=== PATIENT | male | born 1970 | race Caucasian/White ===

== ENCOUNTER 2016-12-06 15:26 | Emergency (ER) | payer MEDICARE ==
[2016-12-06 15:27] VITALS: BMI 30.7
[2016-12-06 15:33] VITALS: BP 177/89; PULSE 76; RESP 22; TEMP 98.4; O2SAT 99
--- NOTE | 2016-12-06 15:53 | ED PDOC ---
Lower Extremity Pain/Injury Time Seen by Provider: 12/06/16 15:37 Chief Complaint (Nursing): Lower Extremity Problem/Injury Chief Complaint (Provider): Leg pain Additional Complaint(s): This is a 45 year old M with PMH of uncontrolled DM, ESRD on HD MWF,PVD, multiple right foot surgeries, presented to ED from [facility] for evaluation of b/l calf cramping, r/o DVT. Patient denies fever, chills, SOB, chest pain, palpitations, near syncope, dizziness, fatigue, abdominal pain. Patient is due for HD today at 1800. PMD:[facility]/ Dr. Koo/Dr. Millan Allergies: shellfish; pruritus; NKDA Medications: Hydralazine 50 mg TID, ASA 81 mg daily. Patient states he does not take insulin regimen due to diet and weight loss. Surgeries: AV shunt on R Upper extremity, multiple R foot surgeries Social: Patient admits to smoking 2 packs/day for "many years". Patient denies illicit drug use, and alcohol abuse. Past Medical History Reviewed: Historical Data, Nursing Documentation, Vital Signs Vital Signs: Last Vital Signs Temp 98.4 F 12/06/16 15:28 Pulse 76 12/06/16 15:28 Resp 22 12/06/16 15:28 BP 177/89 H 12/06/16 15:28 Pulse Ox 99 12/06/16 15:28 - Medical History PMH: Diabetes, HTN, End Stage Renal Disease, Chronic Kidney Disease Denies: Arthritis, CHF, COPD, HIV, Hypercholesterolemia, Hypothyroidism, Rheumatoid Arthritis - Family History Family History: States: Unknown Family Hx - Home Medications Home Medications: Ambulatory Orders Medication Instructions Recorded Aspirin [Aspirin Chewable] 81 mg PO PRN PRN 11/22/15 hydrALAZINE [hydralazine 50 mg PO TID 11/22/15 Hydrochloride] Atorvastatin [Lipitor] 40 mg PO DAILY #30 tab 09/12/16 Lisinopril [Prinivil] 5 mg PO DAILY #30 tablet 09/12/16 Metoprolol Tartrate [Lopressor] 12.5 mg PO BID #60 tab 09/12/16 Sevelamer [Renagel] 1,600 mg PO TID #90 tab 09/12/16 - Allergies Allergies/Adverse Reactions: Allergies Allergy/AdvReac Type Severity Reaction Status Date / Time shellfish Allergy ITCHING Uncoded 09/08/16 15:43 Review of Systems ROS Statement: Except As Marked, All Systems Reviewed And Found Negative Musculoskeletal: Positive for: Leg Pain Physical Exam - Reviewed Nursing Documentation Reviewed: Yes Vital Signs Reviewed: Yes - Physical Exam Appears: Positive for: Well, Non-toxic, No Acute Distress Head Exam: Positive for: ATRAUMATIC, NORMAL INSPECTION, NORMOCEPHALIC Skin: Positive for: Normal Color, Warm, DRY Eye Exam: Positive for: EOMI, Normal appearance, PERRL ENT: Positive for: Normal ENT Inspection Neck: Positive for: Normal, Painless ROM Cardiovascular/Chest: Positive for: Regular Rate, Rhythm Respiratory: Positive for: CNT, Normal Breath Sounds Gastrointestinal/Abdominal: Positive for: Normal Exam, Bowel Sounds, Soft Back: Positive for: Normal Inspection Extremity: Positive for: Normal ROM, Calf Tenderness Neurologic/Psych: Positive for: Alert, Oriented - Laboratory Results Result Diagrams: 12/06/16 17:48 12/06/16 17:48 - ECG O2 Sat by Pulse Oximetry: 99 Medical Decision Making Medical Decision Making: K WNL GUN 42 Cr 8 Duplex US LE b/l IMPRESSION: No evidence of deep venous thrombosis. Spoke to jack winder Bri [phone], Pt rescheduled to tomorrow at 1500. Case discussed with Dr. Koo as well, agreed Pt stable for discharge at this time and Pt is able to wait until tomorrow to undergo HD. Disposition - Clinical Impression Clinical Impression: End stage kidney disease, Lower extremity pain - Patient ED Disposition Is Patient to be Admitted: No - Disposition Disposition: Routine/Home Disposition Time: 17:00 Condition: STABLE Additional Instructions: Dialysis tomorrow at 3 pm! Instructions: Leg Cramps (ED) - POA Present On Arrival: None
[2016-12-06 18:05] LABS: BASO # 0.1 K/uL (0.0-0.2); BASO % 1.7 % (0.0-2.0); EOS # 0.1 K/uL (0.0-0.7); EOS % 2.9 % (0.0-4.0); HEMATOCRIT 34.5 % (35.0-51.0); LYMPH # 0.7 K/uL (1.0-4.3); LYMPH % 15.2 % (20.0-40.0); MEAN CELL VOLUME 95.9 fl (80.0-94.0); MEAN CORPUSCULAR HGB CONC 32.3 g/dL (33.0-37.0); MEAN PLATELET VOLUME 8.5 fl (7.2-11.7); MONO # 0.4 K/uL (0.0-0.8); MONO % 9.1 % (0.0-10.0); NEUT # 3.4 K/uL (1.8-7.0); NEUT % 71.1 % (50.0-75.0); RED CELL DISTRIBUTION WIDTH 15.1 % (11.5-14.5); WHITE BLOOD COUNT 4.8 K/uL (4.8-10.8)
[2016-12-06 18:09] LABS: ALB/GLOB RATIO 1.2 (1.0-2.1); BILIRUBIN,TOTAL 1.1 mg/dl (0.2-1.3); CALCIUM 8.9 mg/dL (8.4-10.2); POTASSIUM 4.4 MMOL/L (3.6-5.0); TOTAL PROTEIN 8.1 G/DL (6.3-8.2)
--- NOTE | 2016-12-06 18:12 | RAD ---
HISTORY: med screening COMPARISON: Comparison chest 09/08/2016 TECHNIQUE: Chest PA and lateral FINDINGS: LUNGS: No focal consolidation. Central pulmonary vasculature appears slightly prominent ; rule out chronic compensated pulmonary edema/CHF. PLEURA: No significant pleural effusion identified. No pneumothorax apparent. CARDIOVASCULAR: Heart appears enlarged. OSSEOUS STRUCTURES: No significant abnormalities. VISUALIZED UPPER ABDOMEN: Normal. OTHER FINDINGS: None. IMPRESSION: No acute infiltrates mildly prominent central pulmonary vasculature. Rule out mild chronic compensated pulmonary edema/CHF Cardiomegaly.
[2016-12-06 18:16] LABS: PARTIAL THROMBOPLASTIN TIME 28.9 SECONDS (23.3-32.5)
[2016-12-06 18:21] LABS: TROPONIN I 0.068 ng/mL (0.00-0.120)
--- NOTE | 2016-12-06 18:50 | US ---
PROCEDURE: Bilateral lower extremity venous duplex Doppler. HISTORY: r/o dvt COMPARISON: None available. TECHNIQUE: Bilateral common femoral, superficial femoral, popliteal and posterior tibial veins were evaluated. Flow was assessed with color Doppler, compressibility, assessment of phasic flow and augmentation response. FINDINGS: COMMON FEMORAL VEIN: Right CFV: Unremarkable. Left CFV: Unremarkable. SUPERFICIAL FEMORAL VEIN: Right SFV: Unremarkable. Left SFV: Unremarkable. POPLITEAL VEIN: Right Popliteal: Unremarkable. Left Popliteal: Unremarkable. POSTERIOR TIBIAL VEIN: Right PTV: Unremarkable. Left PTV: Unremarkable. OTHER FINDINGS: None. IMPRESSION: No evidence of deep venous thrombosis.
--- NOTE | 2016-12-07 11:35 | CARD ---
APPROVED REPORT EKG Measurement Heart [id number] <Conclusion> Normal sinus rhythm Left axis deviation Abnormal ECG
== END 2016-12-06 19:17 | disposition home or self-care (01) ==
LOC: H.ER 15:26
DX: M79.606 Pain in leg, unspecified (principal); N18.6 End stage renal disease; E11.9 Type 2 diabetes mellitus without complications

== ENCOUNTER 2017-01-22 15:17 | Emergency (ER) | payer MEDICARE ==
[2017-01-22 15:18] VITALS: BMI 30.7
[2017-01-22 15:26] VITALS: PULSE 76; TEMP 98.6; O2SAT 98
--- NOTE | 2017-01-22 15:41 | ED PDOC ---
HPI: Headache Time Seen by Provider: 01/22/17 15:31 Chief Complaint (Nursing): Headache Chief Complaint (Provider): Head Injury History Per: Patient Additional Complaint(s): Patient fell this am on kitchen floor. Patient has contusion on right side of scalp. Left shoulder pain. Patient due for dialysis today, patient rescheduled for sat. Patient took aspirin at 4am. Past Medical History Vital Signs: Last Vital Signs Temp 98.6 F 01/22/17 15:22 Pulse 76 01/22/17 15:22 Resp 18 01/22/17 15:22 BP 180/80 H 01/22/17 15:22 Pulse Ox 98 01/22/17 15:22 - Medical History PMH: Diabetes, HTN, End Stage Renal Disease, Chronic Kidney Disease Denies: Arthritis, CHF, COPD, HIV, Hypercholesterolemia, Hypothyroidism, Rheumatoid Arthritis - Family History Family History: States: Unknown Family Hx - Home Medications Home Medications: Ambulatory Orders Medication Instructions Recorded Aspirin [Aspirin Chewable] 81 mg PO PRN PRN 11/22/15 hydrALAZINE [hydralazine 50 mg PO TID 11/22/15 Hydrochloride] Atorvastatin [Lipitor] 40 mg PO DAILY #30 tab 09/12/16 Lisinopril [Prinivil] 5 mg PO DAILY #30 tablet 09/12/16 Metoprolol Tartrate [Lopressor] 12.5 mg PO BID #60 tab 09/12/16 Sevelamer [Renagel] 1,600 mg PO TID #90 tab 09/12/16 Cyclobenzaprine [Cyclobenzaprine 10 mg PO TID #20 tab 01/22/17 HCl] - Allergies Allergies/Adverse Reactions: Allergies Allergy/AdvReac Type Severity Reaction Status Date / Time shellfish Allergy ITCHING Uncoded 09/08/16 15:43 Physical Exam - Reviewed Nursing Documentation Reviewed: Yes Vital Signs Reviewed: Yes - Physical Exam Appears: Positive for: Well, Non-toxic, No Acute Distress Head Exam: Positive for: NORMAL INSPECTION, NORMOCEPHALIC. Negative for: ATRAUMATIC (large occipital scalp hematoms) Skin: Positive for: Normal Color, Warm, DRY Eye Exam: Positive for: EOMI, Normal appearance, PERRL ENT: Positive for: Normal ENT Inspection Neck: Positive for: Normal, Painless ROM Cardiovascular/Chest: Positive for: Regular Rate, Rhythm Respiratory: Positive for: CNT, Normal Breath Sounds Gastrointestinal/Abdominal: Positive for: Normal Exam, Bowel Sounds, Soft Back: Positive for: Normal Inspection Extremity: Positive for: Normal ROM Neurologic/Psych: Positive for: Alert, Oriented - Laboratory Results Result Diagrams: 01/22/17 16:34 01/22/17 16:34 - ECG O2 Sat by Pulse Oximetry: 98 Medical Decision Making Medical Decision Making: head and Cervical Spine CT: Negative XR of Shoulder: NAd, as read by PA-C Pt mediated with Flexeril PO, reports feeling improved on re-eval. ice applied to scalp hematoma Labs resulted and reviewed with pt who demonstrated full understanding. Pt reports his Dialysis that was cheduled today has been moved to tomorrow and Friday. Stable for discharge at this time. Advised to return to ED with any concerns. Disposition - Clinical Impression Clinical Impression: Head injury - Patient ED Disposition Is Patient to be Admitted: No - Disposition Disposition: Routine/Home Disposition Time: 16:00 Condition: STABLE Prescriptions: Cyclobenzaprine [Cyclobenzaprine HCl] 10 mg PO TID #20 tab Instructions: Head Injury (ED)
--- NOTE | 2017-01-22 16:41 | RAD ---
PROCEDURE: Left shoulder HISTORY: pain s.p slip and fall COMPARISON: None TECHNIQUE: Stable view FINDINGS: No significant/acute osseous, articular or soft tissue abnormalities. IMPRESSION: No acute findings related to/accounting for the clinical presentation. Limitations of the current examination: Single-view only left shoulder.
--- NOTE | 2017-01-22 16:46 | CT ---
PROCEDURE: CT HEAD WITHOUT CONTRAST. HISTORY: head injury COMPARISON: Noncontrast head CT images from 04/07/10 TECHNIQUE: Axial computed tomography images were obtained through the head/brain without intravenous contrast. Radiation dose: Total exam DLP = 858.46 mGy-cm. This CT exam was performed using one or more of the following dose reduction techniques: Automated exposure control, adjustment of the mA and/or kV according to patient size, and/or use of iterative reconstruction technique. FINDINGS: HEMORRHAGE: No intracranial hemorrhage. BRAIN: Diffuse atrophy with prominence of the ventricles and sulci noted. No mass effect or edema. Intracranial atherosclerotic calcifications. Mild scattered white matter hypodensities, which are nonspecific, but often seen with chronic microvascular ischemic disease. Please note that MRI with diffusion imaging is more sensitive in the detection of acute ischemic event. VENTRICLES: No hydrocephalus. CALVARIUM: Unremarkable. PARANASAL SINUSES: Unremarkable as visualized. No significant inflammatory changes. MASTOID AIR CELLS: Unremarkable as visualized. No inflammatory changes. OTHER FINDINGS: Hematoma/swelling of the right superior scalp. Hematoma/skin thickening of the posterior scalp. Subcutaneous 14 x 17 mm left scalp nodule, possibly sebaceous cyst. Partial opacification of the left external auditory canal, likely seroma. IMPRESSION: Hematoma/swelling of the right superior scalp. Hematoma/skin thickening of the posterior scalp. Subcutaneous 14 x 17 mm left scalp nodule, possibly sebaceous cyst. No acute intracranial pathology identified.
[2017-01-22 16:50] LABS: BASO # 0.1 K/uL (0.0-0.2); BASO % 1.4 % (0.0-2.0); EOS # 0.1 K/uL (0.0-0.7); HEMOGLOBIN 10.3 g/dL (12.0-18.0); LYMPH # 0.7 K/uL (1.0-4.3); LYMPH % 16.5 % (20.0-40.0); MEAN CELL VOLUME 95.4 fl (80.0-94.0); MEAN CORPUSCULAR HEMOGLOBIN 31.4 pg (27.0-31.0); MEAN CORPUSCULAR HGB CONC 32.9 g/dL (33.0-37.0); MEAN PLATELET VOLUME 9.5 fl (7.2-11.7); MONO # 0.4 K/uL (0.0-0.8); MONO % 9.3 % (0.0-10.0); NEUT % 69.8 % (50.0-75.0); RBC 3.29 Mil/uL (4.40-5.90); RED CELL DISTRIBUTION WIDTH 14.9 % (11.5-14.5); WHITE BLOOD COUNT 4.2 K/uL (4.8-10.8)
[2017-01-22 17:00] LABS: ALB/GLOB RATIO 1.2 (1.0-2.1); ALBUMIN 3.9 g/dL (3.5-5.0); CALCIUM 8.6 mg/dL (8.4-10.2)
--- NOTE | 2017-01-22 17:15 | CT ---
CT cervical spine without IV contrast Indication: Pain status post fall Comparison: None available. Technique: Axial computed tomography images were obtained of the cervical spine without the use of intravenous contrast. Coronal and sagittal reformatted images were created and reviewed. This CT exam was performed using 1 or more of the falling dose reduction techniques: Automated exposure control, adjustment of the MAA and/or kV according to patient size, and/or use of iterative reconstruction technique. Radiation dose: Total exam DLP = 503.67 mGy-cm. Findings: Straightening of the normal cervical lordosis may be related to muscle spasm or positioning. There is no evidence of acute fracture or subluxation. There is preserved alignment, vertebral body height, intervertebral disc spaces. The prevertebral soft tissues and spinolaminar lines appear intact. The lateral masses are preserved. The dens tip is intact. There is proper alignment of the lateral masses of C1 with the C2 vertebral body. Included portions of the thyroid gland appear unremarkable. Impression: Straightening of the normal cervical lordosis may be related to muscle spasm or positioning. No evidence of acute fracture or subluxation.
[2017-01-22 17:59] VITALS: BP 132/74; RESP 19
== END 2017-01-22 17:55 | disposition home or self-care (01) ==
LOC: H.ER 15:17
DX: S09.90XA Unspecified injury of head, initial encounter (principal); E11.22 Type 2 diabetes mellitus with diabetic chronic kidney disease; N18.6 End stage renal disease; Z79.82 Long term (current) use of aspirin; W01.0XXA Fall on same level from slipping, tripping and stumbling without subsequent striking against object, initial encounter; Y93.9 Activity, unspecified; Y92.000 Kitchen of unspecified non-institutional (private) residence as the place of occurrence of the external cause

== ENCOUNTER 2017-01-29 19:00 | Inpatient (IN) | payer MEDICARE ==
[2017-01-29 19:01] VITALS: BMI 30.7
[2017-01-29] MEDS ORDERED: Vancomycin 1 g Inj ONE (19:38)
--- NOTE | 2017-01-29 19:40 | ED PDOC ---
Lower Extremity Pain/Injury Time Seen by Provider: 01/29/17 19:25 Chief Complaint (Nursing): Lower Extremity Problem/Injury Chief Complaint (Provider): Lower Extremity Problem/Injury History Per: Patient History/Exam Limitations: no limitations Onset/Duration Of Symptoms: Days (x2 days) Current Symptoms Are (Timing): Still Present Additional Complaint(s): 46 y/o male with a past medical history of diabetes and chronic renal failure status post amputation of all toes on the right foot who presents to the emergency department with a complaint of redness and swelling to the right lower extremity in association with drainage to amputation site of the right foot x2 days. Reports he missed dialysis today due to symptoms on foot. Denies fever and chills. PMD: Dr. Ravi Rodriguez MD Past Medical History Reviewed: Historical Data, Nursing Documentation, Vital Signs Vital Signs: Last Vital Signs Temp 98.3 F 01/29/17 19:15 Pulse 86 01/29/17 19:15 Resp 18 01/29/17 19:15 BP 174/87 H 01/29/17 19:15 Pulse Ox 100 01/29/17 19:15 - Medical History PMH: Diabetes, HTN, End Stage Renal Disease, Chronic Kidney Disease Denies: Arthritis, CHF, COPD, HIV, Hypercholesterolemia, Hypothyroidism, Rheumatoid Arthritis - Surgical History Other surgeries: Amputation of all 5 toes from the right foot - Family History Family History: States: Unknown Family Hx - Social History Current smoker - smoking cessation education provided: Yes (Heavy Smoker > 10 Cigarettes ) Ex-Smoker (has not smoked in the last 12 months): No Alcohol: None Drugs: Denies - Home Medications Home Medications: Ambulatory Orders Medication Instructions Recorded Aspirin [Aspirin Chewable] 81 mg PO PRN PRN 11/22/15 hydrALAZINE [hydralazine 50 mg PO TID 11/22/15 Hydrochloride] Atorvastatin [Lipitor] 40 mg PO DAILY #30 tab 09/12/16 Lisinopril [Prinivil] 5 mg PO DAILY #30 tablet 09/12/16 Metoprolol Tartrate [Lopressor] 12.5 mg PO BID #60 tab 09/12/16 Sevelamer [Renagel] 1,600 mg PO TID #90 tab 09/12/16 Cyclobenzaprine [Cyclobenzaprine 10 mg PO TID #20 tab 01/22/17 HCl] - Allergies Allergies/Adverse Reactions: Allergies Allergy/AdvReac Type Severity Reaction Status Date / Time shellfish Allergy ITCHING Uncoded 09/08/16 15:43 Review of Systems ROS Statement: Except As Marked, All Systems Reviewed And Found Negative Constitutional: Negative for: Fever, Chills Musculoskeletal: Positive for: Leg Pain (Lower right extremity pain with redness and swelling. ), Other (Drainage to ammputation site of the right foot. ) Physical Exam - Reviewed Nursing Documentation Reviewed: Yes Vital Signs Reviewed: Yes - Physical Exam Appears: Positive for: Non-toxic, No Acute Distress Head Exam: Positive for: ATRAUMATIC, NORMAL INSPECTION, NORMOCEPHALIC Skin: Positive for: Normal Color, Warm, Dry Cardiovascular/Chest: Positive for: Regular Rate, Rhythm. Negative for: Murmur Respiratory: Positive for: Normal Breath Sounds. Negative for: Accessory Muscle Use, Respiratory Distress Gastrointestinal/Abdominal: Positive for: Normal Exam, Soft. Negative for: Tenderness Extremity: Positive for: Normal ROM, Tenderness (to the right rivera and peritubular area), Swelling (Swelling and warmth to the right rivera and peritubular area), Other (Right foot chronic ulcer to the 4th and 5th metatarsal area with foul smelling drainage. ). Negative for: Pedal Edema, Calf Tenderness - Laboratory Results Result Diagrams: 01/29/17 20:00 - ECG O2 Sat by Pulse Oximetry: 100 (RA) Pulse Ox Interpretation: Normal Medical Decision Making Medical Decision Making: Time: 19:31 Initial impression: Right lower leg pain Initial plan: --VBG Shock Panel --Electrocardiogram STAT --COMP Metabolic Panel --ED Urine Dipstick (POC) --EKG-ED (EDNURTX) --CBC w/ differential --Chest Two Views (PA/LAT) (RAD) --Vancomycin 1 gm --Blood Culture STAT --Duplex Lower Extrm Vein Right (US) --Reevaluation Scribe Attestation: Documented by Radha Rose, acting as a scribe for Junito Chilel MD. Provider Scribe Attestation: All medical record entries made by the Scribe were at my direction and personally dictated by me. I have reviewed the chart and agree that the record accurately reflects my personal performance of the history, physical exam, medical decision making, and the department course for this patient. I have also personally directed, reviewed, and agree with the discharge instructions and disposition. Disposition - Clinical Impression Clinical Impression: Diabetic foot infection - Patient ED Disposition Is Patient to be Admitted: Yes - Disposition Disposition Time: 20:00 Condition: FAIR - Pt Status Changed To: Hospital Disposition Of: Inpatient - Admit Certification Admit to Inpatient:: After my assessment, the patient will require hospitalization for at least two midnights. This is because of the severity of symptoms shown, intensity of services needed, and/or the medical risk in this patient being treated as an outpatient. - POA Present On Arrival: None
[2017-01-29 20:04] LABS: VENOUS BLOOD GAS PCO2 50 mmHg (40-60); VENOUS BLOOD GAS PO2 22 mm/Hg (30-55)
[2017-01-29 20:05] LABS: BASO # 0.1 K/uL (0.0-0.2); BASO % 1.2 % (0.0-2.0); EOS # 0.1 K/uL (0.0-0.7); EOS % 2.8 % (0.0-4.0); LYMPH # 0.8 K/uL (1.0-4.3); LYMPH % 16.6 % (20.0-40.0); MEAN CELL VOLUME 95.2 fl (80.0-94.0); MEAN CORPUSCULAR HEMOGLOBIN 31.4 pg (27.0-31.0); MEAN PLATELET VOLUME 9.2 fl (7.2-11.7); MONO # 0.5 K/uL (0.0-0.8); MONO % 9.6 % (0.0-10.0); NEUT # 3.3 K/uL (1.8-7.0); NEUT % 69.8 % (50.0-75.0); NRBC % 0.1 % (0.0-0.0); RBC 3.51 Mil/uL (4.40-5.90); RED CELL DISTRIBUTION WIDTH 15.3 % (11.5-14.5); WHITE BLOOD COUNT 4.7 K/uL (4.8-10.8)
--- NOTE | 2017-01-29 20:26 | CP.PCM.HP ---
History of Present Illness - History of Present Illness History of Present Illness: 46 yo M w PMHx of ESRD (HD on MWF), HTN, DM, and RLE complete digit amputation is admitted for RLE fullness, pain, and drainage for one day. He decided to skip today's dialysis appointment in order to receive it in the hospital, knowing that he was going to come here for his RLE pain. Pt states he attended a green party at a friend's house and sat around for a great deal of time. From that day, he began experiencing an increasing sensation of fullness/heaviness in his RLE. He denies any trauma, fall, accident, or inciting event to cause his pain. Today, he developed a dull, aching pain as well as saw some fluid drainage from his wound when he removed his sock. Pt denies fevers/chills, diaphoresis, nausea , vomiting, diarrhea, chest pain, SOB, dyspnea, cough, abdominal pain, hematuria , or dysuria. PMD: [facility] Podiatry: Dr Cerrato Nephro: Dr Koo PMHx: ESRD (HD MWF), HTN, DM PSHx: R TMA 2016, R TMA site skin graft Oct NKDA Home Meds: unsure of Hydralazine dosage and schedule, unsure of other medications; most meds not in eCW, information taken from recent admissions SHx: smokes 5 cigarettes per day, denies ETOH, denies illicit drugs ED Course: -CBC -BMP -VBG -BCx -Udip -EKG -CXR -U/S RLE -Vancomycin 1 gm Present on Admission - Present on Admission Any Indicators Present on Admission: No History of DVT/PE: No History of Uncontrolled Diabetes: No Urinary Catheter: No Decubitus Ulcer Present: No Review of Systems - Review of Systems All systems: reviewed and no additional remarkable complaints except (see HPI) Past Patient History - Infectious Disease Hx of Infectious Diseases: None - Past Medical History & Family History Past Medical History?: Yes - Past Social History Alcohol: None Drugs: Denies - CARDIAC Hx Congestive Heart Failure: No Hx Hypercholesterolemia: No Hx Hypertension: Yes - PULMONARY Hx Chronic Obstructive Pulmonary Disease (COPD): No - NEUROLOGICAL HX Cerebrovascular Accident: No - HEENT Hx HEENT Problems: Yes Hx Cataracts: Yes - RENAL Hx Chronic Kidney Disease: Yes - ENDOCRINE/METABOLIC Hx Hypothyroidism: No - HEMATOLOGICAL/ONCOLOGICAL Hx Human Immunodeficiency Virus (HIV): No - INTEGUMENTARY Hx Dermatological Problems: No - MUSCULOSKELETAL/RHEUMATOLOGICAL Hx Arthritis: No Hx Rheumatoid Arthritis: No - GASTROINTESTINAL Hx Gastrointestinal Disorders: No - GENITOURINARY/GYNECOLOGICAL Hx Genitourinary Disorders: No - PSYCHIATRIC Hx Psychophysiologic Disorder: No Hx Substance Use: No - SURGICAL HISTORY Hx Surgeries: Yes Hx Amputation: Yes (TRANSMETATARSAL RIGHT FT) Hx Cataract Extraction: Yes (Right eye - 2008) Other/Comment: rt upper shunt 09/05/2016 - ANESTHESIA Hx Anesthesia: Yes Hx Anesthesia Reactions: No Hx Malignant Hyperthermia: No Meds Allergies/Adverse Reactions: Allergies Allergy/AdvReac Type Severity Reaction Status Date / Time shellfish Allergy ITCHING Uncoded 09/08/16 15:43 Physical Exam - Constitutional Appears: Non-toxic, No Acute Distress - Head Exam Head Exam: ATRAUMATIC, NORMOCEPHALIC - Eye Exam Eye Exam: EOMI - ENT Exam ENT Exam: Mucous Membranes Moist - Respiratory Exam Respiratory Exam: Clear to Auscultation Bilateral, NORMAL BREATHING PATTERN. absent: Wheezes - Cardiovascular Exam Cardiovascular Exam: REGULAR RHYTHM, RRR. absent: Irregular Rhythm - GI/Abdominal Exam GI & Abdominal Exam: Soft. absent: Distended, Firm, Guarding, Tenderness - Extremities Exam Extremities exam: Positive for: tenderness (distal Right rivera). Negative for: calf tenderness, pedal edema Additional comments: as seen w podiatry: no open lesions, no drainage, no malodor, no purulence, TMA site closed - Expanded Upper Extremities Exam Right Upper Arm exam: deformity (right upper arm shunt) - Neurological Exam Neurological exam: Alert, Oriented x3 - Skin Skin Exam: Dry, Normal Color, Warm Results - Vital Signs Recent Vital Signs: Last Vital Signs Temp 98.3 F 01/29/17 19:15 Pulse 86 01/29/17 19:15 Resp 18 01/29/17 19:15 BP 174/87 H 01/29/17 19:15 Pulse Ox 100 01/29/17 20:23 - Labs Result Diagrams: 01/29/17 20:00 01/29/17 22:25 Labs: Laboratory Results - last 24 hr 01/29/17 01/29/17 19:59 20:00 WBC 4.7 L RBC 3.51 L Hgb 11.0 L Hct 33.4 L MCV 95.2 H MCH 31.4 H MCHC 33.0 RDW 15.3 H Plt Count 130 MPV 9.2 Neut % (Auto) 69.8 Lymph % (Auto) 16.6 L Rutherford % (Auto) 9.6 Eos % (Auto) 2.8 Baso % (Auto) 1.2 Neut # 3.3 Lymph # 0.8 L Rutherford # 0.5 Eos # 0.1 Baso # 0.1 pO2 22 L VBG pH 7.40 VBG pCO2 50 VBG HCO3 27.2 VBG Total CO2 32.5 H VBG O2 Sat (Calc) 42.6 VBG Base Excess 5.0 H VBG Potassium 5.0 Sodium 134.0 Chloride 96.0 L Glucose 102 Lactate 0.9 FiO2 21.0 Venous Blood Potassium 5.0 Assessment & Plan - Assessment and Plan (Free Text) Assessment: 46 yo M w PMHx of ESRD (HD on MWF), HTN, DM, and RLE full digit amputation is admitted for RLE fullness, pain, with drainage for one day and missing his dialysis 1) ESRD -Missed today's dialysis, regularly scheduled for MWF -BUN/Cr: 63/9.1, GFR: 6 -Spoke w Dr Koo, Nephro aware of patient -Stat HD ordered -Sevelamer 1,600mg PO TID -f/u Nephro Recommendations -f/u BMP in AM 2) RLE Wound -Vancomycin 1g IVPB STAT [ED] -f/u R foot official XR -f/u CBC in AM -f/u ID Consult 3) HTN -Awaiting Dialysis, BPs presently 170s/90s -Hydralazine 50mg PO TID -Lisinopril 5mg PO Daily -Metoprolol 12.5mg PO Q12H -f/u BP measurements to ensure proper control s/p dialysis 4) DM -Lipitor 40mg PO Daily -ASA 81mg PO Daily -Glipizide 5mg PO Daily -Lispro 15u SC BID -Lispro MDSS ACHS -f/u FS ACHS 5) DVT Prophylaxis -Heparin 5,000u SC Q12H due to ESRD
--- NOTE | 2017-01-29 23:35 | CP.PCM.CON ---
History of Present Illness - History of Present Illness History of Present Illness: 46 y.o male with PMH of DM, HTN, ESRD, and CKD presents to the ED for right lower extremity pain, swelling, and redness. He is a patient of Dr. Cerrato who has continue caring for right healed TMA amputation 2 years ago. He states 2 days ago during a shower, he noted that there was a piece of dry skin hanging from his right foot. He peeled it and his foot started bleeding. He stopped the bleeding that night and have not noticed any bleeding or drainage since. He states that he is neuropathy and does not know if there is a wound underneath his foot but his leg has been feeling "heavy" lately. He states that his right leg "does not feel right" which caused him to miss his dialysis appointment. Patient denies v/sob/cp/f/chills. Patient admits to having nausea after dialysis for the past 2 weeks. PMH: DM, HTN, ESRD, and CKD PSH: TMA right foot Allergies: Shellfish Review of Systems - Review of Systems All systems: reviewed and no additional remarkable complaints except (per HPI) Past Patient History - Infectious Disease Hx of Infectious Diseases: None - Past Medical History & Family History Past Medical History?: Yes - Past Social History Alcohol: None Drugs: Denies - CARDIAC Hx Congestive Heart Failure: No Hx Hypercholesterolemia: No Hx Hypertension: Yes - PULMONARY Hx Chronic Obstructive Pulmonary Disease (COPD): No - NEUROLOGICAL HX Cerebrovascular Accident: No - HEENT Hx HEENT Problems: Yes - RENAL Hx Chronic Kidney Disease: Yes - ENDOCRINE/METABOLIC Hx Hypothyroidism: No - HEMATOLOGICAL/ONCOLOGICAL Hx Human Immunodeficiency Virus (HIV): No - INTEGUMENTARY Hx Dermatological Problems: No - MUSCULOSKELETAL/RHEUMATOLOGICAL Hx Arthritis: No Hx Rheumatoid Arthritis: No - GASTROINTESTINAL Hx Gastrointestinal Disorders: No - GENITOURINARY/GYNECOLOGICAL Hx Genitourinary Disorders: No - PSYCHIATRIC Hx Psychophysiologic Disorder: No - SURGICAL HISTORY Hx Surgeries: Yes Hx Amputation: Yes (TRANSMETATARSAL RIGHT FT) Hx Cataract Extraction: Yes (Right eye - 2008) Other/Comment: rt upper shunt 09/05/2016 - ANESTHESIA Hx Anesthesia: Yes Hx Anesthesia Reactions: No Hx Malignant Hyperthermia: No Meds Allergies/Adverse Reactions: Allergies Allergy/AdvReac Type Severity Reaction Status Date / Time shellfish Allergy ITCHING Uncoded 09/08/16 15:43 - Medications Medications: Current Medications Aspirin (Aspirin Chewable) 81 mg PO DAILY PRN PRN Reason: MUSLCE PAIN Atorvastatin Calcium (Lipitor) 40 mg PO DAILY [facility] Hydralazine HCl (Apresoline) 50 mg PO TID [facility] Lisinopril (Zestril) 5 mg PO DAILY [facility] Sevelamer HCl (Renagel) 1,600 mg PO TID [facility] Physical Exam - Constitutional Appears: Well, Non-toxic, No Acute Distress - Extremities Exam Additional comments: Vasc: DP 1/4 bilaterally, PT 1/4 bilaterally, temperature gradient WNL left leg , right leg warm to warm, [employer] < 3 sec to all digits, edema noted to right leg. Ortho: pain with palpation of the entire right calf and foot. Neuro: grossly diminished bilaterally Derm: TMA site closed with scaling and hypertrophic growth at the distal tip noted, no open lesions, no drainage, no malodor, no purulence noted. Discolored stain skin noted to the distal lateral aspect of the closed TMA site secondary to continued gentia lis application; no necrotic skin noted. - Neurological Exam Neurological exam: Alert, Oriented x3 - Psychiatric Exam Psychiatric exam: Normal Affect, Normal Mood Results - Vital Signs Recent Vital Signs: Last Vital Signs Temp 99.2 F 01/29/17 21:55 Pulse 82 01/29/17 21:55 Resp 16 01/29/17 21:55 BP 179/90 H 01/29/17 21:55 Pulse Ox 95 01/29/17 21:54 - Labs Result Diagrams: 01/29/17 20:00 01/29/17 22:25 Labs: Laboratory Results - last 24 hr 01/29/17 01/29/17 01/29/17 19:59 20:00 22:25 WBC 4.7 L RBC 3.51 L Hgb 11.0 L Hct 33.4 L MCV 95.2 H MCH 31.4 H MCHC 33.0 RDW 15.3 H Plt Count 130 MPV 9.2 Neut % (Auto) 69.8 Lymph % (Auto) 16.6 L [place] % (Auto) 9.6 Eos % (Auto) 2.8 Baso % (Auto) 1.2 Neut # 3.3 Lymph # 0.8 L [place] # 0.5 Eos # 0.1 Baso # 0.1 pO2 22 L VBG pH 7.40 VBG pCO2 50 VBG HCO3 27.2 VBG Total CO2 32.5 H VBG O2 Sat (Calc) 42.6 VBG Base Excess 5.0 H VBG Potassium 5.0 Sodium 134.0 137 Chloride 96.0 L 97 L Glucose 102 Lactate 0.9 FiO2 21.0 Potassium 5.0 Carbon Dioxide 28 Anion Gap 17 BUN 63 H Creatinine 9.1 H* Est GFR ( Amer) 8 Est GFR (Non-Af Amer) 6 Random Glucose 104 Calcium 9.0 Venous Blood Potassium 5.0 Assessment & Plan - Assessment and Plan (Free Text) Assessment: 46 y.o male with right LLE swelling and redness Plan: Patient was examined and evaluated. Vitals, chart, and labs were reviewed (afebrile, WBC 4.7) Discussed plan in detail with attending Dr. Cerrato X-rays ordered of right foot- no gas emphysema noted, no fracture noted F/U ultrasound results- to rule out DVT No dressing is needed at this time for right LLE; no open lesions noted Podiatry will continue to follow in house - Date & Time Date: 01/29/17 Time: 10:00
--- NOTE | 2017-01-29 23:41 | CP.PCM.CON ---
History of Present Illness - History of Present Illness History of Present Illness: REASONS FOR CONSULT : ESRD ON HD [facility]. MISSED HIS OUT PT HD HE CAME TO ER ANEMIA OF CKD .. HGB 11 STABLE ELECTROLYTE ABNORMALITIES .. [place] NOW R [place] 46 y/o male with a past medical history of diabetes and chronic renal failure status post amputation of all toes on the right foot who presents to the emergency department with a complaint of redness and swelling to the right lower extremity in association with drainage to amputation site of the right foot x2 days. Reports he missed dialysis today due to symptoms on foot. Denies fever and chills. PMD: Dr. Ravi Rodriguez MD Past Medical History Reviewed: Historical Data, Nursing Documentation, Vital Signs Vital Signs: Last Vital Signs Temp 98.3 F 01/29/17 19:15 Pulse 86 01/29/17 19:15 Resp 18 01/29/17 19:15 BP 174/87 H 01/29/17 19:15 Pulse Ox 100 01/29/17 19:15 - Medical History PMH: Diabetes, HTN, End Stage Renal Disease, Chronic Kidney Disease Denies: Arthritis, CHF, COPD, HIV, Hypercholesterolemia, Hypothyroidism, Rheumatoid Arthritis - Surgical History Other surgeries: Amputation of all 5 toes from the right foot - Family History Family History: States: Unknown Family Hx Past Patient History - Infectious Disease Hx of Infectious Diseases: None - Past Medical History & Family History Past Medical History?: Yes - Past Social History Alcohol: None Drugs: Denies - CARDIAC Hx Congestive Heart Failure: No Hx Hypercholesterolemia: No Hx Hypertension: Yes - PULMONARY Hx Chronic Obstructive Pulmonary Disease (COPD): No - NEUROLOGICAL HX Cerebrovascular Accident: No - HEENT Hx HEENT Problems: Yes - RENAL Hx Chronic Kidney Disease: Yes - ENDOCRINE/METABOLIC Hx Hypothyroidism: No - HEMATOLOGICAL/ONCOLOGICAL Hx Human Immunodeficiency Virus (HIV): No - INTEGUMENTARY Hx Dermatological Problems: No - MUSCULOSKELETAL/RHEUMATOLOGICAL Hx Arthritis: No Hx Rheumatoid Arthritis: No - GASTROINTESTINAL Hx Gastrointestinal Disorders: No - GENITOURINARY/GYNECOLOGICAL Hx Genitourinary Disorders: No - PSYCHIATRIC Hx Psychophysiologic Disorder: No - SURGICAL HISTORY Hx Surgeries: Yes Hx Amputation: Yes (TRANSMETATARSAL RIGHT FT) Hx Cataract Extraction: Yes (Right eye - 2008) Other/Comment: rt upper shunt 09/05/2016 - ANESTHESIA Hx Anesthesia: Yes Hx Anesthesia Reactions: No Hx Malignant Hyperthermia: No Meds Allergies/Adverse Reactions: Allergies Allergy/AdvReac Type Severity Reaction Status Date / Time shellfish Allergy ITCHING Uncoded 09/08/16 15:43 - Medications Medications: Current Medications Aspirin (Aspirin Chewable) 81 mg PO DAILY PRN PRN Reason: MUSLCE PAIN Atorvastatin Calcium (Lipitor) 40 mg PO DAILY [facility]IS M Hydralazine HCl (Apresoline) 50 mg PO TID [facility] M Lisinopril (Zestril) 5 mg PO DAILY [facility] M Sevelamer HCl (Renagel) 1,600 mg PO TID [facility]IS M Results - Vital Signs Recent Vital Signs: Last Vital Signs Temp 99.2 F 01/29/17 23:34 Pulse 82 01/29/17 23:34 Resp 16 01/29/17 23:34 BP 179/90 H 01/29/17 23:34 Pulse Ox 95 01/29/17 23:34 - Labs Result Diagrams: 01/29/17 20:00 01/29/17 22:25 Labs: Laboratory Results - last 24 hr 01/29/17 01/29/17 01/29/17 19:59 20:00 22:25 WBC 4.7 L RBC 3.51 L Hgb 11.0 L Hct 33.4 L MCV 95.2 H MCH 31.4 H MCHC 33.0 RDW 15.3 H Plt Count 130 MPV 9.2 Neut % (Auto) 69.8 Lymph % (Auto) 16.6 L [place] % (Auto) 9.6 Eos % (Auto) 2.8 Baso % (Auto) 1.2 Neut # 3.3 Lymph # 0.8 L [place] # 0.5 Eos # 0.1 Baso # 0.1 pO2 22 L VBG pH 7.40 VBG pCO2 50 VBG HCO3 27.2 VBG Total CO2 32.5 H VBG O2 Sat (Calc) 42.6 VBG Base Excess 5.0 H VBG Potassium 5.0 Sodium 134.0 137 Chloride 96.0 L 97 L Glucose 102 Lactate 0.9 FiO2 21.0 Potassium 5.0 Carbon Dioxide 28 Anion Gap 17 BUN 63 H Creatinine 9.1 H* Est GFR ( Amer) 8 Est GFR (Non-Af Amer) 6 Random Glucose 104 Calcium 9.0 Venous Blood Potassium 5.0 Assessment & Plan - Assessment and Plan (Free Text) Assessment: ESRD ON HD W .. WILL GIVE HD NOW ( [facility] ).. THEN M W F ANEMIA OF CKD .. HGB 11 .. NO NEED FOR EPO ELECTROLYTES R [place] MULTIPLE CO MORBIDITIES CAME IN WITH INFECTED DIABETIC FOOT P : HD NOW .. LILIAM D/W HD RN .. ORDERS GIVEN C/O CURRENT CARE .. C/O PRESENT MANAGEMENT - Date & Time Date: 01/29/17 Time: 20:00
[2017-01-30 05:50] LABS: HEMOGLOBIN 10.8 g/dL (12.0-18.0); MEAN CORPUSCULAR HEMOGLOBIN 31.1 pg (27.0-31.0); MEAN CORPUSCULAR HGB CONC 32.8 g/dL (33.0-37.0); RBC 3.46 Mil/uL (4.40-5.90); RED CELL DISTRIBUTION WIDTH 15.2 % (11.5-14.5); WHITE BLOOD COUNT 3.7 K/uL (4.8-10.8)
[2017-01-30 06:16] LABS: CALCIUM 8.9 mg/dL (8.4-10.2)
[2017-01-30] MEDS: Insulin Lispro (humaLOG) 100 Units/ml Inj SC SCH ×5 (06:41→22:00)
[2017-01-30] MEDS ORDERED: Insulin Regular 100 units/ml SC SCH ×2 (07:30→09:00)
[2017-01-30] MEDS ORDERED: INSULIN ASPART 15 UNIT SC SCH (09:00)
[2017-01-30] MEDS ORDERED: Insulin Lispro (humaLOG) 100 Units/ml Inj SC SCH (09:00)
[2017-01-30] MEDS ORDERED: SEVELAMER CARBONATE PO SCH (09:00)
--- NOTE | 2017-01-30 12:36 | RAD ---
HISTORY: CRF COMPARISON: 12/06/2016 TECHNIQUE: Chest PA and lateral FINDINGS: LUNGS: No active pulmonary disease. PLEURA: No significant pleural effusion identified. No pneumothorax apparent. CARDIOVASCULAR: No radiographic findings to suggest acute or significant cardiovascular disease. OSSEOUS STRUCTURES: No significant abnormalities. VISUALIZED UPPER ABDOMEN: Normal. OTHER FINDINGS: None. IMPRESSION: No active disease. No significant interval change compared to the prior examination(s).
--- NOTE | 2017-01-30 12:42 | US ---
PROCEDURE: Right lower extremity venous duplex Doppler. HISTORY: r/o DVT COMPARISON: None available. TECHNIQUE: Common femoral, superficial femoral, popliteal and posterior tibial veins were evaluated. Flow was assessed with color Doppler, compressibility, assessment of phasic flow and augmentation response. FINDINGS: COMMON FEMORAL VEIN: Unremarkable. SUPERFICIAL FEMORAL VEIN: Unremarkable. POPLITEAL VEIN: Unremarkable. POSTERIOR TIBIAL VEIN: Unremarkable. OTHER FINDINGS: Enlarged right inguinal lymph node measuring approximately 1.2 cm in short axis with evidence of fatty hilum. IMPRESSION: No evidence of deep venous thrombosis in the right lower extremity. Enlarged right inguinal lymph node measures approximately 1.2 cm in short axis. Soft tissue edema, right ankle. Preliminary impression was provided by virtual radiologic.
--- NOTE | 2017-01-30 12:51 | CP.PCM.PN ---
Subjective - Date & Time of Evaluation Date of Evaluation: 01/30/17 Time of Evaluation: 12:48 - Subjective Subjective: 46 y/o male seen at bedside for right lower extremity pain, swelling, and redness. Pt is AAOx3 and is in NAD. Pt states that he was bleeding a little from his foot last night. Pt denies of any pain from the foot but states that his calf feels little tender. Pt denies of any acute overnight events. Pt denies of any F/N/V/C/SOB today. Pt denies of any new pedal complaints. Objective - Vital Signs/Intake and Output Vital Signs (last 24 hours): Temp Pulse Resp BP Pulse Ox 97.4 F L 80 18 170/70 H 100 01/30/17 12:12 01/30/17 12:24 01/30/17 12:12 01/30/17 12:24 01/30/17 12:12 - Medications Medications: Current Medications Aspirin (Aspirin Chewable) 81 mg PO DAILY PRN PRN Reason: MUSLCE PAIN Atorvastatin Calcium (Lipitor) 40 mg PO DAILY [facility] Last Admin: 01/30/17 08:30 Dose: 40 mg Glipizide (Glucotrol) 5 mg PO DAILY [facility] Last Admin: 01/30/17 08:29 Dose: 5 mg Heparin Sodium (Porcine) (Heparin) 5,000 units SC Q12 [facility] PRN Reason: Protocol Last Admin: 01/30/17 08:29 Dose: 5,000 units Hydralazine HCl (Apresoline) 50 mg PO TID [facility] Last Admin: 01/30/17 12:24 Dose: 50 mg Insulin Human Lispro (Humalog) 15 units SC BID [facility] Last Admin: 01/30/17 08:30 Dose: 15 units Insulin Human Lispro (Humalog) 0 units SC ACHS [facility] PRN Reason: Protocol Last Admin: 01/30/17 11:17 Dose: Not Given Lisinopril (Zestril) 5 mg PO DAILY [facility] Last Admin: 01/30/17 08:31 Dose: 5 mg Metoprolol Tartrate (Lopressor) 12.5 mg PO Q12 [facility] Last Admin: 01/30/17 08:30 Dose: 12.5 mg Sevelamer HCl (Renagel) 1,600 mg PO TID [facility] Last Admin: 07/06/17 12:24 Dose: 1,600 mg - Labs Labs: 01/30/17 05:00 01/30/17 05:00 - Constitutional Appears: Well, Toxic, No Acute Distress - Extremities Exam Additional comments: Vasc: DP/PT pulses are palpable 1/4 b/l, TUB OPERATOR: < 3 sec x 10, temperature gradient : warm to cool, mild non-pitting edema noted to right leg. Derm: TMA on R foot with scaling and hypertrophic growth at the distal tip noted , open lesion on the distal lateral aspect of TMA site, no active drainage, no malodor, no purulence noted, no probe to bone, no clinical suspicion of infection Neuro: Protective sensation grossly diminished bilaterally Ortho: mild tenderness on right calf - Neurological Exam Neurological Exam: Alert, Awake, Oriented x3 - Psychiatric Exam Psychiatric exam: Normal Affect, Normal Mood Assessment and Plan - Assessment and Plan (Free Text) Assessment: 46 y/o male seen at bedside with right LLE swelling and redness secondary to possible DVT Plan: Pt evaluated and chart reviewed Pt discussed in details with attending Dr. Cerrato Labs and vitals reviewed: (afebrile, WBC @ 3.7) RLE Ultrasound - final report suggests no evidence of DVT X-rays ordered of right foot- no gas emphysema noted, no fracture noted Wound cultures taken Lesion dressed using betadine, DSD and kurlix Pt stable from podiatry standpoint Pt to follow up in wound clinic with Dr. Cerrato Pt demonstrated verbal understanding Podiatry to follow patient while in-house
--- NOTE | 2017-01-30 14:19 | CP.PCM.PN ---
Subjective - Date & Time of Evaluation Date of Evaluation: 01/30/17 Time of Evaluation: 14:19 - Subjective Subjective: Pt seen and examined. complaining of pain to RLE up to knee. denies fever, n/v and diarrhea. patient had dialysis this morning. Objective - Vital Signs/Intake and Output Vital Signs (last 24 hours): Temp Pulse Resp BP Pulse Ox 97.4 F L 80 18 170/70 H 100 01/30/17 12:12 01/30/17 12:24 01/30/17 12:12 01/30/17 12:24 01/30/17 12:12 - Medications Medications: Current Medications Aspirin (Aspirin Chewable) 81 mg PO DAILY PRN PRN Reason: MUSLCE PAIN Atorvastatin Calcium (Lipitor) 40 mg PO DAILY [facility] Last Admin: 01/30/17 08:30 Dose: 40 mg Glipizide (Glucotrol) 5 mg PO DAILY [facility] Last Admin: 01/30/17 08:29 Dose: 5 mg Heparin Sodium (Porcine) (Heparin) 5,000 units SC Q12 [facility] PRN Reason: Protocol Last Admin: 01/30/17 08:29 Dose: 5,000 units Hydralazine HCl (Apresoline) 50 mg PO TID [facility] Last Admin: 01/30/17 12:24 Dose: 50 mg Insulin Human Lispro (Humalog) 15 units SC BID [facility] Last Admin: 01/30/17 08:30 Dose: 15 units Insulin Human Lispro (Humalog) 0 units SC ACHS [facility] PRN Reason: Protocol Last Admin: 01/30/17 11:17 Dose: Not Given Lisinopril (Zestril) 5 mg PO DAILY [facility] Last Admin: 01/30/17 08:31 Dose: 5 mg Metoprolol Tartrate (Lopressor) 12.5 mg PO Q12 [facility] Last Admin: 01/30/17 08:30 Dose: 12.5 mg Sevelamer HCl (Renagel) 1,600 mg PO TID [facility] Last Admin: 01/30/17 12:24 Dose: 1,600 mg - Labs Labs: 01/30/17 05:00 01/30/17 05:00 - Constitutional Appears: Well, No Acute Distress - Head Exam Head Exam: ATRAUMATIC, NORMAL INSPECTION, NORMOCEPHALIC - Eye Exam Eye Exam: EOMI, Normal appearance - Neck Exam Neck Exam: Full ROM - Respiratory Exam Respiratory Exam: Clear to Ausculation Bilateral, NORMAL BREATHING PATTERN. absent: Accessory Muscle Use, Chest Wall Tenderness, Decreased Breath Sounds - Cardiovascular Exam Cardiovascular Exam: +S1, +S2. absent: Bradycardia, Tachycardia, Irregular Rhythm, +S4, Murmur - GI/Abdominal Exam GI & Abdominal Exam: Soft, Normal Bowel Sounds. absent: Tenderness - Extremities Exam Extremities Exam: Calf Tenderness (b/l but more prominent around right ankle), Tenderness. absent: Pedal Edema - Back Exam Back Exam: absent: CVA tenderness (L), CVA tenderness (R) - Neurological Exam Neurological Exam: Alert, Awake, CN II-XII Intact, Oriented x3 Neuro motor strength exam: Left Upper Extremity: 5, Right Upper Extremity: 5, Left Lower Extremity: 4, Right Lower Extremity: 4 - Psychiatric Exam Psychiatric exam: Anxious, Normal Mood - Skin Skin Exam: Normal Color - Additional Findings Additional findings: no drainage, no malodor, no purulence at [facility] site, small skin opening laterally at [facility] site Assessment and Plan - Assessment and Plan (Free Text) Assessment: 46 yo M w PMHx of ESRD (HD on MWF), HTN, DM, and RLE full digit amputation is admitted for RLE pain, swelling with drainage for one day and missing his dialysis. RLE Wound s/p transmetatarsal amputation -chronic RLE wound, following with Dr. Cerrato in wound care clinic weekly -mild discharged still present at [facility] site -RLE Ultrasound - prelimanary report suggests no evidence of DVT -X-rays ordered of right foot- which appeared to show no gas emphysema or fracture -f/u R foot official XR -f/u Wound cultures -Lesion dressed using betadine, DSD and kurlix -podiatry will follow pt -PT evalv requested ESRD -completed dialysis this morning, regularly scheduled for MWF -BUN/Cr: 28/4.3, GFR: 15 -Nephro aware of patient, Dr Koo -Vicky 1,600mg PO TID HTN -Uncontolled BP, sustolic is as high as 196. -questionable adherence to home meds -continue Hydralazine 50mg PO TID -Lisinopril changed to 10mg PO Daily from 5mg -continue Metoprolol 12.5mg PO Q12H -f/u BP measurements to ensure proper control IDDM2 -Lipitor 40mg PO Daily -ASA 81mg PO Daily -Glipizide 5mg PO Daily -Lispro 15u SC BID changes to 10u BID due to Hypoglaycemia -Lispro MDSS ACHS -f/u FS ACHS DVT Prophylaxis -Heparin 5,000u SC Q12H due to ESRD
--- NOTE | 2017-01-30 16:09 | RAD ---
PROCEDURE: Right Foot Radiographs. HISTORY: right foot pain COMPARISON: None. FINDINGS: BONES: Status post midfoot amputation. There is diffuse bone demineralization. There is no acute fracture or bone destruction. There is a large plantar calcaneal spur. The is a linear or ossific/calcific density inferior to the anterior calcaneus. JOINTS: Normal. SOFT TISSUES: There is soft tissue irregularity in the amputation stump. There are skin isaiah cyst superiorly and diffuse soft tissue swelling in the foot. OTHER FINDINGS: None. IMPRESSION: Status post midfoot amputation, diffuse soft tissue swelling in the foot and soft tissue irregularity in the stump.
[2017-01-30 16:58] LABS: HEPATITIS B SURFACE AG NEGATIVE (NEGATIVE)
[2017-01-30 17:03] LABS: HEPATITIS B CORE AB NEGATIVE (NEGATIVE)
--- NOTE | 2017-01-30 17:59 | CARD ---
APPROVED REPORT EKG Measurement Heart [id number] <Conclusion> Normal sinus rhythm Left anterior fascicular block Abnormal ECG
--- NOTE | 2017-01-30 19:40 | CP.PCM.PN ---
Subjective - Date & Time of Evaluation Date of Evaluation: 01/30/17 Time of Evaluation: 15:00 - Subjective Subjective: SEEN ON RENAL F/U RECIEVED HIS HD VERY EARLY TODAY .. TOLERATED WELL C/O R LOWER LEG LOCAL PAIN ALL PREVIOUS EMR REVIEWED Objective - Vital Signs/Intake and Output Vital Signs (last 24 hours): Temp Pulse Resp BP Pulse Ox 97.9 F 77 20 161/72 H 100 01/30/17 16:01 01/30/17 16:26 01/30/17 16:01 01/30/17 16:26 01/30/17 16:01 - Medications Medications: Current Medications Aspirin (Aspirin Chewable) 81 mg PO DAILY PRN PRN Reason: MUSLCE PAIN Atorvastatin Calcium (Lipitor) 40 mg PO DAILY [facility] Last Admin: 01/30/17 08:30 Dose: 40 mg Glipizide (Glucotrol) 5 mg PO DAILY [facility] Last Admin: 01/30/17 08:29 Dose: 5 mg Heparin Sodium (Porcine) (Heparin) 5,000 units SC Q12 [facility] PRN Reason: Protocol Last Admin: 01/30/17 08:29 Dose: 5,000 units Hydralazine HCl (Apresoline) 50 mg PO TID [facility] Last Admin: 01/30/17 16:26 Dose: 50 mg Insulin Human Lispro (Humalog) 0 units SC ACHS [facility] PRN Reason: Protocol Last Admin: 01/30/17 16:27 Dose: Not Given Insulin Human Lispro (Humalog) 10 units SC BID [facility] Last Admin: 01/30/17 16:28 Dose: Not Given Lisinopril (Zestril) 10 mg PO DAILY [facility] Metoprolol Tartrate (Lopressor) 12.5 mg PO Q12 [facility] Last Admin: 01/30/17 08:30 Dose: 12.5 mg Sevelamer HCl (Renagel) 1,600 mg PO TID [facility] Last Admin: 01/30/17 16:28 Dose: 1,600 mg Vitamin B Complex/Vit C/Folic Acid (Nephro-Sanjay) 1 tab PO DAILY [facility] - Labs Labs: 01/30/17 05:00 01/30/17 05:00 Assessment and Plan - Assessment and Plan (Free Text) Assessment: ESRD ON HD M W F .. NEXT HD TOMORROW ANEMIA OF CKD .. H/H STABLE .. NO NEED FOR EPO R FOOT INFECTED DIABETIC FOOT .. PODIATRY ON CONSULT DM .. HTN .. HYPERLEPIDIMIA P : CHECK MG PHOS AND VIT D25 ADD WATER SOLUBLE VIT ADD VIT D C/O CURRENT CARE
[2017-01-30] MEDS ORDERED: Ergocalciferol 50,000 Intl Units Cap PO SCH (19:45)
[2017-01-31 04:57] VITALS: O2SAT 100
--- NOTE | 2017-01-31 06:47 | CP.PCM.PN ---
Subjective - Date & Time of Evaluation Date of Evaluation: 01/31/17 Time of Evaluation: 06:45 - Subjective Subjective: 46 year old male patient seen at bedside for possible RLE DVT and R TMA plantar ulceration. Patient is resting comfortably, AAOx3 and NAD. Patient states his TMA site is still throbbing, but has decreased since yesterday. Patient admits to no R calf pain except when palpated. Patient was made aware that RLE US report was negative. Patient denies any acute events overnight. Patient denies N /V/F/D/SOB. No other pedal complaints at this time. Objective - Vital Signs/Intake and Output Vital Signs (last 24 hours): Temp Pulse Resp BP Pulse Ox 97.6 F 69 20 161/79 H 100 01/31/17 04:56 01/31/17 04:56 01/31/17 04:56 01/31/17 04:56 01/31/17 04:56 - Medications Medications: Current Medications Ascorbic Acid (Vitamin C 500 Mg Tab) 500 mg PO DAILY [facility] Aspirin (Aspirin Chewable) 81 mg PO DAILY PRN PRN Reason: MUSLCE PAIN Atorvastatin Calcium (Lipitor) 40 mg PO DAILY [facility] Last Admin: 01/30/17 08:30 Dose: 40 mg Ergocalciferol (Drisdol 50,000 Intl Units Cap) 1 cap PO Q7D [facility] Last Admin: 01/30/17 23:13 Dose: 1 cap Glipizide (Glucotrol) 5 mg PO DAILY [facility] Last Admin: 01/30/17 08:29 Dose: 5 mg Heparin Sodium (Porcine) (Heparin) 5,000 units SC Q12 [facility] PRN Reason: Protocol Last Admin: 01/30/17 22:35 Dose: 5,000 units Hydralazine HCl (Apresoline) 50 mg PO TID [facility] Last Admin: 01/30/17 16:26 Dose: 50 mg Insulin Human Lispro (Humalog) 0 units SC ACHS [facility] PRN Reason: Protocol Last Admin: 01/30/17 16:27 Dose: Not Given Insulin Human Lispro (Humalog) 10 units SC BID [facility] Last Admin: 01/30/17 16:28 Dose: Not Given Lisinopril (Zestril) 10 mg PO DAILY [facility] Metoprolol Tartrate (Lopressor) 12.5 mg PO Q12 [facility] Last Admin: 01/30/17 22:35 Dose: 12.5 mg Sevelamer HCl (Renagel) 1,600 mg PO TID [facility] Last Admin: 01/30/17 16:28 Dose: 1,600 mg Vitamin B Complex/Vit C/Folic Acid (Nephro-Sanjay) 1 tab PO DAILY [facility] - Labs Labs: 01/30/17 05:00 01/30/17 05:00 - Constitutional Appears: Well, Non-toxic, No Acute Distress - Extremities Exam Additional comments: Focused right lower extremity physical exam: Vasc: DP/PT pulses are palpable 1/4, CFT WNL to distal stump, temperature gradient: warm to warm, mild non-pitting edema noted to right leg. Derm: TMA on R foot with scaling and hypertrophic growth at the distal tip noted , open lesion on the distal lateral aspect of TMA site, no active drainage, no malodor, no purulence noted, no probe to bone, no clinical suspicion of infection Neuro: Protective sensation grossly diminished Ortho: Tenderness to palpation to right calf - Neurological Exam Neurological Exam: Alert, Awake, Oriented x3 - Psychiatric Exam Psychiatric exam: Normal Affect, Normal Mood Assessment and Plan - Assessment and Plan (Free Text) Assessment: 46 y/o male seen at bedside for RLE swelling and redness secondary to possible DVT Plan: Patient seen and evaluated at bedside. Discussed with attending, Dr. Cerrato. Charts, labs, vitals reviewed: afebrile, WBC @ 3.7. RLE US = negative for DVT Awaiting wound culture report RLE dressed with sterile 4x4s and kerlix Patient is stable from podiatry standpoint. Podiatry to follow patient while in-house. Patient is to follow up in wound clinic with Dr. Cerrato.
[2017-01-31] MEDS: Insulin Lispro (humaLOG) 100 Units/ml Inj SC SCH ×2 (06:57→09:43)
[2017-01-31 08:04] VITALS: BP 155/74; PULSE 67; RESP 18; TEMP 97.7
[2017-01-31] MEDS ORDERED: Multivitamin Vitamin B Complex (Nephro-Vite) Tab PO SCH (09:00)
[2017-01-31 12:52] LABS: MAGNESIUM 2.5 MG/DL (1.6-2.3)
--- NOTE | 2017-01-31 13:20 | CP.PCM.DIS ---
Provider - Provider Date of Admission: 01/29/17 19:36 Attending physician: Linda Ojeda MD Consults: Nephrology, Dr. Koo Podiatry, Dr. Cerrato Time Spent in preparation of Discharge (in minutes): 30 Diagnosis - Discharge Diagnosis (1) Lower extremity pain Status: Acute (2) Chronic wound of extremity Status: Acute Comment: Right lower extremity, LLE- History of transmetatarsal amputation of all digits (3) Diabetes mellitus Status: Chronic (4) End stage kidney disease Status: Chronic (5) Hypertension Status: Chronic Hospital Course - Lab Results Lab Results: Micro Results 01/30/17 Unknown Foot - Right Gram Stain - Final 01/30/17 Unknown Foot - Right Wound Culture - Preliminary Gram Negative Ervin Gram Positive Cocci 01/29/17 20:00 Blood-Venous Blood Culture - Preliminary NO GROWTH AFTER 24 HOURS Most Recent Lab Values WBC 3.7 K/uL (4.8-10.8) L 01/30/17 05:00 RBC 3.46 Mil/uL (4.40-5.90) L 01/30/17 05:00 Hgb 10.8 g/dL (12.0-18.0) L 01/30/17 05:00 Hct 32.9 % (35.0-51.0) L 01/30/17 05:00 MCV 95.0 fl (80.0-94.0) H 01/30/17 05:00 MCH 31.1 pg (27.0-31.0) H 01/30/17 05:00 MCHC 32.8 g/dL (33.0-37.0) L 01/30/17 05:00 RDW 15.2 % (11.5-14.5) H 01/30/17 05:00 Plt Count 83 K/uL (130-400) L D 01/30/17 05:00 MPV 9.2 fl (7.2-11.7) 01/29/17 20:00 Neut % (Auto) 69.8 % (50.0-75.0) 01/29/17 20:00 Lymph % (Auto) 16.6 % (20.0-40.0) L 01/29/17 20:00 [place] % (Auto) 9.6 % (0.0-10.0) 01/29/17 20:00 Eos % (Auto) 2.8 % (0.0-4.0) 01/29/17 20:00 Baso % (Auto) 1.2 % (0.0-2.0) 01/29/17 20:00 Neut # 3.3 K/uL (1.8-7.0) 01/29/17 20:00 Lymph # 0.8 K/uL (1.0-4.3) L 01/29/17 20:00 [place] # 0.5 K/uL (0.0-0.8) 01/29/17 20:00 Eos # 0.1 K/uL (0.0-0.7) 01/29/17 20:00 Baso # 0.1 K/uL (0.0-0.2) 01/29/17 20:00 pO2 22 mm/Hg (30-55) L 01/29/17 19:59 VBG pH 7.40 (7.32-7.43) 01/29/17 19:59 VBG pCO2 50 mmHg (40-60) 01/29/17 19:59 VBG HCO3 27.2 mmol/L 01/29/17 19:59 VBG Total CO2 32.5 mmol/L (22-28) H 01/29/17 19:59 VBG O2 Sat (Calc) 42.6 % (40-65) 01/29/17 19:59 VBG Base Excess 5.0 mmol/L (0.0-2.0) H 01/29/17 19:59 VBG Potassium 5.0 mmol/L (3.6-5.2) 01/29/17 19:59 Sodium 134.0 mmol/L (132-148) 01/29/17 19:59 Chloride 96.0 mmol/L (98-107) L 01/29/17 19:59 Glucose 102 mg/dL (75-110) 01/29/17 19:59 Lactate 0.9 mmol/L (0.7-2.1) 01/29/17 19:59 FiO2 21.0 % 01/29/17 19:59 Sodium 143 mmol/l (132-148) 01/30/17 05:00 Potassium 3.4 MMOL/L (3.6-5.0) L 01/30/17 05:00 Chloride 103 mmol/L (98-107) 01/30/17 05:00 Carbon Dioxide 29 mmol/L (22-30) 01/30/17 05:00 Anion Gap 14 (10-20) 01/30/17 05:00 BUN 28 mg/dl (9-20) H 01/30/17 05:00 Creatinine 4.3 mg/dL (0.8-1.5) H 01/30/17 05:00 Est GFR ( Amer) 18 01/30/17 05:00 Est GFR (Non-Af Amer) 15 01/30/17 05:00 POC Glucose (mg/dL) 71 mg/dL (65-110) 01/31/17 06:35 Random Glucose 107 mg/dL (75-110) 01/30/17 05:00 Hemoglobin A1c 5.9 % (4.2-6.5) 01/31/17 06:15 Calcium 8.9 mg/dL (8.4-10.2) 01/30/17 05:00 Phosphorus 7.0 mg/dl (2.5-4.5) H 01/30/17 07:00 Magnesium 2.5 MG/DL (1.6-2.3) H 01/30/17 07:00 Venous Blood Potassium 5.0 mmol/L (3.6-5.2) 01/29/17 19:59 Hep Bs Antigen Negative (NEGATIVE) 01/30/17 08:59 Hep Bs Antibody Positive (NEGATIVE) 01/30/17 10:08 Hep B Core IgM Ab Negative (NEGATIVE) 01/30/17 08:59 - Hospital Course Hospital Course: 46 yo M w PMHx of ESRD (HD on MWF), HTN, DM, and RLE transmetatarsal amputation is admitted for RLE pain, swelling with drainage for one day and missing his dialysis. during admission Podiatry was consulted, who believed wound was not infectious. A RLE US ruled out DVT. Nephrology, Dr. Koo was consulted and dialyzed on 01/30/17. During his hospital stay patient was found to have poorly controlled BP and Hypoglycemia. Patient's Lisinopril changed to 10mg PO Daily from 5mg and his Insulin was discontinued pending endocrine follow up (Dr. silverman). patient was d/c with f/u to wound clinic. - Date & Time of H&P Date of H&P: 01/29/17 Time of H&P: 20:26 Discharge Exam - Head Exam Head Exam: ATRAUMATIC, NORMAL INSPECTION, NORMOCEPHALIC - Eye Exam Eye Exam: EOMI, Normal appearance. absent: Nystagmus, Scleral icterus - Neck Exam Neck exam: Full Rom - Respiratory Exam Respiratory Exam: NORMAL BREATHING PATTERN. absent: Accessory Muscle Use, Chest Wall Tenderness, Decreased Breath Sounds, Wheezes, Respiratory Distress - Cardiovascular Exam Cardiovascular Exam: REGULAR RHYTHM, +S1, +S2. absent: Bradycardia, Tachycardia , JVD, +S4, Systolic Murmur - GI/Abdominal Exam GI & Abdominal Exam: Normal Bowel Sounds, Soft. absent: Tenderness - Extremities Exam Extremities exam: calf tenderness Additional comments: no drainage, no malodor, no purulence at TMA site, small skin opening laterally at TMA site - Back Exam Back exam: absent: CVA tenderness (L), CVA tenderness (R) - Neurological Exam Neurological exam: Alert, CN II-XII Intact, Oriented x3 - Psychiatric Exam Psychiatric exam: Normal Mood - Skin Skin Exam: Normal Color, Warm Discharge Plan - Discharge Medications Prescriptions: Lisinopril [Zestril] 10 mg PO DAILY #30 tab - Follow Up Plan Condition: FAIR Disposition: HOME/ ROUTINE Instructions: Diabetic Foot Care (DC), Hypertension (DC) Additional Instructions: Follow up with Dr Silverman after discharge Follow up with PCP after discharge Plan for scheduled wound care clinic and dialysis today as outpatient Discussed need for blood glucose monitoring and avoidance of hypoglycemia Reinforced need for adherence to antihypertensives
--- NOTE | 2017-02-03 09:24 | PQF GENQUE ---
This form is a permanent part of the medical record 02/03/17 Dr. Ojeda, The attending physician is required to clarify conflicting documentation in the medical record. The following documentation is noted in the medical record: Diagnosis 1: Diabetic foot infection , drainage/redness to amputation site Documented by: ER Diagnosis 2: RLE wound Documented by: H&P Diagnosis 3: Healed TMA site then on 01/31 R plantar ulceration Documented by: Podiatry PLEASE CLARIFY THE REASON FOR ADMISSION ER: status post amputation of all toes on the right foot who presents to the emergency department with a complaint of redness and swelling to the right lower extremity in association with drainage to amputation site of the right foot x2 days Diabetic foot infection H&P: Today, he developed a dull, aching pain as well as saw some fluid drainage from his wound when he removed his sock. Additional comments: no open lesions, no drainage, no malodor, no purulence, TMA site closed . IMP: RLE wound Podiatry: He is a patient of Dr. Cerrato who has continue caring for right healed TMA amputation 2 years ago. He states 2 days ago during a shower, he noted that there was a piece of dry skin hanging from his right foot. He peeled it and his foot started bleeding. He stopped the bleeding that night and have not noticed any bleeding or drainage since. He states that he is neuropathy and does not know if there is a wound underneath his foot but his leg has been feeling "heavy" lately. TMA site closed with scaling and hypertrophic growth at the distal tip noted, no open lesions , no drainage, no malodor, no purulence noted. Discolored stain skin noted to the distal lateral aspect of the closed TMA site secondary to continued gentia lis application 01/30 resident: Chronic RLE wound mild discharged still present at TMA site 01/31 podiatry: R plantar ulceration Clarification of your documentation is requested to better reflect the severity of illness and intensity of treatment of your patient. PHYSICIAN'S RESPONSE Based on your medical judgment of the clinical indicators outlined above please clarify the following: [] Practitioner response [] If unable to determine, please check the box, sign and date. Present On Admission (POA) Indicator: [] Present at the time of admission [] Not present at the time of admission [] Clinically Undetermined In responding to this query, please exercise your independent professional judgment. The fact that a question is asked does not imply that any particular answer is desired or expected. Thank you for your clarification on this documentation. If you have any questions please call:[phone] * Thank you, Amaris Larson RN CDMP MTDD
== END 2017-01-31 10:47 | disposition home or self-care (01) | DRG 638 ==
LOC: H.ER 19:00 → H.ERHOLD 19:36 → H.TEL 23:36
PROVIDERS: ADMIT Family Medicine Geriatric Medicine; ATTEND Family Medicine Geriatric Medicine
PROC: 5A1D00Z (ICD-10-PCS; principal; 2017-01-30)
DX: E11.621 Type 2 diabetes mellitus with foot ulcer (principal); I12.0 Hypertensive chronic kidney disease with stage 5 chronic kidney disease or end stage renal disease; N18.6 End stage renal disease; E11.22 Type 2 diabetes mellitus with diabetic chronic kidney disease; E11.628 Type 2 diabetes mellitus with other skin complications; D63.1 Anemia in chronic kidney disease; L08.9 Local infection of the skin and subcutaneous tissue, unspecified; E11.649 Type 2 diabetes mellitus with hypoglycemia without coma; F17.210 Nicotine dependence, cigarettes, uncomplicated; Z79.4 Long term (current) use of insulin; Z89.419 Acquired absence of unspecified great toe; Z89.429 Acquired absence of other toe(s), unspecified side; Z99.2 Dependence on renal dialysis; L03.031 Cellulitis of right toe

== ENCOUNTER 2018-01-13 12:13 | Inpatient (IN) | payer MEDICARE ==
--- NOTE | 2018-01-13 13:12 | ED PDOC ---
Lower Extremity Pain/Injury Time Seen by Provider: 01/13/18 13:12 Chief Complaint (Nursing): Lower Extremity Problem/Injury Chief Complaint (Provider): foot pain History Per: Patient Additional Complaint(s): 47 y/o male presents to ED for eval of poorly healing wound to left foot. Patient was seen by contractor general engineering, Dr. Rodriguez who told to come to ED for further evaluation. Patient denies fever but has had chills and feels warmth and swelling to left leg. Patient receives dialysis 3 times a week and is due for dialysis today. He states that this past Friday during dialysis he was given IV vancomycin due to left foot infection. 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 Rodriguez Past Medical History Reviewed: Historical Data, Nursing Documentation, Vital Signs Vital Signs: Last Vital Signs Temp 98.3 F 01/13/18 12:44 Pulse 65 01/13/18 12:44 Resp 16 01/13/18 12:44 BP 135/50 L 01/13/18 12:44 Pulse Ox 98 01/13/18 12:44 - Medical History PMH: Diabetes, HTN, End Stage Renal Disease - Surgical History Other surgeries: Right foot TMA - Family History Family History: States: No Known Family Hx - Living Arrangements Living Arrangements: With Family - Social History Current smoker - smoking cessation education provided: No Alcohol: None Drugs: Denies - Home Medications Home Medications: Ambulatory Orders Medication Instructions Recorded hydrALAZINE [Apresoline] 25 mg PO Q12 01/29/17 Calcium Carbonate [Tums] 3 tab PO WM 01/13/18 Lisinopril [Zestril] 10 mg PO DAILY 01/13/18 - Allergies Allergies/Adverse Reactions: Allergies Allergy/AdvReac Type Severity Reaction Status Date / Time shellfish Allergy ITCHING Uncoded 01/13/18 12:44 Review of Systems ROS Statement: Except As Marked, All Systems Reviewed And Found Negative Constitutional: Positive for: Chills. Negative for: Fever Cardiovascular: Negative for: Chest Pain Respiratory: Negative for: Cough Gastrointestinal: Negative for: Nausea, Vomiting Musculoskeletal: Positive for: Foot Pain (ulcer and cellulitis to left foot) Physical Exam - Reviewed Nursing Documentation Reviewed: Yes Vital Signs Reviewed: Yes - Physical Exam Appears: Positive for: Well, Non-toxic, No Acute Distress Skin: Positive for: Normal Color. Negative for: Rash Eye Exam: Positive for: Normal appearance Cardiovascular/Chest: Positive for: Regular Rate, Rhythm Respiratory: Positive for: Normal Breath Sounds Extremity: Positive for: Other (Ulcerated lesion noted to left fourth toe, mild active bleeding and mild serosanguineous drainage, diffuse swelling, erythema and tenderness to left foot and left ankle cellulitis) Neurologic/Psych: Positive for: Alert, Oriented - Laboratory Results Result Diagrams: 01/13/18 14:55 01/13/18 14:55 - ECG Interpretation Of ECG: NSR 62 bpm, no acute changes, reviewed by PA and ED attending O2 Sat by Pulse Oximetry: 98 Pulse Ox Interpretation: Normal - Other Rad Left foot and ankle x-ray X-Ray: Interpreted by Me, Viewed By Me X-Ray Interpretation: no acute fx or dis, STS CXR X-Ray: Interpreted by Me, Viewed By Me X-Ray Interpretation: no acute finding Medical Decision Making Medical Decision Makin47 y/o with left foot infection Plan: CBC CMP Wound culture - left foot CXR Left foot and ankle x-ray IV vancomycin IV zosyn IV zofran EKG Podiatry resident, Dr. Sina Cleary saw patient in ED and applied dressing. Consult ordered for Dr. Rodriguez. Patient is due for dialysis today, he usually has dialysis an outside facility but when he was hospitalized here, Dr. Koo sets him up with dialysis. Case was d/w Dr. Koo. He is familiar with patient and states to have floor nurse contact him once patient arrives on floor, at which time he will provide orders and arrange for dialysis. PMD is [facility] - Case was d/w resident, Dr. Clayton, patient admitted to med/surg. Disposition - Clinical Impression Clinical Impression: Ulcer of left foot, Cellulitis of left foot, End stage renal disease - Patient ED Disposition Is Patient to be Admitted: Yes - Disposition Disposition Time: 17:20 Condition: FAIR - Pt Status Changed To: Hospital Disposition Of: Inpatient - Admit Certification Admit to Inpatient:: After my assessment, the patient will require hospitalization for at least two midnights. This is because of the severity of symptoms shown, intensity of services needed, and/or the medical risk in this patient being treated as an outpatient. - POA Present On Arrival: None Results - Lab Results Lab Results: ED Patient Demographics Last Name: DOUGLASCER Status: To Floor First Name: DERRICK Priority: 3 URGENT Middle: Condition: FAIR Birthdate: 1970 Arrival Date/Time: 01/13/18 12:13 Age: 47 Arrival Mode: WALK - IN Sex: M Triaged At: 01/13/18 12:44 Language: NORWEGIAN Time Seen by Provider: 01/13/18 13:12 Stated Complaint: LT FOOT PAIN Chief Complaint: Lower Extremity Problem/Injury ED Location: ED MAIN Area: Station: Group: ED Provider: Junito Chilel ED Midlevel Provider: Shira Leon ED Nurse: Amisha Roche Primary Care Provider: Other Provider: Ravi Rodriguez; Judah Koo; Ankush Stinson; Siri Pendleton Patient Allergies Allergy/AdvReac Type Severity Reaction Status Date / Time shellfish Allergy ITCHING Uncoded 01/13/18 12:44 Home Medications Medication Instructions Recorded Confirmed Type Calcium Carbonate [Tums] 3 tab PO WM 01/13/18 01/13/18 History Lisinopril [Zestril] 10 mg PO DAILY 01/13/18 01/13/18 History Vital Signs 01/13/18 01/13/18 01/13/18 12:44 16:02 16:45 Temperature 98.3 F 98.3 F 97.5 F L Pulse Rate 65 68 58 L Respiratory 16 15 18 Rate Blood Pressure 135/50 L 113/68 138/67 O2 Sat by Pulse 98 98 98 Oximetry 01/13/18 17:19 Temperature Pulse Rate Respiratory Rate Blood Pressure O2 Sat by Pulse 98 Oximetry Intake & Output 01/13/18 01/13/18 01/13/18 06:59 14:59 22:59 Weight 101.605 kg Patient Medications Heparin Sodium (Porcine) (Heparin) 5,000 units SC Q8 LUIS M PRN Reason: Protocol Discontinued Medications Vancomycin HCl 1 gm/ Sodium (Chloride) 250 mls @ 250 mls/hr IVPB STAT STA PRN Reason: Protocol Stop: 01/13/18 14:55 Last Admin: 01/13/18 15:22 Dose: 250 mls/hr eMAR Start Stop Document 01/13/18 15:22 HEIDY (Rec: 01/13/18 15:22 HEIDY [id number]) Intravenous Solution Start Date 01/13/18 Start Time 14:00 Piperacillin Sod/Tazobactam (Sod 2.25 gm/ Sodium Chloride) 100 mls @ 100 mls/ hr IV ONCE ONE Stop: 01/13/18 15:14 Last Admin: 01/13/18 15:02 Dose: 100 mls/hr eMAR Start Stop Document 01/13/18 15:02 HEIDY (Rec: 01/13/18 15:03 HEIDY [id number]) Intravenous Solution Start Date 01/13/18 Start Time 14:25 Ondansetron HCl (Zofran Inj) 4 mg IV STAT STA Stop: 01/13/18 14:57 Last Admin: 01/13/18 15:02 Dose: 4 mg eMAR Start Stop Document 01/13/18 15:02 HEIDY (Rec: 01/13/18 15:02 HEIDY [id number]) Intravenous Solution Start Date 01/13/18 Start Time 15:02 End Date 01/13/18 End time 15:02 Total Infusion Time 0 Ondansetron HCl (Zofran Inj) Confirm Administered Dose 4 mg .ROUTE .STK-MED ONE Stop: 01/13/18 14:59 Piperacillin Sod/Tazobactam Sod (Zosyn) Confirm Administered Dose 3.375 gm IVPB .STK-MED ONE Stop: 01/13/18 14:43 Patient Orders Category Date Time Status ELECTROCARDIOGRAM Stat Cardiology 01/13/18 13:55 Ordered COMP METABOLIC PANEL Stat Chem 01/13/18 14:55 Completed Infectious Disease Consult Routine Cons 01/13/18 16:51 Ordered Physician Consult Stat Cons 01/13/18 14:43 Ordered Podiatry Consult Stat Cons 01/13/18 14:37 Ordered Vascular Surgery Routine Cons 01/13/18 16:51 Ordered EKG-ED [EDNURTX] STAT ED Care 01/13/18 13:55 Active CHEST PORTABLE [RAD] Stat Exams 01/13/18 13:55 Completed CBC (WITH DIFFERENTIAL) Stat ABDI 01/13/18 14:55 Completed FOOT W/O CONTRAST LEFT [MRI] Routine MRI 01/13/18 16:50 Ordered Heparin Med 01/14/18 01:00 Ordered 5,000 units SC Q8 Ondansetron [Zofran Inj] Med 01/13/18 14:58 Discontinued 4 mg .ROUTE .STK-MED ONE Ondansetron [Zofran Inj] Med 01/13/18 14:56 Discontinued 4 mg IV STAT STA Piperacillin/Tazobact [Zosyn] Med 01/13/18 14:42 Discontinued 3.375 gm IVPB .STK-MED ONE Piperacillin/Tazobact [Zosyn] 2.25 gm Med 01/13/18 14:15 Discontinued Sodium Chloride 0.9% 100 ml IV ONCE Vancomycin [Vancomycin Inj] 1 gm Med 01/13/18 13:56 Discontinued Sodium Chloride 0.9% 250 ml IVPB STAT BLOOD CULTURE Stat Micro 01/13/18 14:55 Received WOUND CULTURE AND GRAM STAIN Stat Micro 01/13/18 14:55 Received Admit to Hospital Routine PT Status 01/13/18 14:41 Ordered Patient Condition As Ordered PT Status 01/13/18 17:17 Ordered Resuscitation Status As Ordered PT Status 01/13/18 17:17 Active Call ID Consult PRN Pt Care 01/13/18 16:51 Active Call Physician Consult PRN Pt Care 01/13/18 14:45 Active Call Podiatry Consult As Ordered Pt Care 01/13/18 14:38 Active Call Vascular Surgery Consult PRN Pt Care 01/13/18 16:51 Active Glucose, Blood, POC ACHS Pt Care 01/13/18 17:17 Active Vital Signs Q8 Pt Care 01/13/18 17:17 Active ANKLE LEFT 3 VIEWS ROUTINE [RAD] Stat Radiology 01/13/18 13:55 Completed FOOT LEFT 3 VIEWS ROUTINE [RAD] Stat Radiology 01/13/18 13:55 Completed ARTERIAL PVR/GREGORIO LOW EXT BI [VASCLAB] Routine Vascular L 01/13/18 Ordered Lab Studies 01/13/18 01/13/18 Range/Units 14:55 14:55 WBC 4.3 L (4.8-10.8) K/uL RBC 3.28 L (4.40-5.90) Mil/uL Hgb 10.3 L (12.0-18.0) g/dL Hct 31.2 L (35.0-51.0) % MCV 95.2 H (80.0-94.0) fl MCH 31.3 H (27.0-31.0) pg MCHC 32.9 L (33.0-37.0) g/dL RDW 14.2 (11.5-14.5) % Plt Count 89 L (130-400) K/uL MPV 8.5 (7.2-11.7) fl Neut % (Auto) 68.3 (50.0-75.0) % Lymph % (Auto) 17.5 L (20.0-40.0) % Mingo % (Auto) 9.7 (0.0-10.0) % Eos % (Auto) 3.5 (0.0-4.0) % Baso % (Auto) 1.0 (0.0-2.0) % Neut # (Auto) 2.9 (1.8-7.0) K/uL Lymph # (Auto) 0.7 L (1.0-4.3) K/uL Mingo # (Auto) 0.4 (0.0-0.8) K/uL Eos # (Auto) 0.2 (0.0-0.7) K/uL Baso # (Auto) 0.0 (0.0-0.2) K/uL Sodium 139 (132-148) mmol/l Potassium 4.3 (3.6-5.0) MMOL/L Chloride 95 L (98-107) mmol/L Carbon Dioxide 28 (22-30) mmol/L Anion Gap 20 (10-20) BUN 63 H (9-20) mg/dl Creatinine 11.1 H* (0.8-1.5) mg/dl Est GFR ( Amer) 6 Est GFR (Non-Af Amer) 5 Random Glucose 111 H (75-110) mg/dL Calcium 8.5 (8.4-10.2) mg/dL Total Bilirubin 1.0 (0.2-1.3) mg/dl AST 18 (17-59) U/L ALT 20 L (21-72) U/L Alkaline Phosphatase 144 H (38-126) U/L Total Protein 7.7 (6.3-8.2) G/DL Albumin 3.7 (3.5-5.0) g/dL Globulin 4.0 H (2.2-3.9) gm/dL Albumin/Globulin Ratio 0.9 L (1.0-2.1) Patient Procedures (All Visits) AMPUTATION THROUGH FOOT (11/30/13) DIALYSIS ARTERIOVENOSTOM (11/30/13) FREE SKIN GRAFT NEC (11/30/13) HEMODIALYSIS (04/29/14) INFLUENZA VACCINATION (04/29/14) INTRODUCTION OF ANTI-INFLAM INTO RESP TRACT, VIA OPENING (09/08/16) NONEXCIS DEBRID OF WOUND, INFECT, OR BURN (04/29/14) OTH WOUND IRRIGATION (11/30/13) PART OSTECT-METATAR/TAR (04/29/14) PERFORMANCE OF URINARY FILTRATION, MULTIPLE (09/08/16) PERFORMANCE OF URINARY FILTRATION, SINGLE (01/29/17) PRESSURE DRESSING APPLIC (11/30/13) TRANSFUSE NONAUT RED BLOOD CELLS IN PERIPH VEIN, PERC (11/22/15) VENOUS CATHETERIZATION FOR RENAL DIALYSIS (03/30/13) Clinical Data Height 6 ft 0.5 in Weight 101.605 kg Weight Obtained by Estimated by Patient Body Mass Index (BMI) 36.3 Advance Directive No Resuscitation Status Full Code Is this an active TIC patient? Yes Influenza Immunization - If no contraindications then patient is eligible for vaccine Immunization season: 04/11 to 10/25 Pneumococcal Immunization - If no contraindications then patient is eligible for vaccine Condition FAIR Visit Reason CELLULITIS OF FOOT ESRD Language NORWEGIAN Nursing Interventions/Treatments *ED Disposition Start: 01/13/18 12: 14 Freq: Status: Active Document 01/13/18 16:02 HEIDY (Rec: 01/13/18 16:04 [id number] Disposition Time Patient Left ED Time Patient Left ED 16:04 Admission Planning Patient Admitted to: Medical/Surgical Unit Time Bed Was Assigned: 03:11 Room Number Assigned: 656 Time Report Given: 15:40 Provided Opportunity to Answer Questions Yes : Transported Accompanied By: Transport Property Patient Adult Primary Survey Start: 01/13/18 12: 43 Freq: Status: Active Document 01/13/18 14:15 HEIDY (Rec: 01/13/18 14:22 [id number][facility] Adult Primary Survey General Appearance General Appearance Alert Mild distress Pain Pain Intensity 6 Pain Scale Used Numeric Neurological Overview Neurological Oriented x3 Glascow Coma Scale Motor Response Obeys Commands Verbal Response Oriented/conversive Eye Opening Spontaneous Coma Scale Total 15 Respiratory Overview Respiratory No resp. distress Cardiovascular Cardiovascular Regular rate GI Abdominal Inspection Non-distended Palpation Soft Blood Sugar Finger Stick Start: 01/13/18 15: 22 Freq: Status: Active Document 01/13/18 15:22 JS (Rec: 01/13/18 15:23 JS [id number]) Blood Sugar Finger Stick Blood Sugar Finger Stick Blood Sugar Finger Stick Result (70-120) 118 Level of Consciousness Alert Results Given To Primary RN Collect Specimen: BLOOD CULTURE Start: 01/13/18 14: 13 Blood-Venous Status: Complete Text: Collect specimen as ordered by Physician Freq: ONCE Document 01/13/18 14:13 JS (Rec: 01/13/18 14:13 [id number][facility] Edit Status 01/13/18 14:13 JS (Rec: 01/13/18 14:13 [facility][id number]) Active=>Completed Collect Specimen: CBC (WITH DIFFERENTIAL) Start: 01/13/18 14: 13 Text: Collect specimen as ordered by Physician Status: Complete Freq: ONCE Document 01/13/18 14:13 JS (Rec: 01/13/18 14:13 [facility]BGSD-[id number]) Edit Status 01/13/18 14:13 JS (Rec: 01/13/18 14:13 [facility]CC[facility][id number]) Active=>Completed Collect Specimen: COMP METABOLIC PANEL Start: 01/13/18 14: 13 Text: Collect specimen as ordered by Physician Status: Complete Freq: ONCE Document 01/13/18 14:13 JS (Rec: 01/13/18 14:13 [facility]-[id number]) Edit Status 01/13/18 14:13 JS (Rec: 01/13/18 14:13 [facility]ZIZH-[id number]) Active=>Completed Collect Specimen: WOUND CULTURE AND GRAM STAIN Start: 01/13/18 14: 13 Foot (Left) Status: Complete Text: Collect specimen as ordered by Physician Freq: ONCE Document 01/13/18 14:13 JS (Rec: 01/13/18 14:13 JS [id number]) Edit Status 01/13/18 14:13 JS (Rec: 01/13/18 14:13 [facility]QHPK-[id number]) Active=>Completed Disposition Vital Sign Documentation Start: 01/13/18 12: 14 Freq: Status: Active Document 01/13/18 16:02 (Rec: 01/13/18 16:04 [id number]) Vital Signs - ED Vital Signs Temperature: (97.6 F-99.6 F) 98.3 F Temperature Source Tympanic Pulse Rate: (60-90 beats/min) 68 Blood Pressure (100/60-150/90) 113/68 Respiratory Rate (12-24) 15 O2 Sat by Pulse Oximetry (95-100) 98 Oxygen Delivery Method Room Air ED EKG DONE Start: 01/13/18 13: 55 Freq: STAT Status: Active Document 01/13/18 14:22 (Rec: 01/13/18 14:24 [facility] [id number]) EKG Completed PRE-PROCEDURE Patient's Identity Verified by: Patient Stating Name Patient Stating Date of Hospital ID Bracelet (Name and ) EKG PERFORMED When Was EKG Performed Time of Arrival Results Given To Dr Oconnor ED SBAR Start: 01/13/18 12: 14 Freq: Status: Active Document 01/13/18 16:02 (Rec: 01/13/18 16:04 [facility] [id number]) ED SBAR SITUATION Admit to: Med/Surg Chief Complaint Lower Extremity Problem/Injury Admitting Physician Chon Ascencio Primary Care Provider Linda Ojeda Level Of Consciousness Alert/Awake/Oriented x 3 BACKGROUND Hx HEENT Problems Yes Hx Chronic Kidney Disease Yes Hx Dermatological Problems No Hx Genitourinary Disorders No Hx Psychophysiologic Disorder No CARDIAC Is the patient chest pain free? Yes EKG Completed Yes What time was the first Troponin done? 1455 When is the next troponin due? n/a Was aspirin given in the ED? No Rhythm Normal sinus GI Abdominal Inspection Non-distended Palpation Soft SEPSIS Is this patient being treated for sepsis No ? PULMONARY Breath Sounds Clear Oxygen Delivery Method Room Air PSYCHOSOCIAL Restraints Applied No Order for Restraints No IV ACCESS IV Site #1 Left Antecubital IV Started Prior to ED Arrival No IV Catheter Size 20G Vital Signs Temperature (97.6 F-99.6 F) 98.3 F Temperature Source Tympanic Pulse Rate (60-90 beats/min) 68 Blood Pressure (100/60-150/90) 113/68 Respiratory Rate (12-24) 16 Finger Stick Blood Glucose (70-120) 118 RECOMMENDATIONS Medications Home medications inventoried in ED Yes Medication reconciliation complete with Yes attending physician ED Triage 1 - (Main) Start: 01/13/18 12: 14 Freq: Status: Active Document 01/13/18 12:44 BJB (Rec: 01/13/18 12:46 BJB [id number]) Triage Assessment Chief Complaint Chief Complaint Lower Extremity Problem/Injury Triage Comment Triage Comment Sent by Dr Rodrigeuz for evaluation of left foot ulcer and cellulitis. Of note, patient is due for dialysis today (Tu,Th,Sat) Arrival Arrival Mode Ambulatory/Walk In Travel Outside of [place] Have you recently traveled outside of No the [place] within the past three months? Primary Care Physician Primary Care Provider Miguel Ángel Reilly Other/or Non [facility] provider Dr Koo, Dr Rodriguez Vital Signs Temperature (97.6 F-99.6 F) 98.3 F Temperature Source Tympanic Pulse Rate (60-90 beats/min) 65 Respiratory Rate (12-24) 16 O2 Sat by Pulse Oximetry (95-100) 98 O2 Delivery Method Room air Blood Pressure (100/60-150/90) 135/50 Blood Pressure Mean (mm Hg) 78 Height 6 ft 0.5 in Weight 101.605 kg Weight Obtained by Estimated by Patient Pain Pain Present No Pain Score 0 Pain Scale Used Numeric CALEB Level CALEB Level 3 URGENT Sepsis Is it possible this patient has an Yes infection/sepsis? Does patient have two or more of the No following: AMS, HR > 90, RR > 20 , Temp > 100.9 F or < 96.8 F? Risk Assessment Suicidal Ideation Denies current or recent ideations Homicidal Ideations Denies recent or current ideations Safety Feels Threatened in Home Environment No Feels Threatened In a Relationship No Language Preference In what language do you prefer to hear Kenyan your medical info? Adult Fall Risk Assessment Adult Fall Risk Assessment Fall Risk No Elopement Risk ELOPEMENT RISK Does the patient have a history of No dementia or Alzheimers or a current change in mental status? The patient is a risk for elopement No ED Triage 2 - HX Start: 01/13/18 12: 14 Freq: Status: Active Document 01/13/18 14:15 JS (Rec: 01/13/18 14:22 [facility] [id number]) Triage - General History SOCIAL HISTORY:SMOKING Smoking Status Current Some Days Smoker SOCIAL HISTORY: ALCOHOL Hx Alcohol Use No SOCIAL HISTORY: SUBSTANCE Hx Substance Use No CARDIAC Hx Hypertension Yes PULMONARY Hx Chronic Obstructive Pulmonary Disease No (COPD) NEUROLOGICAL HX Cerebrovascular Accident No HEENT Hx HEENT Problems Yes Hx Cataracts Yes RENAL Hx End Stage Renal Disease Yes ENDOCRINE/METABOLIC Hx Hypothyroidism No HEMATOLOGICAL/ONCOLOGICAL Hx Human Immunodeficiency Virus (HIV) No INTEGUMENTARY Hx Dermatological Problems No MUSCULOSKELETAL Hx Arthritis No Hx Rheumatoid Arthritis No GASTROINTESTINAL Hx Gastrointestinal Disorders No GENITOURINARY/GYNECOLOGICAL Hx Genitourinary Disorders No PSYCHIATRIC Hx Psychophysiologic Disorder No SURGICAL HISTORY Hx Surgeries Yes Hx Amputation Yes: TRANSMETATARSAL RIGHT FT Hx Cataract Extraction Yes: Right eye - 2008 Other/Comment rt upper shunt 09/05/2016 ANESTHESIA Hx Anesthesia Yes Hx Anesthesia Reactions No Hx Malignant Hyperthermia No Medical/Surgical History Reviewed/Verified? Yes IV Insertion Assessment Start: 01/13/18 15: 22 Freq: Status: Active Document 01/13/18 15:22 (Rec: 01/13/18 15:23 [facility] [id number]) IV Insertion IV Location IV Site #1 Left Antecubital IV Catheter/Needle Size 20G IV Started Prior to ED Arrival No Indication Medication administration Number of Attempts 1 IV Site Description Clean, Dry & Intact Patient Tolerated Procedure: Well Lab specimen obtained with IV insertion Yes Musculoskeletal Asmt Start: 01/13/18 12: 43 Freq: Status: Active Document 01/13/18 14:15 (Rec: 01/13/18 14:22 [facility] [id number]) Musculoskeletal Assessment Assessment Pain Intensity 6 Pain Scale Used Numeric Mechanism of Injury Unable to determine Other Pain Symptoms Started 1 week Primary Symptoms Pain Onset/ Duration of Symptoms: infection Pain/Sensation Radiates to Other Other left foot Describes Symptoms as Throbbing Aching Aggravating factors Movement/exercise Alleviating Factors Rest Obvious fracture/dislocation No Limited ROM in affected area No Lower Extremity Assessment Left Foot Extremity Inspection Redness Shortening Pulse Strength +2=Normal Capillary Refill < 3 seconds Range of Motion Full ROM Sensation Intact? Yes Numbness/Tingling? No Pain Assessment-Reassessment Start: 01/13/18 12: 43 Freq: Status: Active Document 01/13/18 14:15 HEIDY (Rec: 01/13/18 14:22 JS [id number]) Pain Assessment/Reassessment Assessment Presence of Pain Yes Pain Intensity 6 Pain Scale Used Numeric Type of Pain Assessment Initial Description Left Foot Description Sharp Throbbing Pain Aggravated By Movement/Exercise Pain Alleviated By Rest/Inactivity Clinical Signs Observed Guarding Facial Grimacing Pain Interventions Medication Vital Signs Start: 01/13/18 16: 45 Text: Status: Inactive Freq: Q8 Document 01/13/18 16:45 [id number] (Rec: 01/13/18 16:45 [id number]) Vital Signs Temperature Temperature (97.6 F-99.6 F) 97.5 F Temp Source Oral Pulse Pulse Rate (60-90 beats/min) 58 Respirations Respiratory Rate (12-24) 18 Pulse Oximetry (95-100) 98 Oxygen Delivery Method Room Air Blood Pressure Blood Pressure (100/60-150/90) 138/67 Blood Pressure Mean (mm Hg) 90 Edit Status 01/13/18 17:19 ELEONORA ELIZABETH (Rec: 01/13/18 17:19 ELEONORA ELIZABETH [id number]) Active=>Inactive Nursing Notes 01/13/18 15:24 ED Nurses Notes by Amisha Roche podiatry resident saw pt at bedside, pt due for dialysis today, spoke with clinic where he receives treatment and aware he will get treatment in hospital, WATSON [place] spoke with [facility] about pts admission and made aware about needed dialysis today, MD stated floor nurse is to contact him and arrange dialysis as per WATSON Initialized on 01/13/18 15:24 - END OF NOTE 01/13/18 15:19 Pharmacist Note by Erica Aguila Addendum entered by Erica Aguila RPh 01/13/18 15:25: Per pharmacy, patient only filled lisinopril 10 mg in January 2017 (not lisinopril 20 mg) Original Note: Per [facility], patient hasn't filled medication since last year. Patient admits to non-compliance with medications, and states he does not take the medications regularly because he does not feel well when he takes it. Stressed the importance of compliance and necessity of following up with physician about concerns, side effects, medication uses, etc. Patient states he only takes lisinopril 20 mg daily (noncompliant), hydralazine 25 mg BID ( noncompliant), Tums 3 tablets TID with meals. Initialized on 01/13/18 15:19 - END OF NOTE Patient Status Change Order 01/13/18 17:17 Patient Condition As Ordered Comment: Patient Condition: Good Resuscitation Status As Ordered Resuscitation Status: Full Code Patient Discharge Information ED Provider: Junito Chilel Status: To Floor Time Seen by Provider: 01/13/18 13:12 Condition: FAIR Triaged At: 01/13/18 12:44 Other ED Providers: Ravi Rodriguez,Judah Stinson,Siri Linares Emergency Discharge Date/Time: 01/13/18 16:04 Emergency Discharge Disposition: HOSPITALIZED Clinical Impression Ulcer of left foot Cellulitis of left foot End-stage renal disease Emergency Discharge Comment: Admit Intervention Last Done ED SBAR 01/13/18 16:02 Query Result Admit to: Med/Surg Chief Complaint Lower Extremity Problem/Injury Discussed With Dr. Chon Ascencio Primary Care Provider Linda Ojeda Level Of Consciousness Alert/Awake/Oriented x 3 Hx HEENT Problems Yes Hx Chronic Kidney Disease Yes Hx Dermatological Problems No Hx Genitourinary Disorders No Hx Psychophysiologic Disorder No Is the patient chest pain free? Yes EKG Completed Yes What time was the first Troponin done? 1455 When is the next troponin due? n/a Was aspirin given in the ED? No Rhythm Normal sinus Abdominal Inspection Non-distended Palpation Soft Is this patient a code sepsis? No Breath Sounds Clear Oxygen Delivery Method Room Air Restraints Applied No Order for Restraints No IV Site #1 Left Antecubital -IV Started Prior to ED Arrival No -IV Catheter Size 20G Temperature 98.3 F Temperature Source Tympanic Pulse Rate 68 Blood Pressure 113/68 Respiratory Rate 16 Finger Stick Blood Glucose 118 Home medications inventoried in ED Yes Medication reconciliation complete with Yes attending physician Disposition Vital Sign Documentation 01/13/18 16:02 Query Result Temperature 98.3 F Temperature Source Tympanic Pulse Rate 68 Blood Pressure 113/68 Respiratory Rate 15 O2 Sat by Pulse Oximetry 98 Oxygen Delivery Method Room Air *ED Disposition 01/13/18 16:02 Query Result Time Patient Left ED 16:04 Type of Bed Medical/Surgical Unit Time 03:11 Comment 656 Time Report Given: 15:40 Yes/No Yes Transported With Transport Property Patient Adult Primary Survey 01/13/18 14:15 Query Result General Appearance Alert Mild distress Pain Intensity 6 Pain Scale Used Numeric Neurological Oriented x3 Coma Scale Motor Response Obeys Commands Coma Scale Verbal Response Oriented/conversive Coma Scale Eye Opening Spontaneous Coma Scale Total 15 Repiratory Overview No resp. distress Cardiovascular Regular rate Abdominal Inspection Non-distended Palpation Soft Inpatient Discharge Date/Time: Inpatient Discharge Disposition: Inpatient Discharge Comment: Instructions: Visit Report - Forms: - Referrals: 01/13/18 01/13/18 14:55 14:55 WBC 4.3 L RBC 3.28 L Hgb 10.3 L Hct 31.2 L MCV 95.2 H MCH 31.3 H MCHC 32.9 L RDW 14.2 Plt Count 89 L MPV 8.5 Neut % (Auto) 68.3 Lymph % (Auto) 17.5 L [place] % (Auto) 9.7 Eos % (Auto) 3.5 Baso % (Auto) 1.0 Neut # (Auto) 2.9 Lymph # (Auto) 0.7 L [place] # (Auto) 0.4 Eos # (Auto) 0.2 Baso # (Auto) 0.0 Sodium 139 Potassium 4.3 Chloride 95 L Carbon Dioxide 28 Anion Gap 20 BUN 63 H Creatinine 11.1 H* Est GFR ( Amer) 6 Est GFR (Non-Af Amer) 5 Random Glucose 111 H Calcium 8.5 Total Bilirubin 1.0 AST 18 ALT 20 L Alkaline Phosphatase 144 H Total Protein 7.7 Albumin 3.7 Globulin 4.0 H Albumin/Globulin Ratio 0.9 L
[2018-01-13] MEDS ORDERED: Piperacillin/Tazobact 3.375 gm Inj IVPB STA (13:56)
[2018-01-13] MEDS ORDERED: Piperacillin/Tazobact 3.375 gm Inj IVPB ONE (14:42)
[2018-01-13 14:59] LABS: EOS # 0.2 K/uL (0.0-0.7); EOS % 3.5 % (0.0-4.0); HEMOGLOBIN 10.3 g/dL (12.0-18.0); LYMPH # 0.7 K/uL (1.0-4.3); LYMPH % 17.5 % (20.0-40.0); MEAN CELL VOLUME 95.2 fl (80.0-94.0); MEAN CORPUSCULAR HEMOGLOBIN 31.3 pg (27.0-31.0); MEAN CORPUSCULAR HGB CONC 32.9 g/dL (33.0-37.0); MEAN PLATELET VOLUME 8.5 fl (7.2-11.7); MONO # 0.4 K/uL (0.0-0.8); MONO % 9.7 % (0.0-10.0); NEUT # 2.9 K/uL (1.8-7.0); NEUT % 68.3 % (50.0-75.0); RBC 3.28 Mil/uL (4.40-5.90); RED CELL DISTRIBUTION WIDTH 14.2 % (11.5-14.5); WHITE BLOOD COUNT 4.3 K/uL (4.8-10.8)
--- NOTE | 2018-01-13 15:14 | RAD ---
PROCEDURE: Left Ankle Radiographs. HISTORY: Left foot pain, open wound site unknown COMPARISON: None FINDINGS: BONES: Plantar and Achilles Tendon insertion calcaneal spurs. JOINTS: Normal. No osteoarthritis. Ankle mortise maintained. Talar dome intact SOFT TISSUES: Mild soft tissue swelling about the ankle. OTHER FINDINGS: None. IMPRESSION: Soft tissue swelling without acute articular or osseous abnormality.
--- NOTE | 2018-01-13 15:17 | RAD ---
PROCEDURE: Left Foot Radiographs. HISTORY: open wound COMPARISON: 04/29/2014 left foot FINDINGS: BONES: Portions of the 5th metatarsal have been surgically removed. This represents a new finding compared to the prior radiographs of the left foot. JOINTS: Normal. SOFT TISSUES: Possible soft tissue ulcer adjacent to the 5th metatarsal. OTHER FINDINGS: None. IMPRESSION: No acute osseous abnormalities.
--- NOTE | 2018-01-13 15:18 | RAD ---
HISTORY: clearance COMPARISON: 01/29/2017 FINDINGS: LUNGS: No active pulmonary disease. PLEURA: No significant pleural effusion identified, no pneumothorax apparent. CARDIOVASCULAR: No radiographic findings to suggest acute or significant cardiovascular disease. OSSEOUS STRUCTURES: No significant abnormalities. VISUALIZED UPPER ABDOMEN: Normal. OTHER FINDINGS: None. IMPRESSION: No active disease. No significant interval change compared to the prior examination(s).
[2018-01-13 15:30] LABS: ALB/GLOB RATIO 0.9 (1.0-2.1); ALBUMIN 3.7 g/dL (3.5-5.0); CALCIUM 8.5 mg/dL (8.4-10.2)
--- NOTE | 2018-01-13 15:57 | CP.PCM.CON ---
History of Present Illness - History of Present Illness History of Present Illness: Consult Note for Dr. Cerrato 47M with PMHx IDDM and ESRD on dialysis seen in ED after being sent from wound care center by Dr. Cerrato for infected left fourth digit. Patient states that he first noticed bleeding of the toe one week ago during his visit with Dr. Cerrato. He states that he has no pain to the area but has noted increased swelling, redness and clear drainage over the last few days. He states that Dr. Cerrato put him on a course of IV Vancomycin during dialysis which he received one dose of before today. He also states that he has a history of foot infection b/l with multiple amputations. He is AAO x 3 and NAD at time of examination. Denies any further pedal complaints at this time. States that he had one episode of nausea without vomiting earlier today and has had chills over the last few days. Meds: See MAR All: Shellfish PSH: Multiple amputations b/l feet secondary to infection, AV fistula FHx: Unremarkable Review of Systems - Review of Systems All systems: reviewed and no additional remarkable complaints except Review of Systems: as per HPI Past Patient History - Infectious Disease Hx of Infectious Diseases: None - Past Medical History & Family History Past Medical History?: Yes - Past Social History Alcohol: None Drugs: Denies - CARDIAC Hx Hypertension: Yes - PULMONARY Hx Chronic Obstructive Pulmonary Disease (COPD): No - NEUROLOGICAL HX Cerebrovascular Accident: No - HEENT Hx HEENT Problems: Yes Hx Cataracts: Yes - RENAL Hx Chronic Kidney Disease: Yes - ENDOCRINE/METABOLIC Hx Hypothyroidism: No - HEMATOLOGICAL/ONCOLOGICAL Hx Human Immunodeficiency Virus (HIV): No - INTEGUMENTARY Hx Dermatological Problems: No - MUSCULOSKELETAL/RHEUMATOLOGICAL Hx Arthritis: No Hx Rheumatoid Arthritis: No - GASTROINTESTINAL Hx Gastrointestinal Disorders: No - GENITOURINARY/GYNECOLOGICAL Hx Genitourinary Disorders: No - PSYCHIATRIC Hx Psychophysiologic Disorder: No Hx Substance Use: No - SURGICAL HISTORY Hx Surgeries: Yes Hx Amputation: Yes (TRANSMETATARSAL RIGHT FT) Hx Cataract Extraction: Yes (Right eye - 2008) Other/Comment: rt upper shunt 09/05/2016 - ANESTHESIA Hx Anesthesia: Yes Hx Anesthesia Reactions: No Hx Malignant Hyperthermia: No Meds Allergies/Adverse Reactions: Allergies Allergy/AdvReac Type Severity Reaction Status Date / Time shellfish Allergy ITCHING Uncoded 01/13/18 12:44 Physical Exam - Constitutional Appears: Well, Non-toxic, No Acute Distress - Head Exam Head Exam: ATRAUMATIC, NORMOCEPHALIC - Extremities Exam Additional comments: LE focused exam Vasc: DP/PT pulses non-palpable secondary to 2+ pitting edema b/l. CFT < 3 seconds to all digits b/l. Skin temperature warm to warm from proximal to distal WNL. Neuro: Epicritic and protective sensation grossly absent b/l Derm: Approximately 1 cm x 1 cm x 0.4 cm ulceration noted to lateral left fourth digit with fibronecrotic base. Malodor, serous drainage and periwound erythema noted. No tracking, tunneling, or undermining appreciated. Negative probe to bone. Hypertrophic skin noted to left plantar first metatarsal head. Hemosiderin deposits noted to b/l lower legs MSK: No POP to ulceration site. Shortened L fifth digit secondary to partial metatarsal amputation. TMA R side - Neurological Exam Neurological exam: Alert, Oriented x3 - Psychiatric Exam Psychiatric exam: Normal Affect, Normal Mood Results - Vital Signs Recent Vital Signs: Last Vital Signs Temp 98.3 F 01/13/18 12:44 Pulse 65 01/13/18 12:44 Resp 16 01/13/18 12:44 BP 135/50 L 01/13/18 12:44 Pulse Ox 98 01/13/18 14:42 - Labs Result Diagrams: 01/13/18 14:55 01/13/18 14:55 Labs: Laboratory Results - last 24 hr 01/13/18 01/13/18 14:55 14:55 WBC 4.3 L RBC 3.28 L Hgb 10.3 L Hct 31.2 L MCV 95.2 H MCH 31.3 H MCHC 32.9 L RDW 14.2 Plt Count 89 L MPV 8.5 Neut % (Auto) 68.3 Lymph % (Auto) 17.[address] [place] % (Auto) 9.7 Eos % (Auto) 3.5 Baso % (Auto) 1.0 Neut # (Auto) 2.9 Lymph # (Auto) 0.[address] # (Auto) 0.4 Eos # (Auto) 0.2 Baso # (Auto) 0.0 Sodium 139 Potassium 4.3 Chloride 95 L Carbon Dioxide 28 Anion Gap 20 BUN 63 H Creatinine 11.1 H* Est GFR ( Amer) 6 Est GFR (Non-Af Amer) 5 Random Glucose 111 H Calcium 8.5 Total Bilirubin 1.0 AST 18 ALT 20 L Alkaline Phosphatase 144 H Total Protein 7.7 Albumin 3.7 Globulin 4.0 H Albumin/Globulin Ratio 0.9 L Assessment & Plan - Assessment and Plan (Free Text) Assessment: 47M seen in ED after being sent from wound care center by Dr. Cerrato for infected left fourth digit ulceration Plan: Patient seen and evaluated Plan discussed with attending Dr. Cerrato Afebrile Absent leukocytosis F/u Wound cx Continue IV abx Foot xray read by me and discussed with Dr. Cerrato - Significant for dislocation and cortical erosion of left fourth digit middle phalanx. Suspicious for OM Ankle xray - unremarkable MRI L foot ordered to r/o OM ID consult placed - recs appreciated Vascular consult placed - recs appreciated GREGORIO/PVR's ordered - f/u results Wound dressed with Telfa, gauze, ABD, Kirlix Patient to remain partial weight bearing to heel Pending vascular studies and MRI results, patient for possible digital amputation with Dr. Cerrato on 01/16 Patient to be admitted to floors for time being Podiatry will continue to follow while patient in house - Date & Time Date: 01/13/18 Time: 18:37
--- NOTE | 2018-01-13 17:35 | CP.PCM.HP ---
History of Present Illness - History of Present Illness History of Present Illness: This is 47 y/o male with PMH of DM, HTN and ESRD on HD (TTS) sent from Dr. Rodriguez to the [facility] for evaluation and treatment of infected left forth digit. As per patient, he started noticing left foot swelling one week ago which progressively got worse, associated with minimum serosanguinous discharge and chills. patient denies any fever, chills, nausea, vomiting. Patient reports history of foot infection b/l with multiple amputations. Patient denies any pain to b/l LEs. Patient denies any cheat pain, SOB, dizziness, palpitation, abdominal pain, blurred vision, urinary symptoms. tolerating PO intake, last BM yesterday. PMD: [facility] Renal: Dr. Koo PMH: DM, HTN and ESRD on HD (TTS) PSH: Amputated right foot toes in 2013 due to sepsis , Right AV fistula Allg: Shellfish Meds: hydralazine 25mg TID, Lisinopril 10mg BID SH: Half pack/day smoking, denies any alcohol use or illicit drug use FH: Father, decreased, DM. Mother, alive, DM ROS: as HPI ED Course: Afebrile, BP 138/67, HR 68, 98% RA CBC: h/h 10.3/31.2, plt 89, no wbc CMP: BUN/Cr; 63/11.1 Wound culture - left foot CXR: No disease, no change from prior cxr Left foot xray: no acute osseous abnormalities Ankle x-ray: only Soft tissue swelling IV vancomycin IV zosyn IV zofran EKG: NSR 62bpm Present on Admission - Present on Admission Any Indicators Present on Admission: No History of DVT/PE: No History of Uncontrolled Diabetes: No Urinary Catheter: No Decubitus Ulcer Present: No Past Patient History - Infectious Disease Hx of Infectious Diseases: None - Past Medical History & Family History Past Medical History?: Yes - Past Social History Alcohol: None Drugs: Denies - CARDIAC Hx Hypertension: Yes - PULMONARY Hx Chronic Obstructive Pulmonary Disease (COPD): No - NEUROLOGICAL HX Cerebrovascular Accident: No - HEENT Hx HEENT Problems: Yes Hx Cataracts: Yes - RENAL Hx Chronic Kidney Disease: Yes - ENDOCRINE/METABOLIC Hx Hypothyroidism: No - HEMATOLOGICAL/ONCOLOGICAL Hx Human Immunodeficiency Virus (HIV): No - INTEGUMENTARY Hx Dermatological Problems: No - MUSCULOSKELETAL/RHEUMATOLOGICAL Hx Arthritis: No Hx Rheumatoid Arthritis: No - GASTROINTESTINAL Hx Gastrointestinal Disorders: No - GENITOURINARY/GYNECOLOGICAL Hx Genitourinary Disorders: No - PSYCHIATRIC Hx Psychophysiologic Disorder: No Hx Substance Use: No - SURGICAL HISTORY Hx Surgeries: Yes Hx Amputation: Yes (TRANSMETATARSAL RIGHT FT) Hx Cataract Extraction: Yes (Right eye - 2008) Other/Comment: rt upper shunt 09/05/2016 - ANESTHESIA Hx Anesthesia: Yes Hx Anesthesia Reactions: No Hx Malignant Hyperthermia: No Meds Allergies/Adverse Reactions: Allergies Allergy/AdvReac Type Severity Reaction Status Date / Time shellfish Allergy ITCHING Uncoded 01/13/18 12:44 Physical Exam - Constitutional Appears: Well, No Acute Distress - Head Exam Head Exam: NORMAL INSPECTION - Eye Exam Eye Exam: Normal appearance Pupil Exam: NORMAL ACCOMODATION - ENT Exam ENT Exam: Mucous Membranes Moist - Neck Exam Neck exam: Positive for: Normal Inspection - Respiratory Exam Respiratory Exam: Clear to Auscultation Bilateral, NORMAL BREATHING PATTERN. absent: Rales, Wheezes - Cardiovascular Exam Cardiovascular Exam: REGULAR RHYTHM, +S1, +S2 - GI/Abdominal Exam GI & Abdominal Exam: Normal Bowel Sounds, Soft. absent: Distended, Tenderness - Extremities Exam Additional comments: Amputated Right toes Left foot covered with dressing, will follow up in morning. - Back Exam Back exam: NORMAL INSPECTION. absent: CVA tenderness (L), CVA tenderness (R) - Neurological Exam Neurological exam: Alert, CN II-XII Intact, Oriented x3 - Psychiatric Exam Psychiatric exam: Normal Affect - Skin Skin Exam: Normal Color Additional comments: b/l LEs venous stasis changes Results - Vital Signs Recent Vital Signs: Last Vital Signs Temp 97.5 F L 01/13/18 16:45 Pulse 58 L 01/13/18 16:45 Resp 18 01/13/18 16:45 BP 138/67 01/13/18 16:45 Pulse Ox 98 01/13/18 16:45 - Labs Result Diagrams: 01/13/18 14:55 01/13/18 14:55 Labs: Laboratory Results - last 24 hr 01/13/18 01/13/18 14:55 14:55 WBC 4.3 L RBC 3.28 L Hgb 10.3 L Hct 31.2 L MCV 95.2 H MCH 31.3 H MCHC 32.9 L RDW 14.2 Plt Count 89 L MPV 8.5 Neut % (Auto) 68.3 Lymph % (Auto) 17.5 L [place] % (Auto) 9.7 Eos % (Auto) 3.5 Baso % (Auto) 1.0 Neut # (Auto) 2.9 Lymph # (Auto) 0.7 L [place] # (Auto) 0.4 Eos # (Auto) 0.2 Baso # (Auto) 0.0 Sodium 139 Potassium 4.3 Chloride 95 L Carbon Dioxide 28 Anion Gap 20 BUN 63 H Creatinine 11.1 H* Est GFR ( Amer) 6 Est GFR (Non-Af Amer) 5 Random Glucose 111 H Calcium 8.5 Total Bilirubin 1.0 AST 18 ALT 20 L Alkaline Phosphatase 144 H Total Protein 7.7 Albumin 3.7 Globulin 4.0 H Albumin/Globulin Ratio 0.9 L Assessment & Plan - Assessment and Plan (Free Text) Assessment: 47 y/o M with PMH of HTN, DM and ESRD on HD admitted for Infected left fourth digit ulceration. Left foot infection - C/w Vanco and Zosyn - Follow up podiatry recommendations, Dr. Rodriguez consult appreciated - Consult ID, Dr. Pendleton, f/u recs - COnsult Vascular, Dr. Stinson, f/u recs - Possible surgical interventions as per podiatry - F/u MRI foot, ESR, CRP, CBC, CMP tomorrow ESRD - Nephro Consult, Dr. Koo, f/u recs - HD today HTN - C/w home medication; hydralazine 25mg TID, Lisinopril 10mg BID DM - F/u HBA1C DVT PPX - Heparin 5000 SC Q8H
[2018-01-13] MEDS ORDERED: CALCIUM CARBONATE PO SCH (18:30)
--- NOTE | 2018-01-13 18:55 | CP.PCM.CON ---
History of Present Illness - History of Present Illness History of Present Illness: Consultation for PVOD and left foot infection HPI: Past Patient History - Infectious Disease Hx of Infectious Diseases: None - Past Medical History & Family History Past Medical History?: Yes - Past Social History Alcohol: None Drugs: Denies - CARDIAC Hx Hypertension: Yes - PULMONARY Hx Chronic Obstructive Pulmonary Disease (COPD): No - NEUROLOGICAL HX Cerebrovascular Accident: No - HEENT Hx HEENT Problems: Yes Hx Cataracts: Yes - RENAL Hx Chronic Kidney Disease: Yes - ENDOCRINE/METABOLIC Hx Hypothyroidism: No - HEMATOLOGICAL/ONCOLOGICAL Hx Human Immunodeficiency Virus (HIV): No - INTEGUMENTARY Hx Dermatological Problems: No - MUSCULOSKELETAL/RHEUMATOLOGICAL Hx Arthritis: No Hx Rheumatoid Arthritis: No - GASTROINTESTINAL Hx Gastrointestinal Disorders: No - GENITOURINARY/GYNECOLOGICAL Hx Genitourinary Disorders: No - PSYCHIATRIC Hx Psychophysiologic Disorder: No Hx Substance Use: No - SURGICAL HISTORY Hx Surgeries: Yes Hx Amputation: Yes (TRANSMETATARSAL RIGHT FT) Hx Cataract Extraction: Yes (Right eye - 2008) Other/Comment: rt upper shunt 09/05/2016 - ANESTHESIA Hx Anesthesia: Yes Hx Anesthesia Reactions: No Hx Malignant Hyperthermia: No Meds Allergies/Adverse Reactions: Allergies Allergy/AdvReac Type Severity Reaction Status Date / Time shellfish Allergy ITCHING Uncoded 01/13/18 12:44 - Medications Medications: Current Medications Heparin Sodium (Porcine) (Heparin) 5,000 units SC Q8 LUIS M PRN Reason: Protocol Home Med (Calcium Carbonate [Tums]) 3 tab PO WM LUIS M Hydralazine HCl (Apresoline) 25 mg PO Q12 [facility] Piperacillin Sod/Tazobactam (Sod 2.25 gm/ Sodium Chloride) 100 mls @ 100 mls/ hr IVPB Q8 LUIS M PRN Reason: Protocol Lisinopril (Zestril) 10 mg PO DAILY [facility] Physical Exam - Constitutional Appears: Well - Head Exam Head Exam: ATRAUMATIC, NORMAL INSPECTION, NORMOCEPHALIC - Eye Exam Eye Exam: EOMI, Normal appearance, PERRL Pupil Exam: NORMAL ACCOMODATION, PERRL - ENT Exam ENT Exam: Mucous Membranes Moist, Normal Exam - Neck Exam Neck exam: Positive for: Normal Inspection - Respiratory Exam Respiratory Exam: Clear to Auscultation Bilateral, NORMAL BREATHING PATTERN - Cardiovascular Exam Cardiovascular Exam: REGULAR RHYTHM - GI/Abdominal Exam GI & Abdominal Exam: Normal Bowel Sounds, Soft. absent: Tenderness - Extremities Exam Extremities exam: Positive for: normal inspection - Back Exam Back exam: NORMAL INSPECTION - Neurological Exam Neurological exam: Alert, CN II-XII Intact, Normal Gait, Oriented x3, Reflexes Normal - Psychiatric Exam Psychiatric exam: Normal Affect, Normal Mood - Skin Skin Exam: Dry, Intact, Normal Color, Warm Results - Vital Signs Recent Vital Signs: Last Vital Signs Temp 97.5 F L 01/13/18 16:45 Pulse 58 L 01/13/18 16:45 Resp 18 01/13/18 16:45 BP 138/67 01/13/18 16:45 Pulse Ox 98 01/13/18 17:21 - Labs Result Diagrams: 01/13/18 14:55 01/13/18 14:55 Labs: Laboratory Results - last 24 hr 01/13/18 01/13/18 14:55 14:55 WBC 4.3 L RBC 3.28 L Hgb 10.3 L Hct 31.2 L MCV 95.2 H MCH 31.3 H MCHC 32.9 L RDW 14.2 Plt Count 89 L MPV 8.5 Neut % (Auto) 68.3 Lymph % (Auto) 17.5 L [place] % (Auto) 9.7 Eos % (Auto) 3.5 Baso % (Auto) 1.0 Neut # (Auto) 2.9 Lymph # (Auto) 0.7 L [place] # (Auto) 0.4 Eos # (Auto) 0.2 Baso # (Auto) 0.0 Sodium 139 Potassium 4.3 Chloride 95 L Carbon Dioxide 28 Anion Gap 20 BUN 63 H Creatinine 11.1 H* Est GFR ( Amer) 6 Est GFR (Non-Af Amer) 5 Random Glucose 111 H Calcium 8.5 Total Bilirubin 1.0 AST 18 ALT 20 L Alkaline Phosphatase 144 H Total Protein 7.7 Albumin 3.7 Globulin 4.0 H Albumin/Globulin Ratio 0.9 L Assessment & Plan (1) PVD (peripheral vascular disease) Status: Acute (2) Chronic wound of extremity Status: Acute (3) Diabetic foot infection Status: Acute
[2018-01-13] MEDS ORDERED: Glucagon Recombinant 1 mg Inj IM PRN (19:04)
[2018-01-13] MEDS ORDERED: Dextrose 50% SYRINGE Inj (50 ml) IV PRN (19:04)
--- NOTE | 2018-01-13 19:07 | CP.PCM.PN ---
Subjective - Date & Time of Evaluation Date of Evaluation: 01/13/18 Time of Evaluation: 17:00 - Subjective Subjective: REASONS FOR CONSULT : ESRD ON HD TTS ANEMIA OF CKD .. H/H STABLE PT IS WELL KNOWN TO ME ON HD TTS History of Present Illness: This is 47 y/o male with PMH of DM, HTN and ESRD on HD (TTS) sent from Dr. Cerrato to the [facility] for evaluation and treatment of infected left forth digit. As per patient, he started noticing left foot swelling one week ago which progressively got worse, associated with minimum serosanguinous discharge and chills. patient denies any fever, chills, nausea, vomiting. Patient reports history of foot infection b/l with multiple amputations. Patient denies any pain to b/l LEs. Patient denies any cheat pain, SOB, dizziness, palpitation, abdominal pain, blurred vision, urinary symptoms. tolerating PO intake, last BM yesterday. PMD: [facility] PMH: DM, HTN and ESRD on HD (TTS) PSH: Amputated right foot toes in 2013 due to sepsis , Right AV fistula Allg: Shellfish Meds: hydralazine 25mg TID, Lisinopril 10mg BID SH: Half pack/day smoking, denies any alcohol use or illicit drug use FH: Father, decreased, DM. Mother, alive, DM ROS: as HPI ED Course: Afebrile, BP 138/67, HR 68, 98% RA CBC: h/h 10.3/31.2, plt 89, no wbc CMP: BUN/Cr; 63/11.1 Wound culture - left foot CXR: No disease, no change from prior cxr Left foot xray: no acute osseous abnormalities Ankle x-ray: only Soft tissue swelling IV vancomycin IV zosyn IV zofran EKG: NSR 62bpm Present on Admission - Present on Admission Any Indicators Present on Admission: No History of DVT/PE: No History of Uncontrolled Diabetes: No Urinary Catheter: No Decubitus Ulcer Present: No Past Patient History - Infectious Disease Hx of Infectious Diseases: None - Past Medical History & Family History Past Medical History?: Yes - Past Social History Alcohol: None Drugs: Denies - CARDIAC Hx Hypertension: Yes - PULMONARY Hx Chronic Obstructive Pulmonary Disease (COPD): No - NEUROLOGICAL HX Cerebrovascular Accident: No - HEENT Hx HEENT Problems: Yes Hx Cataracts: Yes - RENAL Hx Chronic Kidney Disease: Yes - ENDOCRINE/METABOLIC Hx Hypothyroidism: No - HEMATOLOGICAL/ONCOLOGICAL Hx Human Immunodeficiency Virus (HIV): No - INTEGUMENTARY Hx Dermatological Problems: No - MUSCULOSKELETAL/RHEUMATOLOGICAL Hx Arthritis: No Hx Rheumatoid Arthritis: No - GASTROINTESTINAL Hx Gastrointestinal Disorders: No - GENITOURINARY/GYNECOLOGICAL Hx Genitourinary Disorders: No - PSYCHIATRIC Hx Psychophysiologic Disorder: No Hx Substance Use: No - SURGICAL HISTORY Hx Surgeries: Yes Hx Amputation: Yes (TRANSMETATARSAL RIGHT FT) Hx Cataract Extraction: Yes (Right eye - 2008) Other/Comment: rt upper shunt 09/05/2016 - ANESTHESIA Hx Anesthesia: Yes Hx Anesthesia Reactions: No Hx Malignant Hyperthermia: No Meds Allergies/Adverse Reactions: Objective - Vital Signs/Intake and Output Vital Signs (last 24 hours): Temp Pulse Resp BP Pulse Ox 97.5 F L 58 L 18 138/67 98 01/13/18 16:45 01/13/18 16:45 01/13/18 16:45 01/13/18 16:45 01/13/18 17:21 - Medications Medications: Current Medications Heparin Sodium (Porcine) (Heparin) 5,000 units SC Q8 LUIS M PRN Reason: Protocol Home Med (Calcium Carbonate [Tums]) 3 tab PO WM LUIS M Hydralazine HCl (Apresoline) 25 mg PO Q12 LUIS M Piperacillin Sod/Tazobactam (Sod 2.25 gm/ Sodium Chloride) 100 mls @ 100 mls/ hr IVPB Q8 LUIS M PRN Reason: Protocol Lisinopril (Zestril) 10 mg PO DAILY LUIS M - Labs Labs: 01/13/18 14:55 01/13/18 14:55 Assessment and Plan - Assessment and Plan (Free Text) Assessment: ESRD ON HD TTS .. GETTING HIS HD SHORTLY ANEMIA OF CKD .. H/H STABLE .. NO EPO TODAY MMP P : HD NOW AND TTS C/O IVAB RENAL AND DIABETIC DIET IVAB FOR CELLULITIS C/O PO MEDS CHECK PHOS . MAG . VIT D LEVEL
[2018-01-13] MEDS ORDERED: Sodium Chloride 0.9% 0 ML IV ONE (21:01)
[2018-01-13] MEDS ORDERED: Iodixanol 320 MG/ML 100 ML BOTTLE IV ONE (21:01)
[2018-01-13] MEDS: Insulin Lispro (humaLOG) 100 Units/ml Inj SC SCH (22:44)
[2018-01-14 06:15] LABS: HEMOGLOBIN 9.9 g/dL (12.0-18.0); MEAN CELL VOLUME 95.3 fl (80.0-94.0); MEAN CORPUSCULAR HGB CONC 33.6 g/dL (33.0-37.0); RBC 3.1 Mil/uL (4.40-5.90); RED CELL DISTRIBUTION WIDTH 14.2 % (11.5-14.5); WHITE BLOOD COUNT 4.1 K/uL (4.8-10.8)
--- NOTE | 2018-01-14 07:52 | CP.PCM.PN ---
Subjective - Date & Time of Evaluation Date of Evaluation: 01/14/18 Time of Evaluation: 07:15 - Subjective Subjective: Patient seen and examined this morning at bedside, NAD, no acute event overnight , s/p HD yesterday. Patient denies any left foot pain, f/c/n/v/d, chest pain, dizziness, palpitations, SOB, urinary symptoms or weakness. patient is tolerating po, ambulating. Objective - Vital Signs/Intake and Output Vital Signs (last 24 hours): Temp Pulse Resp BP Pulse Ox 97.6 F 62 18 138/80 97 01/14/18 00:02 01/14/18 00:02 01/14/18 00:02 01/13/18 21:00 01/14/18 00:02 - Medications Medications: Current Medications Ascorbic Acid (Vitamin C 500 Mg Tab) 500 mg PO DAILY [facility] Cholecalciferol (Vitamin D) 2,000 intlu PO DAILY [facility] Dextrose (Dextrose 50% Inj) 0 ml IV STAT PRN; Protocol PRN Reason: Hypoglycemia Protocol Dextrose (Glutose 15) 0 gm PO ONCE PRN; Protocol PRN Reason: Hypoglycemia Protocol Famotidine (Pepcid) 20 mg PO BID [facility] Glucagon (Glucagen Diagnostic Kit) 0 mg IM STAT PRN; Protocol PRN Reason: Hypoglycemia Protocol Heparin Sodium (Porcine) (Heparin) 5,000 units SC Q8 LUIS M PRN Reason: Protocol Last Admin: 01/14/18 01:13 Dose: 5,000 units Hydralazine HCl (Apresoline) 25 mg PO Q12 [facility] Last Admin: 01/13/18 21:00 Dose: 25 mg Piperacillin Sod/Tazobactam (Sod 2.25 gm/ Sodium Chloride) 100 mls @ 100 mls/ hr IVPB Q8 LUIS M PRN Reason: Protocol Last Admin: 01/14/18 01:12 Dose: 100 mls/hr Insulin Human Lispro (Humalog) 0 units SC ACHS LUIS M PRN Reason: Protocol Last Admin: 01/13/18 22:44 Dose: Not Given Lisinopril (Zestril) 10 mg PO DAILY [facility] Vitamin B Complex/Vit C/Folic Acid (Nephro-Sanjay) 1 tab PO DAILY [facility] - Labs Labs: 01/14/18 05:55 01/13/18 14:55 - Constitutional Appears: No Acute Distress - Head Exam Head Exam: NORMAL INSPECTION - Eye Exam Eye Exam: Normal appearance - ENT Exam ENT Exam: Mucous Membranes Moist - Neck Exam Neck Exam: Normal Inspection - Respiratory Exam Respiratory Exam: Clear to Ausculation Bilateral, NORMAL BREATHING PATTERN - Cardiovascular Exam Cardiovascular Exam: REGULAR RHYTHM, +S1, +S2 - GI/Abdominal Exam GI & Abdominal Exam: Soft, Normal Bowel Sounds - Extremities Exam Additional comments: Amputated Right toes Left foot: swelling below ankle seen, 4th toe with open wound; serosanguineous drainage appreciated, NONTENDER. sensory and motor function intact - Back Exam Back Exam: NORMAL INSPECTION. absent: CVA tenderness (L), CVA tenderness (R) - Neurological Exam Neurological Exam: Alert, Awake, Oriented x3 - Psychiatric Exam Psychiatric exam: Normal Affect - Skin Skin Exam: Dry, Intact, Normal Color, Warm Assessment and Plan - Assessment and Plan (Free Text) Assessment: A/P: 47 y/o M with PMH of HTN, DM and ESRD on HD admitted for Infected left fourth digit ulceration. Left foot infection - C/w Vanco with HD and Zosyn day 2 - Follow up podiatry recommendations, Dr. Rodriguez consult appreciated - Consult ID, Dr. Pendleton, recs appreciated - Consult Vascular, Dr. Stinson, reckaren appreciated - Possible surgical interventions as per podiatry on friday - F/u MRI foot, ESR, CRP - F/u CT angio - C/w Abx ESRD - Nephro Consult, Dr. Koo, recs appreciated - HD every TTS HTN - C/w home medication; hydralazine 25mg TID, Lisinopril 10mg BID DM - F/u HBA1C DVT PPX - Heparin 5000 SC Q8H
[2018-01-14] MEDS ORDERED: Pneumococcal 23-Valent Vaccine IM ONE (08:00)
[2018-01-14] MEDS ORDERED: Sodium Chloride 0.9% 50 ML IV ONE (08:01)
[2018-01-14] MEDS ORDERED: Iodixanol 320 MG/ML 100 ML BOTTLE IV ONE (08:01)
[2018-01-14] MEDS ORDERED: DiphenhydrAMINE 50 mg/ml Inj IVP STA ×2 (08:45)
[2018-01-14] MEDS: Insulin Lispro (humaLOG) 100 Units/ml Inj SC SCH ×4 (08:47→22:40)
--- NOTE | 2018-01-14 09:13 | CP.PCM.PN ---
Subjective - Date & Time of Evaluation Date of Evaluation: 01/14/18 Time of Evaluation: 09:09 - Subjective Subjective: Podiatry Progress Note for Dr. Cerrato 47yo Male seen at bedside for left 4th digit infected ulcer. He is AAOx3 and NAD. Patient denies any other pedal complaints at this time. Denies any overnight acute events. States that there is no pain. Denies N/V/F/C/SOB/CP/D. Objective - Vital Signs/Intake and Output Vital Signs (last 24 hours): Temp Pulse Resp BP Pulse Ox 97.6 F 62 18 128/73 95 01/14/18 08:36 01/14/18 08:36 01/14/18 08:36 01/14/18 08:36 01/14/18 08:36 - Medications Medications: Current Medications Ascorbic Acid (Vitamin C 500 Mg Tab) 500 mg PO DAILY [facility] Cholecalciferol (Vitamin D) 2,000 intlu PO DAILY [facility] Dextrose (Dextrose 50% Inj) 0 ml IV STAT PRN; Protocol PRN Reason: Hypoglycemia Protocol Dextrose (Glutose 15) 0 gm PO ONCE PRN; Protocol PRN Reason: Hypoglycemia Protocol Famotidine (Pepcid) 20 mg PO BID [facility] Glucagon (Glucagen Diagnostic Kit) 0 mg IM STAT PRN; Protocol PRN Reason: Hypoglycemia Protocol Heparin Sodium (Porcine) (Heparin) 5,000 units SC Q8 LUIS M PRN Reason: Protocol Last Admin: 01/14/18 01:13 Dose: 5,000 units Hydralazine HCl (Apresoline) 25 mg PO Q12 [facility] Last Admin: 01/13/18 21:00 Dose: 25 mg Piperacillin Sod/Tazobactam (Sod 2.25 gm/ Sodium Chloride) 100 mls @ 100 mls/ hr IVPB Q8 LUIS M PRN Reason: Protocol Last Admin: 01/14/18 01:12 Dose: 100 mls/hr Insulin Human Lispro (Humalog) 0 units SC ACHS LUIS M PRN Reason: Protocol Last Admin: 01/14/18 08:47 Dose: Not Given Lisinopril (Zestril) 10 mg PO DAILY [facility] Vitamin B Complex/Vit C/Folic Acid (Nephro-Sanjay) 1 tab PO DAILY [facility] - Labs Labs: 01/14/18 05:55 01/13/18 14:55 - Constitutional Appears: Well, No Acute Distress - Head Exam Head Exam: ATRAUMATIC, NORMOCEPHALIC - Extremities Exam Additional comments: LLE focused exam Vasc: DP/PT pulses non-palpable secondary to 2+ pitting edema b/l. CFT < 3 seconds to all digits b/l. Skin temperature warm to warm from proximal to distal WNL. Neuro: Epicritic and protective sensation grossly absent b/l Derm: Approximately 1 cm x 1 cm x 0.4 cm ulceration noted to lateral left fourth digit with fibronecrotic base. Malodor, serous drainage and periwound erythema noted. No tracking, tunneling, or undermining appreciated. Negative probe to bone. Hypertrophic skin noted to left plantar first metatarsal head. Periwound erythema noted to be improved over yesterday. MSK: No POP to ulceration site. Shortened L fifth digit secondary to partial metatarsal amputation. TMA R side - Neurological Exam Neurological Exam: Alert, Awake, Oriented x3 - Psychiatric Exam Psychiatric exam: Normal Affect, Normal Mood Assessment and Plan - Assessment and Plan (Free Text) Assessment: 47yo Male who presents with infected left fourth digit ulceration Plan: Patient seen and evaluated Plan discussed with Dr. Cerrato Afebrile Absent leukocytosis Wound cx results pending GREGORIO/PVRs ordered MRI of left foot ordered Patient for CTA with Dr. Stinson today Plan for possible 4th digit amputation with Dr. Cerrato on Friday, 01/16 pending vascular status and imaging results Wound dressed with Telfa, ABD, DSD Continue abx per ID Podiatry will continue to follow while patient is in house
--- NOTE | 2018-01-14 09:36 | CARD ---
APPROVED REPORT EKG Measurement Heart [id number] [place] [id number] <Conclusion> Normal sinus rhythm Left axis deviation Indeterminate incomplete IVCD Abnormal ECG
--- NOTE | 2018-01-14 11:00 | CP.PCM.CON ---
History of Present Illness - History of Present Illness History of Present Illness: Infectious Disease Consultation Note- asked to see this patietn at the request of podiatry team for infected toe ulcer. HPI- patient is a 47 year old male with PMH of DM II, ESRD On HD who was sent to ED from wound care center after being seen by his validation specialist for infected left fourth toe. Patient states that he first noticed bleeding of the toe one week ago during his visit with validation specialist. He states that he has no pain to the area but has noted increased swelling, redness and clear drainage over the last few days. He states that his validation specialist had put him on a course of IV Vancomycin during dialysis which he received one dose of before admission. patient also state he had sepsis from his right foot infection coupe years ago and is s/p TMA amoputation of the right foot and has been f/u with his validation specialist for the right foot nonhealing wound since then. he denies any fever or chills. Meds: See MAR All: Shellfish PSH: Multiple amputations right foot secondary to infection, AV fistula FHx: Unremarkable Review of Systems - Review of Systems Review of Systems: ROS- denies any fever or chills, denies any Herman, deneis any cough, néstor any sob, denies anyc hest pain, denies any abd. pain, néstor any diarrhea. right foot cheonic nonhealing wound ( as per pt. much better now). left fourth toe with infected ulcer draining clear fluid. Past Patient History - Infectious Disease Hx of Infectious Diseases: None - Past Medical History & Family History Past Medical History?: Yes - Past Social History Alcohol: None Drugs: Denies - CARDIAC Hx Hypertension: Yes - PULMONARY Hx Chronic Obstructive Pulmonary Disease (COPD): No - NEUROLOGICAL HX Cerebrovascular Accident: No - HEENT Hx HEENT Problems: Yes Hx Cataracts: Yes - RENAL Hx Chronic Kidney Disease: Yes Other/Comment: on HD - ENDOCRINE/METABOLIC Hx Hypothyroidism: No - HEMATOLOGICAL/ONCOLOGICAL Hx Blood Disorders: No - INTEGUMENTARY Hx Dermatological Problems: No - MUSCULOSKELETAL/RHEUMATOLOGICAL Hx Arthritis: No Hx Rheumatoid Arthritis: No - GASTROINTESTINAL Hx Gastrointestinal Disorders: No - GENITOURINARY/GYNECOLOGICAL Hx Genitourinary Disorders: No - PSYCHIATRIC Hx Psychophysiologic Disorder: No Hx Substance Use: No - SURGICAL HISTORY Hx Surgeries: Yes Hx Amputation: Yes (TRANSMETATARSAL RIGHT FT) Hx Cataract Extraction: Yes (Right eye - 2008) Other/Comment: rt upper shunt 09/05/2016 - ANESTHESIA Hx Anesthesia: Yes Hx Anesthesia Reactions: No Hx Malignant Hyperthermia: No Meds Allergies/Adverse Reactions: Allergies Allergy/AdvReac Type Severity Reaction Status Date / Time shellfish Allergy ITCHING Uncoded 01/13/18 12:44 - Medications Medications: Current Medications Ascorbic Acid (Vitamin C 500 Mg Tab) 500 mg PO DAILY [facility] Cholecalciferol (Vitamin D) 2,000 intlu PO DAILY [facility] Dextrose (Dextrose 50% Inj) 0 ml IV STAT PRN; Protocol PRN Reason: Hypoglycemia Protocol Dextrose (Glutose 15) 0 gm PO ONCE PRN; Protocol PRN Reason: Hypoglycemia Protocol Famotidine (Pepcid) 20 mg PO BID [facility] Glucagon (Glucagen Diagnostic Kit) 0 mg IM STAT PRN; Protocol PRN Reason: Hypoglycemia Protocol Heparin Sodium (Porcine) (Heparin) 5,000 units SC Q8 LUIS M PRN Reason: Protocol Last Admin: 01/14/18 01:13 Dose: 5,000 units Hydralazine HCl (Apresoline) 25 mg PO Q12 [facility] Last Admin: 01/13/18 21:00 Dose: 25 mg Piperacillin Sod/Tazobactam (Sod 2.25 gm/ Sodium Chloride) 100 mls @ 100 mls/ hr IVPB Q8 [facility] PRN Reason: Protocol Last Admin: 01/14/18 01:12 Dose: 100 mls/hr Insulin Human Lispro (Humalog) 0 units SC ACHS LUIS M PRN Reason: Protocol Last Admin: 01/14/18 08:47 Dose: Not Given Lisinopril (Zestril) 10 mg PO DAILY [facility] Vitamin B Complex/Vit C/Folic Acid (Nephro-Sanjay) 1 tab PO DAILY [facility] Physical Exam - Constitutional Appears: No Acute Distress, Chronically Ill - Head Exam Head Exam: ATRAUMATIC - Eye Exam Eye Exam: EOMI - ENT Exam ENT Exam: Normal Oropharynx - Neck Exam Neck exam: Positive for: Full Rom - Respiratory Exam Respiratory Exam: Clear to Auscultation Bilateral, NORMAL BREATHING PATTERN - Cardiovascular Exam Cardiovascular Exam: RRR, +S1, +S2 - GI/Abdominal Exam GI & Abdominal Exam: Normal Bowel Sounds, Soft Additional comments: NT, ND - Extremities Exam Additional comments: left fouth distal toe with necrotic ulcer with small opening draining malodorous yellow fluid no surrounding lesions right foot s/p TMA amputation has chronic healed dy ulcer on the frontal heel and one that is still draining small am patient has neuropathy and has no sensation in the feet or toes - Neurological Exam Neurological exam: Alert, Oriented x3 - Additional Findings Additional findings: lines- right AV shunt in place, no discharge Results - Vital Signs Recent Vital Signs: Last Vital Signs Temp 97.6 F 01/14/18 08:36 Pulse 62 01/14/18 08:36 Resp 18 01/14/18 08:36 BP 128/73 01/14/18 08:36 Pulse Ox 95 01/14/18 08:36 - Labs Result Diagrams: 01/14/18 05:55 01/13/18 14:55 Labs: Laboratory Results - last 24 hr 01/13/18 01/13/18 01/13/18 14:55 14:55 21:54 WBC 4.3 L RBC 3.28 L Hgb 10.3 L Hct 31.2 L MCV 95.2 H MCH 31.3 H MCHC 32.9 L RDW 14.2 Plt Count 89 L MPV 8.5 Neut % (Auto) 68.3 Lymph % (Auto) 17.5 L Benzie % (Auto) 9.7 Eos % (Auto) 3.5 Baso % (Auto) 1.0 Neut # (Auto) 2.9 Lymph # (Auto) 0.7 L Benzie # (Auto) 0.4 Eos # (Auto) 0.2 Baso # (Auto) 0.0 ESR Sodium 139 Potassium 4.3 Chloride 95 L Carbon Dioxide 28 Anion Gap 20 BUN 63 H Creatinine 11.1 H* Est GFR ( Amer) 6 Est GFR (Non-Af Amer) 5 POC Glucose (mg/dL) 134 H Random Glucose 111 H Calcium 8.5 Total Bilirubin 1.0 AST 18 ALT 20 L Alkaline Phosphatase 144 H Total Protein 7.7 Albumin 3.7 Globulin 4.0 H Albumin/Globulin Ratio 0.9 L 01/14/18 01/14/18 05:26 05:55 WBC 4.1 L RBC 3.10 L Hgb 9.9 L Hct 29.5 L MCV 95.3 H MCH 32.0 H MCHC 33.6 RDW 14.2 Plt Count 81 L MPV Neut % (Auto) Lymph % (Auto) Benzie % (Auto) Eos % (Auto) Baso % (Auto) Neut # (Auto) Lymph # (Auto) Benzie # (Auto) Eos # (Auto) Baso # (Auto) ESR 57 H Sodium Potassium Chloride Carbon Dioxide Anion Gap BUN Creatinine Est GFR ( Amer) Est GFR (Non-Af Amer) POC Glucose (mg/dL) 141 H Random Glucose Calcium Total Bilirubin AST ALT Alkaline Phosphatase Total Protein Albumin Globulin Albumin/Globulin Ratio Laboratory Results - last 72 hr 01/13/18 01/13/18 01/13/18 14:55 14:55 21:54 WBC 4.3 L RBC 3.28 L Hgb 10.3 L Hct 31.2 L MCV 95.2 H MCH 31.3 H MCHC 32.9 L RDW 14.2 Plt Count 89 L MPV 8.5 Neut % (Auto) 68.3 Lymph % (Auto) 17.5 L Benzie % (Auto) 9.7 Eos % (Auto) 3.5 Baso % (Auto) 1.0 Neut # (Auto) 2.9 Lymph # (Auto) 0.7 L Benzie # (Auto) 0.4 Eos # (Auto) 0.2 Baso # (Auto) 0.0 ESR Sodium 139 Potassium 4.3 Chloride 95 L Carbon Dioxide 28 Anion Gap 20 BUN 63 H Creatinine 11.1 H* Est GFR ( Amer) 6 Est GFR (Non-Af Amer) 5 POC Glucose (mg/dL) 134 H Random Glucose 111 H Hemoglobin A1c Calcium 8.5 Total Bilirubin 1.0 AST 18 ALT 20 L Alkaline Phosphatase 144 H C-Reactive Protein Total Protein 7.7 Albumin 3.7 Globulin 4.0 H Albumin/Globulin Ratio 0.9 L 01/14/18 01/14/18 01/14/18 05:26 05:55 05:55 WBC 4.1 L RBC 3.10 L Hgb 9.9 L Hct 29.5 L MCV 95.3 H MCH 32.0 H MCHC 33.6 RDW 14.2 Plt Count 81 L MPV Neut % (Auto) Lymph % (Auto) Benzie % (Auto) Eos % (Auto) Baso % (Auto) Neut # (Auto) Lymph # (Auto) Benzie # (Auto) Eos # (Auto) Baso # (Auto) ESR 57 H Sodium Potassium Chloride Carbon Dioxide Anion Gap BUN Creatinine Est GFR ( Amer) Est GFR (Non-Af Amer) POC Glucose (mg/dL) 141 H Random Glucose Hemoglobin A1c Calcium Total Bilirubin AST ALT Alkaline Phosphatase C-Reactive Protein 16.10 H Total Protein Albumin Globulin Albumin/Globulin Ratio 01/14/18 06:00 WBC RBC Hgb Hct MCV MCH MCHC RDW Plt Count MPV Neut % (Auto) Lymph % (Auto) Benzie % (Auto) Eos % (Auto) Baso % (Auto) Neut # (Auto) Lymph # (Auto) Benzie # (Auto) Eos # (Auto) Baso # (Auto) ESR Sodium Potassium Chloride Carbon Dioxide Anion Gap BUN Creatinine Est GFR ( Amer) Est GFR (Non-Af Amer) POC Glucose (mg/dL) Random Glucose Hemoglobin A1c 5.8 Calcium Total Bilirubin AST ALT Alkaline Phosphatase C-Reactive Protein Total Protein Albumin Globulin Albumin/Globulin Ratio Microbiology 01/13/18 14:55 Foot - Left Gram Stain - Final 01/13/18 14:55 Foot - Left Wound Culture - Preliminary Gram Positive Cocci Accession No. : [id number] Patient Name / ID : TATIANNA MEZA / [id number] Exam Date : 01/13/2018 14:04:14 ( Approved ) Study Comment : Sex / Age : M / 47Y Creator : Marco Escalona MD Dictator : Marco Escalona MD Manager Port : Drier Helper : Marco Escalona MD Approver2 : Report Date : 01/13/2018 15:15:46 My Comment : PROCEDURE: Left Foot Radiographs. HISTORY: open wound COMPARISON: 04/29/2014 left foot FINDINGS: BONES: Portions of the 5th metatarsal have been surgically removed. This represents a new finding compared to the prior radiographs of the left foot. JOINTS: Normal. SOFT TISSUES: Possible soft tissue ulcer adjacent to the 5th metatarsal. OTHER FINDINGS: None. IMPRESSION: No acute osseous abnormalities. Accession No. : [id number] Patient Name / ID : TATIANNA MEZA / [id number] Exam Date : 01/13/2018 14:00:24 ( Approved ) Study Comment : Sex / Age : M / 47Y Creator : Marco Escalona MD Dictator : Marco Escalona MD Manager Port : Drier Helper : Marco Escalona MD Approver2 : Report Date : 01/13/2018 15:13:08 My Comment : PROCEDURE: Left Ankle Radiographs. HISTORY: Left foot pain, open wound site unknown COMPARISON: None FINDINGS: BONES: Plantar and Achilles Tendon insertion calcaneal spurs. JOINTS: Normal. No osteoarthritis. Ankle mortise maintained. Talar dome intact SOFT TISSUES: Mild soft tissue swelling about the ankle. OTHER FINDINGS: None. IMPRESSION: Soft tissue swelling without acute articular or osseous abnormality. Assessment & Plan (1) Diabetic foot infection Status: Acute (2) Chronic wound of extremity Status: Acute (3) Neuropathy associated with endocrine disorder Status: Acute (4) ESRD (end stage renal disease) on dialysis Status: Acute - Assessment and Plan (Free Text) Assessment: A/P- 47 year old male with ESRD on HD, Dm II h/o right foot infections in past s/p amputation of partial right foot , now admitted with infected left fourth toe ulcer. afebrile no rise in wbc prelim wound cx- [facility]PC previous admission right foot cx. e.fecalis. e.coli and corynevbacterium. plan- await MRI report r/o OM. will most likley need debridement of the left fourth toe. awaiting vascualr studies . check blood cx x 2. await final ID and sensitivity of the wound cx. advise to continue with Iv vancomycon on post HD days. continue with Iv zosyn as well ( renal dose)
--- NOTE | 2018-01-14 14:38 | CT ---
PROCEDURE: CT Angiography Abdomen, Pelvis and Lower Extremity with Contrast HISTORY: le ulcers COMPARISON: None. TECHNIQUE: Technique: CT angiography of the abdomen, pelvis and bilateral lower extremities performed in the arterial phase of enhancement. Coronal and sagittal reformats, and well as rotating MIP images of the vessels generated at the workstation. Intravenous contrast dose: 95 CUBIC CENTIMETERS VISIPAQUE 320 Radiation dose: Total exam DLP = 1410.73 MGy-cm. This CT exam was performed using one or more of the following dose reduction techniques: Automated exposure control, adjustment of the mA and/or kV according to patient size, and/or use of iterative reconstruction technique. FINDINGS: CT ANGIOGRAPHY: ABDOMINAL AORTA:: The study begins below renal arteries. The infrarenal aorta measures 17 millimeters in diameter has moderate calcific plaque without stenosis. MAJOR AORTIC BRANCHES: Celiac [employer]: Not imaged. Superior mesenteric artery: Incompletely imaged. Inferior mesenteric artery: Unremarkable. Renal arteries: Incompletely imaged. PELVIC ARTERIES: Right Common Iliac: Unremarkable. Right External Iliac: Unremarkable. Right Internal Iliac: Moderate calcific plaque. Left Common Iliac: Unremarkable. Left External Iliac: Unremarkable. Left Internal Iliac: Calcific plaque. RIGHT LOWER EXTREMITY ARTERIES: Right Common Femoral: Unremarkable. Right Superficial Femoral: Moderate plaque throughout the SFA. The SFA appears thrombosed beginning in the mid segment. There is relative paucity of contrast within this area. Right Profunda Femoris: Unremarkable. Right Popliteal:Appears occluded. Moderate calcific plaque. Right Anterior Tibial: Moderately calcified. No flow within the anterior tibial artery. Right Tibioperoneal Trunk: Unremarkable. Right Posterior Tibial: Moderately calcified with no flow seen within the posterior tibial artery. Right Peroneal: Mildly calcified plaque. The peroneal artery appears occluded in the proximal segment with a short segment of flow seen filling via collaterals in the mid segment. The peroneal artery occludes distally. Right dorsalis pedis : No flow Unremarkable. LEFT LOWER EXTREMITY ARTERIES: Left Common Femoral: Unremarkable. Left Superficial Femoral: Moderate plaque throughout the SFA without significant stenosis. Left Profunda Femoris: Unremarkable. Left Popliteal: Plaque in the popliteal artery with short segment area of moderate stenosis in the more proximal and distal segment. Left Anterior Tibial: Mildly calcified but believed to be patent. Left Tibioperoneal Trunk: Unremarkable. Left Posterior Tibial: Moderate calcific plaque but otherwise unremarkable. Left Peroneal: Occludes distally. Left Dorsalis pedis: Unremarkable. NON-ANGIOGRAPHIC ASPECT OF THE EXAM: LOWER THORAX: Not included in the study. LIVER: Partially imaged and image section appears unremarkable. GALLBLADDER AND BILE DUCTS: Incompletely imaged. PANCREAS: Incompletely imaged. SPLEEN: Incompletely imaged. ADRENALS: Incompletely imaged. KIDNEYS AND URETERS: Incompletely imaged. Imaged kidneys appear unremarkable. STOMACH AND BOWEL: Incompletely imaged. No obvious mass. APPENDIX: PERITONEUM: Unremarkable. No free fluid. No free air. LYMPH NODES: Unremarkable. No enlarged lymph nodes. BLADDER: Unremarkable. REPRODUCTIVE: Unremarkable. BONES: No acute fracture. OTHER FINDINGS: None. IMPRESSION: LIMITED CT ANGIOGRAM OF THE ABDOMEN PELVIS AND RIGHT AND LEFT LOWER EXTREMITIES. THE STUDY BEGINS BELOW THE RENAL ARTERIES. CT ANGIOGRAM ABDOMEN/ PELVIS: 1. The abdominal AA study only includes infrarenal aorta which is moderate calcific plaque and is otherwise unremarkable. 2. Right and left common iliac artery and external iliac arteries are unremarkable. RIGHT LOWER EXTREMITY CT ANGIOGRAM: 1. Common femoral artery profunda femoral artery normal. 2. The superficial femoral artery appears thrombosis beginning in the mid segment. There is relative paucity of contrast beginning in the PICC mid segment and continuing distally. 3. Popliteal artery appears occluded. 4. Runoff shows no flow within anterior tibial artery, posterior tibial artery, and peroneal artery. LEFT LOWER EXTREMITY CT ANGIOGRAM: 1. The common femoral artery profunda femoral artery normal. 2. There is moderate calcific plaque throughout the SFA without significant stenosis. 3. Moderate plaque in the popliteal artery with area of moderate stenosis in the proximal and distal segment. 4. Runoff shows calcified anterior tibial artery which is otherwise unremarkable. Posterior tibial artery also has moderate calcific plaque is unremarkable. The peroneal artery occludes distally.
[2018-01-14] MEDS: Multivitamin Vitamin B Complex (Nephro-Vite) Tab PO SCH (17:00)
[2018-01-14] MEDS: Cholecalciferol 1,000 INTLU TAB PO SCH (17:00)
[2018-01-14 17:04] LABS: HEPATITIS B SURFACE AG Negative (NEGATIVE)
[2018-01-14 17:09] LABS: HEPATITIS B CORE AB NEGATIVE (NEGATIVE)
[2018-01-14 17:21] LABS: HEPATITIS C ANTIBODY NEGATIVE (NEGATIVE)
[2018-01-14] MEDS ORDERED: Pantoprazole 40 mg EC Tab PO ONE (23:08)
[2018-01-15 06:38] LABS: BASO # 0.1 K/uL (0.0-0.2); BASO % 1.4 % (0.0-2.0); EOS # 0.2 K/uL (0.0-0.7); EOS % 4.6 % (0.0-4.0); HEMOGLOBIN 10.2 g/dL (12.0-18.0); LYMPH # 0.8 K/uL (1.0-4.3); LYMPH % 20.3 % (20.0-40.0); MEAN CELL VOLUME 95.1 fl (80.0-94.0); MEAN CORPUSCULAR HEMOGLOBIN 32.1 pg (27.0-31.0); MEAN CORPUSCULAR HGB CONC 33.8 g/dL (33.0-37.0); MEAN PLATELET VOLUME 8.6 fl (7.2-11.7); MONO # 0.5 K/uL (0.0-0.8); MONO % 12.8 % (0.0-10.0); NEUT # 2.3 K/uL (1.8-7.0); NEUT % 60.9 % (50.0-75.0); RBC 3.18 Mil/uL (4.40-5.90); RED CELL DISTRIBUTION WIDTH 13.9 % (11.5-14.5); WHITE BLOOD COUNT 3.8 K/uL (4.8-10.8)
[2018-01-15 07:27] LABS: ALB/GLOB RATIO 0.9 (1.0-2.1); ALBUMIN 3.7 g/dL (3.5-5.0); CALCIUM 8.3 mg/dL (8.4-10.2)
[2018-01-15] MEDS ORDERED: HYDROmorphone 0.5 mg/0.5 ml ISec IVP PRN (08:46)
[2018-01-15] MEDS: Insulin Lispro (humaLOG) 100 Units/ml Inj SC SCH ×4 (09:40→22:48)
[2018-01-15] MEDS: Multivitamin Vitamin B Complex (Nephro-Vite) Tab PO SCH (09:40)
[2018-01-15] MEDS: Cholecalciferol 1,000 INTLU TAB PO SCH (09:41)
--- NOTE | 2018-01-15 09:46 | CP.PCM.PN ---
Subjective - Date & Time of Evaluation Date of Evaluation: 01/15/18 Time of Evaluation: 09:42 - Subjective Subjective: Podiatry progress note for Dr. Cerrato 47YO male seen at bedside for left 4th digit infected ulcer. He was seen resting comfortably, not in any acute dress. AAO x3. Dressing is dry, clean and intact. Patient denies any pain. Patient denies N/V/F/C/SOB but does state that he had one episode of diarrhea last night. Objective - Vital Signs/Intake and Output Vital Signs (last 24 hours): Temp Pulse Resp BP Pulse Ox 98.3 F 60 20 142/68 99 01/15/18 08:12 01/15/18 08:12 01/15/18 08:12 01/15/18 08:12 01/15/18 08:12 - Medications Medications: Current Medications Acetaminophen (Tylenol 325mg Tab) 975 mg PO Q6 PRN PRN Reason: Pain, moderate (4-7) Ascorbic Acid (Vitamin C 500 Mg Tab) 500 mg PO DAILY [facility] Last Admin: 01/14/18 17:00 Dose: 500 mg Cholecalciferol (Vitamin D) 2,000 intlu PO DAILY [facility] Last Admin: 01/14/18 17:00 Dose: 2,000 intlu Dextrose (Dextrose 50% Inj) 0 ml IV STAT PRN; Protocol PRN Reason: Hypoglycemia Protocol Dextrose (Glutose 15) 0 gm PO ONCE PRN; Protocol PRN Reason: Hypoglycemia Protocol Famotidine (Pepcid) 20 mg PO BID [facility] Last Admin: 01/14/18 17:00 Dose: 20 mg Glucagon (Glucagen Diagnostic Kit) 0 mg IM STAT PRN; Protocol PRN Reason: Hypoglycemia Protocol Heparin Sodium (Porcine) (Heparin) 5,000 units SC Q8 [facility] PRN Reason: Protocol Last Admin: 01/15/18 00:46 Dose: 5,000 units Hydralazine HCl (Apresoline) 25 mg PO Q12 [facility] Last Admin: 01/14/18 21:59 Dose: 25 mg Hydromorphone HCl (Dilaudid) 0.5 mg IVP Q6H PRN PRN Reason: Pain, severe (8-10) Piperacillin Sod/Tazobactam (Sod 2.25 gm/ Sodium Chloride) 100 mls @ 100 mls/ hr IVPB Q8 [facility] PRN Reason: Protocol Last Admin: 01/15/18 00:47 Dose: 100 mls/hr Insulin Human Lispro (Humalog) 0 units SC ACHS [facility] PRN Reason: Protocol Last Admin: 01/14/18 22:40 Dose: Not Given Lisinopril (Zestril) 10 mg PO DAILY [facility] Last Admin: 01/14/18 16:02 Dose: Not Given Vitamin B Complex/Vit C/Folic Acid (Nephro-Sanjay) 1 tab PO DAILY [facility] Last Admin: 01/14/18 17:00 Dose: 1 tab - Labs Labs: 01/15/18 05:55 01/15/18 05:55 - Constitutional Appears: Well, Non-toxic, No Acute Distress - Head Exam Head Exam: ATRAUMATIC, NORMOCEPHALIC - Extremities Exam Additional comments: Left lower extremity exam: Vascular: DP/PT pulses nonpalpable secondary to pitting edema b/l. CFT <3 secs x5. TG warm to warm. Neuro: Protective sensation diminished b/l. Derm: Approximately 1 cm x 1 cm x 0.4 cm ulceration noted to lateral left fourth digit with fibronecrotic base. Malodor, serous drainage and periwound erythema noted. No tracking, tunneling, or undermining appreciated. Negative probe to bone. Hypertrophic skin noted to left plantar first metatarsal head. Periwound erythema noted to be improved over yesterday. Ortho: No pain on palpation to ulceration site. Shortened left fifith digit secondary to partial metatarsal amputation. TMA R side. - Neurological Exam Neurological Exam: Alert, Awake, Oriented x3 - Psychiatric Exam Psychiatric exam: Normal Affect, Normal Mood Assessment and Plan - Assessment and Plan (Free Text) Assessment: 47YO male with infected left fourth digit ulceration Plan: Patient seen and evaluated Plan discussed with Dr. Cerrato Chart, labs, and reviewed; Afebrile WBC 3.8 Wound cx results pending MRI left foot: Read by me OM of left fourth digit, awaiting official read by radiologist. Per Dr. Stinson, vascular intervention will need to occur before podiatric surgical intervention can proceed Plan for possible 4th digit amputation with Dr. Cerrato following vascular intervention Wound dressed with Telfa, ABD, DSD Continue abx per ID Podiatry will continue to follow while patient is in house
--- NOTE | 2018-01-15 09:46 | CP.PCM.PN ---
Subjective - Date & Time of Evaluation Date of Evaluation: 01/15/18 Time of Evaluation: 07:20 - Subjective Subjective: Patient seen and examined at bedside. NAD, patient reports 2 episodes of watery diarrhea overnight. denies any nausea, vomiting, abdominal pain, urinary symptoms or weakness. Patient denies any left foot pain, tolerating PO diet, urinating w/o any difficulties. Objective - Vital Signs/Intake and Output Vital Signs (last 24 hours): Temp Pulse Resp BP Pulse Ox 98.3 F 60 20 142/68 99 01/15/18 08:12 01/15/18 08:12 01/15/18 08:12 01/15/18 08:12 01/15/18 08:12 - Medications Medications: Current Medications Acetaminophen (Tylenol 325mg Tab) 975 mg PO Q6 PRN PRN Reason: Pain, moderate (4-7) Ascorbic Acid (Vitamin C 500 Mg Tab) 500 mg PO DAILY [facility] Last Admin: 01/14/18 17:00 Dose: 500 mg Cholecalciferol (Vitamin D) 2,000 intlu PO DAILY [facility] Last Admin: 01/14/18 17:00 Dose: 2,000 intlu Dextrose (Dextrose 50% Inj) 0 ml IV STAT PRN; Protocol PRN Reason: Hypoglycemia Protocol Dextrose (Glutose 15) 0 gm PO ONCE PRN; Protocol PRN Reason: Hypoglycemia Protocol Famotidine (Pepcid) 20 mg PO BID [facility] Last Admin: 01/14/18 17:00 Dose: 20 mg Glucagon (Glucagen Diagnostic Kit) 0 mg IM STAT PRN; Protocol PRN Reason: Hypoglycemia Protocol Heparin Sodium (Porcine) (Heparin) 5,000 units SC Q8 [facility] PRN Reason: Protocol Last Admin: 01/15/18 00:46 Dose: 5,000 units Hydralazine HCl (Apresoline) 25 mg PO Q12 [facility] Last Admin: 01/14/18 21:59 Dose: 25 mg Hydromorphone HCl (Dilaudid) 0.5 mg IVP Q6H PRN PRN Reason: Pain, severe (8-10) Piperacillin Sod/Tazobactam (Sod 2.25 gm/ Sodium Chloride) 100 mls @ 100 mls/ hr IVPB Q8 [facility] PRN Reason: Protocol Last Admin: 01/15/18 00:47 Dose: 100 mls/hr Insulin Human Lispro (Humalog) 0 units SC [facility] PRN Reason: Protocol Last Admin: 01/14/18 22:40 Dose: Not Given Lisinopril (Zestril) 10 mg PO DAILY [facility] Last Admin: 01/14/18 16:02 Dose: Not Given Vitamin B Complex/Vit C/Folic Acid (Nephro-Sanjay) 1 tab PO DAILY [facility] Last Admin: 01/14/18 17:00 Dose: 1 tab - Labs Labs: 01/15/18 05:55 01/15/18 05:55 - Constitutional Appears: No Acute Distress - Head Exam Head Exam: NORMAL INSPECTION - Eye Exam Eye Exam: Normal appearance Pupil Exam: NORMAL ACCOMODATION - ENT Exam ENT Exam: Mucous Membranes Moist - Neck Exam Neck Exam: Normal Inspection - Respiratory Exam Respiratory Exam: Clear to Ausculation Bilateral, NORMAL BREATHING PATTERN - Cardiovascular Exam Cardiovascular Exam: REGULAR RHYTHM - GI/Abdominal Exam GI & Abdominal Exam: Soft, Normal Bowel Sounds. absent: Rigid, Tenderness, Hernia, Mass, Rebound - Extremities Exam Additional comments: Amputated Right toes Left foot: swelling below ankle seen, 4th toe with open wound; serosanguineous drainage appreciated, NONTENDER. sensory and motor function intact - Back Exam Back Exam: absent: CVA tenderness (L), CVA tenderness (R) - Neurological Exam Neurological Exam: Alert, Awake, CN II-XII Intact, Oriented x3 - Psychiatric Exam Psychiatric exam: Normal Affect - Skin Skin Exam: Normal Color Assessment and Plan - Assessment and Plan (Free Text) Assessment: A/P: 47 y/o M with PMH of HTN, DM and ESRD on HD admitted for Infected left fourth digit ulceration. Left foot infection - C/w Vanco post HD and Zosyn day 3 - Follow up podiatry recommendations, Dr. Rodriguez consult appreciated - Consult ID, Dr. Pendleton recs appreciated - Consult Vascular, Dr. Stinson, recs appreciated - Consult Cardio, Augusto Warner, Last ECHO 2017; 15 to 20% EF - Possible surgical interventions as per podiatry on friday - Elevated CRP and ESR - CT angio: popliteal artery occlusion, No flow ant/post tibial and peroneal arteries - F/u Dr. Stinson for any vascular interventions - C/w Abx - F/u MRI foot - F/u Bcx (01/15) ESRD - Nephro Consult, Dr. Koo, recs appreciated - HD every TTS HTN - C/w home medication; hydralazine 25mg TID, Lisinopril 10mg BID Prediabetes - HBA1C; 5.8 DVT PPX - Heparin 5000 SC Q8H
[2018-01-15] MEDS: Lactobacillus Acidophilus 500 MU Cap PO SCH ×2 (11:34→17:56)
--- NOTE | 2018-01-15 13:59 | CP.PCM.PN ---
Subjective - Date & Time of Evaluation Date of Evaluation: 01/15/18 Time of Evaluation: 13:58 - Subjective Subjective: Id note- Patient seen and examined today . patient states he feels better today. denies any fever or chills. He states he was told that he will have toe amputation tomm . Objective - Vital Signs/Intake and Output Vital Signs (last 24 hours): Temp Pulse Resp BP Pulse Ox 98.3 F 60 20 142/68 99 01/15/18 08:12 01/15/18 09:41 01/15/18 08:12 01/15/18 09:41 01/15/18 08:12 - Medications Medications: Current Medications Acetaminophen (Tylenol 325mg Tab) 975 mg PO Q6 PRN PRN Reason: Pain, moderate (4-7) Ascorbic Acid (Vitamin C 500 Mg Tab) 500 mg PO DAILY [facility] Last Admin: 01/15/18 09:40 Dose: 500 mg Cholecalciferol (Vitamin D) 2,000 intlu PO DAILY [facility] Last Admin: 01/15/18 09:41 Dose: 2,000 intlu Dextrose (Dextrose 50% Inj) 0 ml IV STAT PRN; Protocol PRN Reason: Hypoglycemia Protocol Dextrose (Glutose 15) 0 gm PO ONCE PRN; Protocol PRN Reason: Hypoglycemia Protocol Famotidine (Pepcid) 20 mg PO BID [facility] Last Admin: 01/15/18 09:40 Dose: 20 mg Glucagon (Glucagen Diagnostic Kit) 0 mg IM STAT PRN; Protocol PRN Reason: Hypoglycemia Protocol Heparin Sodium (Porcine) (Heparin) 5,000 units SC Q8 [facility] PRN Reason: Protocol Last Admin: 01/15/18 09:39 Dose: 5,000 units Hydralazine HCl (Apresoline) 25 mg PO Q12 [facility] Last Admin: 01/15/18 09:39 Dose: 25 mg Hydromorphone HCl (Dilaudid) 0.5 mg IVP Q6H PRN PRN Reason: Pain, severe (8-10) Piperacillin Sod/Tazobactam (Sod 2.25 gm/ Sodium Chloride) 100 mls @ 100 mls/ hr IVPB Q8 [facility] PRN Reason: Protocol Last Admin: 01/15/18 09:41 Dose: 100 mls/hr Insulin Human Lispro (Humalog) 0 units SC ACHS [facility] PRN Reason: Protocol Last Admin: 01/15/18 11:36 Dose: Not Given Lactobacillus Acidophilus (Bacid Acidophilus) 1 cap PO BID [facility] Last Admin: 01/15/18 11:34 Dose: 1 cap Lisinopril (Zestril) 10 mg PO DAILY [facility] Last Admin: 01/15/18 09:41 Dose: 10 mg Vitamin B Complex/Vit C/Folic Acid (Nephro-Sanjay) 1 tab PO DAILY [facility] Last Admin: 01/15/18 09:40 Dose: 1 tab - Labs Labs: - Additional Findings Additional findings: - Constitutional Appears: No Acute Distress, Chronically Ill - Head Exam Head Exam: ATRAUMATIC - Eye Exam Eye Exam: EOMI - ENT Exam ENT Exam: Normal Oropharynx - Neck Exam Neck exam: Positive for: Full Rom - Respiratory Exam Respiratory Exam: Clear to Auscultation Bilateral, NORMAL BREATHING PATTERN - Cardiovascular Exam Cardiovascular Exam: RRR, +S1, +S2 - GI/Abdominal Exam GI & Abdominal Exam: Normal Bowel Sounds, Soft Additional comments: NT, ND - Extremities Exam Additional comments: left fourth distal toe with necrotic ulcer with small opening draining malodorous yellow fluid no surrounding lesions right foot s/p TMA amputation has chronic healed dy ulcer on the frontal heel and one that is still draining small am patient has neuropathy and has no sensation in the feet or toes - Neurological Exam Neurological exam: Alert, Oriented x 3 Laboratory Results - last 72 hr 01/13/18 01/13/18 01/13/18 14:55 14:55 21:54 WBC 4.3 L RBC 3.28 L Hgb 10.3 L Hct 31.2 L MCV 95.2 H MCH 31.3 H MCHC 32.9 L RDW 14.2 Plt Count 89 L MPV 8.5 Neut % (Auto) 68.3 Lymph % (Auto) 17.5 L [place] % (Auto) 9.7 Eos % (Auto) 3.5 Baso % (Auto) 1.0 Neut # (Auto) 2.9 Lymph # (Auto) 0.7 L [place] # (Auto) 0.4 Eos # (Auto) 0.2 Baso # (Auto) 0.0 ESR Sodium 139 Potassium 4.3 Chloride 95 L Carbon Dioxide 28 Anion Gap 20 BUN 63 H Creatinine 11.1 H* Est GFR ( Amer) 6 Est GFR (Non-Af Amer) 5 POC Glucose (mg/dL) 134 H Random Glucose 111 H Hemoglobin A1c Calcium 8.5 Total Bilirubin 1.0 AST 18 ALT 20 L Alkaline Phosphatase 144 H C-Reactive Protein Total Protein 7.7 Albumin 3.7 Globulin 4.0 H Albumin/Globulin Ratio 0.9 L Hep Bs Antigen Hep Bs Antibody Hep B Core IgM Ab Hepatitis C Antibody 01/14/18 01/14/18 01/14/18 05:26 05:55 05:55 WBC 4.1 L RBC 3.10 L Hgb 9.9 L Hct 29.5 L MCV 95.3 H MCH 32.0 H MCHC 33.6 RDW 14.2 Plt Count 81 L MPV Neut % (Auto) Lymph % (Auto) [place] % (Auto) Eos % (Auto) Baso % (Auto) Neut # (Auto) Lymph # (Auto) [place] # (Auto) Eos # (Auto) Baso # (Auto) ESR 57 H Sodium Potassium Chloride Carbon Dioxide Anion Gap BUN Creatinine Est GFR ( Amer) Est GFR (Non-Af Amer) POC Glucose (mg/dL) 141 H Random Glucose Hemoglobin A1c Calcium Total Bilirubin AST ALT Alkaline Phosphatase C-Reactive Protein 16.10 H Total Protein Albumin Globulin Albumin/Globulin Ratio Hep Bs Antigen Hep Bs Antibody Hep B Core IgM Ab Hepatitis C Antibody 01/14/18 01/14/18 01/14/18 06:00 10:13 10:18 WBC RBC Hgb Hct MCV MCH MCHC RDW Plt Count MPV Neut % (Auto) Lymph % (Auto) [place] % (Auto) Eos % (Auto) Baso % (Auto) Neut # (Auto) Lymph # (Auto) [place] # (Auto) Eos # (Auto) Baso # (Auto) ESR Sodium Potassium Chloride Carbon Dioxide Anion Gap BUN Creatinine Est GFR ( Amer) Est GFR (Non-Af Amer) POC Glucose (mg/dL) Random Glucose Hemoglobin A1c 5.8 Calcium Total Bilirubin AST ALT Alkaline Phosphatase C-Reactive Protein Total Protein Albumin Globulin Albumin/Globulin Ratio Hep Bs Antigen Negative Hep Bs Antibody Positive Hep B Core IgM Ab Negative Hepatitis C Antibody Negative 01/14/18 01/14/18 01/15/18 15:54 22:10 05:30 WBC RBC Hgb Hct MCV MCH MCHC RDW Plt Count MPV Neut % (Auto) Lymph % (Auto) [place] % (Auto) Eos % (Auto) Baso % (Auto) Neut # (Auto) Lymph # (Auto) [place] # (Auto) Eos # (Auto) Baso # (Auto) ESR Sodium Potassium Chloride Carbon Dioxide Anion Gap BUN Creatinine Est GFR ( Amer) Est GFR (Non-Af Amer) POC Glucose (mg/dL) 123 H 114 H 176 H Random Glucose Hemoglobin A1c Calcium Total Bilirubin AST ALT Alkaline Phosphatase C-Reactive Protein Total Protein Albumin Globulin Albumin/Globulin Ratio Hep Bs Antigen Hep Bs Antibody Hep B Core IgM Ab Hepatitis C Antibody 01/15/18 01/15/18 01/15/18 05:55 05:55 10:51 WBC 3.8 L RBC 3.18 L Hgb 10.2 L Hct 30.2 L MCV 95.1 H MCH 32.1 H MCHC 33.8 RDW 13.9 Plt Count 87 L MPV 8.6 Neut % (Auto) 60.9 Lymph % (Auto) 20.3 [place] % (Auto) 12.8 H Eos % (Auto) 4.6 H Baso % (Auto) 1.4 Neut # (Auto) 2.3 Lymph # (Auto) 0.8 L [place] # (Auto) 0.5 Eos # (Auto) 0.2 Baso # (Auto) 0.1 ESR Sodium 138 Potassium 4.2 Chloride 94 L Carbon Dioxide 30 Anion Gap 18 BUN 45 H Creatinine 8.1 H* D Est GFR ( Amer) 9 Est GFR (Non-Af Amer) 7 POC Glucose (mg/dL) 123 H Random Glucose 125 H Hemoglobin A1c Calcium 8.3 L Total Bilirubin 1.1 AST 19 ALT 19 L Alkaline Phosphatase 147 H C-Reactive Protein Total Protein 7.8 Albumin 3.7 Globulin 4.1 H Albumin/Globulin Ratio 0.9 L Hep Bs Antigen Hep Bs Antibody Hep B Core IgM Ab Hepatitis C Antibody Microbiology 01/13/18 14:55 Blood-Venous Blood Culture - Preliminary NO GROWTH AFTER 24 HOURS 01/13/18 14:55 Foot - Left Gram Stain - Final 01/13/18 14:55 Foot - Left Wound Culture - Preliminary Gram Positive Cocci Assessment and Plan (1) Diabetic foot infection Status: Acute (2) Chronic wound of extremity Status: Acute (3) Neuropathy associated with endocrine disorder Status: Acute (4) ESRD (end stage renal disease) on dialysis Status: Acute - Assessment and Plan (Free Text) Assessment: A/P- 47 year old male with ESRD on HD, Dm II h/o right foot infections in past s/p amputation of partial right foot , now admitted with infected left fourth toe ulcer. afebrile prelim wound cx- GPC Blood cx- negative previous admission right foot cx. e.fecalis. e.coli and corynevbacterium. plan- await MRI report r/o OM. will most likely need need debridement vs amputation of the left fourth toe. awaiting vascualr studies . await final ID and sensitivity of the wound cx. advise to continue with IV vancomycon on post HD days. keep trough <15. ( between 10-15). continue with Iv zosyn as well ( renal dose) day #2.
--- NOTE | 2018-01-15 14:05 | CP.PCM.CON ---
History of Present Illness - History of Present Illness History of Present Illness: ASKED TO SEE PT FOR CARDIOVASCULAR RISK ASSESSMENT PRIOR TO SURGERY. PT WITHOUT CP, PALP, LH, DIZZINESS, SYNCOPE. PT ADMITS TO OCCASIONAL [place], NO ORTHOPNEA OR PND. DENIES HX OF CHF OR CAD. NO HX OF STRESS TESTING. PT DOES HAVE DM, HTN, DYSLIPID, PVD, AND TOBACCO USE. NO FAM HX OF CAD. SCHEDULED FOR TOE AMPUTATION. Past Patient History - Infectious Disease Hx of Infectious Diseases: None - Past Medical History & Family History Past Medical History?: Yes - Past Social History Alcohol: None Drugs: Denies - CARDIAC Hx Hypertension: Yes - PULMONARY Hx Chronic Obstructive Pulmonary Disease (COPD): No - NEUROLOGICAL HX Cerebrovascular Accident: No - HEENT Hx HEENT Problems: Yes Hx Cataracts: Yes - RENAL Hx Chronic Kidney Disease: Yes Other/Comment: on HD - ENDOCRINE/METABOLIC Hx Hypothyroidism: No - HEMATOLOGICAL/ONCOLOGICAL Hx Blood Disorders: No - INTEGUMENTARY Hx Dermatological Problems: No - MUSCULOSKELETAL/RHEUMATOLOGICAL Hx Arthritis: No Hx Rheumatoid Arthritis: No - GASTROINTESTINAL Hx Gastrointestinal Disorders: No - GENITOURINARY/GYNECOLOGICAL Hx Genitourinary Disorders: No - PSYCHIATRIC Hx Psychophysiologic Disorder: No Hx Substance Use: No - SURGICAL HISTORY Hx Surgeries: Yes Hx Amputation: Yes (TRANSMETATARSAL RIGHT FT) Hx Cataract Extraction: Yes (Right eye - 2008) Other/Comment: rt upper shunt 09/05/2016 - ANESTHESIA Hx Anesthesia: Yes Hx Anesthesia Reactions: No Hx Malignant Hyperthermia: No Meds Allergies/Adverse Reactions: Allergies Allergy/AdvReac Type Severity Reaction Status Date / Time shellfish Allergy ITCHING Uncoded 01/13/18 12:44 - Medications Medications: Current Medications Acetaminophen (Tylenol 325mg Tab) 975 mg PO Q6 PRN PRN Reason: Pain, moderate (4-7) Ascorbic Acid (Vitamin C 500 Mg Tab) 500 mg PO DAILY [facility] Last Admin: 01/15/18 09:40 Dose: 500 mg Cholecalciferol (Vitamin D) 2,000 intlu PO DAILY [facility] Last Admin: 01/15/18 09:41 Dose: 2,000 intlu Dextrose (Dextrose 50% Inj) 0 ml IV STAT PRN; Protocol PRN Reason: Hypoglycemia Protocol Dextrose (Glutose 15) 0 gm PO ONCE PRN; Protocol PRN Reason: Hypoglycemia Protocol Famotidine (Pepcid) 20 mg PO BID [facility] Last Admin: 01/15/18 09:40 Dose: 20 mg Glucagon (Glucagen Diagnostic Kit) 0 mg IM STAT PRN; Protocol PRN Reason: Hypoglycemia Protocol Heparin Sodium (Porcine) (Heparin) 5,000 units SC Q8 [facility] PRN Reason: Protocol Last Admin: 01/15/18 09:39 Dose: 5,000 units Hydralazine HCl (Apresoline) 25 mg PO Q12 [facility] Last Admin: 01/15/18 09:39 Dose: 25 mg Hydromorphone HCl (Dilaudid) 0.5 mg IVP Q6H PRN PRN Reason: Pain, severe (8-10) Piperacillin Sod/Tazobactam (Sod 2.25 gm/ Sodium Chloride) 100 mls @ 100 mls/ hr IVPB Q8 [facility] PRN Reason: Protocol Last Admin: 01/15/18 09:41 Dose: 100 mls/hr Insulin Human Lispro (Humalog) 0 units SC ACHS [facility] PRN Reason: Protocol Last Admin: 01/15/18 11:36 Dose: Not Given Lactobacillus Acidophilus (Bacid Acidophilus) 1 cap PO BID [facility] Last Admin: 01/15/18 11:34 Dose: 1 cap Lisinopril (Zestril) 10 mg PO DAILY [facility] Last Admin: 01/15/18 09:41 Dose: 10 mg Vitamin B Complex/Vit C/Folic Acid (Nephro-Sanjay) 1 tab PO DAILY [facility] Last Admin: 01/15/18 09:40 Dose: 1 tab Results - Vital Signs Recent Vital Signs: Last Vital Signs Temp 98.3 F 01/15/18 08:12 Pulse 60 01/15/18 09:41 Resp 20 01/15/18 08:12 BP 142/68 01/15/18 09:41 Pulse Ox 99 01/15/18 08:12 - Labs Result Diagrams: 01/15/18 05:55 01/15/18 05:55 Labs: Laboratory Results - last 24 hr 01/14/18 01/14/18 01/14/18 10:13 10:18 15:54 WBC RBC Hgb Hct MCV MCH MCHC RDW Plt Count MPV Neut % (Auto) Lymph % (Auto) [place] % (Auto) Eos % (Auto) Baso % (Auto) Neut # (Auto) Lymph # (Auto) [place] # (Auto) Eos # (Auto) Baso # (Auto) Sodium Potassium Chloride Carbon Dioxide Anion Gap BUN Creatinine Est GFR ( Amer) Est GFR (Non-Af Amer) POC Glucose (mg/dL) 123 H Random Glucose Calcium Total Bilirubin AST ALT Alkaline Phosphatase Total Protein Albumin Globulin Albumin/Globulin Ratio Hep Bs Antigen Negative Hep Bs Antibody Positive Hep B Core IgM Ab Negative Hepatitis C Antibody Negative 01/14/18 01/15/18 01/15/18 22:10 05:30 05:55 WBC 3.8 L RBC 3.18 L Hgb 10.2 L Hct 30.2 L MCV 95.1 H MCH 32.1 H MCHC 33.8 RDW 13.9 Plt Count 87 L MPV 8.6 Neut % (Auto) 60.9 Lymph % (Auto) 20.3 [place] % (Auto) 12.8 H Eos % (Auto) 4.6 H Baso % (Auto) 1.4 Neut # (Auto) 2.3 Lymph # (Auto) 0.8 L [place] # (Auto) 0.5 Eos # (Auto) 0.2 Baso # (Auto) 0.1 Sodium Potassium Chloride Carbon Dioxide Anion Gap BUN Creatinine Est GFR ( Amer) Est GFR (Non-Af Amer) POC Glucose (mg/dL) 114 H 176 H Random Glucose Calcium Total Bilirubin AST ALT Alkaline Phosphatase Total Protein Albumin Globulin Albumin/Globulin Ratio Hep Bs Antigen Hep Bs Antibody Hep B Core IgM Ab Hepatitis C Antibody 01/15/18 01/15/18 05:55 10:51 WBC RBC Hgb Hct MCV MCH MCHC RDW Plt Count MPV Neut % (Auto) Lymph % (Auto) [place] % (Auto) Eos % (Auto) Baso % (Auto) Neut # (Auto) Lymph # (Auto) [place] # (Auto) Eos # (Auto) Baso # (Auto) Sodium 138 Potassium 4.2 Chloride 94 L Carbon Dioxide 30 Anion Gap 18 BUN 45 H Creatinine 8.1 H* D Est GFR ( Amer) 9 Est GFR (Non-Af Amer) 7 POC Glucose (mg/dL) 123 H Random Glucose 125 H Calcium 8.3 L Total Bilirubin 1.1 AST 19 ALT 19 L Alkaline Phosphatase 147 H Total Protein 7.8 Albumin 3.7 Globulin 4.1 H Albumin/Globulin Ratio 0.9 L Hep Bs Antigen Hep Bs Antibody Hep B Core IgM Ab Hepatitis C Antibody Assessment & Plan - Assessment and Plan (Free Text) Plan: GIVEN ABSENCE OF SYMPTOMS TO INDICATE ACTIVE CAD OR CHF PT MAY PROCEED WITH AMPUTATION. PT IS INTERMEDIATE CARDIOVASCULAR RISK FOR AMPUTATION BASED MAINLY ON PMHX. PT WOULD LIKELY BENEFIT FROM NUCLEAR STRESS TESTING AT SOME POINT. NO NEED FOR ST PRIOR TO OR. BRADYCARDIC AT REST, CANNOT START BB'S FOR RISK REDUCTION.
--- NOTE | 2018-01-15 16:40 | MRI ---
PROCEDURE: LEFT FOOT MRI WITHOUT CONTRAST. HISTORY: L fourth digit infection, r/o OM COMPARISON: Left foot radiographs 01/13/2018. TECHNIQUE: Multiplanar multisequential MR imaging of the left midfoot and forefoot was obtained without intravenous contrast. No prior MRI available for comparison. FINDINGS: There are edematous changes identified involving the distal greater than proximal left 4th digit. In fact, the mid to proximal proximal phalanx left 4th digit is spared of edema. The mid and distal segments of the left 4th digit are edematous as well as the distal portion of the proximal phalanx left 4th digit. Finding compatible osteomyelitis. Soft tissue edema related to the left 4th digit appears limited although relatively prominent dorsal soft tissue edema is seen related to the entire left foot diffusely. No definitive fluid collection to suggest an abscess. No fracture subluxation/dislocation. Mild hammertoe deformities are diffusely evident at the 1st through 4th digit in this patient with prior partial amputation of the 5th metatarsal bone. There is nonspecific edema seen in the plantar foot soft tissues sparing the plantar fascia. Flexor and extensor tendons appear intact without definite tear. IMPRESSION: Findings compatible with osteomyelitis of the majority of the left 4th digit sparing the proximal to mid segment of the proximal phalanx only. Prominent dorsal foot edema/cellulitis is seen diffusely with limited involvement at the left 4th digit. No definite abscess is appreciable. Partial amputation left 4th metatarsal bone. Concordant preliminary report from [facility], 01/14/2018.
[2018-01-15] MEDS ORDERED: Pantoprazole 40 mg EC Tab PO ONE (23:08)
--- NOTE | 2018-01-15 23:34 | CP.PCM.PN ---
Subjective - Date & Time of Evaluation Date of Evaluation: 01/15/18 Time of Evaluation: 15:00 - Subjective Subjective: SEEN ON RENAL F/U IN BED .. NAD .. UNDERSTANDS THE PODIATRY SURGERY THAT IS HAPPENING IN AM RECIEVED HD YESTERDAY ALL PREVIOUS EMR REVIEWED LABS REVIEWED Objective - Vital Signs/Intake and Output Vital Signs (last 24 hours): Temp Pulse Resp BP Pulse Ox 98.3 F 62 20 142/70 99 01/15/18 17:00 01/15/18 21:33 01/15/18 17:00 01/15/18 21:33 01/15/18 17:00 - Medications Medications: Current Medications Acetaminophen (Tylenol 325mg Tab) 975 mg PO Q6 PRN PRN Reason: Pain, moderate (4-7) Ascorbic Acid (Vitamin C 500 Mg Tab) 500 mg PO DAILY [facility] Last Admin: 01/15/18 09:40 Dose: 500 mg Cholecalciferol (Vitamin D) 2,000 intlu PO DAILY [facility] Last Admin: 01/15/18 09:41 Dose: 2,000 intlu Dextrose (Dextrose 50% Inj) 0 ml IV STAT PRN; Protocol PRN Reason: Hypoglycemia Protocol Dextrose (Glutose 15) 0 gm PO ONCE PRN; Protocol PRN Reason: Hypoglycemia Protocol Famotidine (Pepcid) 20 mg PO BID [facility] Last Admin: 01/15/18 17:56 Dose: 20 mg Glucagon (Glucagen Diagnostic Kit) 0 mg IM STAT PRN; Protocol PRN Reason: Hypoglycemia Protocol Heparin Sodium (Porcine) (Heparin) 5,000 units SC Q8 [facility] PRN Reason: Protocol Last Admin: 01/15/18 17:45 Dose: 5,000 units Hydralazine HCl (Apresoline) 25 mg PO Q12 [facility] Last Admin: 01/15/18 21:33 Dose: 25 mg Hydromorphone HCl (Dilaudid) 0.5 mg IVP Q6H PRN PRN Reason: Pain, severe (8-10) Piperacillin Sod/Tazobactam (Sod 2.25 gm/ Sodium Chloride) 100 mls @ 100 mls/ hr IVPB Q8 [facility] PRN Reason: Protocol Last Admin: 01/15/18 17:44 Dose: 100 mls/hr Vancomycin HCl 1 gm/ Sodium (Chloride) 250 mls @ 166.667 mls/hr IVPB FRI [facility] PRN Reason: Protocol Vancomycin HCl 1 gm/ Sodium (Chloride) 250 mls @ 166.667 mls/hr IVPB SAT [facility] PRN Reason: Protocol Insulin Human Lispro (Humalog) 0 units SC ACHS [facility] PRN Reason: Protocol Last Admin: 01/15/18 22:48 Dose: Not Given Lactobacillus Acidophilus (Bacid Acidophilus) 1 cap PO BID [facility] Last Admin: 01/15/18 17:56 Dose: 1 cap Lisinopril (Zestril) 10 mg PO DAILY [facility] Last Admin: 01/15/18 09:41 Dose: 10 mg Vitamin B Complex/Vit C/Folic Acid (Nephro-Sanjay) 1 tab PO DAILY [facility] Last Admin: 01/15/18 09:40 Dose: 1 tab - Labs Labs: 01/15/18 05:55 01/15/18 05:55 Assessment and Plan - Assessment and Plan (Free Text) Assessment: ESRD ON HD .. TOMORROW THEN SAT ANRMIA OF CKD .. H/H STABLE FOR PODIATRY SURGERY IN AM MMP P: HD TOMORROW POST KING C/O CURRENT MEDS C/O PRESENT MANAGEMENT
[2018-01-16] MEDS ORDERED: Alum-Mag Hydrox-Simethicone Susp (30 mL) PO ONE (00:16)
--- NOTE | 2018-01-16 08:18 | CP.PCM.PN ---
Subjective - Date & Time of Evaluation Date of Evaluation: 01/16/18 Time of Evaluation: 07:15 - Subjective Subjective: Patient seen and examined this morning at bedside. AAO, NAD, no acute event overnight, patient is tolerating PO intake, urinating well, reports 3-4 watery small BM overnight. denies any chest pain, SOB, dizziness, palpitations, blurred vision, abdominal pain or any weakness. -Patient for possible HD today -NPO for Possible Vascular intervention by Dr. Stinson today -Will follow up Podiatry recommendations for further interventions. Objective - Vital Signs/Intake and Output Vital Signs (last 24 hours): Temp Pulse Resp BP Pulse Ox 97.7 F 65 20 149/80 99 01/16/18 00:15 01/16/18 00:15 01/16/18 00:15 01/16/18 01:15 01/16/18 00:15 - Medications Medications: Current Medications Acetaminophen (Tylenol 325mg Tab) 975 mg PO Q6 PRN PRN Reason: Pain, moderate (4-7) Ascorbic Acid (Vitamin C 500 Mg Tab) 500 mg PO DAILY [facility] Last Admin: 01/15/18 09:40 Dose: 500 mg Cholecalciferol (Vitamin D) 2,000 intlu PO DAILY [facility] Last Admin: 01/15/18 09:41 Dose: 2,000 intlu Dextrose (Dextrose 50% Inj) 0 ml IV STAT PRN; Protocol PRN Reason: Hypoglycemia Protocol Dextrose (Glutose 15) 0 gm PO ONCE PRN; Protocol PRN Reason: Hypoglycemia Protocol Famotidine (Pepcid) 20 mg PO BID [facility] Last Admin: 01/15/18 17:56 Dose: 20 mg Glucagon (Glucagen Diagnostic Kit) 0 mg IM STAT PRN; Protocol PRN Reason: Hypoglycemia Protocol Heparin Sodium (Porcine) (Heparin) 5,000 units SC Q8 [facility] PRN Reason: Protocol Last Admin: 01/16/18 00:40 Dose: 5,000 units Hydralazine HCl (Apresoline) 25 mg PO Q12 [facility] Last Admin: 01/15/18 21:33 Dose: 25 mg Hydromorphone HCl (Dilaudid) 0.5 mg IVP Q6H PRN PRN Reason: Pain, severe (8-10) Piperacillin Sod/Tazobactam (Sod 2.25 gm/ Sodium Chloride) 100 mls @ 100 mls/ hr IVPB Q8 [facility] PRN Reason: Protocol Last Admin: 01/16/18 00:40 Dose: 100 mls/hr Vancomycin HCl 1 gm/ Sodium (Chloride) 250 mls @ 166.667 mls/hr IVPB FRI [facility] PRN Reason: Protocol Vancomycin HCl 1 gm/ Sodium (Chloride) 250 mls @ 166.667 mls/hr IVPB SAT [facility] PRN Reason: Protocol Insulin Human Lispro (Humalog) 0 units SC ACHS [facility] PRN Reason: Protocol Last Admin: 01/15/18 22:48 Dose: Not Given Lactobacillus Acidophilus (Bacid Acidophilus) 1 cap PO BID [facility] Last Admin: 01/15/18 17:56 Dose: 1 cap Lisinopril (Zestril) 10 mg PO DAILY [facility] Last Admin: 01/15/18 09:41 Dose: 10 mg Vitamin B Complex/Vit C/Folic Acid (Nephro-Sanjay) 1 tab PO DAILY [facility] Last Admin: 01/15/18 09:40 Dose: 1 tab - Labs Labs: 01/15/18 05:55 01/15/18 05:55 - Constitutional Appears: No Acute Distress - Head Exam Head Exam: NORMAL INSPECTION - Eye Exam Eye Exam: Normal appearance, PERRL Pupil Exam: NORMAL ACCOMODATION - ENT Exam ENT Exam: Mucous Membranes Moist - Neck Exam Neck Exam: Normal Inspection - Respiratory Exam Respiratory Exam: Clear to Ausculation Bilateral, NORMAL BREATHING PATTERN. absent: Decreased Breath Sounds - Cardiovascular Exam Cardiovascular Exam: REGULAR RHYTHM, +S1, +S2 - GI/Abdominal Exam GI & Abdominal Exam: Soft, Normal Bowel Sounds. absent: Rigid, Tenderness - Extremities Exam Additional comments: Amputated Right toes Left foot: swelling below ankle seen, 4th toe with open wound; serosanguineous drainage appreciated, NONTENDER. sensory and motor function intact - Back Exam Back Exam: NORMAL INSPECTION. absent: CVA tenderness (L), CVA tenderness (R) - Neurological Exam Neurological Exam: Alert, Awake, Oriented x3 - Psychiatric Exam Psychiatric exam: Normal Affect - Skin Skin Exam: Normal Color Assessment and Plan - Assessment and Plan (Free Text) Assessment: A/P: 47 y/o M with PMH of HTN, DM and ESRD on HD admitted for Infected left fourth digit ulceration. Left foot infection - C/w Vanco post HD and Zosyn day 4 - Follow up podiatry recommendations, Dr. Rodriguez consult appreciated - Consult ID, Dr. Pendleton, recs appreciated - Consult Vascular, Dr. Stinson, recs appreciated - Consult Cardio, Augusto Warner, Last ECHO 2017; 15 to 20% EF, cleared for surgical intervention - CT angio: popliteal artery occlusion, No flow ant/post tibial and peroneal arteries - MRI Foot: Osteomylitis - Blood Cx (01/13): NGPD - Left foot Wound Cx: Staph Aureus/Providencia Rettgeri, sensetive to Vanco - C/w Abx - F/u Dr. Stinson, possible vascular interventions today, revascularization ESRD - Nephro Consult, Dr. Koo, recs appreciated - HD today, than TTS HTN - C/w home medication; hydralazine 25mg TID, Lisinopril 10mg BID Prediabetes - HBA1C; 5.8 DVT PPX - Heparin 5000 SC Q8H, Held for possible revascularization
--- NOTE | 2018-01-16 08:58 | CP.PCM.PN ---
Subjective - Date & Time of Evaluation Date of Evaluation: 01/16/18 Time of Evaluation: 08:55 - Subjective Subjective: Podiatry progress note for Dr. Cerrato 47YO male seen at bedside for left 4th digit infected ulcer. He was seen resting comfortably, not in any acute dress. AAO x3, NAD. Dressing is dry, clean and intact. Patient denies any pain. Patient denies N/V/F/C/SOB Objective - Vital Signs/Intake and Output Vital Signs (last 24 hours): Temp Pulse Resp BP Pulse Ox 97.8 F 66 20 167/83 H 97 01/16/18 08:33 01/16/18 08:33 01/16/18 08:33 01/16/18 08:33 01/16/18 08:33 - Medications Medications: Current Medications Acetaminophen (Tylenol 325mg Tab) 975 mg PO Q6 PRN PRN Reason: Pain, moderate (4-7) Ascorbic Acid (Vitamin C 500 Mg Tab) 500 mg PO DAILY [facility] Last Admin: 01/15/18 09:40 Dose: 500 mg Cholecalciferol (Vitamin D) 2,000 intlu PO DAILY [facility] Last Admin: 01/15/18 09:41 Dose: 2,000 intlu Dextrose (Dextrose 50% Inj) 0 ml IV STAT PRN; Protocol PRN Reason: Hypoglycemia Protocol Dextrose (Glutose 15) 0 gm PO ONCE PRN; Protocol PRN Reason: Hypoglycemia Protocol Famotidine (Pepcid) 20 mg PO BID [facility] Last Admin: 01/15/18 17:56 Dose: 20 mg Glucagon (Glucagen Diagnostic Kit) 0 mg IM STAT PRN; Protocol PRN Reason: Hypoglycemia Protocol Heparin Sodium (Porcine) (Heparin) 5,000 units SC Q8 [facility] PRN Reason: Protocol Last Admin: 01/16/18 00:40 Dose: 5,000 units Hydralazine HCl (Apresoline) 25 mg PO Q12 [facility] Last Admin: 01/15/18 21:33 Dose: 25 mg Hydromorphone HCl (Dilaudid) 0.5 mg IVP Q6H PRN PRN Reason: Pain, severe (8-10) Piperacillin Sod/Tazobactam (Sod 2.25 gm/ Sodium Chloride) 100 mls @ 100 mls/ hr IVPB Q8 [facility] PRN Reason: Protocol Last Admin: 01/16/18 00:40 Dose: 100 mls/hr Vancomycin HCl 1 gm/ Sodium (Chloride) 250 mls @ 166.667 mls/hr IVPB FRI [facility] PRN Reason: Protocol Vancomycin HCl 1 gm/ Sodium (Chloride) 250 mls @ 166.667 mls/hr IVPB SAT [facility] PRN Reason: Protocol Insulin Human Lispro (Humalog) 0 units SC ACHS [facility] PRN Reason: Protocol Last Admin: 01/15/18 22:48 Dose: Not Given Lactobacillus Acidophilus (Bacid Acidophilus) 1 cap PO BID [facility] Last Admin: 01/15/18 17:56 Dose: 1 cap Lisinopril (Zestril) 10 mg PO DAILY [facility] Last Admin: 01/15/18 09:41 Dose: 10 mg Vitamin B Complex/Vit C/Folic Acid (Nephro-Sanjay) 1 tab PO DAILY [facility] Last Admin: 01/15/18 09:40 Dose: 1 tab - Labs Labs: 01/15/18 05:55 01/15/18 05:55 - Constitutional Appears: Well, Non-toxic, No Acute Distress - Head Exam Head Exam: ATRAUMATIC, NORMOCEPHALIC - Extremities Exam Additional comments: Left lower extremity exam: Vascular: DP/PT pulses nonpalpable secondary to pitting edema b/l. CFT <3 secs x5. TG warm to warm. Neuro: Protective sensation diminished b/l. Derm: Approximately 1 cm x 1 cm x 0.4 cm ulceration noted to lateral left fourth digit with fibronecrotic base. Malodor, serous drainage and periwound erythema noted. No tracking, tunneling, or undermining appreciated. Negative probe to bone. Hypertrophic skin noted to left plantar first metatarsal head. Periwound erythema improvement noted. Ortho: No pain on palpation to ulceration site. Shortened left fifith digit secondary to partial metatarsal amputation. R foot TMA - Neurological Exam Neurological Exam: Alert, Awake, Oriented x3 - Psychiatric Exam Psychiatric exam: Normal Affect, Normal Mood Assessment and Plan - Assessment and Plan (Free Text) Assessment: 47 yo male with infected left fourth digit ulceration Plan: Patient seen and evaluated Plan discussed with Dr. Cerrato Chart, labs, and reviewed; Afebrile WBC 3.8 Wound cx - Providencia Retgerri, SA MRI left foot: Findings compatible with osteomyelitis of the majority of the left 4th digit sparing the proximal to mid segment of the proximal phalanx only. Prominent dorsal foot edema/cellulitis is seen diffusely with limited involvement at the left 4th digit. No definite abscess is appreciable. Pt for revascularization with Dr. Stinson on Friday 01/19 Pending results of angioplasty will most likely bring patient to OR Friday for left 4th digit amputation with Dr. Cerrato Wound dressed with Telfa, ABD, DSD Continue abx per ID Podiatry will continue to follow while patient is in house
--- NOTE | 2018-01-16 09:00 | CP.PCM.PN ---
Subjective - Date & Time of Evaluation Date of Evaluation: 01/15/18 Time of Evaluation: 08:58 - Subjective Subjective: reviewed CTA findings with patient will need peripheral angiogram prior to amputation Objective - Vital Signs/Intake and Output Vital Signs (last 24 hours): Temp Pulse Resp BP Pulse Ox 97.8 F 66 20 167/83 H 97 01/16/18 08:33 01/16/18 08:33 01/16/18 08:33 01/16/18 08:33 01/16/18 08:33 - Medications Medications: Current Medications Acetaminophen (Tylenol 325mg Tab) 975 mg PO Q6 PRN PRN Reason: Pain, moderate (4-7) Ascorbic Acid (Vitamin C 500 Mg Tab) 500 mg PO DAILY [facility] Last Admin: 01/15/18 09:40 Dose: 500 mg Cholecalciferol (Vitamin D) 2,000 intlu PO DAILY [facility] Last Admin: 01/15/18 09:41 Dose: 2,000 intlu Dextrose (Dextrose 50% Inj) 0 ml IV STAT PRN; Protocol PRN Reason: Hypoglycemia Protocol Dextrose (Glutose 15) 0 gm PO ONCE PRN; Protocol PRN Reason: Hypoglycemia Protocol Famotidine (Pepcid) 20 mg PO BID [facility] Last Admin: 01/15/18 17:56 Dose: 20 mg Glucagon (Glucagen Diagnostic Kit) 0 mg IM STAT PRN; Protocol PRN Reason: Hypoglycemia Protocol Heparin Sodium (Porcine) (Heparin) 5,000 units SC Q8 [facility] PRN Reason: Protocol Last Admin: 01/16/18 00:40 Dose: 5,000 units Hydralazine HCl (Apresoline) 25 mg PO Q12 [facility] Last Admin: 01/15/18 21:33 Dose: 25 mg Hydromorphone HCl (Dilaudid) 0.5 mg IVP Q6H PRN PRN Reason: Pain, severe (8-10) Piperacillin Sod/Tazobactam (Sod 2.25 gm/ Sodium Chloride) 100 mls @ 100 mls/ hr IVPB Q8 [facility] PRN Reason: Protocol Last Admin: 01/16/18 00:40 Dose: 100 mls/hr Vancomycin HCl 1 gm/ Sodium (Chloride) 250 mls @ 166.667 mls/hr IVPB FRI [facility] PRN Reason: Protocol Vancomycin HCl 1 gm/ Sodium (Chloride) 250 mls @ 166.667 mls/hr IVPB SAT [facility] PRN Reason: Protocol Insulin Human Lispro (Humalog) 0 units SC ACHS [facility] PRN Reason: Protocol Last Admin: 01/15/18 22:48 Dose: Not Given Lactobacillus Acidophilus (Bacid Acidophilus) 1 cap PO BID [facility] Last Admin: 01/15/18 17:56 Dose: 1 cap Lisinopril (Zestril) 10 mg PO DAILY [facility] Last Admin: 01/15/18 09:41 Dose: 10 mg Vitamin B Complex/Vit C/Folic Acid (Nephro-Sanjay) 1 tab PO DAILY [facility] Last Admin: 01/15/18 09:40 Dose: 1 tab - Labs Labs: 01/15/18 05:55 01/15/18 05:55 - Constitutional Appears: Well - Head Exam Head Exam: ATRAUMATIC, NORMAL INSPECTION, NORMOCEPHALIC - Eye Exam Eye Exam: EOMI, Normal appearance, PERRL Pupil Exam: NORMAL ACCOMODATION, PERRL - ENT Exam ENT Exam: Mucous Membranes Moist, Normal Exam - Neck Exam Neck Exam: Full ROM, Normal Inspection. absent: Lymphadenopathy - Respiratory Exam Respiratory Exam: Clear to Ausculation Bilateral, NORMAL BREATHING PATTERN - Cardiovascular Exam Cardiovascular Exam: REGULAR RHYTHM, +S1, +S2, Murmur - GI/Abdominal Exam GI & Abdominal Exam: Soft, Normal Bowel Sounds. absent: Tenderness - Extremities Exam Extremities Exam: absent: Joint Swelling, Pedal Edema Additional comments: bilateral toes wrapped in dsg pedal pulses not palpable - Back Exam Back Exam: NORMAL INSPECTION - Neurological Exam Neurological Exam: Alert, Awake, CN II-XII Intact, Normal Gait, Oriented x3 - Psychiatric Exam Psychiatric exam: Normal Affect, Normal Mood - Skin Skin Exam: Dry, Intact, Normal Color, Warm Assessment and Plan (1) PVD (peripheral vascular disease) Assessment & Plan: CTA reviewed will need peripheral angiogram possibly angioplasty cont meds ( DAPT ) statins Status: Acute (2) Chronic wound of extremity Status: Acute (3) Diabetic foot infection Status: Acute
[2018-01-16] MEDS: Multivitamin Vitamin B Complex (Nephro-Vite) Tab PO SCH (09:23)
[2018-01-16] MEDS: Cholecalciferol 1,000 INTLU TAB PO SCH (09:25)
[2018-01-16] MEDS: Insulin Lispro (humaLOG) 100 Units/ml Inj SC SCH ×4 (09:28→22:01)
[2018-01-16] MEDS: Lactobacillus Acidophilus 500 MU Cap PO SCH ×2 (09:33→18:07)
--- NOTE | 2018-01-16 11:29 | CP.PCM.PN ---
Subjective - Date & Time of Evaluation Date of Evaluation: 01/16/18 Time of Evaluation: 11:29 - Subjective Subjective: ID Note- patient seen and examined this morning. Patient denies any fever or chills. Patient states he is supposed to have revascularization procedure done today and next week amp of the toe. Objective - Vital Signs/Intake and Output Vital Signs (last 24 hours): Temp Pulse Resp BP Pulse Ox 97.8 F 66 20 167/83 H 97 01/16/18 08:33 01/16/18 09:25 01/16/18 08:33 01/16/18 09:25 01/16/18 08:33 - Medications Medications: Current Medications Acetaminophen (Tylenol 325mg Tab) 975 mg PO Q6 PRN PRN Reason: Pain, moderate (4-7) Ascorbic Acid (Vitamin C 500 Mg Tab) 500 mg PO DAILY [facility] Last Admin: 01/16/18 09:25 Dose: 500 mg Cholecalciferol (Vitamin D) 2,000 intlu PO DAILY [facility] Last Admin: 01/16/18 09:25 Dose: 2,000 intlu Dextrose (Dextrose 50% Inj) 0 ml IV STAT PRN; Protocol PRN Reason: Hypoglycemia Protocol Dextrose (Glutose 15) 0 gm PO ONCE PRN; Protocol PRN Reason: Hypoglycemia Protocol Famotidine (Pepcid) 20 mg PO BID [facility] Last Admin: 01/16/18 09:23 Dose: 20 mg Glucagon (Glucagen Diagnostic Kit) 0 mg IM STAT PRN; Protocol PRN Reason: Hypoglycemia Protocol Heparin Sodium (Porcine) (Heparin) 5,000 units SC Q8 [facility] PRN Reason: Protocol Last Admin: 01/16/18 09:23 Dose: Not Given Hydralazine HCl (Apresoline) 25 mg PO Q12 [facility] Last Admin: 01/16/18 09:23 Dose: 25 mg Hydromorphone HCl (Dilaudid) 0.5 mg IVP Q6H PRN PRN Reason: Pain, severe (8-10) Piperacillin Sod/Tazobactam (Sod 2.25 gm/ Sodium Chloride) 100 mls @ 100 mls/ hr IVPB Q8 [facility] PRN Reason: Protocol Last Admin: 01/16/18 09:26 Dose: 100 mls/hr Vancomycin HCl 1 gm/ Sodium (Chloride) 250 mls @ 166.667 mls/hr IVPB FRI [facility] PRN Reason: Protocol Insulin Human Lispro (Humalog) 0 units SC ACHS [facility] PRN Reason: Protocol Last Admin: 01/16/18 09:28 Dose: Not Given Lactobacillus Acidophilus (Bacid Acidophilus) 1 cap PO BID [facility] Last Admin: 01/16/18 09:33 Dose: 1 cap Lisinopril (Zestril) 10 mg PO DAILY [facility] Last Admin: 01/16/18 09:25 Dose: 10 mg Vitamin B Complex/Vit C/Folic Acid (Nephro-Sanjay) 1 tab PO DAILY [facility] Last Admin: 01/16/18 09:23 Dose: 1 tab - Labs Labs: - Additional Findings Additional findings: - Constitutional Appears: No Acute Distress, Chronically Ill - Head Exam Head Exam: ATRAUMATIC - Eye Exam Eye Exam: EOMI - ENT Exam ENT Exam: Normal Oropharynx - Neck Exam Neck exam: Positive for: Full Rom - Respiratory Exam Respiratory Exam: Clear to Auscultation Bilateral, NORMAL BREATHING PATTERN - Cardiovascular Exam Cardiovascular Exam: RRR, +S1, +S2 - GI/Abdominal Exam GI & Abdominal Exam: Normal Bowel Sounds, Soft Additional comments: NT, ND - Extremities Exam Additional comments: left fourth distal toe with necrotic ulcer with small opening draining malodorous yellow fluid no surrounding lesions right foot s/p TMA amputation has chronic healed dy ulcer on the frontal heel and one that is still draining small am patient has neuropathy and has no sensation in the feet or toes - Neurological Exam Neurological exam: Alert, Oriented x 3 Laboratory Results - last 72 hr 01/13/18 01/13/18 01/14/18 14:55 21:54 05:26 WBC RBC Hgb Hct MCV MCH MCHC RDW Plt Count MPV Neut % (Auto) Lymph % (Auto) [place] % (Auto) Eos % (Auto) Baso % (Auto) Neut # (Auto) Lymph # (Auto) [place] # (Auto) Eos # (Auto) Baso # (Auto) ESR Sodium 139 Potassium 4.3 Chloride 95 L Carbon Dioxide 28 Anion Gap 20 BUN 63 H Creatinine 11.1 H* Est GFR ( Amer) 6 Est GFR (Non-Af Amer) 5 POC Glucose (mg/dL) 134 H 141 H Random Glucose 111 H Hemoglobin A1c Calcium 8.5 Total Bilirubin 1.0 AST 18 ALT 20 L Alkaline Phosphatase 144 H C-Reactive Protein Total Protein 7.7 Albumin 3.7 Globulin 4.0 H Albumin/Globulin Ratio 0.9 L Hep Bs Antigen Hep Bs Antibody Hep B Core IgM Ab Hepatitis C Antibody 01/14/18 01/14/18 01/14/18 05:55 05:55 06:00 WBC 4.1 L RBC 3.10 L Hgb 9.9 L Hct 29.5 L MCV 95.3 H MCH 32.0 H MCHC 33.6 RDW 14.2 Plt Count 81 L MPV Neut % (Auto) Lymph % (Auto) [place] % (Auto) Eos % (Auto) Baso % (Auto) Neut # (Auto) Lymph # (Auto) [place] # (Auto) Eos # (Auto) Baso # (Auto) ESR 57 H Sodium Potassium Chloride Carbon Dioxide Anion Gap BUN Creatinine Est GFR ( Amer) Est GFR (Non-Af Amer) POC Glucose (mg/dL) Random Glucose Hemoglobin A1c 5.8 Calcium Total Bilirubin AST ALT Alkaline Phosphatase C-Reactive Protein 16.10 H Total Protein Albumin Globulin Albumin/Globulin Ratio Hep Bs Antigen Hep Bs Antibody Hep B Core IgM Ab Hepatitis C Antibody 01/14/18 01/14/18 01/14/18 10:13 10:18 15:54 WBC RBC Hgb Hct MCV MCH MCHC RDW Plt Count MPV Neut % (Auto) Lymph % (Auto) [place] % (Auto) Eos % (Auto) Baso % (Auto) Neut # (Auto) Lymph # (Auto) [place] # (Auto) Eos # (Auto) Baso # (Auto) ESR Sodium Potassium Chloride Carbon Dioxide Anion Gap BUN Creatinine Est GFR ( Amer) Est GFR (Non-Af Amer) POC Glucose (mg/dL) 123 H Random Glucose Hemoglobin A1c Calcium Total Bilirubin AST ALT Alkaline Phosphatase C-Reactive Protein Total Protein Albumin Globulin Albumin/Globulin Ratio Hep Bs Antigen Negative Hep Bs Antibody Positive Hep B Core IgM Ab Negative Hepatitis C Antibody Negative 01/14/18 01/15/18 01/15/18 22:10 05:30 05:55 WBC 3.8 L RBC 3.18 L Hgb 10.2 L Hct 30.2 L MCV 95.1 H MCH 32.1 H MCHC 33.8 RDW 13.9 Plt Count 87 L MPV 8.6 Neut % (Auto) 60.9 Lymph % (Auto) 20.3 [place] % (Auto) 12.8 H Eos % (Auto) 4.6 H Baso % (Auto) 1.4 Neut # (Auto) 2.3 Lymph # (Auto) 0.8 L [place] # (Auto) 0.5 Eos # (Auto) 0.2 Baso # (Auto) 0.1 ESR Sodium Potassium Chloride Carbon Dioxide Anion Gap BUN Creatinine Est GFR ( Amer) Est GFR (Non-Af Amer) POC Glucose (mg/dL) 114 H 176 H Random Glucose Hemoglobin A1c Calcium Total Bilirubin AST ALT Alkaline Phosphatase C-Reactive Protein Total Protein Albumin Globulin Albumin/Globulin Ratio Hep Bs Antigen Hep Bs Antibody Hep B Core IgM Ab Hepatitis C Antibody 01/15/18 01/15/18 01/15/18 05:55 10:51 16:16 WBC RBC Hgb Hct MCV MCH MCHC RDW Plt Count MPV Neut % (Auto) Lymph % (Auto) [place] % (Auto) Eos % (Auto) Baso % (Auto) Neut # (Auto) Lymph # (Auto) [place] # (Auto) Eos # (Auto) Baso # (Auto) ESR Sodium 138 Potassium 4.2 Chloride 94 L Carbon Dioxide 30 Anion Gap 18 BUN 45 H Creatinine 8.1 H* D Est GFR ( Amer) 9 Est GFR (Non-Af Amer) 7 POC Glucose (mg/dL) 123 H 150 H Random Glucose 125 H Hemoglobin A1c Calcium 8.3 L Total Bilirubin 1.1 AST 19 ALT 19 L Alkaline Phosphatase 147 H C-Reactive Protein Total Protein 7.8 Albumin 3.7 Globulin 4.1 H Albumin/Globulin Ratio 0.9 L Hep Bs Antigen Hep Bs Antibody Hep B Core IgM Ab Hepatitis C Antibody 01/15/18 01/16/18 01/16/18 22:14 05:26 11:27 WBC RBC Hgb Hct MCV MCH MCHC RDW Plt Count MPV Neut % (Auto) Lymph % (Auto) [place] % (Auto) Eos % (Auto) Baso % (Auto) Neut # (Auto) Lymph # (Auto) [place] # (Auto) Eos # (Auto) Baso # (Auto) ESR Sodium Potassium Chloride Carbon Dioxide Anion Gap BUN Creatinine Est GFR ( Amer) Est GFR (Non-Af Amer) POC Glucose (mg/dL) 172 H 157 H 108 Random Glucose Hemoglobin A1c Calcium Total Bilirubin AST ALT Alkaline Phosphatase C-Reactive Protein Total Protein Albumin Globulin Albumin/Globulin Ratio Hep Bs Antigen Hep Bs Antibody Hep B Core IgM Ab Hepatitis C Antibody 01/16/18 14:59 WBC RBC Hgb Hct MCV MCH MCHC RDW Plt Count MPV Neut % (Auto) Lymph % (Auto) [place] % (Auto) Eos % (Auto) Baso % (Auto) Neut # (Auto) Lymph # (Auto) [place] # (Auto) Eos # (Auto) Baso # (Auto) ESR Sodium Potassium Chloride Carbon Dioxide Anion Gap BUN Creatinine Est GFR ( Amer) Est GFR (Non-Af Amer) POC Glucose (mg/dL) 90 Random Glucose Hemoglobin A1c Calcium Total Bilirubin AST ALT Alkaline Phosphatase C-Reactive Protein Total Protein Albumin Globulin Albumin/Globulin Ratio Hep Bs Antigen Hep Bs Antibody Hep B Core IgM Ab Hepatitis C Antibody Microbiology 01/13/18 14:55 Blood-Venous Blood Culture - Preliminary NO GROWTH AFTER 3 DAYS 01/15/18 11:45 Blood-Venous Blood Culture - Preliminary NO GROWTH AFTER 24 HOURS 01/15/18 11:35 Blood-Venous Blood Culture - Preliminary NO GROWTH AFTER 24 HOURS 01/13/18 14:55 Foot - Left Gram Stain - Final 01/13/18 14:55 Foot - Left Wound Culture - Final Providencia Rettgeri Staphylococcus Aureus Assessment and Plan (1) Diabetic foot infection Status: Acute (2) Chronic wound of extremity Status: Acute (3) Neuropathy associated with endocrine disorder Status: Acute (4) ESRD (end stage renal disease) on dialysis Status: Acute - Assessment and Plan (Free Text) Assessment: A/P- 47 year old male with ESRD on HD, Dm II h/o right foot infections in past s/p amputation of partial right foot , now admitted with infected left fourth toe ulcer. afebrile wound cx-providencia and MSSA Blood cx- negative x 3 MRI report- OM of the entire left fourth toe as per radiologist's report. plan- awaiting vascualr studies . will need amp of the necrotic left fourth toe. advise to continue with IV vancomycon on post HD days for the MSSA. keep trough <15. ( between 10-15). continue with Iv zosyn as well ( renal dose) day #3 , providencia is sens to this.
--- NOTE | 2018-01-17 00:37 | CP.PCM.PN ---
Subjective - Date & Time of Evaluation Date of Evaluation: 01/17/18 Time of Evaluation: 15:00 - Subjective Subjective: SEEN ON RENAL F/U GETING HD TODAY ALL PREVIOUS EMR REVEID Objective - Vital Signs/Intake and Output Vital Signs (last 24 hours): Temp Pulse Resp BP Pulse Ox 97.9 F 67 20 161/80 H 99 01/16/18 23:54 01/16/18 23:54 01/16/18 23:54 01/16/18 23:54 01/16/18 23:54 - Medications Medications: Current Medications Acetaminophen (Tylenol 325mg Tab) 975 mg PO Q6 PRN PRN Reason: Pain, moderate (4-7) Ascorbic Acid (Vitamin C 500 Mg Tab) 500 mg PO DAILY [facility] Last Admin: 01/16/18 09:25 Dose: 500 mg Atorvastatin Calcium (Lipitor) 40 mg PO DAILY [facility] Cholecalciferol (Vitamin D) 2,000 intlu PO DAILY [facility] Last Admin: 01/16/18 09:25 Dose: 2,000 intlu Dextrose (Dextrose 50% Inj) 0 ml IV STAT PRN; Protocol PRN Reason: Hypoglycemia Protocol Dextrose (Glutose 15) 0 gm PO ONCE PRN; Protocol PRN Reason: Hypoglycemia Protocol Glucagon (Glucagen Diagnostic Kit) 0 mg IM STAT PRN; Protocol PRN Reason: Hypoglycemia Protocol Heparin Sodium (Porcine) (Heparin) 5,000 units SC Q8 [facility] PRN Reason: Protocol Last Admin: 01/16/18 18:04 Dose: 5,000 units Hydralazine HCl (Apresoline) 25 mg PO Q12 [facility] Last Admin: 01/16/18 20:59 Dose: 25 mg Hydromorphone HCl (Dilaudid) 0.5 mg IVP Q6H PRN PRN Reason: Pain, severe (8-10) Piperacillin Sod/Tazobactam (Sod 2.25 gm/ Sodium Chloride) 100 mls @ 100 mls/ hr IVPB Q8 [facility] PRN Reason: Protocol Last Admin: 01/16/18 18:07 Dose: 100 mls/hr Vancomycin HCl 1 gm/ Sodium (Chloride) 250 mls @ 166.667 mls/hr IVPB FRI [facility] PRN Reason: Protocol Last Admin: 01/16/18 18:04 Dose: 166.667 mls/hr Insulin Human Lispro (Humalog) 0 units SC ACHS [facility] PRN Reason: Protocol Last Admin: 01/16/18 22:01 Dose: Not Given Lactobacillus Acidophilus (Bacid Acidophilus) 1 cap PO BID [facility] Last Admin: 01/16/18 18:07 Dose: 1 cap Lisinopril (Zestril) 10 mg PO DAILY [facility] Last Admin: 01/16/18 09:25 Dose: 10 mg Vitamin B Complex/Vit C/Folic Acid (Nephro-Sanjay) 1 tab PO DAILY [facility] Last Admin: 01/16/18 09:23 Dose: 1 tab - Labs Labs: 01/15/18 05:55 01/15/18 05:55 Assessment and Plan - Assessment and Plan (Free Text) Plan: ESRD ON HD TTS ANEMIA OF CKD .. H/H OK MMP P : C/O CURRENT CARE C/O PRESENT MANAGEMENT
[2018-01-17] MEDS: Insulin Lispro (humaLOG) 100 Units/ml Inj SC SCH ×4 (06:55→21:34)
--- NOTE | 2018-01-17 08:14 | CP.PCM.PN ---
Subjective - Date & Time of Evaluation Date of Evaluation: 01/17/18 Time of Evaluation: 07:15 - Subjective Subjective: Patient seen and examined this morning at bedside. NAD, reports one small watery BM this morning. Patient is tolerating PO intake, urinating w/o difficulties. Patient denies any dizziness, chest pain, SOB, palpitations, urinary symptoms, abdominal pain, weakness or f/c/n/v. Plan for HD today and Tomorrow as per Nephro, Possible Vascular ( revascularization) intervention on friday as per Dr. Stinson Objective - Vital Signs/Intake and Output Vital Signs (last 24 hours): Temp Pulse Resp BP Pulse Ox 97.9 F 67 20 161/80 H 99 01/16/18 23:54 01/16/18 23:54 01/16/18 23:54 01/16/18 23:54 01/16/18 23:54 - Medications Medications: Current Medications Acetaminophen (Tylenol 325mg Tab) 975 mg PO Q6 PRN PRN Reason: Pain, moderate (4-7) Ascorbic Acid (Vitamin C 500 Mg Tab) 500 mg PO DAILY [facility] Last Admin: 01/16/18 09:25 Dose: 500 mg Atorvastatin Calcium (Lipitor) 40 mg PO DAILY [facility] Cholecalciferol (Vitamin D) 2,000 intlu PO DAILY [facility] Last Admin: 01/16/18 09:25 Dose: 2,000 intlu Dextrose (Dextrose 50% Inj) 0 ml IV STAT PRN; Protocol PRN Reason: Hypoglycemia Protocol Dextrose (Glutose 15) 0 gm PO ONCE PRN; Protocol PRN Reason: Hypoglycemia Protocol Glucagon (Glucagen Diagnostic Kit) 0 mg IM STAT PRN; Protocol PRN Reason: Hypoglycemia Protocol Heparin Sodium (Porcine) (Heparin) 5,000 units SC Q8 [facility] PRN Reason: Protocol Last Admin: 01/17/18 00:10 Dose: 5,000 units Hydralazine HCl (Apresoline) 25 mg PO Q12 [facility] Last Admin: 01/16/18 20:59 Dose: 25 mg Hydromorphone HCl (Dilaudid) 0.5 mg IVP Q6H PRN PRN Reason: Pain, severe (8-10) Piperacillin Sod/Tazobactam (Sod 2.25 gm/ Sodium Chloride) 100 mls @ 100 mls/ hr IVPB Q8 [facility] PRN Reason: Protocol Last Admin: 01/17/18 01:19 Dose: 100 mls/hr Vancomycin HCl 1 gm/ Sodium (Chloride) 250 mls @ 166.667 mls/hr IVPB FRI [facility] PRN Reason: Protocol Last Admin: 01/16/18 18:04 Dose: 166.667 mls/hr Insulin Human Lispro (Humalog) 0 units SC ACHS [facility] PRN Reason: Protocol Last Admin: 01/17/18 06:55 Dose: Not Given Lactobacillus Acidophilus (Bacid Acidophilus) 1 cap PO BID [facility] Last Admin: 01/16/18 18:07 Dose: 1 cap Lisinopril (Zestril) 10 mg PO DAILY [facility] Last Admin: 01/16/18 09:25 Dose: 10 mg Vitamin B Complex/Vit C/Folic Acid (Nephro-Sanjay) 1 tab PO DAILY [facility] Last Admin: 01/16/18 09:23 Dose: 1 tab - Labs Labs: 01/15/18 05:55 01/15/18 05:55 - Constitutional Appears: No Acute Distress - Head Exam Head Exam: NORMAL INSPECTION - Eye Exam Eye Exam: EOMI, Normal appearance - ENT Exam ENT Exam: Mucous Membranes Moist - Respiratory Exam Respiratory Exam: Clear to Ausculation Bilateral, NORMAL BREATHING PATTERN - Cardiovascular Exam Cardiovascular Exam: REGULAR RHYTHM - GI/Abdominal Exam GI & Abdominal Exam: Soft, Normal Bowel Sounds - Extremities Exam Additional comments: Amputated Right toes Left foot: swelling below ankle seen, 4th toe with open wound; serosanguineous drainage appreciated, NONTENDER. sensory and motor function intact - Back Exam Back Exam: NORMAL INSPECTION. absent: CVA tenderness (L), CVA tenderness (R) - Neurological Exam Neurological Exam: Alert, Awake, Oriented x3 - Psychiatric Exam Psychiatric exam: Normal Affect - Skin Skin Exam: Normal Color Assessment and Plan - Assessment and Plan (Free Text) Assessment: A/P: 47 y/o M with PMH of HTN, DM and ESRD on HD admitted for Infected left fourth digit ulceration. Left foot infection - C/w Vanco post HD and Zosyn day 4 - Follow up podiatry recommendations, Dr. Rodriguez consult appreciated - Consult ID, Dr. Pendleton, recs appreciated - Consult Vascular, Dr. 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 Stinson, possible vascular interventions on friday, revascularization ( NPO past midnight on friday and Hold Heparin) ESRD - Nephro Consult, Dr. Koo, recs appreciated - HD today, tomorrow than TTS HTN - C/w home medication; hydralazine 25mg TID, Lisinopril 10mg BID Prediabetes - HBA1C; 5.8 DVT PPX - Heparin 5000 SC Q8H,
[2018-01-17] MEDS: Cholecalciferol 1,000 INTLU TAB PO SCH (09:09)
[2018-01-17] MEDS: Multivitamin Vitamin B Complex (Nephro-Vite) Tab PO SCH (09:10)
[2018-01-17] MEDS: Lactobacillus Acidophilus 500 MU Cap PO SCH ×2 (09:15→16:47)
[2018-01-17 12:07] LABS: BASO % 0.9 % (0.0-2.0); EOS # 0.1 K/uL (0.0-0.7); EOS % 2.7 % (0.0-4.0); LYMPH # 0.6 K/uL (1.0-4.3); LYMPH % 15.5 % (20.0-40.0); MEAN CELL VOLUME 94.2 fl (80.0-94.0); MEAN CORPUSCULAR HEMOGLOBIN 32.1 pg (27.0-31.0); MEAN CORPUSCULAR HGB CONC 34.1 g/dL (33.0-37.0); MEAN PLATELET VOLUME 8.4 fl (7.2-11.7); MONO # 0.3 K/uL (0.0-0.8); MONO % 8.1 % (0.0-10.0); NEUT # 2.9 K/uL (1.8-7.0); NEUT % 72.8 % (50.0-75.0); NRBC % 0.1 % (0.0-0.0); RBC 3.13 Mil/uL (4.40-5.90); WHITE BLOOD COUNT 3.9 K/uL (4.8-10.8)
[2018-01-17 12:47] LABS: PARTIAL THROMBOPLASTIN TIME 36.7 Seconds (25.6-37.1); PROTHROMBIN TIME 11.1 Seconds (9.8-13.1)
[2018-01-17 15:33] LABS: CALCIUM 9.1 mg/dL (8.4-10.2)
--- NOTE | 2018-01-17 15:47 | CP.PCM.PN ---
Subjective - Date & Time of Evaluation Date of Evaluation: 01/17/18 Time of Evaluation: 15:45 - Subjective Subjective: Podiatry progress note for Dr. Cerrato 47YO male seen at bedside for left 4th digit infected ulcer. He was seen resting comfortably, not in any acute dress. AAO x3, NAD. Dressing was seen to be dry, clean and intact. Patient states that last night he stubbed his toe while walking and noticed a small amount of bleeding. Denies any pain or bleeding to the area at this time. Patient denies N/V/F/C/SOB Objective - Vital Signs/Intake and Output Vital Signs (last 24 hours): Temp Pulse Resp BP Pulse Ox 98.1 F 68 18 125/66 99 01/17/18 08:42 01/17/18 08:42 01/17/18 08:42 01/17/18 08:42 01/17/18 08:42 - Medications Medications: Current Medications Acetaminophen (Tylenol 325mg Tab) 975 mg PO Q6 PRN PRN Reason: Pain, moderate (4-7) Ascorbic Acid (Vitamin C 500 Mg Tab) 500 mg PO DAILY [facility] Last Admin: 01/17/18 09:09 Dose: 500 mg Atorvastatin Calcium (Lipitor) 40 mg PO DAILY [facility] Last Admin: 01/17/18 09:09 Dose: 40 mg Cholecalciferol (Vitamin D) 2,000 intlu PO DAILY [facility] Last Admin: 01/17/18 09:09 Dose: 2,000 intlu Dextrose (Dextrose 50% Inj) 0 ml IV STAT PRN; Protocol PRN Reason: Hypoglycemia Protocol Dextrose (Glutose 15) 0 gm PO ONCE PRN; Protocol PRN Reason: Hypoglycemia Protocol Glucagon (Glucagen Diagnostic Kit) 0 mg IM STAT PRN; Protocol PRN Reason: Hypoglycemia Protocol Heparin Sodium (Porcine) (Heparin) 5,000 units SC Q8 [facility] PRN Reason: Protocol Stop: 01/18/18 22:00 Last Admin: 01/17/18 09:09 Dose: 5,000 units Hydralazine HCl (Apresoline) 25 mg PO Q12 [facility] Last Admin: 01/17/18 09:08 Dose: Not Given Hydromorphone HCl (Dilaudid) 0.5 mg IVP Q6H PRN PRN Reason: Pain, severe (8-10) Piperacillin Sod/Tazobactam (Sod 2.25 gm/ Sodium Chloride) 100 mls @ 100 mls/ hr IVPB Q8 [facility] PRN Reason: Protocol Last Admin: 01/17/18 09:08 Dose: 100 mls/hr Vancomycin HCl 1 gm/ Sodium (Chloride) 250 mls @ 166.667 mls/hr IVPB ONCE ONE PRN Reason: Protocol Stop: 01/18/18 11:29 Vancomycin HCl 1 gm/ Sodium (Chloride) 250 mls @ 125 mls/hr IVPB TTS [facility] PRN Reason: Protocol Insulin Human Lispro (Humalog) 0 units SC ACHS [facility] PRN Reason: Protocol Last Admin: 01/17/18 12:36 Dose: 2 u Lactobacillus Acidophilus (Bacid Acidophilus) 1 cap PO BID [facility] Last Admin: 01/17/18 09:15 Dose: 1 cap Lisinopril (Zestril) 10 mg PO DAILY [facility] Last Admin: 01/17/18 09:09 Dose: Not Given Vitamin B Complex/Vit C/Folic Acid (Nephro-Sanjay) 1 tab PO DAILY [facility] Last Admin: 01/17/18 09:10 Dose: 1 tab - Labs Labs: 01/16/18 12:00 01/17/18 14:50 PT 11.1 Seconds (9.8-13.1) 01/17/18 12:00 INR 1.0 (0.9-1.2) 01/17/18 12:00 APTT 36.7 Seconds (25.6-37.1) 01/17/18 12:00 - Constitutional Appears: Well, Non-toxic - Head Exam Head Exam: ATRAUMATIC, NORMOCEPHALIC - Extremities Exam Additional comments: Left lower extremity exam: Vascular: DP/PT pulses non-palpable secondary to edema b/l. CFT <3 secs x5. TG warm to warm. Neuro: Protective sensation diminished Derm: Approximately 1 cm x 1 cm x 0.4 cm ulceration noted to lateral left fourth digit with fibro-necrotic base. Malodor, serous drainage and periwound erythema noted. No tracking, tunneling, or undermining appreciated. Negative probe to bone. Hypertrophic skin noted to left plantar first metatarsal head. Periwound erythema improvement noted. 0.1 cm x 0.1 cm abrasion noted to dorsal third digit secondary to patient bumping his to last night. No ecchymosis, no erythema, no active bleeding. No clinical signs of infection Ortho: No pain on palpation to ulceration site. Shortened left fifth digit secondary to partial metatarsal amputation. Previous R foot TMA - Neurological Exam Neurological Exam: Alert, Awake, Oriented x3 Assessment and Plan - Assessment and Plan (Free Text) Assessment: 47 yo male with infected left fourth digit ulceration Plan: Patient seen and evaluated Plan discussed in detail with attending, Dr. Cerrato Chart, labs, and reviewed; Afebrile Wound cx(01/13) - Providencia Retgerri, SA MRI left foot(01/13): Findings compatible with osteomyelitis of the majority of the left 4th digit sparing the proximal to mid segment of the proximal phalanx only. Prominent dorsal foot edema/cellulitis is seen diffusely with limited involvement at the left 4th digit. No definite abscess is appreciable. Pt for revascularization with Dr. Stinson on Friday 01/19 Pending results of angioplasty will most likely bring patient to OR Friday for left 4th digit amputation with Dr. Cerrato Wound dressed with Telfa, ABD, DSD Continue abx per ID L foot xray ordered to r/o third digit fracture, read pending Podiatry will continue to follow while patient is in house
[2018-01-18] MEDS: Insulin Lispro (humaLOG) 100 Units/ml Inj SC SCH ×4 (06:39→22:05)
--- NOTE | 2018-01-18 08:58 | CP.PCM.PN ---
Subjective - Date & Time of Evaluation Date of Evaluation: 01/18/18 Time of Evaluation: 08:55 - Subjective Subjective: 47M seen and examined at bedside with attending. No acute overnight events. Pt reports eating well and denies any SOB or chest pain. Objective - Vital Signs/Intake and Output Vital Signs (last 24 hours): Temp Pulse Resp BP Pulse Ox 37.1 C 77 20 175/82 H 98 01/18/18 07:45 01/18/18 07:45 01/18/18 07:45 01/18/18 07:45 01/18/18 07:45 - Medications Medications: Current Medications Acetaminophen (Tylenol 325mg Tab) 975 mg PO Q6 PRN PRN Reason: Pain, moderate (4-7) Ascorbic Acid (Vitamin C 500 Mg Tab) 500 mg PO DAILY [facility] Last Admin: 01/17/18 09:09 Dose: 500 mg Atorvastatin Calcium (Lipitor) 40 mg PO DAILY [facility] Last Admin: 01/17/18 09:09 Dose: 40 mg Cholecalciferol (Vitamin D) 2,000 intlu PO DAILY [facility] Last Admin: 01/17/18 09:09 Dose: 2,000 intlu Dextrose (Dextrose 50% Inj) 0 ml IV STAT PRN; Protocol PRN Reason: Hypoglycemia Protocol Dextrose (Glutose 15) 0 gm PO ONCE PRN; Protocol PRN Reason: Hypoglycemia Protocol Glucagon (Glucagen Diagnostic Kit) 0 mg IM STAT PRN; Protocol PRN Reason: Hypoglycemia Protocol Heparin Sodium (Porcine) (Heparin) 5,000 units SC Q8 LUIS M PRN Reason: Protocol Stop: 01/18/18 22:00 Last Admin: 01/18/18 00:27 Dose: 5,000 units Hydralazine HCl (Apresoline) 25 mg PO Q12 [facility] Last Admin: 01/17/18 21:34 Dose: 25 mg Hydromorphone HCl (Dilaudid) 0.5 mg IVP Q6H PRN PRN Reason: Pain, severe (8-10) Piperacillin Sod/Tazobactam (Sod 2.25 gm/ Sodium Chloride) 100 mls @ 100 mls/ hr IVPB Q8 LUIS M PRN Reason: Protocol Last Admin: 01/18/18 00:27 Dose: 100 mls/hr Vancomycin HCl 1 gm/ Sodium (Chloride) 250 mls @ 166.667 mls/hr IVPB ONCE ONE PRN Reason: Protocol Stop: 01/18/18 11:29 Vancomycin HCl 1 gm/ Sodium (Chloride) 250 mls @ 125 mls/hr IVPB TTS LUIS M PRN Reason: Protocol Insulin Human Lispro (Humalog) 0 units SC ACHS LUIS M PRN Reason: Protocol Last Admin: 01/18/18 06:39 Dose: Not Given Lactobacillus Acidophilus (Bacid Acidophilus) 1 cap PO BID [facility] Last Admin: 01/17/18 16:47 Dose: 1 cap Lisinopril (Zestril) 10 mg PO DAILY [facility] Last Admin: 01/17/18 09:09 Dose: Not Given Vitamin B Complex/Vit C/Folic Acid (Nephro-Sanjay) 1 tab PO DAILY [facility] Last Admin: 01/17/18 09:10 Dose: 1 tab - Labs Labs: 01/16/18 12:00 01/17/18 14:50 PT 11.1 Seconds (9.8-13.1) 01/17/18 12:00 INR 1.0 (0.9-1.2) 01/17/18 12:00 APTT 36.7 Seconds (25.6-37.1) 01/17/18 12:00 - Constitutional Appears: Non-toxic, No Acute Distress - Eye Exam Eye Exam: Normal appearance - ENT Exam ENT Exam: Mucous Membranes Moist - Respiratory Exam Respiratory Exam: Clear to Ausculation Bilateral, NORMAL BREATHING PATTERN - Cardiovascular Exam Cardiovascular Exam: REGULAR RHYTHM - GI/Abdominal Exam GI & Abdominal Exam: Soft, Normal Bowel Sounds - Extremities Exam Additional comments: LEFT 4th digit with drsg, foot warm but poor vascularization - Neurological Exam Neurological Exam: Alert, Awake, Oriented x3 - Psychiatric Exam Psychiatric exam: Normal Affect, Normal Mood - Skin Skin Exam: Dry, Warm Assessment and Plan - Assessment and Plan (Free Text) Assessment: 47M PMH DM/HTN received two consecutive days of dialysis and set to undergo angioplasty 01/19. Podiatry awaiting re-vascularization to surgically remove LEFT 4th toe and patient receiving OM antibiotics at this time. Plan: Diet: Renal DVT Prophylaxis: SC Heparin Podiatry : drsg changes, MRI shows OM in 4th LEFT toe Cardiology (Dr Casas): Cleared for proposed podiatric procedure Vascular (Dr Stinson): LLE CTA with peroneal occlusion, 01/19 angioplasty Nephrology (Dr Koo): Dialysis ID (Dr Soliman): c/w antibiotics recommended, BCx #2 no growth to date HTN: not well-controlled, increased frequency of hydralazine to Q8 from Q12, asymptomatic Dispo: Pending
[2018-01-18 09:11] LABS: EOS # 0.1 K/uL (0.0-0.7); EOS % 3.1 % (0.0-4.0); HEMOGLOBIN 9.4 g/dL (12.0-18.0); LYMPH # 0.7 K/uL (1.0-4.3); LYMPH % 17.2 % (20.0-40.0); MEAN CELL VOLUME 95.6 fl (80.0-94.0); MEAN CORPUSCULAR HEMOGLOBIN 32.1 pg (27.0-31.0); MEAN CORPUSCULAR HGB CONC 33.6 g/dL (33.0-37.0); MEAN PLATELET VOLUME 8.2 fl (7.2-11.7); MONO # 0.5 K/uL (0.0-0.8); MONO % 11.5 % (0.0-10.0); NEUT # 2.8 K/uL (1.8-7.0); NEUT % 67.2 % (50.0-75.0); RBC 2.93 Mil/uL (4.40-5.90); WHITE BLOOD COUNT 4.1 K/uL (4.8-10.8)
[2018-01-18] MEDS: Multivitamin Vitamin B Complex (Nephro-Vite) Tab PO SCH (09:26)
[2018-01-18] MEDS: Cholecalciferol 1,000 INTLU TAB PO SCH (09:27)
[2018-01-18 09:44] LABS: CALCIUM 8.6 mg/dL (8.4-10.2)
--- NOTE | 2018-01-18 09:54 | RAD ---
PROCEDURE: Left Foot Radiographs. HISTORY: left third digit r/o fracture COMPARISON: None. FINDINGS: BONES: No interval displaced fracture appreciable. Diffuse osteopenia suggests osteoporosis. Partial amputation of the left 5th metatarsal bone is reiterated with dislocated middle phalanx left 4th digit reiterated. JOINTS: Normal. SOFT TISSUES: Ulcer not excluded related to the remaining 5th metatarsal bone distally. OTHER FINDINGS: None. IMPRESSION: No interval acute fracture. Dislocation middle phalanx left 4th digit
--- NOTE | 2018-01-18 11:01 | CP.PCM.PN ---
Subjective - Date & Time of Evaluation Date of Evaluation: 01/18/18 Time of Evaluation: 10:58 - Subjective Subjective: Podiatry progress note for attending, Dr. Rodriguez 47 y/o male seen at bedside for left 4th digit infected ulcer. He was seen resting comfortably, and in no acute distress. Patient was AAOx3. Dressing was seen to be dry, clean and intact. Patient states his dressing came off last night, and was re-applied by the nurse. Denies any pain or bleeding to the area at this time. Denies any pain to previously stubbed third digit. Patient denies N/V/F/C/SOB Objective - Vital Signs/Intake and Output Vital Signs (last 24 hours): Temp Pulse Resp BP Pulse Ox 98.8 F 77 20 175/82 H 98 01/18/18 07:45 01/18/18 07:45 01/18/18 07:45 01/18/18 07:45 01/18/18 07:45 - Medications Medications: Current Medications Acetaminophen (Tylenol 325mg Tab) 975 mg PO Q6 PRN PRN Reason: Pain, moderate (4-7) Ascorbic Acid (Vitamin C 500 Mg Tab) 500 mg PO DAILY [facility] Last Admin: 01/18/18 09:26 Dose: 500 mg Atorvastatin Calcium (Lipitor) 40 mg PO DAILY [facility] Last Admin: 01/18/18 09:26 Dose: 40 mg Cholecalciferol (Vitamin D) 2,000 intlu PO DAILY [facility] Last Admin: 01/18/18 09:27 Dose: 2,000 intlu Dextrose (Dextrose 50% Inj) 0 ml IV STAT PRN; Protocol PRN Reason: Hypoglycemia Protocol Dextrose (Glutose 15) 0 gm PO ONCE PRN; Protocol PRN Reason: Hypoglycemia Protocol Glucagon (Glucagen Diagnostic Kit) 0 mg IM STAT PRN; Protocol PRN Reason: Hypoglycemia Protocol Heparin Sodium (Porcine) (Heparin) 5,000 units SC Q8 [facility] PRN Reason: Protocol Stop: 01/18/18 22:00 Last Admin: 01/18/18 00:27 Dose: 5,000 units Hydralazine HCl (Apresoline) 25 mg PO Q12 [facility] Last Admin: 01/17/18 21:34 Dose: 25 mg Hydromorphone HCl (Dilaudid) 0.5 mg IVP Q6H PRN PRN Reason: Pain, severe (8-10) Piperacillin Sod/Tazobactam (Sod 2.25 gm/ Sodium Chloride) 100 mls @ 100 mls/ hr IVPB Q8 LUIS M PRN Reason: Protocol Last Admin: 01/18/18 09:22 Dose: 100 mls/hr Vancomycin HCl 1 gm/ Sodium (Chloride) 250 mls @ 166.667 mls/hr IVPB ONCE ONE PRN Reason: Protocol Stop: 01/18/18 11:29 Vancomycin HCl 1 gm/ Sodium (Chloride) 250 mls @ 125 mls/hr IVPB TTS LUIS M PRN Reason: Protocol Insulin Human Lispro (Humalog) 0 units SC ACHS LUIS M PRN Reason: Protocol Last Admin: 01/18/18 06:39 Dose: Not Given Lactobacillus Acidophilus (Bacid Acidophilus) 1 cap PO BID [facility] Last Admin: 01/17/18 16:47 Dose: 1 cap Lisinopril (Zestril) 10 mg PO DAILY [facility] Last Admin: 01/17/18 09:09 Dose: Not Given Vitamin B Complex/Vit C/Folic Acid (Nephro-Sanjay) 1 tab PO DAILY [facility] Last Admin: 01/18/18 09:26 Dose: 1 tab - Labs Labs: 01/18/18 08:30 01/18/18 08:30 PT 11.1 Seconds (9.8-13.1) 01/17/18 12:00 INR 1.0 (0.9-1.2) 01/17/18 12:00 APTT 36.7 Seconds (25.6-37.1) 01/17/18 12:00 - Constitutional Appears: Well, Non-toxic, No Acute Distress - Head Exam Head Exam: ATRAUMATIC, NORMOCEPHALIC - Extremities Exam Additional comments: Left lower extremity exam: Vascular: DP/PT pulses non-palpable secondary to edema b/l. CFT <3 secs x5. TG warm to warm. Neuro: Protective sensation diminished Derm: Approximately 1 cm x 1 cm x 0.4 cm ulceration noted to lateral left fourth digit with fibro-necrotic base. minimal malodor, and periwound erythema noted. No tracking, tunneling, or undermining appreciated. Negative probe to bone. Hypertrophic skin noted to left plantar first metatarsal head. Periwound erythema improvement noted. 0.1 cm x 0.1 cm abrasion noted to dorsal third digit secondary to patient bumping his to last night. No ecchymosis, no erythema , no active bleeding. No clinical signs of infection Ortho: No pain on palpation to ulceration site. Shortened left fifth digit secondary to partial metatarsal amputation. Previous R foot TMA. No POP to stubbed third digit - Neurological Exam Neurological Exam: Alert, Awake, Oriented x3 - Psychiatric Exam Psychiatric exam: Normal Affect, Normal Mood Assessment and Plan - Assessment and Plan (Free Text) Assessment: 47 yo male with infected left fourth digit ulceration and previous right foot TMA Plan: Patient seen and evaluated Plan discussed in detail with attending, Dr. Rodriguez Chart, labs, and reviewed; Afebrile WBC 4.1 (01/18/18) Wound cx (01/13) - Providencia Retgerri, SA MRI left foot (01/13): Findings compatible with osteomyelitis of the majority of the left 4th digit sparing the proximal to mid segment of the proximal phalanx only. Prominent dorsal foot edema/cellulitis is seen diffusely with limited involvement at the left 4th digit. No definite abscess is appreciable Left Foot X-ray: no acute fracture note, dislocated left 4th digit middle phalanx Pt for possible revascularization with Dr. Stinson on Friday 01/19 Wound dressed with Tefla, ABD, DSD to the left 4th digit, and gauze, ABD and DSD to the right foot Continue abx per ID Podiatry will continue to follow while patient is in house
[2018-01-18] MEDS: Lactobacillus Acidophilus 500 MU Cap PO SCH (17:03)
[2018-01-19 06:26] LABS: HEMOGLOBIN 9.8 g/dL (12.0-18.0); MEAN CELL VOLUME 94.6 fl (80.0-94.0); MEAN CORPUSCULAR HEMOGLOBIN 31.9 pg (27.0-31.0); MEAN CORPUSCULAR HGB CONC 33.7 g/dL (33.0-37.0); RBC 3.08 Mil/uL (4.40-5.90); RED CELL DISTRIBUTION WIDTH 13.6 % (11.5-14.5); WHITE BLOOD COUNT 4.7 K/uL (4.8-10.8)
[2018-01-19 06:37] LABS: PARTIAL THROMBOPLASTIN TIME 39.3 Seconds (25.6-37.1); PROTHROMBIN TIME 10.9 Seconds (9.8-13.1)
[2018-01-19 06:47] LABS: CALCIUM 8.4 mg/dL (8.4-10.2)
[2018-01-19] MEDS: Insulin Lispro (humaLOG) 100 Units/ml Inj SC SCH ×4 (07:30→22:24)
[2018-01-19] MEDS: Lactobacillus Acidophilus 500 MU Cap PO SCH ×2 (10:01→17:45)
[2018-01-19] MEDS: Multivitamin Vitamin B Complex (Nephro-Vite) Tab PO SCH ×2 (10:02→17:48)
[2018-01-19] MEDS: Cholecalciferol 1,000 INTLU TAB PO SCH ×2 (10:04→17:48)
[2018-01-19 10:27] VITALS: BMI 29.8
--- NOTE | 2018-01-19 13:37 | CP.PCM.PN ---
Subjective - Date & Time of Evaluation Date of Evaluation: 01/19/18 Time of Evaluation: 13:35 - Subjective Subjective: Podiatry progress note for attending, Dr. Rodriguez 47 y/o male seen at bedside for left 4th digit infected ulcer. Patient is AAOx3 , NAD, and resting comfortably. Dressing was seen to be dry, clean and intact. Patient states he is a little anxious about his revascularization procedure today. Denies any pain or bleeding to the area at this time. Denies any pain to previously stubbed third digit. Patient denies N/V/F/C/SOB/CP and has no other pedal complaints today. Objective - Vital Signs/Intake and Output Vital Signs (last 24 hours): Temp Pulse Resp BP Pulse Ox 98.3 F 70 19 158/78 H 99 01/19/18 07:53 01/19/18 07:53 01/19/18 07:53 01/19/18 07:53 01/19/18 07:53 - Medications Medications: Current Medications Acetaminophen (Tylenol 325mg Tab) 975 mg PO Q6 PRN PRN Reason: Pain, moderate (4-7) Amlodipine Besylate (Norvasc) 5 mg PO DAILY [facility] Last Admin: 01/19/18 10:02 Dose: Not Given Ascorbic Acid (Vitamin C 500 Mg Tab) 500 mg PO DAILY [facility] Last Admin: 01/19/18 10:02 Dose: Not Given Atorvastatin Calcium (Lipitor) 40 mg PO DAILY [facility] Last Admin: 01/19/18 10:01 Dose: Not Given Cholecalciferol (Vitamin D) 2,000 intlu PO DAILY [facility] Last Admin: 01/19/18 10:04 Dose: Not Given Dextrose (Dextrose 50% Inj) 0 ml IV STAT PRN; Protocol PRN Reason: Hypoglycemia Protocol Dextrose (Glutose 15) 0 gm PO ONCE PRN; Protocol PRN Reason: Hypoglycemia Protocol Glucagon (Glucagen Diagnostic Kit) 0 mg IM STAT PRN; Protocol PRN Reason: Hypoglycemia Protocol Hydralazine HCl (Apresoline) 25 mg PO Q8 [facility] Last Admin: 01/19/18 10:01 Dose: Not Given Hydromorphone HCl (Dilaudid) 0.5 mg IVP Q6H PRN PRN Reason: Pain, severe (8-10) Piperacillin Sod/Tazobactam (Sod 2.25 gm/ Sodium Chloride) 100 mls @ 100 mls/ hr IVPB Q8 LUIS M PRN Reason: Protocol Last Admin: 01/19/18 10:05 Dose: Not Given Vancomycin HCl 1 gm/ Sodium (Chloride) 250 mls @ 125 mls/hr IVPB TTS LUIS M PRN Reason: Protocol Insulin Human Lispro (Humalog) 0 units SC ACHS LUIS M PRN Reason: Protocol Last Admin: 01/19/18 07:30 Dose: Not Given Lactobacillus Acidophilus (Bacid Acidophilus) 1 cap PO BID [facility] Last Admin: 01/19/18 10:01 Dose: Not Given Lisinopril (Zestril) 10 mg PO DAILY [facility] Last Admin: 01/19/18 10:05 Dose: Not Given Vitamin B Complex/Vit C/Folic Acid (Nephro-Sanjay) 1 tab PO DAILY [facility] Last Admin: 01/19/18 10:02 Dose: Not Given - Labs Labs: 01/19/18 05:35 01/19/18 05:35 PT 10.9 Seconds (9.8-13.1) 01/19/18 05:35 INR 1.0 (0.9-1.2) 01/19/18 05:35 APTT 39.3 Seconds (25.6-37.1) H 01/19/18 05:35 - Constitutional Appears: Well, Non-toxic, No Acute Distress - Head Exam Head Exam: ATRAUMATIC, NORMOCEPHALIC - Extremities Exam Additional comments: Left lower extremity exam: Vascular: DP/PT pulses non-palpable secondary to edema, CFT <3 secs to five digits, TG warm to warm. Neuro: Protective sensation diminished Derm: Approximately 1 cm x 1 cm x 0.4 cm ulceration noted to lateral left fourth digit with fibro-necrotic base. minimal malodor, and periwound erythema noted. No drainage, tunneling, undermining present, negative PTB. Hypertrophic skin noted to left plantar first metatarsal head. Periwound erythema improvement noted. Healed 0.1 cm x 0.1 cm superfiical abrasion noted to dorsal third digit secondary to patient bumping his toe two nights ago. No ecchymosis, no erythema, no active bleeding. No clinical signs of infection, scab formation present. Ortho: No pain on palpation to ulceration site, partial fifth digit amputation leading to short digit. Previous R foot TMA. Left third digit is healed and no pain on palpation after stubbing two nights ago. - Neurological Exam Neurological Exam: Alert, Awake, Oriented x3 - Psychiatric Exam Psychiatric exam: Normal Affect, Normal Mood Assessment and Plan - Assessment and Plan (Free Text) Assessment: 47 yo male with infected left fourth digit ulceration and previous right foot TMA Plan: Patient seen and evaluated Plan discussed in detail with attending, Dr. Rodriguez Chart, labs, and reviewed; Afebrile WBC 4.7 (01/19/18) Wound cx (01/13) - Providencia Retgerri, SA MRI left foot (01/13): Findings compatible with osteomyelitis of the majority of the left 4th digit sparing the proximal to mid segment of the proximal phalanx only. Prominent dorsal foot edema/cellulitis is seen diffusely with limited involvement at the left 4th digit. No definite abscess is appreciable Left Foot X-ray: no acute fracture note, dislocated left 4th digit middle phalanx Pt revascularization procedure today with Dr. Stinson - will discuss results after procedure Wound dressed with Tefla, ABD, DSD to the left 4th digit, and gauze, ABD and DSD to the right foot Continue abx per ID Podiatry will continue to follow while patient is in house
--- NOTE | 2018-01-19 15:51 | CP.PCM.PN ---
Subjective - Date & Time of Evaluation Date of Evaluation: 01/19/18 Time of Evaluation: 15:55 - Subjective Subjective: Patient seen and examined this afternoon after revascularization procedure with Dr. Stinson. NAD, patient denies any SOB, chest pain, palpitations, abdominal pain, LEs pain or weakness. tolerating PO diet, voiding freely. Objective - Vital Signs/Intake and Output Vital Signs (last 24 hours): Temp Pulse Resp BP Pulse Ox 97.6 F 68 20 167/62 H 96 01/19/18 15:23 01/19/18 15:23 01/19/18 15:23 01/19/18 15:23 01/19/18 15:23 - Medications Medications: Current Medications Acetaminophen (Tylenol 325mg Tab) 975 mg PO Q6 PRN PRN Reason: Pain, moderate (4-7) Amlodipine Besylate (Norvasc) 5 mg PO DAILY [facility] Last Admin: 01/19/18 10:02 Dose: Not Given Ascorbic Acid (Vitamin C 500 Mg Tab) 500 mg PO DAILY [facility] Last Admin: 01/19/18 10:02 Dose: Not Given Atorvastatin Calcium (Lipitor) 40 mg PO DAILY [facility] Last Admin: 01/19/18 10:01 Dose: Not Given Cholecalciferol (Vitamin D) 2,000 intlu PO DAILY [facility] Last Admin: 01/19/18 10:04 Dose: Not Given Dextrose (Dextrose 50% Inj) 0 ml IV STAT PRN; Protocol PRN Reason: Hypoglycemia Protocol Dextrose (Glutose 15) 0 gm PO ONCE PRN; Protocol PRN Reason: Hypoglycemia Protocol Glucagon (Glucagen Diagnostic Kit) 0 mg IM STAT PRN; Protocol PRN Reason: Hypoglycemia Protocol Hydralazine HCl (Apresoline) 25 mg PO Q8 [facility] Last Admin: 01/19/18 10:01 Dose: Not Given Hydromorphone HCl (Dilaudid) 0.5 mg IVP Q6H PRN PRN Reason: Pain, severe (8-10) Piperacillin Sod/Tazobactam (Sod 2.25 gm/ Sodium Chloride) 100 mls @ 100 mls/ hr IVPB Q8 LUIS M PRN Reason: Protocol Last Admin: 01/19/18 10:05 Dose: Not Given Vancomycin HCl 1 gm/ Sodium (Chloride) 250 mls @ 125 mls/hr IVPB TTS [facility] PRN Reason: Protocol Insulin Human Lispro (Humalog) 0 units SC ACHS [facility] PRN Reason: Protocol Last Admin: 01/19/18 07:30 Dose: Not Given Lactobacillus Acidophilus (Bacid Acidophilus) 1 cap PO BID [facility] Last Admin: 01/19/18 10:01 Dose: Not Given Lisinopril (Zestril) 10 mg PO DAILY [facility] Last Admin: 01/19/18 10:05 Dose: Not Given Vitamin B Complex/Vit C/Folic Acid (Nephro-Sanjay) 1 tab PO DAILY [facility] Last Admin: 01/19/18 10:02 Dose: Not Given - Labs Labs: 01/19/18 05:35 01/19/18 05:35 PT 10.9 Seconds (9.8-13.1) 01/19/18 05:35 INR 1.0 (0.9-1.2) 01/19/18 05:35 APTT 39.3 Seconds (25.6-37.1) H 01/19/18 05:35 - Constitutional Appears: No Acute Distress - Head Exam Head Exam: NORMAL INSPECTION - Eye Exam Eye Exam: Normal appearance - ENT Exam ENT Exam: Mucous Membranes Moist - Neck Exam Neck Exam: Normal Inspection - Respiratory Exam Respiratory Exam: Clear to Ausculation Bilateral, NORMAL BREATHING PATTERN - Cardiovascular Exam Cardiovascular Exam: REGULAR RHYTHM - GI/Abdominal Exam GI & Abdominal Exam: Soft, Normal Bowel Sounds - Extremities Exam Additional comments: Left 4th digit covered with dressing - Back Exam Back Exam: absent: CVA tenderness (L), CVA tenderness (R) - Neurological Exam Neurological Exam: Alert, Awake, Oriented x3 - Psychiatric Exam Psychiatric exam: Normal Affect - Skin Skin Exam: Normal Color Assessment and Plan - Assessment and Plan (Free Text) Assessment: A/P: 47 y/o M with PMH of HTN, DM and ESRD on HD admitted for Infected left fourth digit ulceration. Left foot infection - C/w Vanco post HD and Zosyn day 5 - Follow up podiatry recommendations, Dr. Rodriguez consult appreciated - Consult ID, Dr. Pendleotn, recs appreciated - Consult Vascular, Dr. Stinson, recs appreciated - Consult Cardio, Augusto Warner, Last ECHO 2017; 15 to 20% EF, cleared for surgical intervention - CT angio: popliteal artery occlusion, No flow ant/post tibial and peroneal arteries - MRI Foot: Osteomylitis - Blood Cx (01/13): NGPD - Left foot Wound Cx: Staph Aureus/Providencia Rettgeri, sensetive to Vanco/ zosyn - C/w Abx, will get Vanc trough tomorrow before HD - F/u Dr. Stinson, revascularization prodedure done today (01/19), will follow the result - F/u Podiatry for further management ESRD - Nephro Consult, Dr. Koo, recs appreciated - HD tomorrow, TTS HTN - C/w home medication; hydralazine 25mg TID, Lisinopril 10mg BID Prediabetes - HBA1C; 5.8 DVT PPX - Heparin 5000 SC Q8H,
--- NOTE | 2018-01-19 23:48 | CP.PCM.PN ---
Subjective - Date & Time of Evaluation Date of Evaluation: 01/19/18 Time of Evaluation: 18:00 - Subjective Subjective: SEEN ON RENAL F/U S/P REVASCULARIZATION ON HD T T S .. IN AM FEELS IMPROVED ALL EMR REVIEWED Objective - Vital Signs/Intake and Output Vital Signs (last 24 hours): Temp Pulse Resp BP Pulse Ox 97.6 F 68 20 138/56 L 96 01/19/18 15:23 01/19/18 17:48 01/19/18 15:23 01/19/18 19:01 01/19/18 15:23 - Medications Medications: Current Medications Acetaminophen (Tylenol 325mg Tab) 975 mg PO Q6 PRN PRN Reason: Pain, moderate (4-7) Amlodipine Besylate (Norvasc) 5 mg PO DAILY [facility] Last Admin: 01/19/18 10:02 Dose: Not Given Ascorbic Acid (Vitamin C 500 Mg Tab) 500 mg PO DAILY [facility] Last Admin: 01/19/18 17:48 Dose: 500 mg Atorvastatin Calcium (Lipitor) 40 mg PO DAILY [facility] Last Admin: 01/19/18 17:48 Dose: 40 mg Cholecalciferol (Vitamin D) 2,000 intlu PO DAILY [facility] Last Admin: 01/19/18 17:48 Dose: 2,000 intlu Dextrose (Dextrose 50% Inj) 0 ml IV STAT PRN; Protocol PRN Reason: Hypoglycemia Protocol Dextrose (Glutose 15) 0 gm PO ONCE PRN; Protocol PRN Reason: Hypoglycemia Protocol Glucagon (Glucagen Diagnostic Kit) 0 mg IM STAT PRN; Protocol PRN Reason: Hypoglycemia Protocol Heparin Sodium (Porcine) (Heparin) 5,000 units SC Q8 LUIS M PRN Reason: Protocol Last Admin: 01/19/18 17:46 Dose: 5,000 units Hydralazine HCl (Apresoline) 25 mg PO Q8 LUIS M Last Admin: 01/19/18 17:46 Dose: 25 mg Hydromorphone HCl (Dilaudid) 0.5 mg IVP Q6H PRN PRN Reason: Pain, severe (8-10) Piperacillin Sod/Tazobactam (Sod 2.25 gm/ Sodium Chloride) 100 mls @ 100 mls/ hr IVPB Q8 LUIS M PRN Reason: Protocol Last Admin: 01/19/18 17:45 Dose: 100 mls/hr Vancomycin HCl 1 gm/ Sodium (Chloride) 250 mls @ 125 mls/hr IVPB TTS LUIS M PRN Reason: Protocol Insulin Human Lispro (Humalog) 0 units SC ACHS [facility] PRN Reason: Protocol Last Admin: 01/19/18 22:24 Dose: 3 u Lactobacillus Acidophilus (Bacid Acidophilus) 1 cap PO BID [facility] Last Admin: 01/19/18 17:45 Dose: 1 cap Lisinopril (Zestril) 10 mg PO DAILY [facility] Last Admin: 01/19/18 17:48 Dose: 10 mg Sevelamer Carbonate (Renvela) 1.6 gm PO TIDWM [facility] Vitamin B Complex/Vit C/Folic Acid (Nephro-Sanjay) 1 tab PO DAILY [facility] Last Admin: 01/19/18 17:48 Dose: 1 tab - Labs Labs: 01/19/18 05:35 01/19/18 05:35 PT 10.9 Seconds (9.8-13.1) 01/19/18 05:35 INR 1.0 (0.9-1.2) 01/19/18 05:35 APTT 39.3 Seconds (25.6-37.1) H 01/19/18 05:35 Assessment and Plan - Assessment and Plan (Free Text) Assessment: ESRD ON HD TTS .. TO BE C/O ANEMIA OF CKD .. ON EPO L FOOT UN HEALING ULCER .. S/P RE VASCULARIZATION MMP P : HD TTS C/O IVAB C/O PO MEDS ADD RENVELA
[2018-01-20 06:05] LABS: BASO % 0.3 % (0.0-2.0); LYMPH # 0.7 K/uL (1.0-4.3); LYMPH % 11.9 % (20.0-40.0); MEAN CELL VOLUME 94.2 fl (80.0-94.0); MEAN CORPUSCULAR HEMOGLOBIN 32.5 pg (27.0-31.0); MEAN CORPUSCULAR HGB CONC 34.6 g/dL (33.0-37.0); MEAN PLATELET VOLUME 8.6 fl (7.2-11.7); MONO # 0.5 K/uL (0.0-0.8); MONO % 8.4 % (0.0-10.0); NEUT # 4.6 K/uL (1.8-7.0); NEUT % 79.4 % (50.0-75.0); RBC 3.07 Mil/uL (4.40-5.90); RED CELL DISTRIBUTION WIDTH 13.9 % (11.5-14.5); WHITE BLOOD COUNT 5.7 K/uL (4.8-10.8)
[2018-01-20 06:26] LABS: ALBUMIN 3.8 g/dL (3.5-5.0); CALCIUM 8.7 mg/dL (8.4-10.2)
[2018-01-20] MEDS: Insulin Lispro (humaLOG) 100 Units/ml Inj SC SCH ×4 (08:36→21:23)
[2018-01-20] MEDS: Lactobacillus Acidophilus 500 MU Cap PO SCH ×2 (09:40→19:24)
[2018-01-20] MEDS: Cholecalciferol 1,000 INTLU TAB PO SCH (09:41)
[2018-01-20] MEDS: Multivitamin Vitamin B Complex (Nephro-Vite) Tab PO SCH (09:46)
[2018-01-20] MEDS: Sevelamer Carb 0.8 gm/Packet PO SCH ×3 (09:47→18:58)
--- NOTE | 2018-01-20 09:58 | CP.PCM.PN ---
<Cheyanne Lara - Last Filed: 01/20/18 13:09> Subjective - Date & Time of Evaluation Date of Evaluation: 01/20/18 Time of Evaluation: 07:30 - Subjective Subjective: Patient seen and examined this morning at bedside. NAD, reports watery diarrhea 2 to 3 times overnight. Patient denies any chest pain, SOB, dizziness, abdominal pain, urinary symptoms or weakness. tolerating PO intake, denies f/c/n /v. Objective - Vital Signs/Intake and Output Vital Signs (last 24 hours): Temp Pulse Resp BP Pulse Ox 97.6 F 63 19 154/80 H 99 01/20/18 07:58 01/20/18 07:58 01/20/18 07:58 01/20/18 09:52 01/20/18 07:58 - Medications Medications: Current Medications Acetaminophen (Tylenol 325mg Tab) 975 mg PO Q6 PRN PRN Reason: Pain, moderate (4-7) Amlodipine Besylate (Norvasc) 5 mg PO DAILY [facility] Last Admin: 01/20/18 09:52 Dose: Not Given Ascorbic Acid (Vitamin C 500 Mg Tab) 500 mg PO DAILY [facility] Last Admin: 01/20/18 09:43 Dose: 500 mg Atorvastatin Calcium (Lipitor) 40 mg PO DAILY [facility] Last Admin: 01/20/18 09:43 Dose: 40 mg Cholecalciferol (Vitamin D) 2,000 intlu PO DAILY [facility] Last Admin: 01/20/18 09:41 Dose: 2,000 intlu Dextrose (Dextrose 50% Inj) 0 ml IV STAT PRN; Protocol PRN Reason: Hypoglycemia Protocol Dextrose (Glutose 15) 0 gm PO ONCE PRN; Protocol PRN Reason: Hypoglycemia Protocol Glucagon (Glucagen Diagnostic Kit) 0 mg IM STAT PRN; Protocol PRN Reason: Hypoglycemia Protocol Heparin Sodium (Porcine) (Heparin) 5,000 units SC Q8 [facility] PRN Reason: Protocol Last Admin: 01/20/18 09:46 Dose: 5,000 units Hydralazine HCl (Apresoline) 50 mg PO Q8 [facility] Last Admin: 01/20/18 09:34 Dose: Not Given Hydromorphone HCl (Dilaudid) 0.5 mg IVP Q6H PRN PRN Reason: Pain, severe (8-10) Piperacillin Sod/Tazobactam (Sod 2.25 gm/ Sodium Chloride) 100 mls @ 100 mls/ hr IVPB Q8 [facility] PRN Reason: Protocol Last Admin: 01/20/18 00:17 Dose: 100 mls/hr Vancomycin HCl 1 gm/ Sodium (Chloride) 250 mls @ 125 mls/hr IVPB TTS [facility] PRN Reason: Protocol Insulin Human Lispro (Humalog) 0 units SC ACHS [facility] PRN Reason: Protocol Last Admin: 01/20/18 08:36 Dose: Not Given Lactobacillus Acidophilus (Bacid Acidophilus) 1 cap PO BID [facility] Last Admin: 01/20/18 09:40 Dose: 1 cap Lisinopril (Zestril) 10 mg PO DAILY [facility] Last Admin: 01/20/18 09:45 Dose: Not Given Sevelamer Carbonate (Renvela) 1.6 gm PO TIDWM [facility] Last Admin: 01/20/18 09:47 Dose: 1.6 gm Vitamin B Complex/Vit C/Folic Acid (Nephro-Sanjay) 1 tab PO DAILY [facility] Last Admin: 01/20/18 09:46 Dose: 1 tab - Labs Labs: 01/20/18 05:45 01/20/18 05:45 PT 10.9 Seconds (9.8-13.1) 01/19/18 05:35 INR 1.0 (0.9-1.2) 01/19/18 05:35 APTT 39.3 Seconds (25.6-37.1) H 01/19/18 05:35 - Constitutional Appears: No Acute Distress - Head Exam Head Exam: NORMAL INSPECTION - Eye Exam Eye Exam: Normal appearance - ENT Exam ENT Exam: Mucous Membranes Moist - Neck Exam Neck Exam: Normal Inspection - Respiratory Exam Respiratory Exam: Clear to Ausculation Bilateral, NORMAL BREATHING PATTERN - Cardiovascular Exam Cardiovascular Exam: REGULAR RHYTHM - GI/Abdominal Exam GI & Abdominal Exam: Soft, Normal Bowel Sounds - Extremities Exam Additional comments: Left 4th digit covered with dressing - Back Exam Back Exam: absent: CVA tenderness (L), CVA tenderness (R) - Neurological Exam Neurological Exam: Alert, Awake, Oriented x3 - Psychiatric Exam Psychiatric exam: Normal Affect - Skin Skin Exam: Normal Color Assessment and Plan - Assessment and Plan (Free Text) Assessment: A/P: 47 y/o M with PMH of HTN, DM and ESRD on HD admitted for OM of left fourth digit of LE. Osteomyelitis of left LE 4th digit - C/w Vanco post HD and Zosyn day 6 - Follow up podiatry recommendations, Dr. Rodriguez consult appreciated - Consult ID, Dr. Pendleton, recs appreciated - Consult Vascular, Dr. Stinson, recs appreciated - Consult Cardio, Augusto Warner, Last ECHO 2017; 15 to 20% EF, cleared for surgical intervention - As per Dr. Stinson, patient has microvascular disease, will follow up official report - C/w Abx, Random Vanc Trough 10.5 - NPO today for possible amputation as per Podiatry ESRD - Nephro Consult, Dr. Koo, recs appreciated - C/w HD on TTS HTN - C/w home medication; hydralazine 50mg TID, Lisinopril 10mg BID Prediabetes - HBA1C; 5.8 DVT PPX - Heparin 5000 SC Q8H, held for possible OR today <Kaylene Bowen - Last Filed: 01/21/18 07:55> Objective - Vital Signs/Intake and Output Vital Signs (last 24 hours): Temp Pulse Resp BP Pulse Ox 98 F 62 20 149/78 100 01/21/18 04:30 01/21/18 04:30 01/21/18 04:30 01/21/18 04:30 01/21/18 04:30 - Medications Medications: Current Medications Acetaminophen (Tylenol 325mg Tab) 975 mg PO Q6 PRN PRN Reason: Pain, moderate (4-7) Amlodipine Besylate (Norvasc) 5 mg PO DAILY [facility] Last Admin: 01/20/18 09:52 Dose: Not Given Ascorbic Acid (Vitamin C 500 Mg Tab) 500 mg PO DAILY [facility] Last Admin: 01/20/18 09:43 Dose: 500 mg Atorvastatin Calcium (Lipitor) 40 mg PO DAILY [facility] Last Admin: 01/20/18 09:43 Dose: 40 mg Cholecalciferol (Vitamin D) 2,000 intlu PO DAILY [facility] Last Admin: 01/20/18 09:41 Dose: 2,000 intlu Dextrose (Dextrose 50% Inj) 0 ml IV STAT PRN; Protocol PRN Reason: Hypoglycemia Protocol Dextrose (Glutose 15) 0 gm PO ONCE PRN; Protocol PRN Reason: Hypoglycemia Protocol Glucagon (Glucagen Diagnostic Kit) 0 mg IM STAT PRN; Protocol PRN Reason: Hypoglycemia Protocol Heparin Sodium (Porcine) (Heparin) 5,000 units SC Q8 [facility] PRN Reason: Protocol Hydralazine HCl (Apresoline) 50 mg PO Q8 [facility] Last Admin: 01/21/18 00:49 Dose: 50 mg Hydromorphone HCl (Dilaudid) 0.5 mg IVP Q6H PRN PRN Reason: Pain, severe (8-10) Piperacillin Sod/Tazobactam (Sod 2.25 gm/ Sodium Chloride) 100 mls @ 100 mls/ hr IVPB Q8 [facility] PRN Reason: Protocol Last Admin: 01/21/18 00:51 Dose: Not Given Vancomycin HCl 1 gm/ Sodium (Chloride) 250 mls @ 125 mls/hr IVPB TTS [facility] PRN Reason: Protocol Last Admin: 01/20/18 15:15 Dose: 125 mls/hr Insulin Human Lispro (Humalog) 0 units SC ACHS [facility] PRN Reason: Protocol Last Admin: 01/21/18 06:55 Dose: Not Given Lactobacillus Acidophilus (Bacid Acidophilus) 1 cap PO BID [facility] Last Admin: 01/20/18 19:24 Dose: 1 cap Lisinopril (Zestril) 10 mg PO DAILY [facility] Last Admin: 01/20/18 09:45 Dose: Not Given Oxycodone/Acetaminophen (Percocet 5/325 Mg Tab) 1 tab PO Q4 PRN PRN Reason: Pain, moderate (4-7) Stop: 01/23/18 17:58 Oxycodone/Acetaminophen (Percocet 5/325 Mg Tab) 2 tab PO Q4 PRN PRN Reason: Pain, severe (8-10) Stop: 01/23/18 17:58 Sevelamer Carbonate (Renvela) 1.6 gm PO TIDWM [facility] Last Admin: 01/20/18 18:58 Dose: 1.6 gm Vitamin B Complex/Vit C/Folic Acid (Nephro-Sanjay) 1 tab PO DAILY [facility] Last Admin: 01/20/18 09:46 Dose: 1 tab - Labs Labs: 01/21/18 05:25 01/21/18 05:25 PT 10.9 Seconds (9.8-13.1) 01/19/18 05:35 INR 1.0 (0.9-1.2) 01/19/18 05:35 APTT 39.3 Seconds (25.6-37.1) H 01/19/18 05:35 Attending/Attestation - Attestation I have personally seen and examined this patient.: Yes I have fully participated in the care of the patient.: Yes I have reviewed all pertinent clinical information, including history, physical exam and plan: Yes Notes (Text): 01/21/18 07:54 Attestation - ATTENDING NOTE. Patient seen and examined. Case discussed with resident. On OR schedule later today for partial amputation foot. Agree with findings and plan.
--- NOTE | 2018-01-20 10:54 | CP.PCM.PN ---
Subjective - Date & Time of Evaluation Date of Evaluation: 01/20/18 Time of Evaluation: 10:49 - Subjective Subjective: Podiatry progress note for attending, Dr. Cerrato 47 y/o male seen at bedside for left 4th digit infected ulcer with underlying OM. Patient is AAOx3, NAD, and resting comfortably. Dressing was seen to be dry , clean and intact. Patient states he had his revascularization done yesterday without incident with Dr. Stinson. Denies any pain to the area at this time. Patient admits to mild nausea this morning, however feels better now. Patient denies V/F/C/SOB/CP and has no other pedal complaints today. Patient states that he had breakfast at 8:30AM this morning. Per nursing, patient is due for dialysis today Objective - Vital Signs/Intake and Output Vital Signs (last 24 hours): Temp Pulse Resp BP Pulse Ox 97.6 F 63 19 154/80 H 99 01/20/18 07:58 01/20/18 07:58 01/20/18 07:58 01/20/18 09:52 01/20/18 07:58 - Medications Medications: Current Medications Acetaminophen (Tylenol 325mg Tab) 975 mg PO Q6 PRN PRN Reason: Pain, moderate (4-7) Amlodipine Besylate (Norvasc) 5 mg PO DAILY [facility] Last Admin: 01/20/18 09:52 Dose: Not Given Ascorbic Acid (Vitamin C 500 Mg Tab) 500 mg PO DAILY [facility] Last Admin: 01/20/18 09:43 Dose: 500 mg Atorvastatin Calcium (Lipitor) 40 mg PO DAILY [facility] Last Admin: 01/20/18 09:43 Dose: 40 mg Cholecalciferol (Vitamin D) 2,000 intlu PO DAILY [facility] Last Admin: 01/20/18 09:41 Dose: 2,000 intlu Dextrose (Dextrose 50% Inj) 0 ml IV STAT PRN; Protocol PRN Reason: Hypoglycemia Protocol Dextrose (Glutose 15) 0 gm PO ONCE PRN; Protocol PRN Reason: Hypoglycemia Protocol Glucagon (Glucagen Diagnostic Kit) 0 mg IM STAT PRN; Protocol PRN Reason: Hypoglycemia Protocol Heparin Sodium (Porcine) (Heparin) 5,000 units SC Q8 [facility] PRN Reason: Protocol Last Admin: 01/20/18 09:46 Dose: 5,000 units Hydralazine HCl (Apresoline) 50 mg PO Q8 [facility] Last Admin: 01/20/18 09:34 Dose: Not Given Hydromorphone HCl (Dilaudid) 0.5 mg IVP Q6H PRN PRN Reason: Pain, severe (8-10) Piperacillin Sod/Tazobactam (Sod 2.25 gm/ Sodium Chloride) 100 mls @ 100 mls/ hr IVPB Q8 [facility] PRN Reason: Protocol Last Admin: 01/20/18 09:57 Dose: 100 mls/hr Vancomycin HCl 1 gm/ Sodium (Chloride) 250 mls @ 125 mls/hr IVPB TTS [facility] PRN Reason: Protocol Insulin Human Lispro (Humalog) 0 units SC ACHS [facility] PRN Reason: Protocol Last Admin: 01/20/18 08:36 Dose: Not Given Lactobacillus Acidophilus (Bacid Acidophilus) 1 cap PO BID [facility] Last Admin: 01/20/18 09:40 Dose: 1 cap Lisinopril (Zestril) 10 mg PO DAILY [facility] Last Admin: 01/20/18 09:45 Dose: Not Given Sevelamer Carbonate (Renvela) 1.6 gm PO TIDWM [facility] Last Admin: 01/20/18 09:47 Dose: 1.6 gm Vitamin B Complex/Vit C/Folic Acid (Nephro-Sanjay) 1 tab PO DAILY [facility] Last Admin: 01/20/18 09:46 Dose: 1 tab - Labs Labs: 01/20/18 05:45 01/20/18 05:45 PT 10.9 Seconds (9.8-13.1) 01/19/18 05:35 INR 1.0 (0.9-1.2) 01/19/18 05:35 APTT 39.3 Seconds (25.6-37.1) H 01/19/18 05:35 - Constitutional Appears: Well, Non-toxic, No Acute Distress - Head Exam Head Exam: ATRAUMATIC, NORMOCEPHALIC - Extremities Exam Additional comments: Left lower extremity exam: Vascular: DP/PT pulses non-palpable secondary to edema, CFT <3 secs to five digits, TG warm to warm. Neuro: Protective sensation diminished Derm: Approximately 1 cm x 1 cm x 0.4 cm ulceration noted to lateral left fourth digit with fibro-necrotic base. minimal malodor, and periwound erythema noted. No drainage, tunneling, undermining present, negative PTB. Hypertrophic skin noted submet 1. Healed 0.1 cm x 0.1 cm superfiical abrasion noted to dorsal third digit secondary to patient bumping his toe two nights ago. No ecchymosis, no erythema , no active bleeding. No clinical signs of infection, scab formation present. Ortho: No pain on palpation to ulceration site, partial fifth digit amputation. TMA R foot - Neurological Exam Neurological Exam: Alert, Awake, Oriented x3 Assessment and Plan - Assessment and Plan (Free Text) Assessment: 47 yo male with infected left fourth digit ulceration. Patient to OR today with Dr. Cerrato at 5pm for amputation of left fourth digit Plan: Patient seen and evaluated Plan discussed in detail with attending, Dr. Cerrato Chart, labs, and reviewed; Afebrile WBC 5.7 (01/19/18) Wound cx (01/13) - Providencia Retgerri, SA MRI left foot (01/13): Findings compatible with osteomyelitis of the majority of the left 4th digit sparing the proximal to mid segment of the proximal phalanx only. Prominent dorsal foot edema/cellulitis is seen diffusely with limited involvement at the left 4th digit. No definite abscess is appreciable Left Foot X-ray: no acute fracture note, dislocated left 4th digit middle phalanx Medical optimization for amputation of left fourth digit verbally attained from Dr. Stinson this morning (01/20) at 9:30AM Wound dressed with Tefla, ABD, DSD to the left 4th digit, and gauze, ABD and DSD to the right foot Continue abx per ID Podiatry plan: Patient to OR today with Dr. Cerrato for amputation of left fourth digit with Dr. Cerrato NPO order placed; heparin on hold until tomorrow morning 9:00 am Floor nurses made aware Podiatry will continue to follow while patient is in house
--- NOTE | 2018-01-20 15:25 | PQF ---
PROVIDER RESPONSE TEXT: This is a acute osteomyelitis secondary to a diabetic foot infection of the left foot. Patient was se en in wound care center with a ulcer which had fail to respond to conservative measures. REVIEWER QUERY TEXT: Acuity Specificity OSTEOMYELITIS is documented in the Medical Record. Please specify the acuity of this condition with terms such as: -- Acute -- Chronic -- Acute and chronic -- Acute on chronic -- Other (please specify in the medical record) The patient's Clinical Indicators include: A diabetic patient is admitted with an infected left fourth digit ulceration . Documentation of the M RI findings of the left foot: C/W osteomyelitis of the majority of the L 4th digit sparing the proxim al to mid segment of the proximal phalanx only. Treated with IVAB Query created by: Amaris Larson on 01/20/2018 9:07 AM Electronically signed by: Ravi Rodriguez 01/20/2018 3:21 PM
[2018-01-20] MEDS ORDERED: Lidocaine 2% PF (10 ml) Amp ONE (16:27)
[2018-01-20] MEDS ORDERED: Bupivacaine HCl 0.5% PF (10 ml) Inj ONE (16:27)
[2018-01-20] MEDS ORDERED: Propofol 10 mg/ml Inj (20 ML) ONE (16:42)
[2018-01-20] MEDS ORDERED: Etomidate 20 mg/10ml Inj IV ONE (16:42)
[2018-01-20] MEDS ORDERED: Sodium Chloride 0.9% 250 ML IV ONE (16:54)
[2018-01-20] MEDS ORDERED: Midazolam 2 MG/2 ML VIAL ONE (16:56)
[2018-01-20] MEDS ORDERED: Succinylcholine 200 mg/10 ml Inj IV ONE (17:20)
[2018-01-20] MEDS ORDERED: Oxycodone/Acetaminophen 5/325 mg Tab PO PRN ×2 (17:57)
[2018-01-20] MEDS ORDERED: HYDROmorphone 0.5 mg/0.5 ml ISec IVP PRN (17:57)
--- NOTE | 2018-01-20 18:04 | PCM.SURG1 ---
Surgeon's Initial Post Op Note - Surgeon's Notes Surgeon: Dr. Rodriguez Electric Engine Mechanic: Dr. Felicia Lara, PGY1 Type of Anesthesia: General LMA, Local Anesthesia Administered By: Dr. Leavitt Pre-Operative Diagnosis: L 4th digit osteomyelitis Operative Findings: see dictation. M: 4-0 monocryl, 3-0 prolene. I: 17 cc 1:1 0.5% Bupivicane plain, 1% Lidocaine plain Post-Operative Diagnosis: same Operation Performed: Left 4th digit amputation Specimen/Specimens Removed: Left 4th digit Estimated Blood Loss: EBL {In ML}: 15 Blood Products Given: N/A Drains Used: No Drains Post-Op Condition: Good Date of Surgery/Procedure: 01/20/18 Time of Surgery/Procedure: 18:05
--- NOTE | 2018-01-20 21:44 | CP.PCM.PCO ---
Addendum Addendum: 01/20/18 21:42 Patient seen and examined at bedside s/p left foot 4th digit amputation. Patient is laying in bed comfortably, tolerated procedure well w/o complications , and is recovering appropriately. Left foot dressed c/d/i. Patient pain controlled w/ medication. Patient deneis headaches, chest pain, SOB, abdominal pain, nausea, vomiting, or fever.
--- NOTE | 2018-01-20 23:58 | CP.PCM.PN ---
Subjective - Date & Time of Evaluation Date of Evaluation: 01/20/18 Time of Evaluation: 16:00 - Subjective Subjective: SEEN ON RENAL F/U S/P 4TH DIGIT AMPUTATION FEELS OK WANTS TO HAVE HIS HD IN AM INSTEAD OF TODAY LABS OK Objective - Vital Signs/Intake and Output Vital Signs (last 24 hours): Temp Pulse Resp BP Pulse Ox 97.8 F 60 20 144/88 97 01/20/18 23:30 01/20/18 23:30 01/20/18 23:30 01/20/18 23:30 01/20/18 23:30 Intake and Output: 01/20/18 01/21/18 18:59 06:59 Intake Total 100 Balance 100 - Medications Medications: Current Medications Acetaminophen (Tylenol 325mg Tab) 975 mg PO Q6 PRN PRN Reason: Pain, moderate (4-7) Amlodipine Besylate (Norvasc) 5 mg PO DAILY [facility] Last Admin: 01/20/18 09:52 Dose: Not Given Ascorbic Acid (Vitamin C 500 Mg Tab) 500 mg PO DAILY [facility] Last Admin: 01/20/18 09:43 Dose: 500 mg Atorvastatin Calcium (Lipitor) 40 mg PO DAILY [facility] Last Admin: 01/20/18 09:43 Dose: 40 mg Cholecalciferol (Vitamin D) 2,000 intlu PO DAILY [facility] Last Admin: 01/20/18 09:41 Dose: 2,000 intlu Dextrose (Dextrose 50% Inj) 0 ml IV STAT PRN; Protocol PRN Reason: Hypoglycemia Protocol Dextrose (Glutose 15) 0 gm PO ONCE PRN; Protocol PRN Reason: Hypoglycemia Protocol Glucagon (Glucagen Diagnostic Kit) 0 mg IM STAT PRN; Protocol PRN Reason: Hypoglycemia Protocol Heparin Sodium (Porcine) (Heparin) 5,000 units SC Q8 [facility] PRN Reason: Protocol Last Admin: 01/20/18 09:46 Dose: 5,000 units Hydralazine HCl (Apresoline) 50 mg PO Q8 [facility] Last Admin: 01/20/18 19:02 Dose: Not Given Hydromorphone HCl (Dilaudid) 0.5 mg IVP Q6H PRN PRN Reason: Pain, severe (8-10) Piperacillin Sod/Tazobactam (Sod 2.25 gm/ Sodium Chloride) 100 mls @ 100 mls/ hr IVPB Q8 [facility] PRN Reason: Protocol Last Admin: 01/20/18 17:10 Dose: 100 mls Vancomycin HCl 1 gm/ Sodium (Chloride) 250 mls @ 125 mls/hr IVPB TTS [facility] PRN Reason: Protocol Last Admin: 01/20/18 15:15 Dose: 125 mls/hr Insulin Human Lispro (Humalog) 0 units SC ACHS [facility] PRN Reason: Protocol Last Admin: 01/20/18 21:23 Dose: Not Given Lactobacillus Acidophilus (Bacid Acidophilus) 1 cap PO BID [facility] Last Admin: 01/20/18 19:24 Dose: 1 cap Lisinopril (Zestril) 10 mg PO DAILY [facility] Last Admin: 01/20/18 09:45 Dose: Not Given Oxycodone/Acetaminophen (Percocet 5/325 Mg Tab) 1 tab PO Q4 PRN PRN Reason: Pain, moderate (4-7) Stop: 01/23/18 17:58 Oxycodone/Acetaminophen (Percocet 5/325 Mg Tab) 2 tab PO Q4 PRN PRN Reason: Pain, severe (8-10) Stop: 01/23/18 17:58 Sevelamer Carbonate (Renvela) 1.6 gm PO TIDWM [facility] Last Admin: 01/20/18 18:58 Dose: 1.6 gm Vitamin B Complex/Vit C/Folic Acid (Nephro-Sanjay) 1 tab PO DAILY [facility] Last Admin: 01/20/18 09:46 Dose: 1 tab - Labs Labs: 01/20/18 05:45 01/20/18 05:45 PT 10.9 Seconds (9.8-13.1) 01/19/18 05:35 INR 1.0 (0.9-1.2) 01/19/18 05:35 APTT 39.3 Seconds (25.6-37.1) H 01/19/18 05:35 Assessment and Plan - Assessment and Plan (Free Text) Assessment: ESRD ON HD TIW ANEMIA OF CKD .. H/H STABLE L FOOT ISCHEMIA .. S/P 4TH DIFIT AMPUTATION MMP P : C/O HD C/O PRESENT MEDS C/O CURRENT MANAGEMENT HD IN AM
[2018-01-21 06:22] LABS: BASO % 0.8 % (0.0-2.0); EOS % 0.6 % (0.0-4.0); LYMPH # 1.3 K/uL (1.0-4.3); MEAN CELL VOLUME 95.1 fl (80.0-94.0); MEAN CORPUSCULAR HEMOGLOBIN 32.3 pg (27.0-31.0); MEAN PLATELET VOLUME 8.7 fl (7.2-11.7); MONO # 0.5 K/uL (0.0-0.8); MONO % 7.3 % (0.0-10.0); NEUT # 4.5 K/uL (1.8-7.0); NEUT % 71.3 % (50.0-75.0); RBC 3.08 Mil/uL (4.40-5.90); RED CELL DISTRIBUTION WIDTH 14.4 % (11.5-14.5); WHITE BLOOD COUNT 6.3 K/uL (4.8-10.8)
--- NOTE | 2018-01-21 06:46 | CP.PCM.PN ---
Subjective - Date & Time of Evaluation Date of Evaluation: 01/20/18 Time of Evaluation: 21:00 - Subjective Subjective: s/p angiogram showing microvascular disease Objective - Vital Signs/Intake and Output Vital Signs (last 24 hours): Temp Pulse Resp BP Pulse Ox 98 F 62 20 149/78 100 01/21/18 04:30 01/21/18 04:30 01/21/18 04:30 01/21/18 04:30 01/21/18 04:30 Intake and Output: 01/20/18 01/21/18 18:59 06:59 Intake Total 100 Balance 100 - Medications Medications: Current Medications Acetaminophen (Tylenol 325mg Tab) 975 mg PO Q6 PRN PRN Reason: Pain, moderate (4-7) Amlodipine Besylate (Norvasc) 5 mg PO DAILY [facility] Last Admin: 01/20/18 09:52 Dose: Not Given Ascorbic Acid (Vitamin C 500 Mg Tab) 500 mg PO DAILY [facility] Last Admin: 01/20/18 09:43 Dose: 500 mg Atorvastatin Calcium (Lipitor) 40 mg PO DAILY [facility] Last Admin: 01/20/18 09:43 Dose: 40 mg Cholecalciferol (Vitamin D) 2,000 intlu PO DAILY [facility] Last Admin: 01/20/18 09:41 Dose: 2,000 intlu Dextrose (Dextrose 50% Inj) 0 ml IV STAT PRN; Protocol PRN Reason: Hypoglycemia Protocol Dextrose (Glutose 15) 0 gm PO ONCE PRN; Protocol PRN Reason: Hypoglycemia Protocol Glucagon (Glucagen Diagnostic Kit) 0 mg IM STAT PRN; Protocol PRN Reason: Hypoglycemia Protocol Heparin Sodium (Porcine) (Heparin) 5,000 units SC Q8 [facility] PRN Reason: Protocol Hydralazine HCl (Apresoline) 50 mg PO Q8 [facility] Last Admin: 01/21/18 00:49 Dose: 50 mg Hydromorphone HCl (Dilaudid) 0.5 mg IVP Q6H PRN PRN Reason: Pain, severe (8-10) Piperacillin Sod/Tazobactam (Sod 2.25 gm/ Sodium Chloride) 100 mls @ 100 mls/ hr IVPB Q8 [facility] PRN Reason: Protocol Last Admin: 01/21/18 00:51 Dose: Not Given Vancomycin HCl 1 gm/ Sodium (Chloride) 250 mls @ 125 mls/hr IVPB TTS [facility] PRN Reason: Protocol Last Admin: 01/20/18 15:15 Dose: 125 mls/hr Insulin Human Lispro (Humalog) 0 units SC ACHS [facility] PRN Reason: Protocol Last Admin: 01/20/18 21:23 Dose: Not Given Lactobacillus Acidophilus (Bacid Acidophilus) 1 cap PO BID [facility] Last Admin: 01/20/18 19:24 Dose: 1 cap Lisinopril (Zestril) 10 mg PO DAILY [facility] Last Admin: 01/20/18 09:45 Dose: Not Given Oxycodone/Acetaminophen (Percocet 5/325 Mg Tab) 1 tab PO Q4 PRN PRN Reason: Pain, moderate (4-7) Stop: 01/23/18 17:58 Oxycodone/Acetaminophen (Percocet 5/325 Mg Tab) 2 tab PO Q4 PRN PRN Reason: Pain, severe (8-10) Stop: 01/23/18 17:58 Sevelamer Carbonate (Renvela) 1.6 gm PO TIDWM [facility] Last Admin: 01/20/18 18:58 Dose: 1.6 gm Vitamin B Complex/Vit C/Folic Acid (Nephro-Sanjay) 1 tab PO DAILY [facility] Last Admin: 01/20/18 09:46 Dose: 1 tab - Labs Labs: 01/21/18 05:25 01/20/18 05:45 PT 10.9 Seconds (9.8-13.1) 01/19/18 05:35 INR 1.0 (0.9-1.2) 01/19/18 05:35 APTT 39.3 Seconds (25.6-37.1) H 01/19/18 05:35 - Constitutional Appears: Well - Head Exam Head Exam: ATRAUMATIC, NORMAL INSPECTION, NORMOCEPHALIC - Eye Exam Eye Exam: EOMI, Normal appearance, PERRL Pupil Exam: NORMAL ACCOMODATION, PERRL - ENT Exam ENT Exam: Mucous Membranes Moist, Normal Exam - Neck Exam Neck Exam: Full ROM, Normal Inspection. absent: Lymphadenopathy - Respiratory Exam Respiratory Exam: Clear to Ausculation Bilateral, NORMAL BREATHING PATTERN - Cardiovascular Exam Cardiovascular Exam: REGULAR RHYTHM, +S1, +S2, Murmur - GI/Abdominal Exam GI & Abdominal Exam: Soft, Normal Bowel Sounds. absent: Tenderness - Extremities Exam Extremities Exam: absent: Joint Swelling, Pedal Edema Additional comments: tma dsg - Back Exam Back Exam: NORMAL INSPECTION - Neurological Exam Neurological Exam: Alert, Awake, CN II-XII Intact, Oriented x3 - Psychiatric Exam Psychiatric exam: Normal Affect, Normal Mood - Skin Skin Exam: Dry, Intact, Normal Color, Warm Assessment and Plan (1) PVD (peripheral vascular disease) Assessment & Plan: s/p angiogram showing microvascular disease ok to proceed with debridement Status: Acute (2) Chronic wound of extremity Status: Acute (3) Diabetic foot infection Status: Acute
[2018-01-21] MEDS: Insulin Lispro (humaLOG) 100 Units/ml Inj SC SCH ×4 (06:55→21:38)
[2018-01-21 07:18] LABS: ALBUMIN 3.8 g/dL (3.5-5.0); CALCIUM 8.4 mg/dL (8.4-10.2)
--- NOTE | 2018-01-21 08:22 | CP.PCM.PN ---
<Cheyanne Lara - Last Filed: 01/21/18 11:12> Subjective - Date & Time of Evaluation Date of Evaluation: 01/21/18 Time of Evaluation: 07:00 - Subjective Subjective: Patient is POD#1 s/p LE left 4th digit amputation Patient seen and examined this morning. NAD, not c/o any pain, f/c/n/v/d. Patient is tolerating PO, possible PT today, denies chest pain, SOB, dizziness, abdominal pain, urinary symptoms or weakness. Objective - Vital Signs/Intake and Output Vital Signs (last 24 hours): Temp Pulse Resp BP Pulse Ox 97.5 F L 68 20 157/75 H 98 01/21/18 07:58 01/21/18 07:58 01/21/18 07:58 01/21/18 07:58 01/21/18 07:58 - Medications Medications: Current Medications Acetaminophen (Tylenol 325mg Tab) 975 mg PO Q6 PRN PRN Reason: Pain, moderate (4-7) Amlodipine Besylate (Norvasc) 5 mg PO DAILY [facility] Last Admin: 01/20/18 09:52 Dose: Not Given Ascorbic Acid (Vitamin C 500 Mg Tab) 500 mg PO DAILY [facility] Last Admin: 01/20/18 09:43 Dose: 500 mg Atorvastatin Calcium (Lipitor) 40 mg PO DAILY [facility] Last Admin: 01/20/18 09:43 Dose: 40 mg Cholecalciferol (Vitamin D) 2,000 intlu PO DAILY [facility] Last Admin: 01/20/18 09:41 Dose: 2,000 intlu Dextrose (Dextrose 50% Inj) 0 ml IV STAT PRN; Protocol PRN Reason: Hypoglycemia Protocol Dextrose (Glutose 15) 0 gm PO ONCE PRN; Protocol PRN Reason: Hypoglycemia Protocol Glucagon (Glucagen Diagnostic Kit) 0 mg IM STAT PRN; Protocol PRN Reason: Hypoglycemia Protocol Heparin Sodium (Porcine) (Heparin) 5,000 units SC Q8 [facility] PRN Reason: Protocol Hydralazine HCl (Apresoline) 50 mg PO Q8 [facility] Last Admin: 01/21/18 00:49 Dose: 50 mg Hydromorphone HCl (Dilaudid) 0.5 mg IVP Q6H PRN PRN Reason: Pain, severe (8-10) Piperacillin Sod/Tazobactam (Sod 2.25 gm/ Sodium Chloride) 100 mls @ 100 mls/ hr IVPB Q8 [facility] PRN Reason: Protocol Last Admin: 01/21/18 00:51 Dose: Not Given Vancomycin HCl 1 gm/ Sodium (Chloride) 250 mls @ 125 mls/hr IVPB TTS [facility] PRN Reason: Protocol Last Admin: 01/20/18 15:15 Dose: 125 mls/hr Insulin Human Lispro (Humalog) 0 units SC ACHS [facility] PRN Reason: Protocol Last Admin: 01/21/18 06:55 Dose: Not Given Lactobacillus Acidophilus (Bacid Acidophilus) 1 cap PO BID [facility] Last Admin: 01/20/18 19:24 Dose: 1 cap Lisinopril (Zestril) 10 mg PO DAILY [facility] Last Admin: 01/20/18 09:45 Dose: Not Given Oxycodone/Acetaminophen (Percocet 5/325 Mg Tab) 1 tab PO Q4 PRN PRN Reason: Pain, moderate (4-7) Stop: 01/23/18 17:58 Oxycodone/Acetaminophen (Percocet 5/325 Mg Tab) 2 tab PO Q4 PRN PRN Reason: Pain, severe (8-10) Stop: 01/23/18 17:58 Sevelamer Carbonate (Renvela) 1.6 gm PO TIDWM [facility] Last Admin: 01/20/18 18:58 Dose: 1.6 gm Vitamin B Complex/Vit C/Folic Acid (Nephro-Sanjay) 1 tab PO DAILY [facility] Last Admin: 01/20/18 09:46 Dose: 1 tab - Labs Labs: 01/21/18 05:25 01/21/18 05:25 PT 10.9 Seconds (9.8-13.1) 01/19/18 05:35 INR 1.0 (0.9-1.2) 01/19/18 05:35 APTT 39.3 Seconds (25.6-37.1) H 01/19/18 05:35 - Constitutional Appears: No Acute Distress - Head Exam Head Exam: NORMAL INSPECTION - Eye Exam Eye Exam: Normal appearance - ENT Exam ENT Exam: Mucous Membranes Moist - Respiratory Exam Respiratory Exam: Clear to Ausculation Bilateral, NORMAL BREATHING PATTERN - Cardiovascular Exam Cardiovascular Exam: REGULAR RHYTHM, +S1, +S2 - GI/Abdominal Exam GI & Abdominal Exam: Soft, Normal Bowel Sounds. absent: Tenderness - Extremities Exam Additional comments: POD#1 s/p LE left 4th digit amputation, dressing placed - Neurological Exam Neurological Exam: Alert, Awake, Oriented x3 - Psychiatric Exam Psychiatric exam: Normal Affect Assessment and Plan - Assessment and Plan (Free Text) Assessment: A/P: 47 y/o M with PMH of HTN, DM and ESRD on HD admitted for OM of left fourth digit of LE. Osteomyelitis of left LE 4th digit - C/w Vanco post HD and Zosyn day 7 - Consult, podiatry, Dr. Rodriguez consult appreciated - Consult ID, phoebe Martinez appreciated - Consult Vascular, phoebe Epps appreciated - Consult Cardio, Augusto Warner, Last ECHO 2017; 15 to 20% EF, cleared for surgical intervention - As per Dr. Stinson, patient has microvascular disease - Patient is POD#1 s/p LE left 4th digit amputation - Pain management - Will follow up with ID for Abx plan if IV or PO after d/c - PT evaluation today and HD ESRD - Nephro Consult, pohebe Early appreciated - C/w HD on TTS HTN - C/w home medication; hydralazine 50mg TID, Lisinopril 10mg BID Prediabetes - HBA1C; 5.8 DVT PPX - Heparin 5000 SC Q8H <Kaylene Bowen - Last Filed: 01/21/18 13:26> Objective - Vital Signs/Intake and Output Vital Signs (last 24 hours): Temp Pulse Resp BP Pulse Ox 97.5 F L 68 20 157/75 H 98 01/21/18 07:58 01/21/18 07:58 01/21/18 07:58 01/21/18 07:58 01/21/18 07:58 - Medications Medications: Current Medications Acetaminophen (Tylenol 325mg Tab) 975 mg PO Q6 PRN PRN Reason: Pain, moderate (4-7) Amlodipine Besylate (Norvasc) 5 mg PO DAILY [facility] Last Admin: 01/21/18 09:45 Dose: Not Given Ascorbic Acid (Vitamin C 500 Mg Tab) 500 mg PO DAILY [facility] Last Admin: 01/21/18 09:35 Dose: 500 mg Atorvastatin Calcium (Lipitor) 40 mg PO DAILY [facility] Last Admin: 06/27/18 09:34 Dose: 40 mg Cholecalciferol (Vitamin D) 2,000 intlu PO DAILY [facility] Last Admin: 01/21/18 09:36 Dose: 2,000 intlu Dextrose (Dextrose 50% Inj) 0 ml IV STAT PRN; Protocol PRN Reason: Hypoglycemia Protocol Dextrose (Glutose 15) 0 gm PO ONCE PRN; Protocol PRN Reason: Hypoglycemia Protocol Glucagon (Glucagen Diagnostic Kit) 0 mg IM STAT PRN; Protocol PRN Reason: Hypoglycemia Protocol Heparin Sodium (Porcine) (Heparin) 5,000 units SC Q8 [facility] PRN Reason: Protocol Last Admin: 01/21/18 09:33 Dose: 5,000 units Hydralazine HCl (Apresoline) 50 mg PO Q8 [facility] Last Admin: 01/21/18 09:33 Dose: Not Given Hydromorphone HCl (Dilaudid) 0.5 mg IVP Q6H PRN PRN Reason: Pain, severe (8-10) Piperacillin Sod/Tazobactam (Sod 2.25 gm/ Sodium Chloride) 100 mls @ 100 mls/ hr IVPB Q8 [facility] PRN Reason: Protocol Last Admin: 01/21/18 09:37 Dose: 100 mls/hr Vancomycin HCl 1 gm/ Sodium (Chloride) 250 mls @ 125 mls/hr IVPB TTS [facility] PRN Reason: Protocol Last Admin: 01/20/18 15:15 Dose: 125 mls/hr Insulin Human Lispro (Humalog) 0 units SC ACHS [facility] PRN Reason: Protocol Last Admin: 01/21/18 13:04 Dose: 2 u Lactobacillus Acidophilus (Bacid Acidophilus) 1 cap PO BID [facility] Last Admin: 01/21/18 09:40 Dose: 1 cap Lisinopril (Zestril) 10 mg PO DAILY [facility] Last Admin: 01/21/18 09:35 Dose: Not Given Oxycodone/Acetaminophen (Percocet 5/325 Mg Tab) 1 tab PO Q4 PRN PRN Reason: Pain, moderate (4-7) Stop: 01/23/18 17:58 Oxycodone/Acetaminophen (Percocet 5/325 Mg Tab) 2 tab PO Q4 PRN PRN Reason: Pain, severe (8-10) Stop: 01/23/18 17:58 Sevelamer Carbonate (Renvela) 1.6 gm PO TIDWM [facility] Last Admin: 01/21/18 13:02 Dose: 1.6 gm Vitamin B Complex/Vit C/Folic Acid (Nephro-Sanjay) 1 tab PO DAILY [facility] Last Admin: 01/21/18 09:34 Dose: 1 tab - Labs Labs: 01/21/18 05:25 01/21/18 05:25 PT 10.9 Seconds (9.8-13.1) 01/19/18 05:35 INR 1.0 (0.9-1.2) 01/19/18 05:35 APTT 39.3 Seconds (25.6-37.1) H 01/19/18 05:35 Attending/Attestation - Attestation I have personally seen and examined this patient.: Yes I have fully participated in the care of the patient.: Yes I have reviewed all pertinent clinical information, including history, physical exam and plan: Yes Notes (Text): 01/21/18 13:26 Attending Note ATTESTATIO - Patient seen and examined. Case discussed with resident. Agree with findings and plan.
--- NOTE | 2018-01-21 08:35 | OP ---
PROCEDURE DATE: 01/20/2018 SURGEON: Ravi Ramos DPM BOXING PROMOTER: Felicia Lara DPM, PGY-1. ANESTHESIOLOGIST: Dr. Joshua Leavitt. ANESTHESIA: General LMA with local. PREOPERATIVE DIAGNOSIS: Left fourth digit osteomyelitis. POSTOPERATIVE DIAGNOSIS: Left fourth digit osteomyelitis. NAME OF THE PROCEDURE: Left fourth digit amputation. INDICATION: The patient is a 47-year-old male with the above diagnosis. The patient has exhausted all conservative treatment at this time and now requests surgical intervention. The patient signed a consent after careful explantation of risks, benefits, complication, and alternatives for surgical procedure. No guarantees were given nor implied. PREPARATION: The patient was brought into the operating room and placed on the operating room table in a supine position. The time-out was performed for identification of the correct patient and the procedure. The patient received a total of 17 mL of 1:1 mixture of 0.5% Marcaine plain and 1% lidocaine plain in a local V-block type fashion to the left forefoot. Once local anesthesia was achieved, the left foot was then prepped and draped in normal sterile manner. PROCEDURE: Left fourth digit amputation: Attention was directed to the left fourth digit where a racket type incision was made circumferentially around the fourth digit. Incision was made directly down to the level of the bone using a #15 blade. Phalangeal clamp was utilized to stabilize the fourth digit distally and digit was disarticulated up to the level of the MTPJ. [place]mlay and collar was used to free the plantar soft tissue, and the fourth digit was detached from the joint and was sent to Pathology. Using the rongeurs, spicules of bone were removed from the MTPJ. All nonviable soft tissue was excisionally debrided down to a healthy bleeding tissue. Extensor tendon of fourth digit was excised as well. At this time, surgical site was irrigated using saline, 4-0 Monocryl was utilized to perform subcutaneous closure at the surgical site. A 3-0 Prolene was utilized at this time to reapproximate the skin. Surgical site was then dressed using Xeroform, 4x4, ABD, Kerlix, and Gurvinder. POSTOPERATIVE CONDITION: The patient tolerated the anesthesia and procedure well, and was escorted to the recovery room with vital signs stable and neurovascular status intact in the left foot. This patient will remain weightbearing as tolerated to the left lower extremity using surgical shoe. The patient will return to the floor once stable from PACU where he will be followed up by Podiatry on daily basis. Felicia Lara DPM Ravi Ramos DPM MTDMike
--- NOTE | 2018-01-21 08:40 | CP.PCM.PN ---
Subjective - Date & Time of Evaluation Date of Evaluation: 01/21/18 Time of Evaluation: 08:37 - Subjective Subjective: Podiatry Progress Note for Dr. Cerrato 47 y/o male seen at bedside 1 day s/p left 4th digit amputation. Patient is AAOx3 and in NAD. Dressing was clean, dry, and intact. He denies any other pedal complaints at this time. Patient states that he denied his dialysis last night because he was too tired from the surgery. Patient denies N/V/F/SOB/CP/C. Objective - Vital Signs/Intake and Output Vital Signs (last 24 hours): Temp Pulse Resp BP Pulse Ox 97.5 F L 68 20 157/75 H 98 01/21/18 07:58 01/21/18 07:58 01/21/18 07:58 01/21/18 07:58 01/21/18 07:58 - Medications Medications: Current Medications Acetaminophen (Tylenol 325mg Tab) 975 mg PO Q6 PRN PRN Reason: Pain, moderate (4-7) Amlodipine Besylate (Norvasc) 5 mg PO DAILY [facility] Last Admin: 01/20/18 09:52 Dose: Not Given Ascorbic Acid (Vitamin C 500 Mg Tab) 500 mg PO DAILY [facility] Last Admin: 01/20/18 09:43 Dose: 500 mg Atorvastatin Calcium (Lipitor) 40 mg PO DAILY [facility] Last Admin: 01/20/18 09:43 Dose: 40 mg Cholecalciferol (Vitamin D) 2,000 intlu PO DAILY [facility] Last Admin: 01/20/18 09:41 Dose: 2,000 intlu Dextrose (Dextrose 50% Inj) 0 ml IV STAT PRN; Protocol PRN Reason: Hypoglycemia Protocol Dextrose (Glutose 15) 0 gm PO ONCE PRN; Protocol PRN Reason: Hypoglycemia Protocol Glucagon (Glucagen Diagnostic Kit) 0 mg IM STAT PRN; Protocol PRN Reason: Hypoglycemia Protocol Heparin Sodium (Porcine) (Heparin) 5,000 units SC Q8 [facility] PRN Reason: Protocol Hydralazine HCl (Apresoline) 50 mg PO Q8 [facility] Last Admin: 01/21/18 00:49 Dose: 50 mg Hydromorphone HCl (Dilaudid) 0.5 mg IVP Q6H PRN PRN Reason: Pain, severe (8-10) Piperacillin Sod/Tazobactam (Sod 2.25 gm/ Sodium Chloride) 100 mls @ 100 mls/ hr IVPB Q8 [facility] PRN Reason: Protocol Last Admin: 01/21/18 00:51 Dose: Not Given Vancomycin HCl 1 gm/ Sodium (Chloride) 250 mls @ 125 mls/hr IVPB TTS [facility] PRN Reason: Protocol Last Admin: 01/20/18 15:15 Dose: 125 mls/hr Insulin Human Lispro (Humalog) 0 units SC ACHS [facility] PRN Reason: Protocol Last Admin: 01/21/18 06:55 Dose: Not Given Lactobacillus Acidophilus (Bacid Acidophilus) 1 cap PO BID [facility] Last Admin: 01/20/18 19:24 Dose: 1 cap Lisinopril (Zestril) 10 mg PO DAILY [facility] Last Admin: 01/20/18 09:45 Dose: Not Given Oxycodone/Acetaminophen (Percocet 5/325 Mg Tab) 1 tab PO Q4 PRN PRN Reason: Pain, moderate (4-7) Stop: 01/23/18 17:58 Oxycodone/Acetaminophen (Percocet 5/325 Mg Tab) 2 tab PO Q4 PRN PRN Reason: Pain, severe (8-10) Stop: 01/23/18 17:58 Sevelamer Carbonate (Renvela) 1.6 gm PO TIDWM [facility] Last Admin: 01/20/18 18:58 Dose: 1.6 gm Vitamin B Complex/Vit C/Folic Acid (Nephro-Sanjay) 1 tab PO DAILY [facility] Last Admin: 01/20/18 09:46 Dose: 1 tab - Labs Labs: 01/21/18 05:25 01/21/18 05:25 PT 10.9 Seconds (9.8-13.1) 01/19/18 05:35 INR 1.0 (0.9-1.2) 01/19/18 05:35 APTT 39.3 Seconds (25.6-37.1) H 01/19/18 05:35 - Constitutional Appears: Well, Non-toxic, No Acute Distress - Head Exam Head Exam: ATRAUMATIC, NORMOCEPHALIC - Extremities Exam Additional comments: Left lower extremity exam: Vascular: DP/PT pulses 1/4, CFT <3 seconds to all four digits, TG warm to warm. Minimal edema noted to surgical site, appropriate given postoperative status Neuro: Protective sensation diminished. Gross sensation intact. Derm: 4th digital amputation surgical incision site sutures intact. Skin edges well coapted. No ecchymosis, no erythema. No clinical signs of infection, no purulence. Ortho: No pain upon palpation to area surrounding surgical incision. Previous partial fifth digit amputation. Previous R foot TMA. - Neurological Exam Neurological Exam: Alert, Awake, Oriented x3 - Psychiatric Exam Psychiatric exam: Normal Affect, Normal Mood Assessment and Plan - Assessment and Plan (Free Text) Assessment: 47 y/o male seen at bedside 1 day s/p left 4th digit amputation. Plan: Patient examined and evaluated Discussed with Dr. Cerrato Afebrile overnight- 97.5 (01/21/18), absent leukocytosis Post operative foot xray taken - official read pending Surgical site dressed with xeroform, DSD, ABD, and SRIKANTH Continue abx per ID Patient stable from podiatric standpoint for DC Podiatry will continue to follow while patient is in house
[2018-01-21] MEDS: Multivitamin Vitamin B Complex (Nephro-Vite) Tab PO SCH (09:34)
[2018-01-21] MEDS: Cholecalciferol 1,000 INTLU TAB PO SCH (09:36)
[2018-01-21] MEDS: Lactobacillus Acidophilus 500 MU Cap PO SCH ×2 (09:40→17:38)
[2018-01-21] MEDS: Sevelamer Carb 0.8 gm/Packet PO SCH ×3 (09:46→17:38)
--- NOTE | 2018-01-21 11:28 | CP.PCM.PN ---
Subjective - Date & Time of Evaluation Date of Evaluation: 01/21/18 Time of Evaluation: 11:00 - Subjective Subjective: ID Note- Pt. seen and examined . pt. s/p left fourth digit toe amputation. denies any fever or chills. is cleared by podiatry for discharge. Objective - Vital Signs/Intake and Output Vital Signs (last 24 hours): Temp Pulse Resp BP Pulse Ox 97.5 F L 68 20 157/75 H 98 01/21/18 07:58 01/21/18 07:58 01/21/18 07:58 01/21/18 07:58 01/21/18 07:58 - Medications Medications: Current Medications Acetaminophen (Tylenol 325mg Tab) 975 mg PO Q6 PRN PRN Reason: Pain, moderate (4-7) Amlodipine Besylate (Norvasc) 5 mg PO DAILY [facility] Last Admin: 01/21/18 09:45 Dose: Not Given Ascorbic Acid (Vitamin C 500 Mg Tab) 500 mg PO DAILY [facility] Last Admin: 01/21/18 09:35 Dose: 500 mg Atorvastatin Calcium (Lipitor) 40 mg PO DAILY [facility] Last Admin: 01/21/18 09:34 Dose: 40 mg Cholecalciferol (Vitamin D) 2,000 intlu PO DAILY [facility] Last Admin: 01/21/18 09:36 Dose: 2,000 intlu Dextrose (Dextrose 50% Inj) 0 ml IV STAT PRN; Protocol PRN Reason: Hypoglycemia Protocol Dextrose (Glutose 15) 0 gm PO ONCE PRN; Protocol PRN Reason: Hypoglycemia Protocol Glucagon (Glucagen Diagnostic Kit) 0 mg IM STAT PRN; Protocol PRN Reason: Hypoglycemia Protocol Heparin Sodium (Porcine) (Heparin) 5,000 units SC Q8 [facility] PRN Reason: Protocol Last Admin: 01/21/18 09:33 Dose: 5,000 units Hydralazine HCl (Apresoline) 50 mg PO Q8 [facility] Last Admin: 01/21/18 09:33 Dose: Not Given Hydromorphone HCl (Dilaudid) 0.5 mg IVP Q6H PRN PRN Reason: Pain, severe (8-10) Piperacillin Sod/Tazobactam (Sod 2.25 gm/ Sodium Chloride) 100 mls @ 100 mls/ hr IVPB Q8 [facility] PRN Reason: Protocol Last Admin: 01/21/18 09:37 Dose: 100 mls/hr Vancomycin HCl 1 gm/ Sodium (Chloride) 250 mls @ 125 mls/hr IVPB TTS [facility] PRN Reason: Protocol Last Admin: 01/20/18 15:15 Dose: 125 mls/hr Insulin Human Lispro (Humalog) 0 units SC ACHS [facility] PRN Reason: Protocol Last Admin: 01/21/18 06:55 Dose: Not Given Lactobacillus Acidophilus (Bacid Acidophilus) 1 cap PO BID [facility] Last Admin: 01/21/18 09:40 Dose: 1 cap Lisinopril (Zestril) 10 mg PO DAILY [facility] Last Admin: 01/21/18 09:35 Dose: Not Given Oxycodone/Acetaminophen (Percocet 5/325 Mg Tab) 1 tab PO Q4 PRN PRN Reason: Pain, moderate (4-7) Stop: 01/23/18 17:58 Oxycodone/Acetaminophen (Percocet 5/325 Mg Tab) 2 tab PO Q4 PRN PRN Reason: Pain, severe (8-10) Stop: 01/23/18 17:58 Sevelamer Carbonate (Renvela) 1.6 gm PO TIDWM [facility] Last Admin: 01/21/18 09:46 Dose: Not Given Vitamin B Complex/Vit C/Folic Acid (Nephro-Sanjay) 1 tab PO DAILY [facility] Last Admin: 01/21/18 09:34 Dose: 1 tab - Labs Labs: 01/21/18 05:25 01/21/18 05:25 PT 10.9 Seconds (9.8-13.1) 01/19/18 05:35 INR 1.0 (0.9-1.2) 01/19/18 05:35 APTT 39.3 Seconds (25.6-37.1) H 01/19/18 05:35 - Additional Findings Additional findings: - Constitutional Appears: No Acute Distress, Chronically Ill - Head Exam Head Exam: ATRAUMATIC - Eye Exam Eye Exam: EOMI - ENT Exam ENT Exam: Normal Oropharynx - Neck Exam Neck exam: Positive for: Full Rom - Respiratory Exam Respiratory Exam: Clear to Auscultation Bilateral, NORMAL BREATHING PATTERN - Cardiovascular Exam Cardiovascular Exam: RRR, +S1, +S2 - GI/Abdominal Exam GI & Abdominal Exam: Normal Bowel Sounds, Soft Additional comments: NT, ND - Extremities Exam Additional comments: left fourth toe s/p amputation site clean , has some bloody discharge only, sutures are in place no pus - Neurological Exam Neurological exam: Alert, Oriented x 3 Microbiology 01/15/18 11:45 Blood-Venous Blood Culture - Final NO GROWTH AFTER 5 DAYS 01/15/18 11:45 Blood-Venous Gram Stain - Final TEST NOT PERFORMED 01/15/18 11:35 Blood-Venous Blood Culture - Final NO GROWTH AFTER 5 DAYS 01/15/18 11:35 Blood-Venous Gram Stain - Final TEST NOT PERFORMED 01/13/18 14:55 Blood-Venous Blood Culture - Final NO GROWTH AFTER 5 DAYS 01/13/18 14:55 Blood-Venous Gram Stain - Final TEST NOT PERFORMED 01/13/18 14:55 Foot - Left Gram Stain - Final 01/13/18 14:55 Foot - Left Wound Culture - Final Providencia Rettgeri Staphylococcus Aureus Assessment and Plan (1) Diabetic foot infection Status: Acute (2) Chronic wound of extremity Status: Acute (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 s/p left fourth toe amputation afebrile wound cx-providencia and MSSA Blood cx- negative x 3 MRI report- OM of the entire left fourth toe as per radiologist's report. bone bx of the resected toe- acute Om as per path report of the resected bone. plan- advise to continue with IV vancomycon on post HD days for the MSSA. for total of 2 weeks keep trough <15. ( between 10-15). has received 5 doses so far since it's post HD days. vanco 1 gram post HD days 10 more doses. has completed 10 days of Iv zosyn for the providencia. can d/c zosyn today and can be d/c on cipro 250 mg BID for another 7-1- days. pt. advised to f/u closely with his oyster cultivator and wound center as outpatient. All above also d/w family practice team as well at length.
--- NOTE | 2018-01-21 13:17 | RAD ---
PROCEDURE: Left Foot Radiographs. HISTORY: s/p Left foot surgery COMPARISON: 01/17/2018 FINDINGS: BONES: Interval apparent excision of the prior dislocated 4th middle phalanx with small remnant of the 4th proximal phalanx remaining. The prior postsurgical changes/excision of the mid to distal 5th metatarsal bone and the osseous hypertrophic changes of the 5th proximal phalanx are as before. Medial bipartite sesamoid bones noted Tiny inferior calcaneal spurring The 5th toe has markedly asymmetrical focal flexion deformity on the lateral view -as before. JOINTS: As above. SOFT TISSUES: Normal. OTHER FINDINGS: Findings IMPRESSION: Interval surgical changes 4th digit as above. Other findings- similar
--- NOTE | 2018-01-21 23:21 | CP.PCM.PN ---
Subjective - Date & Time of Evaluation Date of Evaluation: 01/21/18 Time of Evaluation: 14:00 - Subjective Subjective: SEEN ON RENAL F/U RECIEVED HD TODAY ALL PREVIOUS EMR REVIEWED LABS REVIEWED Objective - Vital Signs/Intake and Output Vital Signs (last 24 hours): Temp Pulse Resp BP Pulse Ox 97.3 F L 68 18 127/64 96 01/21/18 15:51 01/21/18 15:51 01/21/18 15:51 01/21/18 15:51 01/21/18 15:51 - Medications Medications: Current Medications Acetaminophen (Tylenol 325mg Tab) 975 mg PO Q6 PRN PRN Reason: Pain, moderate (4-7) Amlodipine Besylate (Norvasc) 5 mg PO DAILY [facility] Last Admin: 01/21/18 09:45 Dose: Not Given Ascorbic Acid (Vitamin C 500 Mg Tab) 500 mg PO DAILY [facility] Last Admin: 01/21/18 09:35 Dose: 500 mg Atorvastatin Calcium (Lipitor) 40 mg PO DAILY [facility] Last Admin: 01/21/18 09:34 Dose: 40 mg Cholecalciferol (Vitamin D) 2,000 intlu PO DAILY [facility] Last Admin: 01/21/18 09:36 Dose: 2,000 intlu Dextrose (Dextrose 50% Inj) 0 ml IV STAT PRN; Protocol PRN Reason: Hypoglycemia Protocol Dextrose (Glutose 15) 0 gm PO ONCE PRN; Protocol PRN Reason: Hypoglycemia Protocol Glucagon (Glucagen Diagnostic Kit) 0 mg IM STAT PRN; Protocol PRN Reason: Hypoglycemia Protocol Heparin Sodium (Porcine) (Heparin) 5,000 units SC Q8 LUIS M PRN Reason: Protocol Last Admin: 01/21/18 18:51 Dose: Not Given Hydralazine HCl (Apresoline) 50 mg PO Q8 [facility] Last Admin: 01/21/18 17:33 Dose: Not Given Hydromorphone HCl (Dilaudid) 0.5 mg IVP Q6H PRN PRN Reason: Pain, severe (8-10) Piperacillin Sod/Tazobactam (Sod 2.25 gm/ Sodium Chloride) 100 mls @ 100 mls/ hr IVPB Q8 LUIS M PRN Reason: Protocol Last Admin: 01/21/18 17:42 Dose: 100 mls/hr Vancomycin HCl 1 gm/ Sodium (Chloride) 250 mls @ 125 mls/hr IVPB TTS [facility] PRN Reason: Protocol Last Admin: 01/20/18 15:15 Dose: 125 mls/hr Insulin Human Lispro (Humalog) 0 units SC ACHS LUIS M PRN Reason: Protocol Last Admin: 01/21/18 21:38 Dose: Not Given Lactobacillus Acidophilus (Bacid Acidophilus) 1 cap PO BID [facility] Last Admin: 01/21/18 17:38 Dose: 1 cap Lisinopril (Zestril) 10 mg PO DAILY [facility] Last Admin: 01/21/18 09:35 Dose: Not Given Oxycodone/Acetaminophen (Percocet 5/325 Mg Tab) 1 tab PO Q4 PRN PRN Reason: Pain, moderate (4-7) Stop: 01/23/18 17:58 Oxycodone/Acetaminophen (Percocet 5/325 Mg Tab) 2 tab PO Q4 PRN PRN Reason: Pain, severe (8-10) Stop: 01/23/18 17:58 Sevelamer Carbonate (Renvela) 1.6 gm PO TIDWM [facility] Last Admin: 01/21/18 17:38 Dose: 1.6 gm Vitamin B Complex/Vit C/Folic Acid (Nephro-Sanjay) 1 tab PO DAILY [facility] Last Admin: 01/21/18 09:34 Dose: 1 tab - Labs Labs: 01/21/18 05:25 01/21/18 05:25 PT 10.9 Seconds (9.8-13.1) 01/19/18 05:35 INR 1.0 (0.9-1.2) 01/19/18 05:35 APTT 39.3 Seconds (25.6-37.1) H 01/19/18 05:35 Assessment and Plan - Assessment and Plan (Free Text) Assessment: ESRD .. RECIEVED HD TODAY INSTEAD OF YESTERDAY ANEMIA OF CKD .. H/H STABLE INFECTED DIABETIC FOOT S/P 4TH TOE AMPUTATION ON LEFT MMP P ; c/o current care
[2018-01-22 06:28] LABS: BASO # 0.1 K/uL (0.0-0.2); BASO % 0.9 % (0.0-2.0); EOS # 0.1 K/uL (0.0-0.7); EOS % 1.2 % (0.0-4.0); HEMOGLOBIN 9.9 g/dL (12.0-18.0); LYMPH # 0.8 K/uL (1.0-4.3); LYMPH % 14.2 % (20.0-40.0); MEAN CELL VOLUME 94.9 fl (80.0-94.0); MEAN CORPUSCULAR HEMOGLOBIN 32.3 pg (27.0-31.0); MEAN PLATELET VOLUME 8.9 fl (7.2-11.7); MONO # 0.7 K/uL (0.0-0.8); MONO % 12.5 % (0.0-10.0); NEUT # 4.1 K/uL (1.8-7.0); NEUT % 71.2 % (50.0-75.0); RBC 3.05 Mil/uL (4.40-5.90); RED CELL DISTRIBUTION WIDTH 14.2 % (11.5-14.5); WHITE BLOOD COUNT 5.8 K/uL (4.8-10.8)
[2018-01-22 07:14] LABS: CALCIUM 8.1 mg/dL (8.4-10.2)
--- NOTE | 2018-01-22 08:06 | CP.PCM.PN ---
Subjective - Date & Time of Evaluation Date of Evaluation: 01/22/18 Time of Evaluation: 08:04 - Subjective Subjective: Podiatry Progress Note for Attending Dr. Cerrato 47 y/o male patient seen and evaluated at bedside 2 day s/p left 4th digit amputation. Patient is AAOx3 and in no acute distress. Dressing was D/C/I. He denies any other pedal complaints at this time. Patient states that he did his dialysis yesterday. Patient denies N/V/F/SOB/CP/C. Patient denies any overnight acute events. Objective - Vital Signs/Intake and Output Vital Signs (last 24 hours): Temp Pulse Resp BP Pulse Ox 98.3 F 87 19 146/70 95 01/22/18 07:43 01/22/18 07:43 01/22/18 07:43 01/22/18 07:43 01/22/18 07:43 - Medications Medications: Current Medications Acetaminophen (Tylenol 325mg Tab) 975 mg PO Q6 PRN PRN Reason: Pain, moderate (4-7) Amlodipine Besylate (Norvasc) 5 mg PO DAILY [facility] Last Admin: 01/21/18 09:45 Dose: Not Given Ascorbic Acid (Vitamin C 500 Mg Tab) 500 mg PO DAILY [facility] Last Admin: 01/21/18 09:35 Dose: 500 mg Atorvastatin Calcium (Lipitor) 40 mg PO DAILY [facility] Last Admin: 01/21/18 09:34 Dose: 40 mg Cholecalciferol (Vitamin D) 2,000 intlu PO DAILY [facility] Last Admin: 01/21/18 09:36 Dose: 2,000 intlu Dextrose (Dextrose 50% Inj) 0 ml IV STAT PRN; Protocol PRN Reason: Hypoglycemia Protocol Dextrose (Glutose 15) 0 gm PO ONCE PRN; Protocol PRN Reason: Hypoglycemia Protocol Glucagon (Glucagen Diagnostic Kit) 0 mg IM STAT PRN; Protocol PRN Reason: Hypoglycemia Protocol Heparin Sodium (Porcine) (Heparin) 5,000 units SC Q8 LUIS M PRN Reason: Protocol Last Admin: 01/22/18 00:52 Dose: 5,000 units Hydralazine HCl (Apresoline) 50 mg PO Q8 [facility] Last Admin: 01/22/18 00:51 Dose: 50 mg Piperacillin Sod/Tazobactam (Sod 2.25 gm/ Sodium Chloride) 100 mls @ 100 mls/ hr IVPB Q8 LUIS M PRN Reason: Protocol Last Admin: 01/22/18 00:57 Dose: 100 mls/hr Vancomycin HCl 1 gm/ Sodium (Chloride) 250 mls @ 125 mls/hr IVPB TTS LUIS M PRN Reason: Protocol Last Admin: 01/20/18 15:15 Dose: 125 mls/hr Insulin Human Lispro (Humalog) 0 units SC ACHS LUIS M PRN Reason: Protocol Last Admin: 01/21/18 21:38 Dose: Not Given Lactobacillus Acidophilus (Bacid Acidophilus) 1 cap PO BID [facility] Last Admin: 01/21/18 17:38 Dose: 1 cap Lisinopril (Zestril) 10 mg PO DAILY [facility] Last Admin: 01/21/18 09:35 Dose: Not Given Sevelamer Carbonate (Renvela) 1.6 gm PO TIDWM [facility] Last Admin: 01/21/18 17:38 Dose: 1.6 gm Tramadol HCl (Ultram) 50 mg PO Q4 PRN PRN Reason: Pain, severe (8-10) Vitamin B Complex/Vit C/Folic Acid (Nephro-Sanjay) 1 tab PO DAILY [facility] Last Admin: 01/21/18 09:34 Dose: 1 tab - Labs Labs: 01/22/18 05:40 01/22/18 05:40 PT 10.9 Seconds (9.8-13.1) 01/19/18 05:35 INR 1.0 (0.9-1.2) 01/19/18 05:35 APTT 39.3 Seconds (25.6-37.1) H 01/19/18 05:35 - Constitutional Appears: Well, Non-toxic, No Acute Distress - Head Exam Head Exam: ATRAUMATIC, NORMOCEPHALIC - Extremities Exam Additional comments: Left lower extremity focused exam: Vascular: DP pulse 2/4, PT pulse 1/4, Cap refill <3 seconds to all four digits, temp gradient warm to cool. No edema. Neuro: Protective sensation diminished. Derm: 4th left digit amputation surgical incision site looks clean, sutures intact, no signs of wound dehiscence, no ecchymosis, no drainage, erythema, edema or malodor. Skin edges are well coapted. No clinical signs of active bacterial infection, no purulence. Ortho: No pain upon palpation to area surrounding surgical incision. Previous partial fifth digit amputation. Previous R foot TMA. - Neurological Exam Neurological Exam: Alert, Awake, Oriented x3 - Psychiatric Exam Psychiatric exam: Normal Affect, Normal Mood Assessment and Plan - Assessment and Plan (Free Text) Assessment: 47 y/o male seen at bedside 2 days s/p left 4th digit amputation. Plan: Patient examined and evaluated at the bedside Discussed his plan with Dr. Cerrato Afebrile overnight- 98.3 (01/22/18), No leukocytosis Post operative foot xray taken and shows surgical changes at the L 4th digit amputation site Surgical site dressed with xeroform, DSD, ABD, and SRIKANTH Continue abx per ID Patient stable from podiatric standpoint for DC Patient to follow up with Dr. Cerrato in the wound care center following DC for continued care Patient instructed to remain weight bearing to heel in surgical shoe and limit walking as much as possible Patient to keep dressings C/D/I at all times Podiatry will continue to follow while patient is in house.
[2018-01-22] MEDS: Sevelamer Carb 0.8 gm/Packet PO SCH ×3 (08:46→16:59)
[2018-01-22] MEDS: Lactobacillus Acidophilus 500 MU Cap PO SCH ×2 (09:02→17:01)
[2018-01-22] MEDS: Cholecalciferol 1,000 INTLU TAB PO SCH (09:03)
[2018-01-22] MEDS: Multivitamin Vitamin B Complex (Nephro-Vite) Tab PO SCH (09:03)
[2018-01-22] MEDS: Insulin Lispro (humaLOG) 100 Units/ml Inj SC SCH ×3 (09:08→16:20)
--- NOTE | 2018-01-22 10:34 | CP.PCM.DIS ---
<Cheyanne Lara - Last Filed: 01/22/18 14:46> Provider - Provider Date of Admission: 01/13/18 14:41 Attending physician: Linda Ojeda MD Primary care physician: [facility] Consults: Dr. Koo, Nephro Dr. Rodriguez, Podiatry Dr. Casas, cardio Dr. Stinson, Vascular Time Spent in preparation of Discharge (in minutes): 40 Diagnosis - Discharge Diagnosis (1) Osteomyelitis Status: Acute Comment: s/p LE left 4th digit amputation (2) ESRD (end stage renal disease) on dialysis Status: Chronic (3) Hypertension Status: Chronic (4) Prediabetes Status: Chronic Hospital Course - Lab Results Lab Results: Micro Results 01/15/18 11:45 Blood-Venous Blood Culture - Final NO GROWTH AFTER 5 DAYS 01/15/18 11:45 Blood-Venous Gram Stain - Final TEST NOT PERFORMED 01/15/18 11:35 Blood-Venous Blood Culture - Final NO GROWTH AFTER 5 DAYS 01/15/18 11:35 Blood-Venous Gram Stain - Final TEST NOT PERFORMED 01/13/18 14:55 Blood-Venous Blood Culture - Final NO GROWTH AFTER 5 DAYS 01/13/18 14:55 Blood-Venous Gram Stain - Final TEST NOT PERFORMED 01/13/18 14:55 Foot - Left Gram Stain - Final 01/13/18 14:55 Foot - Left Wound Culture - Final Providencia Rettgeri Staphylococcus Aureus Most Recent Lab Values WBC 5.8 K/uL (4.8-10.8) 01/22/18 05:40 RBC 3.05 Mil/uL (4.40-5.90) L 01/22/18 05:40 Hgb 9.9 g/dL (12.0-18.0) L 01/22/18 05:40 Hct 29.0 % (35.0-51.0) L 01/22/18 05:40 MCV 94.9 fl (80.0-94.0) H 01/22/18 05:40 MCH 32.3 pg (27.0-31.0) H 01/22/18 05:40 MCHC 34.0 g/dL (33.0-37.0) 01/22/18 05:40 RDW 14.2 % (11.5-14.5) 01/22/18 05:40 Plt Count 81 K/uL (130-400) L 01/22/18 05:40 MPV 8.9 fl (7.2-11.7) 01/22/18 05:40 Neut % (Auto) 71.2 % (50.0-75.0) 01/22/18 05:40 Lymph % (Auto) 14.2 % (20.0-40.0) L 01/22/18 05:40 Carlton % (Auto) 12.5 % (0.0-10.0) H 01/22/18 05:40 Eos % (Auto) 1.2 % (0.0-4.0) 01/22/18 05:40 Baso % (Auto) 0.9 % (0.0-2.0) 01/22/18 05:40 Neut # (Auto) 4.1 K/uL (1.8-7.0) 01/22/18 05:40 Lymph # (Auto) 0.8 K/uL (1.0-4.3) L 01/22/18 05:40 Carlton # (Auto) 0.7 K/uL (0.0-0.8) 01/22/18 05:40 Eos # (Auto) 0.1 K/uL (0.0-0.7) 01/22/18 05:40 Baso # (Auto) 0.1 K/uL (0.0-0.2) 01/22/18 05:40 ESR 85 mm/hr (0-15) H 01/17/18 12:00 PT 10.9 Seconds (9.8-13.1) 01/19/18 05:35 INR 1.0 (0.9-1.2) 01/19/18 05:35 APTT 39.3 Seconds (25.6-37.1) H 01/19/18 05:35 Sodium 135 mmol/l (132-148) 01/22/18 05:40 Potassium 4.9 MMOL/L (3.6-5.0) 01/22/18 05:40 Chloride 95 mmol/L (98-107) L 01/22/18 05:40 Carbon Dioxide 25 mmol/L (22-30) 01/22/18 05:40 Anion Gap 20 (10-20) 01/22/18 05:40 BUN 36 mg/dl (9-20) H 01/22/18 05:40 Creatinine 6.9 mg/dl (0.8-1.5) H 01/22/18 05:40 Est GFR ( Amer) 10 01/22/18 05:40 Est GFR (Non-Af Amer) 9 01/22/18 05:40 POC Glucose (mg/dL) 184 mg/dL (65-110) H 01/22/18 04:58 Random Glucose 202 mg/dL (75-110) H 01/22/18 05:40 Hemoglobin A1c 5.8 % (4.2-6.5) 01/14/18 06:00 Calcium 8.1 mg/dL (8.4-10.2) L 01/22/18 05:40 Phosphorus 7.1 mg/dl (2.5-4.5) H 01/13/18 14:55 Magnesium 2.6 MG/DL (1.6-2.3) H 01/13/18 14:55 Total Bilirubin 1.0 mg/dl (0.2-1.3) 01/21/18 05:25 AST 23 U/L (17-59) 01/21/18 05:25 ALT 15 U/L (21-72) L D 01/21/18 05:25 Alkaline Phosphatase 112 U/L (38-126) 01/21/18 05:25 C-Reactive Protein 16.10 mg/L (0.0-9.9) H 01/14/18 05:55 Total Protein 7.6 G/DL (6.3-8.2) 01/21/18 05:25 Albumin 3.8 g/dL (3.5-5.0) 01/21/18 05:25 Globulin 3.8 gm/dL (2.2-3.9) 01/21/18 05:25 Albumin/Globulin Ratio 1.0 (1.0-2.1) 01/21/18 05:25 25-OH Vitamin D Total < 12.8 NG/ML (30.0-100.0) L 01/13/18 14:41 Vancomycin Trough 10.5 ug/mL (5.0-10.0) H 01/20/18 05:45 C. difficile Ag & Toxin Negative (NEGATIVE) 01/20/18 09:35 Hep Bs Antigen Negative (NEGATIVE) 01/14/18 10:18 Hep Bs Antibody Positive (NEGATIVE) 01/14/18 10:13 Hep B Core IgM Ab Negative (NEGATIVE) 01/14/18 10:18 Hepatitis C Antibody Negative (NEGATIVE) 01/14/18 10:18 - Hospital Course Hospital Course: 47 y/o M with PMH of HTN, DM and ESRD on HD sent to [facility] by Podiatry for OM of left fourth digit of LE. Podiatry, ID, Cardio and Vascular consulted, Patient was started on Vanc and Zosyn, c/w HD TTS, patient is s/p LE left 4th digit amputation. PT consulted who recommended Acute rehab but patient decided to go home. Patient discharged home with Cipro 250mg BID for 2 weeks and Vanco 1gm Post-HD for 2 weeks. C/w home medications. Discharge Exam - Head Exam Head Exam: ATRAUMATIC, NORMOCEPHALIC Discharge Plan - Discharge Medications Prescriptions: Ciprofloxacin HCl [Cipro] 250 mg PO BID #28 tablet Vancomycin 1 GM [Vancomycin 1GM in Normal Saline Addvantage] 1 gm IVPB TTS 14 Days #6 bag - Follow Up Plan Condition: FAIR Disposition: HOME/ ROUTINE Instructions: Peripheral Vascular (Arterial) Disease (DC), Osteomyelitis (DC), Amputation of the Foot or Toe (DC) Additional Instructions: Follow up with primary MD, nephrology and podiatry C/w HD as per Dr. Koo C/w Podiatry f/u with Dr. Rodriguez as instructed Follow up with Dr. Reilly on 02/06/18 at 10:30AM Pain is well controlled, OTC Tylenol 600 Q6H Rx for Vanco 1gm IV Post-HD for next 2 weeks Rx for Cipro 250 PO for 14 days Referrals: Ravi Rodriguez DPM [Staff Provider] - Judah Koo MD [Staff Provider] - Miguel Ángel Reilly MD [Resident] - <Kaylene Bowen - Last Filed: 01/23/18 08:03> Provider - Provider Date of Admission: 01/13/18 14:41 Attending physician: Linda Ojeda MD Hospital Course - Lab Results Lab Results: Micro Results 01/15/18 11:45 Blood-Venous Blood Culture - Final NO GROWTH AFTER 5 DAYS 01/15/18 11:45 Blood-Venous Gram Stain - Final TEST NOT PERFORMED 01/15/18 11:35 Blood-Venous Blood Culture - Final NO GROWTH AFTER 5 DAYS 01/15/18 11:35 Blood-Venous Gram Stain - Final TEST NOT PERFORMED 01/13/18 14:55 Blood-Venous Blood Culture - Final NO GROWTH AFTER 5 DAYS 01/13/18 14:55 Blood-Venous Gram Stain - Final TEST NOT PERFORMED 01/13/18 14:55 Foot - Left Gram Stain - Final 01/13/18 14:55 Foot - Left Wound Culture - Final Providencia Rettgeri Staphylococcus Aureus Most Recent Lab Values WBC 5.8 K/uL (4.8-10.8) 01/22/18 05:40 RBC 3.05 Mil/uL (4.40-5.90) L 01/22/18 05:40 Hgb 9.9 g/dL (12.0-18.0) L 01/22/18 05:40 Hct 29.0 % (35.0-51.0) L 01/22/18 05:40 MCV 94.9 fl (80.0-94.0) H 01/22/18 05:40 MCH 32.3 pg (27.0-31.0) H 01/22/18 05:40 MCHC 34.0 g/dL (33.0-37.0) 01/22/18 05:40 RDW 14.2 % (11.5-14.5) 01/22/18 05:40 Plt Count 81 K/uL (130-400) L 01/22/18 05:40 MPV 8.9 fl (7.2-11.7) 01/22/18 05:40 Neut % (Auto) 71.2 % (50.0-75.0) 01/22/18 05:40 Lymph % (Auto) 14.2 % (20.0-40.0) L 01/22/18 05:40 Carlton % (Auto) 12.5 % (0.0-10.0) H 01/22/18 05:40 Eos % (Auto) 1.2 % (0.0-4.0) 01/22/18 05:40 Baso % (Auto) 0.9 % (0.0-2.0) 01/22/18 05:40 Neut # (Auto) 4.1 K/uL (1.8-7.0) 01/22/18 05:40 Lymph # (Auto) 0.8 K/uL (1.0-4.3) L 01/22/18 05:40 Carlton # (Auto) 0.7 K/uL (0.0-0.8) 01/22/18 05:40 Eos # (Auto) 0.1 K/uL (0.0-0.7) 01/22/18 05:40 Baso # (Auto) 0.1 K/uL (0.0-0.2) 01/22/18 05:40 ESR 85 mm/hr (0-15) H 01/17/18 12:00 PT 10.9 Seconds (9.8-13.1) 01/19/18 05:35 INR 1.0 (0.9-1.2) 01/19/18 05:35 APTT 39.3 Seconds (25.6-37.1) H 01/19/18 05:35 Sodium 135 mmol/l (132-148) 01/22/18 05:40 Potassium 4.9 MMOL/L (3.6-5.0) 01/22/18 05:40 Chloride 95 mmol/L (98-107) L 01/22/18 05:40 Carbon Dioxide 25 mmol/L (22-30) 01/22/18 05:40 Anion Gap 20 (10-20) 01/22/18 05:40 BUN 36 mg/dl (9-20) H 01/22/18 05:40 Creatinine 6.9 mg/dl (0.8-1.5) H 01/22/18 05:40 Est GFR ( Amer) 10 01/22/18 05:40 Est GFR (Non-Af Amer) 9 01/22/18 05:40 POC Glucose (mg/dL) 103 mg/dL (65-110) 01/22/18 15:23 Random Glucose 202 mg/dL (75-110) H 01/22/18 05:40 Hemoglobin A1c 5.8 % (4.2-6.5) 01/14/18 06:00 Calcium 8.1 mg/dL (8.4-10.2) L 01/22/18 05:40 Phosphorus 7.1 mg/dl (2.5-4.5) H 01/13/18 14:55 Magnesium 2.6 MG/DL (1.6-2.3) H 01/13/18 14:55 Total Bilirubin 1.0 mg/dl (0.2-1.3) 01/21/18 05:25 AST 23 U/L (17-59) 01/21/18 05:25 ALT 15 U/L (21-72) L D 01/21/18 05:25 Alkaline Phosphatase 112 U/L (38-126) 01/21/18 05:25 C-Reactive Protein 16.10 mg/L (0.0-9.9) H 01/14/18 05:55 Total Protein 7.6 G/DL (6.3-8.2) 01/21/18 05:25 Albumin 3.8 g/dL (3.5-5.0) 01/21/18 05:25 Globulin 3.8 gm/dL (2.2-3.9) 01/21/18 05:25 Albumin/Globulin Ratio 1.0 (1.0-2.1) 01/21/18 05:25 25-OH Vitamin D Total < 12.8 NG/ML (30.0-100.0) L 01/13/18 14:41 Vancomycin Trough 10.5 ug/mL (5.0-10.0) H 01/20/18 05:45 C. difficile Ag & Toxin Negative (NEGATIVE) 01/20/18 09:35 Hep Bs Antigen Negative (NEGATIVE) 01/14/18 10:18 Hep Bs Antibody Positive (NEGATIVE) 01/14/18 10:13 Hep B Core IgM Ab Negative (NEGATIVE) 01/14/18 10:18 Hepatitis C Antibody Negative (NEGATIVE) 01/14/18 10:18 Attending/Attestation - Attestation I have personally seen and examined this patient.: Yes I have fully participated in the care of the patient.: Yes I have reviewed all pertinent clinical information, including history, physical exam and plan: Yes
[2018-01-22 16:05] VITALS: BP 143/66; PULSE 67; RESP 18; TEMP 98.2; O2SAT 97
--- NOTE | 2018-01-22 22:39 | CP.PCM.PN ---
Subjective - Date & Time of Evaluation Date of Evaluation: 01/22/18 Time of Evaluation: 15:00 - Subjective Subjective: SEEN ON RENAL F/U ALL DRESED UP READY FOR D/C BE GIVE VANCO ON HD .. PO CIPRO WAS GIVEN FEELS MUCH BETTER S/P R FORTH DIGIT RESECTION Objective - Vital Signs/Intake and Output Vital Signs (last 24 hours): Temp Pulse Resp BP Pulse Ox 98.2 F 67 18 143/66 97 01/22/18 16:04 01/22/18 16:58 01/22/18 16:04 01/22/18 16:58 01/22/18 16:04 - Labs Labs: 01/22/18 05:40 01/22/18 05:40 PT 10.9 Seconds (9.8-13.1) 01/19/18 05:35 INR 1.0 (0.9-1.2) 01/19/18 05:35 APTT 39.3 Seconds (25.6-37.1) H 01/19/18 05:35 Assessment and Plan - Assessment and Plan (Free Text) Assessment: ESRD ON HD M W F .. ANEMIA OF CKD .. H/H STABLE MMP P : CLEARED FOR D/C WILL F/U AN OUT PT WILL ARRANGE IV VANCO ON HD C/O CURRENT MEDS
--- NOTE | 2018-01-23 14:18 | VASCLAB ---
STUDY DESCRIPTION: HISTORY: L fourth digit infection PRIORS: None. TECHNIQUE: Pulse volume recording waveforms and segmental pressures of bilateral lower extremities at multiple levels were obtained. Ankle Brachial Indices (ABIs) were calculated. [facility]. RIGHT LOWER EXTREMITY: * Brachial artery: Pressure - mmHg. * High thigh: Pressure - >240 mmHg: Ratio - : PVR waveform - Pulsatile * Low thigh: Pressure - mmHg: Ratio - PVR waveform: Pulsatile * Calf: Pressure - >240 mmHg: Ratio - PVR waveform: Pulsatile * Posterior tibial Artery: Pressure - 224 mmHg: Ratio - 1.34 PVR waveform: Pulsatile * Dorsalis pedis Artery: Pressure - mmHg: Ratio - PVR waveform: Pulsatile * Great toe: Pressure - mmHg: Ratio - PVR waveform: Pulsatile Ankle brachial index (GREGORIO): 1.34 LEFT LOWER EXTREMITY: * Brachial artery: Pressure - 167 mmHg. * High thigh: Pressure - >240 mmHg: Ratio - : PVR waveform - Pulsatile * Low thigh: Pressure - mmHg: Ratio - PVR waveform: Pulsatile * Calf: Pressure - >240 mmHg: Ratio - PVR waveform: Pulsatile * Posterior tibial Artery: Pressure - mmHg: Ratio - PVR waveform: Pulsatile * Dorsalis pedis Artery: Pressure - >240 mmHg: Ratio - PVR waveform: Pulsatile * Great toe: Pressure - mmHg: Ratio - PVR waveform: Pulsatile Ankle brachial index (GREGORIO): OTHER FINDINGS: IMPRESSION: Right: There was no evidence of hemodynamically significant arterial insufficiency in the right lower extremity. Left: There was no evidence of hemodynamically significant arterial insufficiency in the left lower extremity.GREGORIO could not be calculated due to high pressures.
== END 2018-01-22 17:50 | disposition home health service (06) | DRG 255 ==
LOC: H.ER 12:13 → H.ERHOLD 14:41 → H.MEDSURG1 15:45
PROVIDERS: ADMIT Family Medicine Geriatric Medicine; ATTEND Family Medicine Geriatric Medicine
PROC: B42HZZZ Computerized Tomography (CT Scan) of Bilateral Lower Extremity Arteries (ICD-10-PCS; 2018-01-13)
PROC: 5A1D70Z Performance of Urinary Filtration, Intermittent, Less than 6 Hours Per Day (ICD-10-PCS; 2018-01-14)
PROC: 3E0234Z Introduction of Serum, Toxoid and Vaccine into Muscle, Percutaneous Approach (ICD-10-PCS; 2018-01-15)
PROC: B40DYZZ Plain Radiography of Aorta and Bilateral Lower Extremity Arteries using Other Contrast (ICD-10-PCS; 2018-01-19)
PROC: 0Y6W0Z0 Detachment at Left 4th Toe, Complete, Open Approach (ICD-10-PCS; principal; 2018-01-20 17:00)
DX: E11.51 Type 2 diabetes mellitus with diabetic peripheral angiopathy without gangrene (principal); N18.6 End stage renal disease; M86.172 Other acute osteomyelitis, left ankle and foot; L03.116 Cellulitis of left lower limb; I12.0 Hypertensive chronic kidney disease with stage 5 chronic kidney disease or end stage renal disease; E11.621 Type 2 diabetes mellitus with foot ulcer; L97.523 Non-pressure chronic ulcer of other part of left foot with necrosis of muscle; E11.69 Type 2 diabetes mellitus with other specified complication; E11.22 Type 2 diabetes mellitus with diabetic chronic kidney disease; E11.628 Type 2 diabetes mellitus with other skin complications; B95.61 Methicillin susceptible Staphylococcus aureus infection as the cause of diseases classified elsewhere; E11.42 Type 2 diabetes mellitus with diabetic polyneuropathy; D63.1 Anemia in chronic kidney disease; Z89.431 Acquired absence of right foot; Z99.2 Dependence on renal dialysis; Z23 Encounter for immunization; Z79.84 Long term (current) use of oral hypoglycemic drugs; Z79.4 Long term (current) use of insulin; F17.200 Nicotine dependence, unspecified, uncomplicated; Z91.013 Allergy to seafood

== ENCOUNTER 2018-05-25 05:07 | Inpatient (IN) | payer MEDICARE ==
[2018-05-25 05:07] VITALS: BMI 29.8
[2018-05-25] MEDS ORDERED: Gentamicin 100mg/100ml NS 100 MG/100 ML BAG IVPB STA (05:45)
[2018-05-25] MEDS ORDERED: Vancomycin 1 g Inj ONE (05:57)
--- NOTE | 2018-05-25 06:27 | ED PDOC ---
HPI: General Adult Time Seen by Provider: 05/25/18 05:31 Chief Complaint (Nursing): Fever Chief Complaint (Provider): Body Aches History Per: Patient History/Exam Limitations: no limitations Onset/Duration Of Symptoms: Days (x1) Additional Complaint(s): Patient is a 48 y/o [place] male with history of peripheral vascular disease, diabetes, and ESRD, who presents to the ED complaining of body aches. Patient has dialysis on Friday, , and Friday. 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 Patient states that he had not been feeling well for the past few days and he missed his dialysis appointment; it was rescheduled for Friday, which he attended. Patient then missed his Friday dialysis which was rescheduled now this mor connor. Patient reports he woke up this morning with severe lower extremity pain and felt too sick to attend dialysis this morning. Patient was told by his sister that felt warm to the touch. This concern prompted the ED visit. PMD: Miguel Ángel Reilly Dialysis: Dr. Catrachito Koo Podiatry: Dr. Glass Past Medical History Reviewed: Historical Data, Nursing Documentation, Vital Signs Vital Signs: Last Vital Signs Temp 102.1 F H 05/25/18 05:23 Pulse 98 H 05/25/18 05:23 Resp 20 05/25/18 05:23 BP 139/115 H 05/25/18 05:23 Pulse Ox 97 05/25/18 05:23 - Medical History PMH: Diabetes, HTN, End Stage Renal Disease, Chronic Kidney Disease Denies: Arthritis, CHF, COPD, HIV, Hypercholesterolemia, Hypothyroidism, Rheumatoid Arthritis - Surgical History Other surgeries: Right transmetatarsal amputation; left 4th toe amputation - Family History Family History: States: Unknown Family Hx - Social History Current smoker - smoking cessation education provided: No Alcohol: None Drugs: Denies - Home Medications Home Medications: Ambulatory Orders Medication Instructions Recorded RX: hydrALAZINE [Apresoline] 25 mg PO Q12 01/29/17 RX: Lisinopril [Zestril] 10 mg PO DAILY 01/13/18 - Allergies Allergies/Adverse Reactions: Allergies Allergy/AdvReac Type Severity Reaction Status Date / Time shellfish Allergy ITCHING Uncoded 05/25/18 05:22 Review of Systems ROS Statement: Except As Marked, All Systems Reviewed And Found Negative Constitutional: Positive for: Weakness, Malaise Musculoskeletal: Positive for: Leg Pain Physical Exam - Reviewed Nursing Documentation Reviewed: Yes Vital Signs Reviewed: Yes - Physical Exam Appears: Positive for: Well, Non-toxic (febrile), No Acute Distress Head Exam: Positive for: ATRAUMATIC, NORMOCEPHALIC Skin: Positive for: Normal Color, Warm, Dry Eye Exam: Positive for: EOMI, Normal appearance, PERRL Cardiovascular/Chest: Positive for: Tachycardia Respiratory: Positive for: Normal Breath Sounds. Negative for: Respiratory Distress Gastrointestinal/Abdominal: Positive for: Normal Exam, Soft. Negative for: Tenderness Extremity: Positive for: Normal ROM, Other (Right foot: transmetatarsal amputation ulceration to the callous of plantar surface, 2 cm with some drainage. Left foot: 1 cm ulceration with some drainage to plantar surface.). Negative for: Pedal Edema, Deformity Neurologic/Psych: Positive for: Alert, Oriented. Negative for: Motor/Sensory Deficits - Laboratory Results Result Diagrams: 05/25/18 06:10 05/25/18 06:10 - ECG O2 Sat by Pulse Oximetry: 97 (RA) Pulse Ox Interpretation: Normal Medical Decision Making Medical Decision Making: Time: 05:31 Impression: Fever, foot ulceration, in setting of diabetic foot disease and ESRD. Initial plan: EKG CMP Lactic acid Troponin I CBC w/ diff PTT Prothrombin time CXR IV fluids Gentamicin 100 mg Acetaminophen 975 mg Blood culture RAD - foot left RAD - foot right Influenza A B UA Time: 06:[address] Chan, podiatry resident, and Dr. Gonzalez, [facility] for admission At 6:30 Dr Janna Hernandez (Podiatry [facility]) evaluated patient and opines that diabetic foot ulcers are not likely source of bacteremia. They will continue to follow patient. Time: 06:[address] who will endorse patient to incoming hospitalist. 7AM Case d/w Dr Berger (covering Dr Koo). He informed provider that blood culture in previous hemodialysis is positive for GPC indicative of bacteremia. He agrees with plan to admit patient for IV Vanco/Gent and has asked that Dr Koo be called after 8AM for further HD orders. This was conveyed to Dr Sharma (incoming FP [facility]) Scribe Attestation: Documented by Sukhjinder Sarmiento, acting as a scribe for Steve Christopher MD. Provider Scribe Attestation: All medical record entries made by the Scribe were at my direction and personally dictated by me. I have reviewed the chart and agree that the record accurately reflects my personal performance of the history, physical exam, medical decision making, and the department course for this patient. I have also personally directed, reviewed, and agree with the discharge instructions and disposition. Disposition - Clinical Impression Clinical Impression: Sepsis, ESRD (end stage renal disease), Bacteremia - Patient ED Disposition Is Patient to be Admitted: Yes - Disposition Disposition Time: 06:30 Condition: GUARDED - Pt Status Changed To: Hospital Disposition Of: Inpatient - Admit Certification Admit to Inpatient:: After my assessment, the patient will require hospitalization for at least two midnights. This is because of the severity of symptoms shown, intensity of services needed, and/or the medical risk in this patient being treated as an outpatient.
[2018-05-25 06:44] LABS: LYMPH # 0.6 K/uL (1.0-4.3); MONO # 1.1 K/uL (0.0-0.8); RBC 3.36 Mil/uL (4.40-5.90)
[2018-05-25 06:48] LABS: BASO % 0.5 % (0.0-2.0); EOS % 0.1 % (0.0-4.0); LYMPH % 6.5 % (20.0-40.0); MEAN CORPUSCULAR HEMOGLOBIN 32.8 pg (27.0-31.0); MEAN CORPUSCULAR HGB CONC 35.2 g/dL (33.0-37.0); MONO % 13.3 % (0.0-10.0); NEUT # 6.8 K/uL (1.8-7.0); NEUT % 79.6 % (50.0-75.0); NRBC % 0.1 % (0.0-0.0); PLATELET COUNT 68 K/uL (130-400); RED CELL DISTRIBUTION WIDTH 14.2 % (11.5-14.5); WHITE BLOOD COUNT 8.5 K/uL (4.8-10.8)
[2018-05-25 06:50] LABS: PROTHROMBIN TIME 11.6 Seconds (9.8-13.1)
[2018-05-25 06:53] LABS: PARTIAL THROMBOPLASTIN TIME 35.4 Seconds (25.6-37.1)
[2018-05-25 07:15] LABS: ALB/GLOB RATIO 0.9 (1.0-2.1); ALBUMIN 3.4 g/dL (3.5-5.0); CALCIUM 8.1 mg/dL (8.4-10.2)
[2018-05-25 07:22] LABS: TROPONIN I 0.139 ng/mL (0.00-0.120)
--- NOTE | 2018-05-25 07:28 | CP.PCM.CON ---
History of Present Illness - History of Present Illness History of Present Illness: 48 y/o male patient with PMHx of PVD, DMII with neuropathy, ESRD ( [facility]) was seen and evaluated at bedside. Patient complains of body aches and chills, which he states started 3 days ago. Patient reports associated nausea, cough and shortness of breath. Patient states he was unable to go tohis dialysis on Friday, and states it is scheduled for today (Friday05/25/18). Patient reports his chills worsened along with right foot pain/drainage and he decided to come to the ED today. Patient denies N/V/chest pain at this time Review of Systems - Review of Systems All systems: reviewed and no additional remarkable complaints except Review of Systems: As per HPI - Constitutional Constitutional: absent: Chills, Fever Past Patient History - Infectious Disease Hx of Infectious Diseases: None - Past Medical History & Family History Past Medical History?: Yes - Past Social History Alcohol: None Drugs: Denies - CARDIAC Hx Congestive Heart Failure: No Hx Hypercholesterolemia: No Hx Hypertension: Yes - PULMONARY Hx Chronic Obstructive Pulmonary Disease (COPD): No - NEUROLOGICAL Hx Neurological Disorder: Yes Other/Comment: Hx Neuropathy - HEENT Hx HEENT Problems: Yes Hx Cataracts: Yes - RENAL Hx Chronic Kidney Disease: Yes - ENDOCRINE/METABOLIC Hx Hypothyroidism: No - HEMATOLOGICAL/ONCOLOGICAL Hx Human Immunodeficiency Virus (HIV): No - INTEGUMENTARY Hx Dermatological Problems: Yes Other/Comment: Hx Bilateral foot ulcers - MUSCULOSKELETAL/RHEUMATOLOGICAL Hx Arthritis: No Hx Rheumatoid Arthritis: No - GASTROINTESTINAL Hx Gastrointestinal Disorders: No - GENITOURINARY/GYNECOLOGICAL Hx Genitourinary Disorders: No - PSYCHIATRIC Hx Psychophysiologic Disorder: Yes Hx Depression: Yes Hx Substance Use: No - SURGICAL HISTORY Hx Surgeries: Yes Hx Amputation: Yes (Right TMA, Left 4th toe) Hx Cataract Extraction: Yes (Right eye - 2008) Hx Vascular Access Device: Yes (Right arm A-V fistula) Other/Comment: Hx of Insertion and removal of permacth for HD - ANESTHESIA Hx Anesthesia: Yes Hx Anesthesia Reactions: No Hx Malignant Hyperthermia: No Meds Allergies/Adverse Reactions: Allergies Allergy/AdvReac Type Severity Reaction Status Date / Time shellfish Allergy ITCHING Uncoded 05/25/18 05:22 Physical Exam - Constitutional Appears: Well, Non-toxic, No Acute Distress - Head Exam Head Exam: ATRAUMATIC, NORMOCEPHALIC - Extremities Exam Extremities exam: Positive for: calf tenderness. Negative for: pedal edema, tenderness Additional comments: Bilateral Lower Extremity Exam VASC: Right DP 1/4 and PT 2/4; Left DP and PT 2/4, CFT less than 3 seconds x 4 to the Left, TG increased temperature noted bilaterally, no pedal edema NEURO: diminished sensation bilaterally DERM: Right- plantar hyperkeratotic lesion noted with surrounding erythema, no open wounds, no drainage, no malodor, no clinical signs of infection, plantar xerosis noted Left- Plantar hyperkeratotic lesion submet 1, no open wounds, no drainage, no clinical signs of infection Ortho: No pain upon palpation, TMA to the right foot, and previous amputation of the left fourth abd partial fifth digits, no pain with ankle range of motion - Neurological Exam Neurological exam: Alert, Oriented x3 - Psychiatric Exam Psychiatric exam: Normal Affect, Normal Mood Results - Vital Signs Recent Vital Signs: Last Vital Signs Temp 100.3 F H 05/25/18 07:26 Pulse 79 05/25/18 07:26 Resp 17 05/25/18 07:26 BP 114/61 05/25/18 07:26 Pulse Ox 98 05/25/18 07:26 - Labs Result Diagrams: 05/25/18 06:10 05/25/18 06:10 Labs: Laboratory Results - last 24 hr 05/25/18 05/25/18 05/25/18 06:10 06:10 06:10 WBC 8.5 RBC 3.36 L Hgb 11.0 L Hct 31.2 L MCV 93.0 MCH 32.8 H MCHC 35.2 RDW 14.2 Plt Count 68 L MPV 9.0 Neut % (Auto) 79.6 H Lymph % (Auto) 6.5 L Carter % (Auto) 13.3 H Eos % (Auto) 0.1 Baso % (Auto) 0.5 Neut # (Auto) 6.8 Lymph # (Auto) 0.6 L Carter # (Auto) 1.1 H Eos # (Auto) 0.0 Baso # (Auto) 0.0 PT INR APTT Sodium 134 Potassium 4.4 Chloride 90 L Carbon Dioxide 24 Anion Gap 24 H BUN 67 H Creatinine 11.6 H* D Est GFR ( Amer) 6 Est GFR (Non-Af Amer) 5 Random Glucose 159 H Lactic Acid 1.7 Calcium 8.1 L Total Bilirubin 2.8 H AST 21 ALT 17 L Alkaline Phosphatase 173 H D Troponin I 0.1390 H* Total Protein 7.1 Albumin 3.4 L Globulin 3.8 Albumin/Globulin Ratio 0.9 L Influenza Typ A,B (EIA) 05/25/18 05/25/18 06:10 06:20 WBC RBC Hgb Hct MCV MCH MCHC RDW Plt Count MPV Neut % (Auto) Lymph % (Auto) Carter % (Auto) Eos % (Auto) Baso % (Auto) Neut # (Auto) Lymph # (Auto) Carter # (Auto) Eos # (Auto) Baso # (Auto) PT 11.6 INR 1.0 APTT 35.4 Sodium Potassium Chloride Carbon Dioxide Anion Gap BUN Creatinine Est GFR ( Amer) Est GFR (Non-Af Amer) Random Glucose Lactic Acid Calcium Total Bilirubin AST ALT Alkaline Phosphatase Troponin I Total Protein Albumin Globulin Albumin/Globulin Ratio Influenza Typ A,B (EIA) Negative for flu a/b Assessment & Plan - Assessment and Plan (Free Text) Assessment: 48 y/o male patient with PMHx of PVD, DMII with neuropathy, ESRD ([facility]) was seen and evaluated at bedside. Patient complains of body aches and chills, which he states started 3 days ago. Patient admitted for ESRD and fever Plan: Patient was seen and evaluated at bedside Plan discussed with attending Dr. Rodriguez Chart, labs and vitals reviewed- Patient is febrile, Neutrophilia with bandemia, WBC 8.5, ESR 71 BMP: 134/4.4/90/24/67/11.6<159 Bilateral Foot X-rays: Left foot- no acute erosive bony changes suggestive of osteomyelitis, post op changes noted to left 4th digit and left 5th digits, no soft tissue emphysema noted; Right Foot- transmetatarsal amputation noted, no suspicious pattern to suggest active osteomyelitis, degenrative changes seen throughout Patient right foot dressed with DSD Continue IV Antibiotics- ID consult, recommendations appreciated Patient is stable from Podiatry standpoint Podiatry will continue to follow patient while in house
--- NOTE | 2018-05-25 08:44 | CP.PCM.HP ---
Addendum entered and electronically signed by Dionisio Leon MD 05/25/18 12:02: Elevated Trop most likely secondary to ESRD and fluid overload . Patient denies any chest pain. Repeat Troponin Continue current management for BP Addendum entered and electronically signed by Dionisio Leon MD 05/25/18 11:51: Patient was seen and examined bedside .All chart and clinical data reviewed . Care resumed. Patient feeling weak and slightly lightheaded Tmax 102 WBC 8.5 K AVF to RUE with no erythema or abscess As per nephrology blood cultures were sent for HD center last week since patient was not feeling very well and such cultures were reported as positive for Staph aureus Will f/u repeat blood cultures Received Vanco and Genta IV Continue Vancomycin IV for bacteremia Will receive HD today for ESRD Right foot surgical wound is clean with no signs of infection as per podiatry Original Note: History of Present Illness - History of Present Illness History of Present Illness: PMD: [facility] Nephrology: Dr. Catrachito Koo Podiatry: Dr. Glass The patient was seen and examined in the ED HPI: 48 years old male with hx of PVD with right foot Transmetatarsal amputation and ulceration at the [facility], DM II with neuropathy, ESRD oh Hemodialysis Friday, and Friday.He comes to the ED with 3 days of body aches, not feeling well, wioth nausea, cough with yellow sputum. He missed HD last but went on Friday. he also missed Friday's Dialysis which was rescheduled for today. He woke with right lower extremity pain and not feeling well so he came to the ED where his temperature was 102F. PMH: DM II; HTN; ESRD on HD ; PVD; Neuropathy; depression; Cataract PSH: Right foot TMA; Left 4th digit amputated; AV shunt right arm; Right eye surgery 1999 [facility]: former Smoker; no illegal drug use; No alcohol; Live with family FH: States: Unknown Family Hx Allergies: NKDA Shellfish Medication: Reviewed - Present on Admission - Present on Admission Any Indicators Present on Admission: Yes History of DVT/PE: No History of Uncontrolled Diabetes: Yes Urinary Catheter: No Decubitus Ulcer Present: No Review of Systems - Constitutional Constitutional: Chills, Fatigue, Fever, Malaise. absent: Headache - EENT Eyes: Requires Corrective Lenses. absent: Blurred Vision, Floaters Ears: absent: Tinnitus, Disequilibrium Nose/Mouth/Throat: absent: Epistaxis, Nasal Congestion, Nasal Discharge - Cardiovascular Cardiovascular: absent: Chest Pain, Dyspnea, Edema - Respiratory Respiratory: Cough, Chest Congestion. absent: Dyspnea, Wheezing, Stridor - Gastrointestinal Gastrointestinal: Nausea. absent: Abdominal Pain, Cramping, Diarrhea - Musculoskeletal Musculoskeletal: Arthralgias. absent: Back Pain, Muscle Weakness, Myalgias - Integumentary Integumentary: absent: Pruritus, Rash, Striae - Neurological Neurological: absent: Confusion, Dizziness, Numbness, Focal Weakness - Psychiatric Psychiatric: Depression. absent: Anxiety, Panic Attacks - Endocrine Endocrine: absent: Palpitations, Polydipsia, Polyphagia, Polyuria - Hematologic/Lymphatic Hematologic: absent: Easy Bleeding, Easy Bruising Past Patient History - Infectious Disease Hx of Infectious Diseases: None - Past Medical History & Family History Past Medical History?: Yes - Past Social History Smoking Status: Former Smoker Chewing Tobacco Use: No Cigar Use: No Alcohol: None Drugs: Denies - CARDIAC Hx Congestive Heart Failure: No Hx Hypercholesterolemia: No Hx Hypertension: Yes - PULMONARY Hx Chronic Obstructive Pulmonary Disease (COPD): No - NEUROLOGICAL Hx Neurological Disorder: Yes Other/Comment: Hx Neuropathy - HEENT Hx HEENT Problems: Yes Hx Cataracts: Yes - RENAL Hx Chronic Kidney Disease: Yes - ENDOCRINE/METABOLIC Hx Hypothyroidism: No - HEMATOLOGICAL/ONCOLOGICAL Hx Human Immunodeficiency Virus (HIV): No - INTEGUMENTARY Hx Dermatological Problems: Yes Other/Comment: Hx Bilateral foot ulcers - MUSCULOSKELETAL/RHEUMATOLOGICAL Hx Arthritis: No Hx Rheumatoid Arthritis: No - GASTROINTESTINAL Hx Gastrointestinal Disorders: No - GENITOURINARY/GYNECOLOGICAL Hx Genitourinary Disorders: No - PSYCHIATRIC Hx Psychophysiologic Disorder: Yes Hx Depression: Yes Hx Substance Use: No - SURGICAL HISTORY Hx Surgeries: Yes Hx Amputation: Yes (Right TMA, Left 4th toe) Hx Cataract Extraction: Yes (Right eye - 2008) Hx Vascular Access Device: Yes (Right arm A-V fistula) Other/Comment: Hx of Insertion and removal of permacth for HD - ANESTHESIA Hx Anesthesia: Yes Hx Anesthesia Reactions: No Hx Malignant Hyperthermia: No Meds Allergies/Adverse Reactions: Allergies Allergy/AdvReac Type Severity Reaction Status Date / Time shellfish Allergy ITCHING Uncoded 05/25/18 05:22 Physical Exam - Constitutional Appears: No Acute Distress - Head Exam Head Exam: ATRAUMATIC, NORMAL INSPECTION, NORMOCEPHALIC - Eye Exam Eye Exam: EOMI, Normal appearance Pupil Exam: NORMAL ACCOMODATION, PERRL - ENT Exam ENT Exam: Mucous Membranes Moist, Normal Exam, Normal External Ear Exam - Neck Exam Neck exam: Positive for: Full Rom - Respiratory Exam Respiratory Exam: Clear to Auscultation Bilateral. absent: Rales, Rhonchi, Wheezes - Cardiovascular Exam Cardiovascular Exam: REGULAR RHYTHM, RRR, +S1, +S2 - GI/Abdominal Exam GI & Abdominal Exam: Normal Bowel Sounds, Soft. absent: Mass, Organomegaly, Tenderness - Rectal Exam Rectal Exam: Deferred - Extremities Exam Additional comments: Normal ROM, Other (Right foot: transmetatarsal amputation ulceration to the callous of plantar surface, 2 cm with some drainage. Left foot: 1 cm ulceration with some drainage to plantar surface.). - Back Exam Back exam: NORMAL INSPECTION. absent: CVA tenderness (L), CVA tenderness (R) - Neurological Exam Neurological exam: Alert, CN II-XII Intact, Oriented x3, Reflexes Normal - Psychiatric Exam Psychiatric exam: Normal Affect, Normal Mood - Skin Skin Exam: Dry, Intact, Normal Color, Warm Results - Vital Signs Recent Vital Signs: Last Vital Signs Temp 100.3 F H 05/25/18 07:26 Pulse 79 05/25/18 07:26 Resp 17 05/25/18 07:26 BP 114/61 05/25/18 07:26 Pulse Ox 98 05/25/18 07:26 - Labs Result Diagrams: 05/25/18 06:10 05/25/18 06:10 Labs: Laboratory Results - last 24 hr 05/25/18 05/25/18 05/25/18 06:10 06:10 06:10 WBC 8.5 RBC 3.36 L Hgb 11.0 L Hct 31.2 L MCV 93.0 MCH 32.8 H MCHC 35.2 RDW 14.2 Plt Count 68 L MPV 9.0 Neut % (Auto) 79.6 H Lymph % (Auto) 6.5 L Campbell % (Auto) 13.3 H Eos % (Auto) 0.1 Baso % (Auto) 0.5 Neut # (Auto) 6.8 Lymph # (Auto) 0.6 L Campbell # (Auto) 1.1 H Eos # (Auto) 0.0 Baso # (Auto) 0.0 PT INR APTT Sodium 134 Potassium 4.4 Chloride 90 L Carbon Dioxide 24 Anion Gap 24 H BUN 67 H Creatinine 11.6 H* D Est GFR ( Amer) 6 Est GFR (Non-Af Amer) 5 Random Glucose 159 H Lactic Acid 1.7 Calcium 8.1 L Total Bilirubin 2.8 H AST 21 ALT 17 L Alkaline Phosphatase 173 H D Troponin I 0.1390 H* Total Protein 7.1 Albumin 3.4 L Globulin 3.8 Albumin/Globulin Ratio 0.9 L Influenza Typ A,B (EIA) 05/25/18 05/25/18 06:10 06:20 WBC RBC Hgb Hct MCV MCH MCHC RDW Plt Count MPV Neut % (Auto) Lymph % (Auto) Campbell % (Auto) Eos % (Auto) Baso % (Auto) Neut # (Auto) Lymph # (Auto) Campbell # (Auto) Eos # (Auto) Baso # (Auto) PT 11.6 INR 1.0 APTT 35.4 Sodium Potassium Chloride Carbon Dioxide Anion Gap BUN Creatinine Est GFR ( Amer) Est GFR (Non-Af Amer) Random Glucose Lactic Acid Calcium Total Bilirubin AST ALT Alkaline Phosphatase Troponin I Total Protein Albumin Globulin Albumin/Globulin Ratio Influenza Typ A,B (EIA) Negative for flu a/b - Impressions Impression: NSR 85/min Peaked T waves - Imaging and Cardiology Chest x-ray Status: Image reviewed by me Additional comment: Cardiomegaly Pulmonary congestion Assessment & Plan - Assessment and Plan (Free Text) Assessment: #. Fever etiology unclear, r/o infected foot ulceration vs infected AV fistula #. ESRD on HD #. DM II with hyperglycemia #. Anemia of chronic disease #. chronic Thrombocytopenia Plan: 48 years old male with hx of PVD with right foot Transmetatarsal amputation and ulceration at the [facility], DM II with neuropathy, ESRD [place] Hemodialysis Friday, and Friday.He comes to the ED with 3 days of body aches, not feeling well, with nausea, cough with yellow sputum. Today he also has right lower extremity pain and not feeling well. In the ED his temperature was 102F. #. Fever etiology unclear, r/o infected foot ulceration vs infected AV fistula - Consult ID Dr Dewitt - Consult Podiatry Dr Cerrato - Blood cultures - Vancomycin on dialysis days - Gentamycin #. ESRD on HD - Consult Dr Koo Nephrology for Dialysis #. DM II with hyperglycemia - Lispro Insulin sliding scale according to accucheck #. Anemia of chronic kidney disease - Follow Hb #. Chronic Thrombocytopenia #. DVT prophylaxis with Heparin #. Code Status: Full - Date & Time Date: 05/25/18 Time: 08:44
--- NOTE | 2018-05-25 10:48 | CARD ---
APPROVED REPORT Date of service: 05/25/2018 EKG Measurement Heart [id number] <Conclusion> Normal sinus rhythm Left anterior fascicular block Abnormal ECG
--- NOTE | 2018-05-25 11:18 | RAD ---
Date of service: 05/25/2018 HISTORY: chest pain COMPARISON: Frontal chest radiograph 01/13/2018. FINDINGS: LUNGS: Diminished inspiratory volume appreciated. Cardiac size remains prominent appearing but may be magnified by frontal technique. Mild pulmonary vascular congestion in question. No definite alveolitis bilaterally. No pleural effusion or pneumothorax bilaterally. PLEURA: As above. CARDIOVASCULAR: No aortic atherosclerotic calcification present. And as above. OSSEOUS STRUCTURES: No significant abnormalities. VISUALIZED UPPER ABDOMEN: Normal. OTHER FINDINGS: None. IMPRESSION: Pulmonary vascular congestion questioned. Cardiac silhouette remains prominent appearing. No alveolitis bilaterally.
--- NOTE | 2018-05-25 11:20 | RAD ---
Date of service: 05/25/2018 PROCEDURE: Left Foot Radiographs. HISTORY: fever/ulcer COMPARISON: None. FINDINGS: BONES: Residual bone fragments from prior an apparent subtotal amputation of the 4th digit remain. Subtotal resection of 4th metatarsal bone stable as well as deformity of the small digit left foot. No active periosteal reaction or definitive destructive bony lesion appreciated in the interval. No fracture identified throughout. JOINTS: Diffuse degenerative changes are appreciated throughout the interphalangeal joints as well as the 1st metatarsophalangeal joint and the tarsal metatarsal articulations. SOFT TISSUES: Vascular calcifications are identified within left foot soft tissues once again. Similar change appears at the ankle. No emphysematous soft tissue changes are appreciable. OTHER FINDINGS: None. IMPRESSION: No overt pattern to suggest acute erosive bony changes/osteomyelitis. Postop changes are reiterated at the left 4th digit and left 4th metatarsal bone as discussed above.
--- NOTE | 2018-05-25 11:24 | RAD ---
Date of service: 05/25/2018 PROCEDURE: Right Foot Radiographs. HISTORY: fever/ulcer COMPARISON: Right foot radiographs 01/29/2017. FINDINGS: BONES: Prior transmetatarsal amputation reiterated throughout the forefoot/midfoot right foot with further deformity of the operative site is appreciated each residual metatarsal bone on a chronic basis in the interval. No acute erosive changes are identified throughout the right foot to suggest active osteomyelitis radiographically. No periosteal reaction definitively shown. Degenerative changes are seen at the hindfoot greater than midfoot joints diffusely once again. No subluxation or dislocation. For skin isaiah are again identified anteriorly at the operative site. JOINTS: As above. SOFT TISSUES: No emphysema soft tissue changes are identified. OTHER FINDINGS: None. IMPRESSION: Stable post transmetatarsal amputation pattern right foot with skin isaiah remaining at the dorsal operative site skin. Degenerative changes seen throughout the remaining right foot joints diffusely as well as of the right ankle. No suspicious pattern to suggest active osteomyelitis at this time.
[2018-05-25] MEDS ORDERED: Cefepime 1 GM in Sodium Chloride 0.9% 100 ML IVPB ONE (11:26)
[2018-05-25 11:33] LABS: BANDS 5 % (0-2); LYMPHOCYTE 4 % (20-50); MONOCYTE 17 % (0-10); NEUTROPHIL 74 % (42-75); TOTAL CELLS COUNTED 100
[2018-05-25 11:34] LABS: HYPOCHROMIC SLIGHT; PLATELET ESTIMATE DECREASED (NORMAL)
[2018-05-25] MEDS: Insulin Lispro (humaLOG) 100 Units/ml Inj SC SCH ×3 (12:28→21:11)
[2018-05-25] MEDS ORDERED: Heparin Sodium (Porcine) 1,000 Units/ML 30ML IV ONE (14:14)
[2018-05-25] MEDS ORDERED: Sodium Chloride 0.9% 1,000 ML IV SCH ×2 (14:15→17:24)
--- NOTE | 2018-05-25 18:53 | CP.PCM.CON ---
History of Present Illness - History of Present Illness History of Present Illness: Reason for consult : ESRD on HD T T S Anemia of CKD All EMR reviewes .. Labs reviewed pt is well known to me .. My HD pt with mmp and frequent admisions .. The HD RN called me last week that temp was high pt was given B.C x 2 and Tylenol , and pt was supposed to see bird raiser afterward .. Blood cultures came back positive for staph Additional Complaint(s): Patient is a 48 y/o [place] male with history of peripheral vascular disease, diabetes, and ESRD, who presents to the ED complaining of body aches. Patient has dialysis on Friday, , and Friday. 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 Patient states that he had not been feeling well for the past few days and he missed his dialysis appointment; it was rescheduled for Friday, which he attended. Patient then missed his Friday dialysis which was rescheduled now this morning. Patient reports he woke up this morning with severe lower extremity pain and felt too sick to attend dialysis this morning. Patient was told by his sister that felt warm to the touch. This concern prompted the ED visit. PMD: Miguel Ángel Reilly Dialysis: Dr. Catrachito Koo Podiatry: Dr. Glass Past Medical History Reviewed: Historical Data, Nursing Documentation, Vital Signs Vital Signs: Last Vital Signs Temp 102.1 F H 05/25/18 05:23 Pulse 98 H 05/25/18 05:23 Resp 20 05/25/18 05:23 BP 139/115 H 05/25/18 05:23 Pulse Ox 97 05/25/18 05:23 - Medical History PMH: Diabetes, HTN, End Stage Renal Disease, Chronic Kidney Disease Denies: Arthritis, CHF, COPD, HIV, Hypercholesterolemia, Hypothyroidism, Rheumatoid Arthritis - Surgical History Other surgeries: Right transmetatarsal amputation; left 4th toe amputation - Family History Family History: States: Unknown Family Hx Past Patient History - Infectious Disease Hx of Infectious Diseases: None - Past Medical History & Family History Past Medical History?: Yes - Past Social History Alcohol: None Drugs: Denies - CARDIAC Hx Congestive Heart Failure: No Hx Hypercholesterolemia: No Hx Hypertension: Yes - PULMONARY Hx Chronic Obstructive Pulmonary Disease (COPD): No - NEUROLOGICAL Hx Neurological Disorder: Yes Other/Comment: Hx Neuropathy - HEENT Hx HEENT Problems: Yes Hx Cataracts: Yes - RENAL Hx Chronic Kidney Disease: Yes - ENDOCRINE/METABOLIC Hx Hypothyroidism: No - HEMATOLOGICAL/ONCOLOGICAL Hx Human Immunodeficiency Virus (HIV): No - INTEGUMENTARY Hx Dermatological Problems: Yes Other/Comment: Hx Bilateral foot ulcers - MUSCULOSKELETAL/RHEUMATOLOGICAL Hx Arthritis: No Hx Rheumatoid Arthritis: No - GASTROINTESTINAL Hx Gastrointestinal Disorders: No - GENITOURINARY/GYNECOLOGICAL Hx Genitourinary Disorders: No - PSYCHIATRIC Hx Psychophysiologic Disorder: Yes Hx Depression: Yes Hx Substance Use: No - SURGICAL HISTORY Hx Surgeries: Yes Hx Amputation: Yes (Right TMA, Left 4th toe) Hx Cataract Extraction: Yes (Right eye - 2008) Hx Vascular Access Device: Yes (Right arm A-V fistula) Other/Comment: Hx of Insertion and removal of permacth for HD - ANESTHESIA Hx Anesthesia: Yes Hx Anesthesia Reactions: No Hx Malignant Hyperthermia: No Meds Allergies/Adverse Reactions: Allergies Allergy/AdvReac Type Severity Reaction Status Date / Time shellfish Allergy ITCHING Uncoded 05/25/18 05:22 - Medications Medications: Current Medications Acetaminophen (Tylenol 325mg Tab) 650 mg PO Q6 PRN PRN Reason: Fever >100.4 F Acetaminophen (Tylenol 325mg Tab) 650 mg PO Q6 PRN PRN Reason: Pain, Mild (1-3) Last Admin: 05/25/18 14:29 Dose: 650 mg Heparin Sodium (Porcine) (Heparin) 5,000 units SC Q8 [facility]; Protocol Last Admin: 05/25/18 18:24 Dose: 5,000 units Hydralazine HCl (Apresoline) 25 mg PO Q12 [facility] Vancomycin HCl 1 gm/ Sodium (Chloride) 250 mls @ 125 mls/hr IVPB TTS [facility]; Protocol Cefepime HCl 0.500 gm/ Sodium (Chloride) 50 mls @ 50 mls/hr IVPB DAILY [facility]; Protocol Sodium Chloride (Sodium Chloride 0.9%) 1,000 mls @ 999 mls/hr IV .Q1H1M [facility] Stop: 05/26/18 14:16 Last Admin: 05/25/18 14:31 Dose: 999 mls/hr Sodium Chloride (Sodium Chloride 0.9%) 1,000 mls @ 999 mls/hr IV .Q1H1M [facility] Stop: 05/26/18 17:24 Insulin Human Lispro (Humalog) 0 units SC ACHS [facility]; Protocol Last Admin: 05/25/18 17:00 Dose: Not Given Lisinopril (Zestril) 10 mg PO DAILY [facility] Results - Vital Signs Recent Vital Signs: Last Vital Signs Temp 97.8 F 05/25/18 16:00 Pulse 76 05/25/18 17:00 Resp 13 05/25/18 17:00 BP 92/49 L 05/25/18 17:00 Pulse Ox 98 05/25/18 17:00 - Labs Result Diagrams: 05/25/18 06:10 05/25/18 06:10 Labs: Laboratory Results - last 24 hr 05/25/18 05/25/18 05/25/18 05:39 06:10 06:10 WBC 8.5 RBC 3.36 L Hgb 11.0 L Hct 31.2 L MCV 93.0 MCH 32.8 H MCHC 35.2 RDW 14.2 Plt Count 68 L MPV 9.0 Neut % (Auto) 79.6 H Lymph % (Auto) 6.5 L Lassen % (Auto) 13.3 H Eos % (Auto) 0.1 Baso % (Auto) 0.5 Neut # (Auto) 6.8 Lymph # (Auto) 0.6 L Lassen # (Auto) 1.1 H Eos # (Auto) 0.0 Baso # (Auto) 0.0 Neutrophils % (Manual) 74 Band Neutrophils % 5 H Lymphocytes % (Manual) 4 L Monocytes % (Manual) 17 H Platelet Estimate Decreased L Hypochromasia (manual) Slight ESR PT INR APTT Sodium 134 Potassium 4.4 Chloride 90 L Carbon Dioxide 24 Anion Gap 24 H BUN 67 H Creatinine 11.6 H* D Est GFR ( Amer) 6 Est GFR (Non-Af Amer) 5 POC Glucose (mg/dL) 189 H Random Glucose 159 H Lactic Acid Calcium 8.1 L Total Bilirubin 2.8 H AST 21 ALT 17 L Alkaline Phosphatase 173 H D Troponin I 0.1390 H* Total Protein 7.1 Albumin 3.4 L Globulin 3.8 Albumin/Globulin Ratio 0.9 L Influenza Typ A,B (EIA) 05/25/18 05/25/18 05/25/18 06:10 06:10 06:10 WBC RBC Hgb Hct MCV MCH MCHC RDW Plt Count MPV Neut % (Auto) Lymph % (Auto) Lassen % (Auto) Eos % (Auto) Baso % (Auto) Neut # (Auto) Lymph # (Auto) Lassen # (Auto) Eos # (Auto) Baso # (Auto) Neutrophils % (Manual) Band Neutrophils % Lymphocytes % (Manual) Monocytes % (Manual) Platelet Estimate Hypochromasia (manual) ESR 71 H PT 11.6 INR 1.0 APTT 35.4 Sodium Potassium Chloride Carbon Dioxide Anion Gap BUN Creatinine Est GFR ( Amer) Est GFR (Non-Af Amer) POC Glucose (mg/dL) Random Glucose Lactic Acid 1.7 Calcium Total Bilirubin AST ALT Alkaline Phosphatase Troponin I Total Protein Albumin Globulin Albumin/Globulin Ratio Influenza Typ A,B (EIA) 05/25/18 05/25/18 05/25/18 06:20 07:55 13:22 WBC RBC Hgb Hct MCV MCH MCHC RDW Plt Count MPV Neut % (Auto) Lymph % (Auto) Lassen % (Auto) Eos % (Auto) Baso % (Auto) Neut # (Auto) Lymph # (Auto) Lassen # (Auto) Eos # (Auto) Baso # (Auto) Neutrophils % (Manual) Band Neutrophils % Lymphocytes % (Manual) Monocytes % (Manual) Platelet Estimate Hypochromasia (manual) ESR PT INR APTT Sodium Potassium Chloride Carbon Dioxide Anion Gap BUN Creatinine Est GFR ( Amer) Est GFR (Non-Af Amer) POC Glucose (mg/dL) 144 H Random Glucose Lactic Acid Calcium Total Bilirubin AST ALT Alkaline Phosphatase Troponin I 0.1310 H* Total Protein Albumin Globulin Albumin/Globulin Ratio Influenza Typ A,B (EIA) Negative for flu a/b Assessment & Plan - Assessment and Plan (Free Text) Assessment: ESRD ON HD T T S .. WILL GIVE HIM HD TODAY ANEMIA OF CKD .. H/H STABLE SEVERE PVD .. WITH CELLULITIS AND DRAINAGE DM HTN P HD TODAY AND Fri AND SAT IVAB PER ID PODIATRY CONSULT RENAL AND DIABETIC DIET C/O CURRENT MEDS CONSENT FOR HD OBTAINED HD ORDERS GIVEN TO THE HD -RN WILL F/U CLOSELY - Date & Time Date: 05/25/18 Time: 13:00
[2018-05-26 05:39] LABS: HEMOGLOBIN 10.5 g/dL (12.0-18.0); MEAN CELL VOLUME 93.7 fl (80.0-94.0); MEAN CORPUSCULAR HEMOGLOBIN 31.9 pg (27.0-31.0); RBC 3.28 Mil/uL (4.40-5.90); RED CELL DISTRIBUTION WIDTH 14.8 % (11.5-14.5); WHITE BLOOD COUNT 11.8 K/uL (4.8-10.8)
[2018-05-26 06:09] LABS: CALCIUM 8.1 mg/dL (8.4-10.2)
[2018-05-26] MEDS: Insulin Lispro (humaLOG) 100 Units/ml Inj SC SCH ×4 (06:36→21:31)
--- NOTE | 2018-05-26 07:31 | CP.PCM.PN ---
Subjective - Date & Time of Evaluation Date of Evaluation: 05/26/18 Time of Evaluation: 07:31 - Subjective Subjective: Podiatry Progress Note for Dr. Rodriguez: 48 yo male patient, seen and evaluated, in ICU for b/l hyperkeratotic lesions. Patient is resting comfortably in bed and in NAD. He reports a few days ago he noticed drainage from his TMA site, however it has subsided. Denies any new pedal complaints. Denies N/V/chest pain. Objective - Vital Signs/Intake and Output Vital Signs (last 24 hours): Temp Pulse Resp BP Pulse Ox 99.0 F 69 20 95/47 L 95 05/26/18 04:30 05/26/18 04:30 05/26/18 04:30 05/26/18 04:30 05/26/18 04:30 Intake and Output: 05/26/18 05/26/18 06:59 18:59 Intake Total 215 Balance 215 - Medications Medications: Current Medications Acetaminophen (Tylenol 325mg Tab) 650 mg PO Q6 PRN PRN Reason: Fever >100.4 F Acetaminophen (Tylenol 325mg Tab) 650 mg PO Q6 PRN PRN Reason: Pain, Mild (1-3) Last Admin: 05/26/18 06:43 Dose: 650 mg Heparin Sodium (Porcine) (Heparin) 5,000 units SC Q8 [facility]; Protocol Last Admin: 05/26/18 02:07 Dose: 5,000 units Hydralazine HCl (Apresoline) 25 mg PO Q12 [facility] Last Admin: 05/25/18 21:08 Dose: Not Given Vancomycin HCl 1 gm/ Sodium (Chloride) 250 mls @ 125 mls/hr IVPB TTS [facility]; Protocol Cefepime HCl 0.500 gm/ Sodium (Chloride) 50 mls @ 50 mls/hr IVPB DAILY [facility]; Protocol Sodium Chloride (Sodium Chloride 0.9%) 1,000 mls @ 999 mls/hr IV .Q1H1M [facility] Stop: 05/26/18 14:16 Last Admin: 05/25/18 14:31 Dose: 999 mls/hr Sodium Chloride (Sodium Chloride 0.9%) 1,000 mls @ 999 mls/hr IV .Q1H1M [facility] Stop: 05/26/18 17:24 Insulin Human Lispro (Humalog) 0 units SC ACHS [facility]; Protocol Last Admin: 05/26/18 06:36 Dose: Not Given Lisinopril (Zestril) 10 mg PO DAILY [facility] - Labs Labs: 05/26/18 04:40 05/26/18 04:40 PT 11.6 Seconds (9.8-13.1) 05/25/18 06:10 INR 1.0 05/25/18 06:10 APTT 35.4 Seconds (25.6-37.1) 05/25/18 06:10 - Constitutional Appears: Well, Non-toxic, No Acute Distress - Head Exam Head Exam: ATRAUMATIC, NORMOCEPHALIC - Extremities Exam Additional comments: B/L Lower Extremity Exam Vasc: R/L DP 1/4 and PT 2/4, CFT < 3 seconds x 4 to the Left, TG increased temperature noted bilaterally, no pedal edema Ortho: No pain upon palpation, TMA to the right foot, and 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, no pain with ankle range of motion Neuro: diminished sensation bilaterally Derm: RLE- plantar hyperkeratotic lesion noted with surrounding erythema, no open wounds, no drainage, no malodor, no clinical signs of infection, plantar xerosis noted; LLE- Plantar hyperkeratotic lesion submet 1, no open wounds, no drainage, no clinical signs of infection - Neurological Exam Neurological Exam: Alert, Awake, Oriented x3 - Psychiatric Exam Psychiatric exam: Normal Affect, Normal Mood Assessment and Plan - Assessment and Plan (Free Text) Assessment: 48 yo male patient seen and evaluated for b/l hyperkeratotic lesions Plan: Patient was seen and evaluated at bedside; Plan discussed with attending Dr. Rodriguez WBC 11.8 Bilateral Foot X-rays: L foot- no OM, post op changes noted to left 4th digit and left 5th digits, no soft tissue emphysema noted; Right Foot- transmetatarsal amputation noted, no OM, degenerative changes seen throughout Patient is stable from podiatry standpoint, no surgical intervention at this time ID abx and reccs per Dr. Unger Will continue to follow patient while in house
--- NOTE | 2018-05-26 08:33 | CP.PCM.PN ---
Addendum entered and electronically signed by Dionisio Leon MD 05/26/18 17:04: Patient was seen and examined bedside .All chart and clinical data reviewed . Case discussed with resident . Agree with assessment and plan. Patient feeling weak , complaining of buttock pain Afebrile last 12 hours but hypotensive BP 90/50 HR 76 Patient admitted with severe sepsis on admission with no clear source of infection WBC 11 k Trop 0.13 AVF to RUE with no erythema or abscess,but will order ultrasound CXR showed no active disease Right foot surgical wound is clean with no signs of infection as per podiatry. Podiatry following patient Blood cultures from HD center positive for MSSA and repeat blood cx positive for gram positive cocci in clusters Will order Echo to rule out endocarditis patient complained of lower back pain so will order MRI lower back to rule out discitis ID on consult Received Vanco and Genta IV Continue Vancomycin IV Received only ultrafiltration HD yesterday due to low BP Continue monitoring in ICU Original Note: Subjective - Date & Time of Evaluation Date of Evaluation: 05/26/18 Time of Evaluation: 09:24 - Subjective Subjective: 48 y/o male patient was seen and evaluated at bedside. Patient states he was not able to sleep well due to back pain, which started last night. Patient otherwise seen sitting comfortably in the chair at bedside. Patient reports he had one small bowel movement, however, has been unable to urinate. Patient denies any urinary pain or burning. Patient denies nausea, vomiting, shortness of breath, chest pain fever or chills Objective - Vital Signs/Intake and Output Vital Signs (last 24 hours): Temp Pulse Resp BP Pulse Ox 98.4 F 69 20 95/47 L 95 05/26/18 08:30 05/26/18 04:30 05/26/18 04:30 05/26/18 04:30 05/26/18 04:30 Intake and Output: 05/26/18 05/26/18 06:59 18:59 Intake Total 215 Balance 215 - Medications Medications: Current Medications Acetaminophen (Tylenol 325mg Tab) 650 mg PO Q6 PRN PRN Reason: Fever >100.4 F Acetaminophen (Tylenol 325mg Tab) 650 mg PO Q6 PRN PRN Reason: Pain, Mild (1-3) Last Admin: 05/26/18 06:43 Dose: 650 mg Heparin Sodium (Porcine) (Heparin) 5,000 units SC Q8 [facility]; Protocol Last Admin: 05/26/18 02:07 Dose: 5,000 units Hydralazine HCl (Apresoline) 25 mg PO Q12 [facility] Last Admin: 05/25/18 21:08 Dose: Not Given Vancomycin HCl 1 gm/ Sodium (Chloride) 250 mls @ 125 mls/hr IVPB TTS [facility]; Protocol Cefepime HCl 0.500 gm/ Sodium (Chloride) 50 mls @ 50 mls/hr IVPB DAILY [facility]; Protocol Sodium Chloride (Sodium Chloride 0.9%) 1,000 mls @ 999 mls/hr IV .Q1H1M [facility] Stop: 05/26/18 14:16 Last Admin: 05/25/18 14:31 Dose: 999 mls/hr Sodium Chloride (Sodium Chloride 0.9%) 1,000 mls @ 999 mls/hr IV .Q1H1M [facility] Stop: 05/26/18 17:24 Insulin Human Lispro (Humalog) 0 units SC ACHS [facility]; Protocol Last Admin: 05/26/18 06:36 Dose: Not Given Lisinopril (Zestril) 10 mg PO DAILY [facility] - Labs Labs: 05/26/18 04:40 05/26/18 04:40 PT 11.6 Seconds (9.8-13.1) 05/25/18 06:10 INR 1.0 05/25/18 06:10 APTT 35.4 Seconds (25.6-37.1) 05/25/18 06:10 - Constitutional Appears: Well, Non-toxic, No Acute Distress - Head Exam Head Exam: ATRAUMATIC, NORMOCEPHALIC - Eye Exam Eye Exam: Normal appearance - ENT Exam ENT Exam: Mucous Membranes Moist - Neck Exam Neck Exam: Full ROM - Respiratory Exam Respiratory Exam: Clear to Ausculation Bilateral, NORMAL BREATHING PATTERN. absent: Rales, Rhonchi, Wheezes - Cardiovascular Exam Cardiovascular Exam: REGULAR RHYTHM, RRR, +S1, +S2 - GI/Abdominal Exam GI & Abdominal Exam: Soft, Normal Bowel Sounds. absent: Firm, Guarding, Rigid - Back Exam Back Exam: absent: CVA tenderness (L), CVA tenderness (R) - Neurological Exam Neurological Exam: Alert, Awake, Oriented x3 - Psychiatric Exam Psychiatric exam: Normal Affect, Normal Mood Assessment and Plan - Assessment and Plan (Free Text) Assessment: 48 years old male with hx of PVD, DM II with neuropathy, and ESRD admitted to the hospital due to bacteremia, likely due to AV fistula. Plan: 1) Bacteremia likely secondary to AV fistula - Afebrile today, positive leukocytosis - Podiatry consult- As per Dr. Rodriguez, patient stable from podiatry standpoint, will continue to monitor patient - Blood cultures were sent for HD center and cultures were reported as positive for Staph aureus - Repeat Blood cultures- Prelim, Gram positive cocci - C/w Vancomycin on dialysis days as ordered, patient received STAT dose in ER upon arrival - C/w Gentamycin 0.5 gm IV [facility] DAILY - ID Consult- Dr. Unger, r/o infected AV fistula, r/o endocarditis, r/o diskitis - F/u ECHO- Pending - F/u US of Upper Extremity- Pending 2) ESRD on HD - Nephrology Consult- As per Dr. Koo, continue current meds, and continue Hemodialysis while patient is in-house 3) DM II with hyperglycemia - Lispro Insulin sliding scale according to accucheck 4) Anemia of chronic kidney disease - H/H Stable at this time - will continue to monitor 5) Chronic Thrombocytopenia 6) Urinary Retention - likely due to ESRD - F/u Bladder Scan- Pending 7) Low Back Pain r/o Diskitis - F/u Spinal MRI 8) DVT prophylaxis - Heparin
[2018-05-26] MEDS: Lidocaine 5% Patch TD SCH (10:33)
--- NOTE | 2018-05-26 10:37 | CP.PCM.CON ---
History of Present Illness - History of Present Illness History of Present Illness: 48 y/o male patient with PMHx of PVD, DMII with neuropathy, ESRD ( TThSat) admitted with complaint of body aches and chills, which he states started 3 days ago. Patient reports associated nausea, cough and shortness of breath. Patient reports his chills worsened along with right foot pain/drainage and he decided to come to the ED today. Patient denies N/V/chest pain at this time Referred for ID eval for + Blood cultures ROS- c/o back pain left buttock PMH DM HTN ESRD Left TMA rigtht 5th toe amp Review of Systems - Review of Systems All systems: reviewed and no additional remarkable complaints except - Constitutional Constitutional: As Per HPI, Chills, Fever - EENT Eyes: absent: As Per HPI, Blind Spots, Blurred Vision, Change in Vision, Decreased Night Vision, Diplopia, Discharge, Dry Eye, Exophthalmos, Floaters, Irritation, Itchy Eyes, Loss of Peripheral Vision, Pain, Photophobia, Requires Corrective Lenses, Sees Flashes, Spots in Vision, Tunnel Vision, Other Visual Disturbances, Loss of Vision, Other Ears: absent: As Per HPI, Decreased Hearing, Ear Discharge, Ear Pain, Tinnitus, Abnormal Hearing, Disequilibrium, Dizziness, Other Nose/Mouth/Throat: absent: As Per HPI, Epistaxis, Nasal Congestion, Nasal Di scharge, Nasal Obstruction, Nasal Trauma, Nose Pain, Post Nasal Drip, Sinus Pain, Sinus Pressure, Bleeding Gums, Change in Voice, Dental Pain, Dry Mouth, Dysphagia, Halitosis, Hoarsness, Lip Swelling, Mouth Lesions, Mouth Pain, Odynophagia, Sore Throat, Throat Swelling, Tongue Swelling, Facial Pain, Neck Pain, Neck Mass, Other - Cardiovascular Cardiovascular: absent: As Per HPI, Acrocyanosis, Chest Pain, Chest Pain at Rest, Chest Pain with Activity, Claudication, Diaphoresis, Dyspnea, Dyspnea on Exertion, Edema, Irregular Heart Rhythm, Pain Radiating to Arm/Neck/Jaw, Leg Edema, Leg Ulcers, Lightheadedness, Orthopnea, Palpitations, Paroxysmal Nocturnal Dyspnea, Pedal Edema, Radiating Pain, Rapid Heart Rate, Slow Heart Rate, Syncope, Other - Respiratory Respiratory: absent: As Per HPI, Cough, Dyspnea, Hemoptysis, Dyspnea on Exertion, Wheezing, Snoring, Stridor, Pain on Inspiration, Chest Congestion, Excessive Mucous Production, Change in Mucous Color, Pain with Coughing, Other - Gastrointestinal Gastrointestinal: absent: As Per HPI, Abdominal Pain, Belching, Bloating, Change in Bowel Habits, Change in Stool Character, Coffee Ground Emesis, Constipation, Cramping, Diarrhea, Dyspepsia, Dysphagia, Early Satiety, Excessive Flatus, Fecal Incontinence, Heartburn, Hematemesis, Hematochezia, Loose Stools, Melena, Nausea, Odynophagia, Temesmus, Vomiting, Other - Genitourinary Genitourinary: absent: As Per HPI, Change in Urinary Stream, Difficulty Urinating, Dysuria, Flank Pain, Hematuria, Pyuria, Nocturia, Urinary Incontinence, Urinary Frequency, Urinary Hesitance, Urinary Urgency, Voiding Freq/Small Amts, Freq UTI, Hx Renal/Bladder Calculi, Hx /Renal Surgery, Bladder Distension, Other - Musculoskeletal Musculoskeletal: As Per HPI - Integumentary Integumentary: As Per HPI - Neurological Neurological: As Per HPI - Psychiatric Psychiatric: absent: As Per HPI, Abnormal Sleep Pattern, Anhedonia, Anxiety, Auditory Hallucinations, Behavioral Changes, Change in Appetite, Change in Libido, Confusion, Depression, Difficulty Concentrating, Hallucinations, Homicidal Ideation, Hopelessness, Irritability, Memory Loss, Mood Swings, Panic Attacks, Paranoia, Suicidal Ideation, Visual Hallucinations, Tactile Hallucinations, Other - Endocrine Endocrine: As Per HPI - Hematologic/Lymphatic Hematologic: absent: As Per HPI, Easy Bleeding, Easy Bruising, Lymphadenopathy, Other Past Patient History - Infectious Disease Hx of Infectious Diseases: None - Past Medical History & Family History Past Medical History?: Yes - Past Social History Alcohol: None Drugs: Denies - CARDIAC Hx Congestive Heart Failure: No Hx Hypercholesterolemia: No Hx Hypertension: Yes - PULMONARY Hx Chronic Obstructive Pulmonary Disease (COPD): No - NEUROLOGICAL Hx Neurological Disorder: Yes Other/Comment: Hx Neuropathy - HEENT Hx HEENT Problems: Yes Hx Cataracts: Yes - RENAL Hx Chronic Kidney Disease: Yes - ENDOCRINE/METABOLIC Hx Hypothyroidism: No - HEMATOLOGICAL/ONCOLOGICAL Hx Human Immunodeficiency Virus (HIV): No - INTEGUMENTARY Hx Dermatological Problems: Yes Other/Comment: Hx Bilateral foot ulcers - MUSCULOSKELETAL/RHEUMATOLOGICAL Hx Arthritis: No Hx Rheumatoid Arthritis: No - GASTROINTESTINAL Hx Gastrointestinal Disorders: No - GENITOURINARY/GYNECOLOGICAL Hx Genitourinary Disorders: No - PSYCHIATRIC Hx Psychophysiologic Disorder: Yes Hx Depression: Yes Hx Substance Use: No - SURGICAL HISTORY Hx Surgeries: Yes Hx Amputation: Yes (Right TMA, Left 4th toe) Hx Cataract Extraction: Yes (Right eye - 2008) Hx Vascular Access Device: Yes (Right arm A-V fistula) Other/Comment: Hx of Insertion and removal of permacth for HD - ANESTHESIA Hx Anesthesia: Yes Hx Anesthesia Reactions: No Hx Malignant Hyperthermia: No Meds Allergies/Adverse Reactions: Allergies Allergy/AdvReac Type Severity Reaction Status Date / Time shellfish Allergy ITCHING Uncoded 05/25/18 05:22 - Medications Medications: Current Medications Acetaminophen (Tylenol 325mg Tab) 650 mg PO Q6 PRN PRN Reason: Fever >100.4 F Acetaminophen (Tylenol 325mg Tab) 650 mg PO Q6 PRN PRN Reason: Pain, Mild (1-3) Last Admin: 05/26/18 06:43 Dose: 650 mg Heparin Sodium (Porcine) (Heparin) 5,000 units SC Q8 LUIS M; Protocol Last Admin: 05/26/18 02:07 Dose: 5,000 units Hydralazine HCl (Apresoline) 25 mg PO Q12 LUIS M Last Admin: 05/25/18 21:08 Dose: Not Given Vancomycin HCl 1 gm/ Sodium (Chloride) 250 mls @ 125 mls/hr IVPB TTS LUIS M; Protocol Cefepime HCl 0.500 gm/ Sodium (Chloride) 50 mls @ 50 mls/hr IVPB DAILY LUIS M; Protocol Sodium Chloride (Sodium Chloride 0.9%) 1,000 mls @ 999 mls/hr IV .Q1H1M LUIS M Stop: 05/26/18 14:16 Last Admin: 05/25/18 14:31 Dose: 999 mls/hr Sodium Chloride (Sodium Chloride 0.9%) 1,000 mls @ 999 mls/hr IV .Q1H1M LUIS M Stop: 05/26/18 17:24 Insulin Human Lispro (Humalog) 0 units SC ACHS LUIS M; Protocol Last Admin: 05/26/18 06:36 Dose: Not Given Lidocaine (Lidoderm) 1 ea TD DAILY LUIS M Lisinopril (Zestril) 10 mg PO DAILY LUIS M Physical Exam - Constitutional Appears: Non-toxic, No Acute Distress, Chronically Ill - Head Exam Head Exam: NORMOCEPHALIC - Eye Exam Eye Exam: absent: Scleral icterus - ENT Exam ENT Exam: Mucous Membranes Dry - Neck Exam Neck exam: Negative for: Lymphadenopathy - Respiratory Exam Respiratory Exam: Decreased Breath Sounds, Clear to Auscultation Bilateral - Cardiovascular Exam Cardiovascular Exam: REGULAR RHYTHM, +S1, +S2 - GI/Abdominal Exam GI & Abdominal Exam: Diminished Bowel Sounds, Soft. absent: Tenderness - Rectal Exam Rectal Exam: Deferred - Exam Exam: NORMAL INSPECTION - Extremities Exam Extremities exam: Positive for: pedal pulses present. Negative for: calf tenderness, pedal edema Additional comments: right TMA left 5th digit amp Right AV fistula with bruit - Back Exam Back exam: absent: CVA tenderness (L), CVA tenderness (R) - Neurological Exam Neurological exam: Alert, CN II-XII Intact, Oriented x3, Reflexes Normal - Psychiatric Exam Psychiatric exam: Normal Mood - Skin Skin Exam: Dry Results - Vital Signs Recent Vital Signs: Last Vital Signs Temp 98.4 F 05/26/18 08:30 Pulse 69 05/26/18 04:30 Resp 20 05/26/18 04:30 BP 95/47 L 05/26/18 04:30 Pulse Ox 95 05/26/18 04:30 - Labs Result Diagrams: 05/26/18 04:40 05/26/18 04:40 Labs: Laboratory Results - last 24 hr 05/25/18 05/25/18 05/25/18 06:10 06:10 12:23 WBC RBC Hgb Hct MCV MCH MCHC RDW Plt Count Neutrophils % (Manual) 74 Band Neutrophils % 5 H Lymphocytes % (Manual) 4 L Monocytes % (Manual) 17 H Platelet Estimate Decreased L Hypochromasia (manual) Slight Sodium Potassium Chloride Carbon Dioxide Anion Gap BUN Creatinine Est GFR ( Amer) Est GFR (Non-Af Amer) POC Glucose (mg/dL) 134 H Random Glucose Calcium Troponin I C-Reactive Protein 159.20 H 05/25/18 05/25/18 05/25/18 13:22 16:28 20:56 WBC RBC Hgb Hct MCV MCH MCHC RDW Plt Count Neutrophils % (Manual) Band Neutrophils % Lymphocytes % (Manual) Monocytes % (Manual) Platelet Estimate Hypochromasia (manual) Sodium Potassium Chloride Carbon Dioxide Anion Gap BUN Creatinine Est GFR ( Amer) Est GFR (Non-Af Amer) POC Glucose (mg/dL) 143 H 174 H Random Glucose Calcium Troponin I 0.1310 H* C-Reactive Protein 05/25/18 05/26/18 05/26/18 21:05 04:40 04:40 WBC 11.8 H RBC 3.28 L Hgb 10.5 L Hct 30.7 L MCV 93.7 MCH 31.9 H MCHC 34.0 RDW 14.8 H Plt Count 55 L Neutrophils % (Manual) Band Neutrophils % Lymphocytes % (Manual) Monocytes % (Manual) Platelet Estimate Hypochromasia (manual) Sodium 136 Potassium 3.8 Chloride 95 L Carbon Dioxide 27 Anion Gap 18 BUN 36 H Creatinine 7.6 H* D Est GFR ( Amer) 9 Est GFR (Non-Af Amer) 8 POC Glucose (mg/dL) Random Glucose 158 H Calcium 8.1 L Troponin I 0.1340 H* C-Reactive Protein Assessment & Plan - Assessment and Plan (Free Text) Assessment: sepsis/ bacteremia ESRD on HD r/o infected AV fistula r/o endocarditis, r/o diskitis Recc echo, vascular eval, US of fistula , MRI spine await cultures
--- NOTE | 2018-05-26 11:01 | CP.CCUPN ---
CCU Objective - Vital Signs / Intake & Output Vital Signs (Last 4 hours): Vital Signs Temp Pulse BP 05/26/18 10:36 76 90/50 L 05/26/18 10:32 74 90/50 L 05/26/18 08:30 98.4 F Intake and Output (Last 8hrs): Intake & Output 05/25/18 05/26/18 05/26/18 22:59 06:59 14:59 Intake Total 1100 115 Balance 1100 115 Weight 223 lb Intake: IV 1100 Oral 115 Other: # Bowel Movements 1 - Medications Active Medications: Active Medications Generic Name Dose Route Start Last Admin Trade Name Freq PRN Reason Stop Dose Admin Acetaminophen 650 mg 05/25/18 10:50 Tylenol 325mg Tab PO Q6 PRN Fever >100.4 F Acetaminophen 650 mg 05/25/18 14:18 05/26/18 06:43 Tylenol 325mg Tab PO 650 mg Q6 PRN Administration Pain, Mild (1-3) Heparin Sodium (Porcine) 5,000 units 05/25/18 17:00 05/26/18 10:32 Heparin SC 5,000 units Q8 LUIS M Administration Protocol Hydralazine HCl 25 mg 05/25/18 21:00 05/26/18 10:32 Apresoline PO Not Given Q12 LUIS M Vancomycin HCl 1 gm/ Sodium 250 mls @ 125 mls/hr 05/26/18 09:00 05/26/18 10:36 Chloride IVPB 125 mls/hr TTS LUIS M Administration Protocol Cefepime HCl 0.500 gm/ Sodium 50 mls @ 50 mls/hr 05/26/18 09:00 Chloride IVPB DAILY LUIS M Protocol Sodium Chloride 1,000 mls @ 999 mls/hr 05/25/18 14:15 05/25/18 14:31 Sodium Chloride 0.9% IV 05/26/18 14:16 999 mls/hr .Q1H1M LUIS M Administration Sodium Chloride 1,000 mls @ 999 mls/hr 05/25/18 17:24 Sodium Chloride 0.9% IV 05/26/18 17:24 .Q1H1M LUIS M Insulin Human Lispro 0 units 05/25/18 11:30 05/26/18 06:36 Humalog SC Not Given ACHS LUIS M Protocol Lidocaine 1 ea 05/26/18 09:30 05/26/18 10:33 Lidoderm TD 1 ea DAILY LUIS M Administration Lisinopril 10 mg 05/26/18 09:00 05/26/18 10:36 Zestril PO Not Given DAILY LUIS M - Patient Studies Lab Studies: Microbiology Studies 05/25/18 06:10 Blood Culture - Preliminary Blood-Venous Gram Positive Cocci Gram Stain - Final 05/25/18 06:20 S.aureus & Coag-Neg Staph PNA FISH - Final Blood-Venous Blood Culture - Preliminary Gram Positive Cocci Gram Stain - Final Lab Studies 05/26/18 05/26/18 05/25/18 Range/Units 04:40 04:40 21:05 WBC 11.8 H (4.8-10.8) K/uL RBC 3.28 L (4.40-5.90) Mil/uL Hgb 10.5 L (12.0-18.0) g/dL Hct 30.7 L (35.0-51.0) % MCV 93.7 (80.0-94.0) fl MCH 31.9 H (27.0-31.0) pg MCHC 34.0 (33.0-37.0) g/dL RDW 14.8 H (11.5-14.5) % Plt Count 55 L (130-400) K/uL Neutrophils % (Manual) (42-75) % Band Neutrophils % (0-2) % Lymphocytes % (Manual) (20-50) % Monocytes % (Manual) (0-10) % Platelet Estimate (NORMAL) Hypochromasia (manual) Sodium 136 (132-148) mmol/l Potassium 3.8 (3.6-5.0) MMOL/L Chloride 95 L (98-107) mmol/L Carbon Dioxide 27 (22-30) mmol/L Anion Gap 18 (10-20) BUN 36 H (9-20) mg/dl Creatinine 7.6 H* D (0.8-1.5) mg/dl Est GFR ( Amer) 9 Est GFR (Non-Af Amer) 8 POC Glucose (mg/dL) (65-110) mg/dL Random Glucose 158 H (75-110) mg/dL Calcium 8.1 L (8.4-10.2) mg/dL Troponin I 0.1340 H* (0.00-0.120) ng/mL C-Reactive Protein (0.0-9.9) mg/L 05/25/18 05/25/18 05/25/18 Range/Units 20:56 16:28 13:22 WBC (4.8-10.8) K/uL RBC (4.40-5.90) Mil/uL Hgb (12.0-18.0) g/dL Hct (35.0-51.0) % MCV (80.0-94.0) fl MCH (27.0-31.0) pg MCHC (33.0-37.0) g/dL RDW (11.5-14.5) % Plt Count (130-400) K/uL Neutrophils % (Manual) (42-75) % Band Neutrophils % (0-2) % Lymphocytes % (Manual) (20-50) % Monocytes % (Manual) (0-10) % Platelet Estimate (NORMAL) Hypochromasia (manual) Sodium (132-148) mmol/l Potassium (3.6-5.0) MMOL/L Chloride (98-107) mmol/L Carbon Dioxide (22-30) mmol/L Anion Gap (10-20) BUN (9-20) mg/dl Creatinine (0.8-1.5) mg/dl Est GFR ( Amer) Est GFR (Non-Af Amer) POC Glucose (mg/dL) 174 H 143 H (65-110) mg/dL Random Glucose (75-110) mg/dL Calcium (8.4-10.2) mg/dL Troponin I 0.1310 H* (0.00-0.120) ng/mL C-Reactive Protein (0.0-9.9) mg/L 05/25/18 05/25/18 05/25/18 Range/Units 12:23 06:10 06:10 WBC (4.8-10.8) K/uL RBC (4.40-5.90) Mil/uL Hgb (12.0-18.0) g/dL Hct (35.0-51.0) % MCV (80.0-94.0) fl MCH (27.0-31.0) pg MCHC (33.0-37.0) g/dL RDW (11.5-14.5) % Plt Count (130-400) K/uL Neutrophils % (Manual) 74 (42-75) % Band Neutrophils % 5 H (0-2) % Lymphocytes % (Manual) 4 L (20-50) % Monocytes % (Manual) 17 H (0-10) % Platelet Estimate Decreased L (NORMAL) Hypochromasia (manual) Slight Sodium (132-148) mmol/l Potassium (3.6-5.0) MMOL/L Chloride (98-107) mmol/L Carbon Dioxide (22-30) mmol/L Anion Gap (10-20) BUN (9-20) mg/dl Creatinine (0.8-1.5) mg/dl Est GFR ( Amer) Est GFR (Non-Af Amer) POC Glucose (mg/dL) 134 H (65-110) mg/dL Random Glucose (75-110) mg/dL Calcium (8.4-10.2) mg/dL Troponin I (0.00-0.120) ng/mL C-Reactive Protein 159.20 H (0.0-9.9) mg/L Laboratory Results - last 24 hr 05/25/18 05/25/18 05/25/18 06:10 06:10 12:23 WBC RBC Hgb Hct MCV MCH MCHC RDW Plt Count Neutrophils % (Manual) 74 Band Neutrophils % 5 H Lymphocytes % (Manual) 4 L Monocytes % (Manual) 17 H Platelet Estimate Decreased L Hypochromasia (manual) Slight Sodium Potassium Chloride Carbon Dioxide Anion Gap BUN Creatinine Est GFR ( Amer) Est GFR (Non-Af Amer) POC Glucose (mg/dL) 134 H Random Glucose Calcium Troponin I C-Reactive Protein 159.20 H 05/25/18 05/25/18 05/25/18 13:22 16:28 20:56 WBC RBC Hgb Hct MCV MCH MCHC RDW Plt Count Neutrophils % (Manual) Band Neutrophils % Lymphocytes % (Manual) Monocytes % (Manual) Platelet Estimate Hypochromasia (manual) Sodium Potassium Chloride Carbon Dioxide Anion Gap BUN Creatinine Est GFR ( Amer) Est GFR (Non-Af Amer) POC Glucose (mg/dL) 143 H 174 H Random Glucose Calcium Troponin I 0.1310 H* C-Reactive Protein 05/25/18 05/26/18 05/26/18 21:05 04:40 04:40 WBC 11.8 H RBC 3.28 L Hgb 10.5 L Hct 30.7 L MCV 93.7 MCH 31.9 H MCHC 34.0 RDW 14.8 H Plt Count 55 L Neutrophils % (Manual) Band Neutrophils % Lymphocytes % (Manual) Monocytes % (Manual) Platelet Estimate Hypochromasia (manual) Sodium 136 Potassium 3.8 Chloride 95 L Carbon Dioxide 27 Anion Gap 18 BUN 36 H Creatinine 7.6 H* D Est GFR ( Amer) 9 Est GFR (Non-Af Amer) 8 POC Glucose (mg/dL) Random Glucose 158 H Calcium 8.1 L Troponin I 0.1340 H* C-Reactive Protein Fingerstick Blood Sugar Results: 122 Critical Care Progress Note - Nutrition Nutrition: Nutrition Category Date Time Status Consistent Carbohydrate [DIET] Diets 05/25/18 Lunch Active
--- NOTE | 2018-05-26 12:07 | PQF ---
PROVIDER RESPONSE TEXT: Patient has sepsis on admission secondary to Staph bacteremia REVIEWER QUERY TEXT: Clarification of Clinical Diagnostic Findings Sepsis ruled in or Sepsis ruled out? OR:Other explanation of clinical finding Temp.:102.1->101.8->100.3 Pulse: 98->83->79 B/P: 91/53->90/46->90/57-.>92/49->98/50->89/49:IVF's ;proamatine received 05/25 blood cultures x 2:preliminary:Gram Positive Cocci ER: Chief Complaint (Nursing): Fever ER:CV: Positive for: Tachycardia Appears: Positive for: Well, Non-toxic (febrile) 7AM Case d/w Dr Berger (covering Dr Koo). He informed provider that blood culture in previous hem odialysis is positive for GPC indicative of bacteremia Clinical Impression : Sepsis, ESRD (end stage renal disease), Bacteremia H and P: ---came to the ED where his temperature was 102F PMH: DM II; HTN; ESRD on HD ; PVD; Neuropathy; depression; Cataract PSH: Right foot TMA; Left 4th digit amputated; AV shunt right arm; Right eye surgery 1999 SH: former Smoker #. Fever etiology unclear, r/o infected foot ulceration vs infected AV fistula #. ESRD on HD #. DM II with hyperglycemia #. Anemia of chronic disease #. chronic Thrombocytopenia Addendum note: As per neph bld. cultures were sent for HD center last week reported as pos. for Staph aureus ;Will f/u repeat bld cultures Received Vanco and Genta IV Continue Vancomycin IV for bacterem ia 05/26 Resident draft progress note: admitted to the hospital due to bacteremia, likely due to AV fis radha. The patient's Clinical Indicators include: - Query created by: Radha Alejandro on 05/26/2018 10:30 AM Electronically signed by: Dionisio Leon 05/26/2018 12:03 PM
--- NOTE | 2018-05-26 14:42 | US ---
Date of service: 05/26/2018 HISTORY: bacteremia r/o infected av fistula right arm COMPARISON: None available. TECHNIQUE: High-resolution grayscale, doppler and spectral evaluation of the right upper extremity FINDINGS: There is a widely patent right upper extremity arterial venous fistula. The arteriovenous anastomosis is widely patent. The outflow vein is widely patent. Velocities throughout the imaged dialysis circuit are within normal limits. No abnormal fluid collection is identified adjacent to the outflow vein. IMPRESSION: Unremarkable evaluation of right upper extremity arterial venous fistula.
--- NOTE | 2018-05-26 16:31 | CARD ---
APPROVED REPORT Date of service: 05/26/2018 EXAM: Two-dimensional and M-mode echocardiogram with Doppler and color Doppler. Other Information Quality : GoodRhythm : NSR INDICATION Infection:Subacute bacterial endocarditis 2D DIMENSIONS IVSd1.35 (0.7-1.1cm)LVDd6.37 (3.9-5.9cm) LVOT Diameter1.95 (1.8-2.4cm)PWd1.04 (0.7-1.1cm) IVSs1.36 (0.8-1.2cm)LVDs4.58 (2.5-4.0cm) FS (%) 28.0 %PWs1.91 (0.8-1.2cm) M-Mode DIMENSIONS Left Atrium (MM)5.13 (2.5-4.0cm)IVSd1.42 (0.7-1.1cm) Aortic Root3.28 (2.2-3.7cm)LVDd6.15 (4.0-5.6cm) Aortic Cusp Exc.2.22 (1.5-2.0cm)PWd1.49 (0.7-1.1cm) IVSs1.22 cmFS (%) 28 % LVDs4.43 (2.0-3.8cm)PWs1.85 cm Aortic Valve AoV Peak Qkzrkngk953.7cm/sAoV VTI30.9cmAO Peak GR.14mmHg LVOT Peak Yvjwgtrg069.9cm/sLVOT VTI17.16cmAO Mean GR.9mmHg KAY (VMAX)0.40xn5CXT (VTI)0.74cm2 Mitral Valve MV E Xmybhuwy320.1cm/sMV DECEL [id number] A Nrpfwoat51.5cm/s MV AEQ18qoX/A ratio1.9MVA (PHT)3.28cm2 TDI Medial E' Peak V7.82cm/sE/Lateral E'0.0E/Medial E'13.7 LEFT VENTRICLE The left ventricle is normal size. There is borderline to mild concentric left ventricular hypertrophy. The left ventricular systolic function is normal. The estimated ejection fraction is 55-60% No regional wall motion abnormalities noted.. Transmitral Doppler flow pattern is Grade II-pseudonormal filling dynamics. No left ventricle thrombus noted on this study. There is no ventricular septal defect visualized. There is no left ventricular aneurysm. There is no mass noted in the left ventricle. RIGHT VENTRICLE The right ventricle is normal size. There is normal right ventricular wall thickness. The right ventricular systolic function is normal. ATRIA The left atrium is severely dilated. The right atrium size is normal. The interatrial septum is intact with no evidence for an atrial septal defect. AORTIC VALVE The aortic valve is normal in structure. No aortic regurgitation is present. There is no aortic valvular stenosis. There is no aortic valvular vegetation. MITRAL VALVE The mitral valve is normal in structure. There is no evidence of mitral valve prolapse. There is no mitral valve stenosis. There is trace mitral valve regurgitation noted. TRICUSPID VALVE The tricuspid valve is normal in structure. There is mild tricuspid valve regurgitation noted. There is no tricuspid valve prolapse or vegetation. There is no tricuspid valve stenosis. PULMONIC VALVE The pulmonary valve is normal in structure. There is trace pulmonic valvular regurgitation. There is no pulmonic valvular stenosis. GREAT VESSELS The aortic root is normal in size. The ascending aorta is normal in size. The pulmonary artery is normal. The IVC is normal in size and collapses >50% with inspiration. PERICARDIAL EFFUSION There is no pericardial effusion. There is no pleural effusion. <Conclusion> There is borderline to mild concentric left ventricular hypertrophy. The estimated ejection fraction is 55-60% Transmitral Doppler flow pattern is Grade II-pseudonormal filling dynamics. The left atrium is severely dilated. There is trace mitral valve regurgitation noted. There is mild tricuspid valve regurgitation noted. No vegetations found on this study. Correlate clinically.
[2018-05-27 05:51] LABS: HEMOGLOBIN 10.8 g/dL (12.0-18.0); MEAN CELL VOLUME 94.1 fl (80.0-94.0); MEAN CORPUSCULAR HEMOGLOBIN 32.3 pg (27.0-31.0); MEAN CORPUSCULAR HGB CONC 34.4 g/dL (33.0-37.0); RBC 3.35 Mil/uL (4.40-5.90); RED CELL DISTRIBUTION WIDTH 15.1 % (11.5-14.5); WHITE BLOOD COUNT 10.7 K/uL (4.8-10.8)
[2018-05-27 06:16] LABS: CALCIUM 8.5 mg/dL (8.4-10.2)
[2018-05-27] MEDS: Insulin Lispro (humaLOG) 100 Units/ml Inj SC SCH ×4 (06:59→22:00)
[2018-05-27] MEDS: Lidocaine 5% Patch TD SCH (09:03)
--- NOTE | 2018-05-27 10:10 | CP.PCM.PN ---
Addendum entered and electronically signed by Jerson Hernandez DPM 05/27/18 15:31: As per ID recommendation, MRI Lumbar Spine and JUANCARLOS ordered with neurology and vascular consults to r/o osteomyelitis Original Note: <Jerson Hernandez - Last Filed: 05/27/18 11:42> Subjective - Date & Time of Evaluation Date of Evaluation: 05/27/18 Time of Evaluation: 10:05 - Subjective Subjective: 48 y/o male patient was seen and evaluated at bedside. Patient states he slept well last night, however, still complaints of thigh/buttock pain radiating to his low back. Patient reports the muscle relaxant mildly alleviated his pain. Patient denies any urinary pain or burning. Patient denies nausea, vomiting, miguel rtness of breath, chest pain fever or chills Objective - Vital Signs/Intake and Output Vital Signs (last 24 hours): Temp Pulse Resp BP Pulse Ox 98 F 78 18 117/68 100 05/27/18 08:04 05/27/18 09:05 05/27/18 08:04 05/27/18 09:05 05/27/18 08:04 - Medications Medications: Current Medications Acetaminophen (Tylenol 325mg Tab) 650 mg PO Q6 PRN PRN Reason: Fever >100.4 F Acetaminophen (Tylenol 325mg Tab) 650 mg PO Q6 PRN PRN Reason: Pain, Mild (1-3) Last Admin: 05/26/18 15:51 Dose: 650 mg Heparin Sodium (Porcine) (Heparin) 5,000 units SC Q8 [facility]; Protocol Last Admin: 05/27/18 09:02 Dose: 5,000 units Hydralazine HCl (Apresoline) 25 mg PO Q12 LUIS M Last Admin: 05/27/18 09:01 Dose: Not Given Vancomycin HCl 1 gm/ Sodium (Chloride) 250 mls @ 125 mls/hr IVPB TTS [facility]; Protocol Last Admin: 05/26/18 10:36 Dose: 125 mls/hr Cefepime HCl 0.500 gm/ Sodium (Chloride) 50 mls @ 50 mls/hr IVPB DAILY [facility]; Protocol Last Admin: 05/26/18 11:00 Dose: 50 mls/hr Insulin Human Lispro (Humalog) 0 units SC ACHS [facility]; Protocol Last Admin: 05/27/18 06:59 Dose: Not Given Lidocaine (Lidoderm) 1 ea TD DAILY [facility] Last Admin: 05/27/18 09:03 Dose: 1 ea Lisinopril (Zestril) 10 mg PO DAILY [facility] Last Admin: 05/27/18 09:05 Dose: Not Given - Labs Labs: 05/27/18 04:25 05/27/18 04:25 PT 11.6 Seconds (9.8-13.1) 05/25/18 06:10 INR 1.0 05/25/18 06:10 APTT 35.4 Seconds (25.6-37.1) 05/25/18 06:10 - Constitutional Appears: Well, Non-toxic, No Acute Distress - Head Exam Head Exam: ATRAUMATIC, NORMOCEPHALIC - Eye Exam Eye Exam: Normal appearance - ENT Exam ENT Exam: Mucous Membranes Moist - Neck Exam Neck Exam: Full ROM. absent: Lymphadenopathy - Respiratory Exam Respiratory Exam: Clear to Ausculation Bilateral, NORMAL BREATHING PATTERN - Cardiovascular Exam Cardiovascular Exam: REGULAR RHYTHM, RRR, +S1, +S2 - GI/Abdominal Exam GI & Abdominal Exam: Soft, Normal Bowel Sounds. absent: Firm, Guarding, Rigid, Tenderness - Back Exam Back Exam: tenderness. absent: CVA tenderness (L), CVA tenderness (R) Additional comments: tenderness noted on palpation to the right lower back and buttocks, pain with range of motion of the RLE - Neurological Exam Neurological Exam: Alert, Awake, Oriented x3 - Psychiatric Exam Psychiatric exam: Normal Affect, Normal Mood - Skin Skin Exam: Normal Color Assessment and Plan - Assessment and Plan (Free Text) Assessment: 48 years old male with hx of PVD, DM II with neuropathy, and ESRD admitted to the hospital due to bacteremia Plan: 1) Bacteremia likely secondary to AV fistula - Afebrile today, absent leukocytosis - Podiatry consult- As per podiatry, patient stable from podiatry standpoint - Blood cultures were sent for HD center and cultures were reported as positive for Staph aureus - Repeat Blood cultures- Staph Aureus - C/w Vancomycin on dialysis days as ordered, patient received STAT dose in ER upon arrival - C/w Cefepime 0.5 gm IV LUIS M DAILY - ID Consult- Dr. Unger, r/o infected AV fistula, r/o endocarditis, r/o diskitis - ECHO- borderline to mild concentric left ventricular hypertrophy, EF 55-60%, left atrium severely dilated, trace mitral and tricuspid valve regugitation, no vegetations noted - US of Upper Extremity- unremarkable evaluation of right upper extremity arterial venous fistula 2) ESRD on HD - Nephrology Consult- As per Dr. Koo, continue current meds, and continue Hemodialysis while patient is in-house - F/u Phos/Mg/Trupti D post HD 3) DM II with hyperglycemia - Lispro Insulin sliding scale according to accucheck 4) Anemia of chronic kidney disease - H/H Stable at this time - will continue to monitor 5) Chronic Thrombocytopenia 6) Urinary Retention - likely due to ESRD 7) Low Back Pain r/o Diskitis - Lumbar Spine CT- Pending Final Read 8) DVT prophylaxis - Heparin <Flor Izaguirre - Last Filed: 05/27/18 17:35> Objective - Vital Signs/Intake and Output Vital Signs (last 24 hours): Temp Pulse Resp BP Pulse Ox 98.3 F 89 20 115/68 95 05/27/18 15:45 05/27/18 15:45 05/27/18 15:45 05/27/18 15:45 05/27/18 15:45 - Medications Medications: Current Medications Acetaminophen (Tylenol 325mg Tab) 650 mg PO Q6 PRN PRN Reason: Fever >100.4 F Acetaminophen (Tylenol 325mg Tab) 650 mg PO Q6 PRN PRN Reason: Pain, Mild (1-3) Last Admin: 05/26/18 15:51 Dose: 650 mg Ergocalciferol (Drisdol 50,000 Intl Units Cap) 1 cap PO Q7D LUIS M Heparin Sodium (Porcine) (Heparin) 5,000 units SC Q8 [facility]IS M; Protocol Last Admin: 05/27/18 09:02 Dose: 5,000 units Hydralazine HCl (Apresoline) 25 mg PO Q12 [facility]IS M Last Admin: 05/27/18 09:01 Dose: Not Given Vancomycin HCl 1 gm/ Sodium (Chloride) 250 mls @ 125 mls/hr IVPB TTS [facility]; Protocol Last Admin: 05/26/18 10:36 Dose: 125 mls/hr Nafcillin Sodium 2 gm/ Sodium (Chloride) 100 mls @ 100 mls/hr IVPB Q6 [facility] M; Protocol Insulin Human Lispro (Humalog) 0 units SC ACHS [facility]IS M; Protocol Last Admin: 05/27/18 11:30 Dose: Not Given Lidocaine (Lidoderm) 1 ea TD DAILY [facility] Last Admin: 05/27/18 09:03 Dose: 1 ea Lisinopril (Zestril) 10 mg PO DAILY [facility] Last Admin: 05/27/18 09:05 Dose: Not Given Oxycodone/Acetaminophen (Percocet 5/325 Mg Tab) 1 tab PO Q4 PRN PRN Reason: Pain, moderate (4-7) Stop: 05/30/18 14:07 Oxycodone/Acetaminophen (Percocet 5/325 Mg Tab) 2 tab PO Q4 PRN PRN Reason: Pain, severe (8-10) Stop: 05/30/18 14:07 Last Admin: 05/27/18 15:43 Dose: 2 tab Sevelamer Carbonate (Renvela) 1.6 gm PO TIDWM [facility] Stop: 06/02/18 23:59 Last Admin: 05/27/18 12:00 Dose: Not Given Vitamin B Complex/Vit C/Folic Acid (Nephro-Sanjay) 1 tab PO DAILY [facility] - Labs Labs: 05/27/18 04:25 05/27/18 04:25 PT 11.6 Seconds (9.8-13.1) 05/25/18 06:10 INR 1.0 05/25/18 06:10 APTT 35.4 Seconds (25.6-37.1) 05/25/18 06:10 Attending/Attestation - Attestation I have personally seen and examined this patient.: Yes I have fully participated in the care of the patient.: Yes I have reviewed all pertinent clinical information, including history, physical exam and plan: Yes Notes (Text): 05/27/18 17:34 Seen examined and discussed with resident. Agree with findings and plan as above. Patient to go for MRI/JUANCARLOS for possible discitis / OM. Requiring additional pain control. ID consult appreciated.
--- NOTE | 2018-05-27 11:10 | CP.PCM.PN ---
Subjective - Date & Time of Evaluation Date of Evaluation: 05/27/18 Time of Evaluation: 11:07 - Subjective Subjective: SEEN ON RENAL F/U ALL PREVIOUS EMR REVIEWED HD IS STARTING SOON FEELS IMPROVED Objective - Vital Signs/Intake and Output Vital Signs (last 24 hours): Temp Pulse Resp BP Pulse Ox 98 F 78 18 117/68 100 05/27/18 08:04 05/27/18 09:05 05/27/18 08:04 05/27/18 09:05 05/27/18 08:04 - Medications Medications: Current Medications Acetaminophen (Tylenol 325mg Tab) 650 mg PO Q6 PRN PRN Reason: Fever >100.4 F Acetaminophen (Tylenol 325mg Tab) 650 mg PO Q6 PRN PRN Reason: Pain, Mild (1-3) Last Admin: 05/26/18 15:51 Dose: 650 mg Ergocalciferol (Drisdol 50,000 Intl Units Cap) 1 cap PO Q7D [facility] M Heparin Sodium (Porcine) (Heparin) 5,000 units SC Q8 [facility] M; Protocol Last Admin: 05/27/18 09:02 Dose: 5,000 units Hydralazine HCl (Apresoline) 25 mg PO Q12 [facility] M Last Admin: 05/27/18 09:01 Dose: Not Given Vancomycin HCl 1 gm/ Sodium (Chloride) 250 mls @ 125 mls/hr IVPB TTS [facility]; Protocol Last Admin: 05/26/18 10:36 Dose: 125 mls/hr Cefepime HCl 0.500 gm/ Sodium (Chloride) 50 mls @ 50 mls/hr IVPB DAILY [facility]; Protocol Last Admin: 05/26/18 11:00 Dose: 50 mls/hr Insulin Human Lispro (Humalog) 0 units SC ACHS [facility]; Protocol Last Admin: 05/27/18 06:59 Dose: Not Given Lidocaine (Lidoderm) 1 ea TD DAILY [facility] Last Admin: 05/27/18 09:03 Dose: 1 ea Lisinopril (Zestril) 10 mg PO DAILY [facility] Last Admin: 05/27/18 09:05 Dose: Not Given Sevelamer Carbonate (Renvela) 1.6 gm PO TIDWM [facility] Stop: 06/02/18 23:59 Vitamin B Complex/Vit C/Folic Acid (Nephro-Sanjay) 1 tab PO DAILY [facility] - Labs Labs: 05/27/18 04:25 05/27/18 04:25 PT 11.6 Seconds (9.8-13.1) 05/25/18 06:10 INR 1.0 05/25/18 06:10 APTT 35.4 Seconds (25.6-37.1) 05/25/18 06:10 Assessment and Plan - Assessment and Plan (Free Text) Assessment: ESRD ON HD M W F AND SAT .. HD STARTING NOW ANEMIA OF CKD .. H/H STABLE SEPSIS ON IVAB MMP P : C/O HD C/O CURRENT MEDS CHEK PHOS MAG VIT D I ADDED PO RENVALA .. RENAVITE AND VIT D WILL F/U CLOSELY
[2018-05-27] MEDS ORDERED: Ergocalciferol 50,000 Intl Units Cap PO SCH (11:15)
[2018-05-27] MEDS: Sevelamer Carb 0.8 gm/Packet PO SCH ×2 (12:00→17:47)
--- NOTE | 2018-05-27 13:31 | CT ---
Date of service: 05/26/2018 PROCEDURE: CT Lumbar Spine without contrast HISTORY: r/o discitis hx bacteremia c/o back pain COMPARISON: None available. TECHNIQUE: Axial computed tomography images were obtained of the lumbar spine without the use of intravenous contrast. Coronal and sagittal reformatted images were created and reviewed. Radiation dose: Total exam DLP = 1272.5 mGy-cm. This CT exam was performed using one or more of the following dose reduction techniques: Automated exposure control, adjustment of the mA and/or kV according to patient size, and/or use of iterative reconstruction technique. FINDINGS: VERTEBRAE: There is straightening of the lumbar curvature. No fracture or spondylolisthesis identified. Small Schmorl's node related defects seen at the endplates at L1 at the upper upper endplate of L2. More destructive type changes seen at the endplates are in L5-S1 disc interspace with prominent endplate density no suspicious soft tissue changes. This pattern is indeterminate for discitis though suspicious. MRI is strongly advised for added characterization of this level. Extensive atherosclerotic aortic changes identified with prevertebral soft tissues otherwise unremarkable swells the para spinal space. Extensive arterial calcifications seen throughout the aortoiliac arterial system and its branches, advanced for a patient 40 years age. Multilevel facet joint degenerative arthropathy appears [id number] severity. DISCS/SPINAL CANAL/NEURAL FORAMINA: L1-2: Unremarkable. L2-3: Circumferential disc osteophyte complex and facet joint degenerative changes result in a mild central canal stenosis. No significant neural foraminal stenosis. No gross disc herniation. L3-4: A circumferential disc osteophyte complex combines with gross facet joint degenerative arthropathy resulting in a moderate central canal stenosis but no significant neural foraminal stenosis. No gross disc herniation. L4-5: A generalized disc bulge combines with facet arthropathy causing moderate to severe central canal stenosis but no significant neural foraminal stenosis. No gross disc herniation. L5-S1: A circumferential disc osteophyte complex combines with facet joint arthropathy to cause mild central stenosis. Endplate changes are noted above which may be associated with discitis however no prominent prevertebral or paraspinal soft tissue related at this level. Please see discussion above. Borderline bilateral neural foraminal stenoses. OTHER FINDINGS: None. IMPRESSION: 1. Suspicious pattern for discitis osteomyelitis L5-S1 though not definite. Consider follow-up MRI without and with contrast or L5-S1 disc space aspiration. 2. Multilevel circumferential disc osteophyte complex combined with facet joint arthropathy resulting in variable central stenosis though not severe, as discussed above. No gross disc herniation. 3. Advanced abdominal aortoiliac atherosclerosis including local branches.
--- NOTE | 2018-05-27 13:46 | CP.PCM.PN ---
Subjective - Date & Time of Evaluation Date of Evaluation: 05/27/18 Time of Evaluation: 07:00 - Subjective Subjective: CT spine suspicious for Discitis / OM consider MRI/ neuro eval and JUANCARLOS may y need 8 weeks IV Rx Objective - Vital Signs/Intake and Output Vital Signs (last 24 hours): Temp Pulse Resp BP Pulse Ox 97.9 F 83 18 85/51 L 99 05/27/18 12:08 05/27/18 12:08 05/27/18 12:08 05/27/18 12:08 05/27/18 12:08 - Medications Medications: Current Medications Acetaminophen (Tylenol 325mg Tab) 650 mg PO Q6 PRN PRN Reason: Fever >100.4 F Acetaminophen (Tylenol 325mg Tab) 650 mg PO Q6 PRN PRN Reason: Pain, Mild (1-3) Last Admin: 05/26/18 15:51 Dose: 650 mg Ergocalciferol (Drisdol 50,000 Intl Units Cap) 1 cap PO Q7D [facility]IS M Heparin Sodium (Porcine) (Heparin) 5,000 units SC Q8 [facility]; Protocol Last Admin: 05/27/18 09:02 Dose: 5,000 units Hydralazine HCl (Apresoline) 25 mg PO Q12 [facility] M Last Admin: 05/27/18 09:01 Dose: Not Given Vancomycin HCl 1 gm/ Sodium (Chloride) 250 mls @ 125 mls/hr IVPB TTS [facility]; Protocol Last Admin: 05/26/18 10:36 Dose: 125 mls/hr Cefepime HCl 0.500 gm/ Sodium (Chloride) 50 mls @ 50 mls/hr IVPB DAILY [facility]; Protocol Last Admin: 05/26/18 11:00 Dose: 50 mls/hr Insulin Human Lispro (Humalog) 0 units SC ACHS [facility]; Protocol Last Admin: 05/27/18 06:59 Dose: Not Given Lidocaine (Lidoderm) 1 ea TD DAILY [facility] Last Admin: 05/27/18 09:03 Dose: 1 ea Lisinopril (Zestril) 10 mg PO DAILY [facility] Last Admin: 05/27/18 09:05 Dose: Not Given Sevelamer Carbonate (Renvela) 1.6 gm PO TIDWM [facility] Stop: 06/02/18 23:59 Vitamin B Complex/Vit C/Folic Acid (Nephro-Sanjay) 1 tab PO DAILY [facility] - Labs Labs: 05/27/18 04:25 05/27/18 04:25 PT 11.6 Seconds (9.8-13.1) 05/25/18 06:10 INR 1.0 05/25/18 06:10 APTT 35.4 Seconds (25.6-37.1) 05/25/18 06:10 - Constitutional Appears: Non-toxic, Chronically Ill - Head Exam Head Exam: NORMOCEPHALIC - Eye Exam Eye Exam: PERRL - ENT Exam ENT Exam: Mucous Membranes Dry - Neck Exam Neck Exam: absent: Lymphadenopathy - Respiratory Exam Respiratory Exam: Decreased Breath Sounds - Cardiovascular Exam Cardiovascular Exam: REGULAR RHYTHM - GI/Abdominal Exam GI & Abdominal Exam: Distended - Rectal Exam Rectal Exam: Deferred - Exam Exam: NORMAL INSPECTION - Extremities Exam Extremities Exam: absent: Pedal Edema - Back Exam Back Exam: absent: CVA tenderness (L), CVA tenderness (R) - Neurological Exam Neurological Exam: Alert Assessment and Plan - Assessment and Plan (Free Text) Assessment: CT spine suspicious for Discitis / OM consider MRI/ neuro eval and JUANCARLOS may y need 8 weeks IV Rx
[2018-05-27] MEDS ORDERED: Oxycodone/Acetaminophen 5/325 mg Tab PO PRN (14:06)
[2018-05-27] MEDS: Oxycodone/Acetaminophen 5/325 mg Tab PO PRN (15:43)
[2018-05-27] MEDS: Nafcillin 2 GM in Sodium Chloride 0.9% 100 ML IVPB SCH ×2 (17:48→22:10)
[2018-05-27] MEDS: Multivitamin Vitamin B Complex (Nephro-Vite) Tab PO SCH (17:49)
[2018-05-27] MEDS ORDERED: Sodium Chloride 0.9% 1,000 ML IV SCH ×3 (19:00→19:05)
--- NOTE | 2018-05-27 19:03 | PCM.RRT ---
<Mary Gonzalez - Last Filed: 05/27/18 20:34> SOFTWARE APPLICATIONS ARCHITECT Nurse Assessment - Situation SOFTWARE APPLICATIONS ARCHITECT Responder Arrival Time: 06:20 SOFTWARE APPLICATIONS ARCHITECT Reason for Call: Hypotension I.Reason for SOFTWARE APPLICATIONS ARCHITECT - A) Acute Change in Patient: (Select all that apply): Acute change in SBP below (90) - Neurological Status (Select all that apply): Responsive, Verbal, Follows Commands - Respiratory Oxygen Delivery Method: Room Air - Constitutional Appears: No Acute Distress - Head Head Exam: ATRAUMATIC, NORMAL INSPECTION - Eyes Eye Exam: EOMI, Normal appearance - Respiratory Exam Respiratory Exam: NORMAL BREATHING PATTERN - Cardiovascular Exam Cardiovascular Exam: REGULAR RHYTHM, +S1, +S2 - Neurological Exam Neurological Exam: Alert, Awake Plan - Assessment of Findings&Treatment Plan S: 48 year old male with hx of PVD, DM II with neuropathy, and ESRD admitted to the hospital due to bacteremia, SOFTWARE APPLICATIONS ARCHITECT called for hypotension. Patients BP was 87/41, HR 79. Patient lying in bed appears uncomfortable due to pain but no dizziness, no chest pain, no dyspnea. No other complaints. He is s/p hemodyalisis today. A/P: 48 year old male with hx of PVD, DM II with neuropathy, and ESRD admitted to the hospital due to bacteremia. Patient has been running low BP since admission likely due to sepsis. He was started on percocet today and he is s/p hemodyalisis that may also be contributing to his low BP. -500cc bolus NS -Continue to monitor BP closely SOFTWARE APPLICATIONS ARCHITECT lead by Dr. Sullivan Resident: Dr. Keegan Gonzalez <Jeremiah Thompson - Last Filed: 05/28/18 02:08> SOFTWARE APPLICATIONS ARCHITECT Nurse Assessment - Vital Signs Vital Signs: Rapid Response Vital Sign Blood Pressure 87/41 Pulse Rate 79 Respiratory Rate 18 Temperature 97.9 F Oxygen Saturation 100 - Vital Signs at end of SOFTWARE APPLICATIONS ARCHITECT Vital Signs at end of SOFTWARE APPLICATIONS ARCHITECT: Rapid Response End Vital Sign Blood Pressure 77/40 Pulse Rate 90 Respiratory Rate 18 O2 Sat by Pulse Oximetry 95 Attending/Attestation - Attestation I have personally seen and examined this patient.: Yes I have fully participated in the care of the patient.: Yes I have reviewed all pertinent clinical information, including history, physical exam and plan: Yes Notes (Text): 05/28/18 02:05 Patient seen during SOFTWARE APPLICATIONS ARCHITECT with resident because of low BP post hemodialysis. Case discussed and agreed with assessment and plan of management. BP became more stable after loading with 500cc of NSS.
[2018-05-27] MEDS ORDERED: Sodium Chloride 0.9% 500 ML IV ONE (20:38)
--- NOTE | 2018-05-27 20:43 | CP.PCM.CON ---
History of Present Illness - History of Present Illness History of Present Illness: Consultation for evaluation of endocarditis HPI: Paresh is a pleasant 48-year-old male with past medical history significant for peripheral vascular disease hypertension diabetes mellitus end-stage renal disease who was admitted on May 25 with complains of body aches and was noted to have bacteremia along with fever. He undergoes hemodialysis on Friday and Saturdays also had prior history of transmetatarsal amputation of the foot and left fourth toe. He was not feeling well for a few days prior to presentation misses dialysis on but was subsequently rescheduled for Friday he subsequently misses steps I started dialysis. Woke up in the morning feeling severe lower extremity pain and felt sick. He was noted to have positive blood cultures and is being evaluated for potential endocarditis. He was seen by Dr. Mendoza for positive blood cultures. An echocardiogram done showed no evidence of vegetations at the time of my evaluation blood pressure 87/48 he was feedings somewhat hard with lower extremity discomfort and pain. As per Dr. Turcios has noted CAT scan of the spine is suspicious for possible dorsal discitis versus ostium mellitus and consider evaluation with MRI and a JUANCARLOS. Review of Systems - Review of Systems Systems not reviewed;Unavailable: Acuity of Condition - Constitutional Constitutional: As Per HPI - EENT Eyes: As Per HPI Ears: As Per HPI Nose/Mouth/Throat: As Per HPI - Cardiovascular Cardiovascular: As Per HPI - Respiratory Respiratory: As Per HPI - Gastrointestinal Gastrointestinal: As Per HPI - Genitourinary Genitourinary: As Per HPI - Reproductive: Male Reproductive:Male: As Per HPI - Musculoskeletal Musculoskeletal: As Per HPI - Integumentary Integumentary: As Per HPI - Neurological Neurological: As Per HPI - Psychiatric Psychiatric: As Per HPI - Endocrine Endocrine: As Per HPI - Hematologic/Lymphatic Hematologic: As Per HPI Past Patient History - Infectious Disease Hx of Infectious Diseases: None - Past Medical History & Family History Past Medical History?: Yes - Past Social History Alcohol: None Drugs: Denies - CARDIAC Hx Congestive Heart Failure: No Hx Hypercholesterolemia: No Hx Hypertension: Yes - PULMONARY Hx Chronic Obstructive Pulmonary Disease (COPD): No - NEUROLOGICAL Hx Neurological Disorder: Yes Other/Comment: Hx Neuropathy - HEENT Hx HEENT Problems: Yes Hx Cataracts: Yes - RENAL Hx Chronic Kidney Disease: Yes - ENDOCRINE/METABOLIC Hx Hypothyroidism: No - HEMATOLOGICAL/ONCOLOGICAL Hx Human Immunodeficiency Virus (HIV): No - INTEGUMENTARY Hx Dermatological Problems: Yes Other/Comment: Hx Bilateral foot ulcers - MUSCULOSKELETAL/RHEUMATOLOGICAL Hx Arthritis: No Hx Rheumatoid Arthritis: No - GASTROINTESTINAL Hx Gastrointestinal Disorders: No - GENITOURINARY/GYNECOLOGICAL Hx Genitourinary Disorders: No - PSYCHIATRIC Hx Psychophysiologic Disorder: Yes Hx Depression: Yes Hx Substance Use: No - SURGICAL HISTORY Hx Surgeries: Yes Hx Amputation: Yes (Right TMA, Left 4th toe) Hx Cataract Extraction: Yes (Right eye - 2008) Hx Vascular Access Device: Yes (Right arm A-V fistula) Other/Comment: Hx of Insertion and removal of permacth for HD - ANESTHESIA Hx Anesthesia: Yes Hx Anesthesia Reactions: No Hx Malignant Hyperthermia: No Meds Allergies/Adverse Reactions: Allergies Allergy/AdvReac Type Severity Reaction Status Date / Time shellfish Allergy ITCHING Uncoded 05/25/18 05:22 - Medications Medications: Current Medications Acetaminophen (Tylenol 325mg Tab) 650 mg PO Q6 PRN PRN Reason: Fever >100.4 F Acetaminophen (Tylenol 325mg Tab) 650 mg PO Q6 PRN PRN Reason: Pain, Mild (1-3) Last Admin: 05/26/18 15:51 Dose: 650 mg Ergocalciferol (Drisdol 50,000 Intl Units Cap) 1 cap PO Q7D [facility] Last Admin: 05/27/18 17:50 Dose: 1 cap Heparin Sodium (Porcine) (Heparin) 5,000 units SC Q8 [facility]; Protocol Last Admin: 05/27/18 17:51 Dose: 5,000 units Hydralazine HCl (Apresoline) 25 mg PO Q12 [facility] Last Admin: 05/27/18 09:01 Dose: Not Given Vancomycin HCl 1 gm/ Sodium (Chloride) 250 mls @ 125 mls/hr IVPB TTS [facility]; Protocol Last Admin: 05/26/18 10:36 Dose: 125 mls/hr Nafcillin Sodium 2 gm/ Sodium (Chloride) 100 mls @ 100 mls/hr IVPB Q6 [facility]; Pr otocol Last Admin: 05/27/18 17:48 Dose: 100 mls/hr Sodium Chloride (Sodium Chloride 0.9%) 1,000 mls @ 999 mls/hr IV .Q1H1M [facility] Stop: 05/28/18 18:57 Sodium Chloride (Sodium Chloride 0.9%) 1,000 mls @ 500 mls/hr IV .Q2H [facility] Stop: 05/28/18 18:57 Last Admin: 05/27/18 19:34 Dose: 500 mls/hr Sodium Chloride (Sodium Chloride 0.9%) 500 mls @ 500 mls/hr IV .Q1H ONE Stop: 05/27/18 21:37 Insulin Human Lispro (Humalog) 0 units SC ACHS [facility]; Protocol Last Admin: 05/27/18 17:51 Dose: Not Given Lidocaine (Lidoderm) 1 ea TD DAILY [facility] Last Admin: 05/27/18 09:03 Dose: 1 ea Lisinopril (Zestril) 10 mg PO DAILY [facility] Last Admin: 05/27/18 09:05 Dose: Not Given Oxycodone/Acetaminophen (Percocet 5/325 Mg Tab) 1 tab PO Q4 PRN PRN Reason: Pain, moderate (4-7) Stop: 05/30/18 14:07 Oxycodone/Acetaminophen (Percocet 5/325 Mg Tab) 2 tab PO Q4 PRN PRN Reason: Pain, severe (8-10) Stop: 05/30/18 14:07 Last Admin: 05/27/18 15:43 Dose: 2 tab Sevelamer Carbonate (Renvela) 1.6 gm PO TIDWM [facility] Stop: 06/02/18 23:59 Last Admin: 05/27/18 17:47 Dose: 1.6 gm Vitamin B Complex/Vit C/Folic Acid (Nephro-Sanjay) 1 tab PO DAILY [facility] Last Admin: 05/27/18 17:49 Dose: 1 tab Physical Exam - Constitutional Appears: Well - Head Exam Head Exam: ATRAUMATIC, NORMAL INSPECTION, NORMOCEPHALIC - Eye Exam Eye Exam: EOMI, Normal appearance, PERRL Pupil Exam: NORMAL ACCOMODATION, PERRL - ENT Exam ENT Exam: Mucous Membranes Moist, Normal Exam - Neck Exam Neck exam: Positive for: Normal Inspection - Respiratory Exam Respiratory Exam: Clear to Auscultation Bilateral, NORMAL BREATHING PATTERN - Cardiovascular Exam Cardiovascular Exam: REGULAR RHYTHM - GI/Abdominal Exam GI & Abdominal Exam: Normal Bowel Sounds, Soft. absent: Tenderness - Extremities Exam Extremities exam: Positive for: normal inspection - Back Exam Back exam: NORMAL INSPECTION - Neurological Exam Neurological exam: Alert, CN II-XII Intact, Normal Gait, Oriented x3, Reflexes Normal - Psychiatric Exam Psychiatric exam: Normal Affect, Normal Mood - Skin Skin Exam: Dry, Intact, Normal Color, Warm Results - Vital Signs Recent Vital Signs: Last Vital Signs Temp 98.0 F 05/27/18 20:02 Pulse 86 05/27/18 20:02 Resp 16 05/27/18 20:02 BP 91/54 L 05/27/18 20:02 Pulse Ox 98 05/27/18 20:02 - Labs Result Diagrams: 05/27/18 04:25 05/27/18 04:25 Labs: Laboratory Results - last 24 hr 05/26/18 05/26/18 05/26/18 06:15 11:21 17:13 WBC RBC Hgb Hct MCV MCH MCHC RDW Plt Count Sodium Potassium Chloride Carbon Dioxide Anion Gap BUN Creatinine Est GFR ( Amer) Est GFR (Non-Af Amer) POC Glucose (mg/dL) 122 H 145 H 215 H Random Glucose Calcium 05/26/18 05/27/18 05/27/18 21:18 04:25 04:25 WBC 10.7 RBC 3.35 L Hgb 10.8 L Hct 31.5 L MCV 94.1 H MCH 32.3 H MCHC 34.4 RDW 15.1 H Plt Count 60 L Sodium 135 Potassium 3.9 Chloride 94 L Carbon Dioxide 27 Anion Gap 18 BUN 51 H Creatinine 9.7 H* D Est GFR ( Amer) 7 Est GFR (Non-Af Amer) 6 POC Glucose (mg/dL) 152 H Random Glucose 145 H Calcium 8.5 05/27/18 05/27/18 05/27/18 05:02 11:03 15:54 WBC RBC Hgb Hct MCV MCH MCHC RDW Plt Count Sodium Potassium Chloride Carbon Dioxide Anion Gap BUN Creatinine Est GFR ( Amer) Est GFR (Non-Af Amer) POC Glucose (mg/dL) 145 H 113 H 121 H Random Glucose Calcium Assessment & Plan (1) Endocarditis Assessment and Plan: plan for JUANCARLOS if recurrent blood cx are +ve cont IV abx MRI per ID for evaluation of discitis Status: Acute (2) Bacteremia Status: Acute (3) Sepsis Assessment and Plan: bp meds on hold IVF hydration If hypotensive consider ICU evaluation Status: Acute (4) End stage kidney disease Status: Chronic (5) Fever Status: Acute (6) Lower extremity pain Status: Acute
[2018-05-27 22:07] LABS: BASO # 0.1 K/uL (0.0-0.2); BASO % 0.7 % (0.0-2.0); EOS # 0.1 K/uL (0.0-0.7); EOS % 1.5 % (0.0-4.0); HEMOGLOBIN 10.8 g/dL (12.0-18.0); LYMPH # 0.9 K/uL (1.0-4.3); LYMPH % 9.3 % (20.0-40.0); MEAN CELL VOLUME 94.2 fl (80.0-94.0); MEAN CORPUSCULAR HEMOGLOBIN 31.8 pg (27.0-31.0); MEAN CORPUSCULAR HGB CONC 33.7 g/dL (33.0-37.0); MEAN PLATELET VOLUME 9.3 fl (7.2-11.7); MONO # 1.1 K/uL (0.0-0.8); MONO % 11.5 % (0.0-10.0); NEUT # 7.7 K/uL (1.8-7.0); RBC 3.4 Mil/uL (4.40-5.90)
[2018-05-27 22:59] LABS: CALCIUM 8.4 mg/dL (8.4-10.2)
[2018-05-27 23:13] LABS: TROPONIN I 0.334 ng/mL (0.00-0.120)
[2018-05-28] MEDS: Oxycodone/Acetaminophen 5/325 mg Tab PO PRN ×2 (04:16→20:46)
[2018-05-28] MEDS: Nafcillin 2 GM in Sodium Chloride 0.9% 100 ML IVPB SCH ×4 (04:18→21:51)
[2018-05-28 05:37] LABS: BASO # 0.1 K/uL (0.0-0.2); BASO % 0.7 % (0.0-2.0); EOS % 0.4 % (0.0-4.0); HEMOGLOBIN 11.1 g/dL (12.0-18.0); LYMPH % 9.9 % (20.0-40.0); MEAN CELL VOLUME 94.6 fl (80.0-94.0); MEAN CORPUSCULAR HEMOGLOBIN 31.7 pg (27.0-31.0); MEAN CORPUSCULAR HGB CONC 33.5 g/dL (33.0-37.0); MEAN PLATELET VOLUME 9.6 fl (7.2-11.7); MONO % 10.5 % (0.0-10.0); NEUT # 7.6 K/uL (1.8-7.0); NEUT % 78.5 % (50.0-75.0); RBC 3.49 Mil/uL (4.40-5.90); RED CELL DISTRIBUTION WIDTH 14.8 % (11.5-14.5); WHITE BLOOD COUNT 9.7 K/uL (4.8-10.8)
[2018-05-28 05:54] LABS: ALB/GLOB RATIO 0.8 (1.0-2.1); CALCIUM 8.3 mg/dL (8.4-10.2)
[2018-05-28 06:00] LABS: TROPONIN I 0.565 ng/mL (0.00-0.120)
[2018-05-28] MEDS ORDERED: Heparin 25,000units in D5W 25,000 UNITS/250 ML BAG IV SCH ×2 (06:30→11:45)
[2018-05-28] MEDS: Insulin Lispro (humaLOG) 100 Units/ml Inj SC SCH ×4 (07:35→22:44)
--- NOTE | 2018-05-28 07:38 | CP.PCM.PN ---
Subjective - Date & Time of Evaluation Date of Evaluation: 05/28/18 Time of Evaluation: 07:38 - Subjective Subjective: Podiatry Progress Note for Dr. Rodriguez: 48 yo male patient, seen and evaluated, for b/l hyperkeratotic lesions and evaluation of R TMA site. Patient resting in bed, reporting fatigue and back pain. Per nursing and chart, POST ANESTHESIA NURSE called on patient for hypotension, reported NSTEMI overnight. Denies any new pedal complaints. Denies N/V/SOB. Objective - Vital Signs/Intake and Output Vital Signs (last 24 hours): Temp Pulse Resp BP Pulse Ox 98.9 F 79 18 103/49 L 95 05/28/18 04:41 05/28/18 04:41 05/28/18 04:41 05/28/18 04:41 05/28/18 04:41 Intake and Output: 05/28/18 05/28/18 06:59 18:59 Intake Total 1330 Balance 1330 - Medications Medications: Current Medications Acetaminophen (Tylenol 325mg Tab) 650 mg PO Q6 PRN PRN Reason: Fever >100.4 F Acetaminophen (Tylenol 325mg Tab) 650 mg PO Q6 PRN PRN Reason: Pain, Mild (1-3) Last Admin: 05/26/18 15:51 Dose: 650 mg Clopidogrel Bisulfate (Plavix) 75 mg PO DAILY [facility] Ergocalciferol (Drisdol 50,000 Intl Units Cap) 1 cap PO Q7D [facility] Last Admin: 05/27/18 17:50 Dose: 1 cap Heparin Sodium (Porcine) (Heparin) 5,000 units SC Q8 [facility]; Protocol Last Admin: 05/28/18 00:53 Dose: 5,000 units Heparin Sodium (Porcine) (Heparin) 4,000 units IVP ONCE ONE; Protocol Stop: 05/28/18 06:33 Hydralazine HCl (Apresoline) 25 mg PO Q12 [facility] Last Admin: 05/27/18 20:49 Dose: Not Given Vancomycin HCl 1 gm/ Sodium (Chloride) 250 mls @ 125 mls/hr IVPB TTS [facility]; Protocol Last Admin: 05/26/18 10:36 Dose: 125 mls/hr Nafcillin Sodium 2 gm/ Sodium (Chloride) 100 mls @ 100 mls/hr IVPB Q6 [facility]; Protocol Last Admin: 05/28/18 04:18 Dose: 100 mls/hr Sodium Chloride (Sodium Chloride 0.9%) 1,000 mls @ 999 mls/hr IV .Q1H1M [facility] Stop: 05/28/18 18:57 Sodium Chloride (Sodium Chloride 0.9%) 1,000 mls @ 500 mls/hr IV .Q2H [facility] Stop: 05/28/18 18:57 Last Admin: 05/27/18 19:34 Dose: 500 mls/hr Heparin Sodium/Dextrose (Heparin 25,000 Units/250ml In D5w) 25,000 units in 250 mls @ 10 mls/hr IV .Q24H [facility]; Protocol Insulin Human Lispro (Humalog) 0 units SC ACHS [facility]; Protocol Last Admin: 05/27/18 22:00 Dose: Not Given Lidocaine (Lidoderm) 1 ea TD DAILY [facility] Last Admin: 05/27/18 09:03 Dose: 1 ea Lisinopril (Zestril) 10 mg PO DAILY [facility] Last Admin: 05/27/18 09:05 Dose: Not Given Oxycodone/Acetaminophen (Percocet 5/325 Mg Tab) 1 tab PO Q4 PRN PRN Reason: Pain, moderate (4-7) Stop: 05/30/18 14:07 Oxycodone/Acetaminophen (Percocet 5/325 Mg Tab) 2 tab PO Q4 PRN PRN Reason: Pain, severe (8-10) Stop: 05/30/18 14:07 Last Admin: 05/28/18 04:16 Dose: 2 tab Sevelamer Carbonate (Renvela) 1.6 gm PO TIDWM [facility] Stop: 06/02/18 23:59 Last Admin: 05/27/18 17:47 Dose: 1.6 gm Vitamin B Complex/Vit C/Folic Acid (Nephro-Sanjay) 1 tab PO DAILY [facility] Last Admin: 05/27/18 17:49 Dose: 1 tab - Labs Labs: 05/28/18 05:25 05/28/18 05:25 PT 11.6 Seconds (9.8-13.1) 05/25/18 06:10 INR 1.0 05/25/18 06:10 APTT 35.4 Seconds (25.6-37.1) 05/25/18 06:10 - Constitutional Appears: Non-toxic - Head Exam Head Exam: ATRAUMATIC, NORMOCEPHALIC - Extremities Exam Additional comments: B/L Lower Extremity Exam Vasc: R/L DP 1/4 and PT 2/4, CFT < 3 seconds x 4 to the Left, TG increased temperature noted bilaterally, no pedal edema Ortho: No pain upon palpation, TMA to the right foot, and 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, no pain with ankle range of motion Neuro: diminished sensation bilaterally Derm: RLE- plantar hyperkeratotic lesion noted with surrounding erythema, no open wounds, no malodor, mild sanginous weeping, no clinical signs of infection, significant plantar and dorsal xerosis noted; LLE- Plantar hyperkeratotic lesion submet 1, no open wounds, no drainage, no clinical signs of infection - Neurological Exam Neurological Exam: Alert - Psychiatric Exam Psychiatric exam: Normal Affect, Normal Mood Assessment and Plan - Assessment and Plan (Free Text) Assessment: 48 yo male patient seen and evaluated for b/l hyperkeratotic lesions Plan: Patient was seen and evaluated at bedside Plan discussed with attending Dr. Rodriguez WBC 11.8 R TMA site dressed with DSD, skin hydrated Bilateral Foot X-rays: L foot- no OM, post op changes noted to left 4th digit and left 5th digits, no soft tissue emphysema noted; Right Foot- transmetatarsal amputation noted, no OM, degenerative changes seen throughout Patient is stable from podiatry standpoint, no surgical intervention at this time ID abx and reccs per Dr. Unger Will continue to follow patient while in house
[2018-05-28 07:54] LABS: INR 1.1
[2018-05-28] MEDS: Sevelamer Carb 0.8 gm/Packet PO SCH ×2 (08:40→15:35)
--- NOTE | 2018-05-28 10:24 | MRI ---
Date of service: 05/28/2018 PROCEDURE: MR LUMBAR SPINE WITHOUT CONTRAST HISTORY: r/o osteomyelitis COMPARISON: CT lumbar spine without contrast from 05/26/2018. TECHNIQUE: Multiecho multiplanar sequences were performed through the lumbar spine without the use of intravenous contrast. FINDINGS: There is straightening of the lumbar spine with loss of normal lumbar lordosis. Vertebral alignment is normal. Vertebral height is maintained. There is no acute fracture or spondylolysis. 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 At L5-S1, there are T1 hypo intense and T2/stir hyperintense marrow changes with associated Schmorl's nodes. There are degenerative marrow changes at L3-4 anteriorly. Bone marrow signal is heterogeneous however otherwise within normal limits. The disc heights are maintained. There is mild disc degeneration with loss of normal T2 signal at L3-4 and L5-S1. The conus medullaris terminates at a normal level and the nerve roots of cauda equina are normal. T12-L1: No disc herniation, spinal canal stenosis or neural foraminal narrowing. L1-2: No disc herniation, spinal canal stenosis or neural foraminal narrowing. L2-3: No disc herniation, spinal canal stenosis or neural foraminal narrowing. L3-4: Diffuse posterior disc bulge and mild ligamentum flavum infolding with mild spinal canal stenosis. Mild bilateral facet arthropathy contribute to mild neural foraminal narrowing. L4-5: Posterior disc bulge with superimposed right far lateral annular tear and disc protrusion in conjunction with mild ligamentum flavum infolding result in mild spinal canal stenosis. Mild bilateral facet arthropathy contribute to mild neural foraminal narrowing. L5-S1: Broad-based central disc protrusion indents the ventral thecal sac with resultant mild spinal canal stenosis. Mild bilateral facet arthropathy contribute to mild neural foraminal narrowing. OTHER FINDINGS: The paraspinous soft tissues are normal. There is bilateral renal cortical atrophy and incompletely imaged cortical cysts in both kidneys IMPRESSION: 1. Disc degeneration with endplate marrow changes an Schmorl's nodes at L5-S1 nonspecific but in the absence of paravertebral soft tissue or epidural soft tissue most compatible with advanced degenerative endplate marrow changes. Osteomyelitis cannot be entirely excluded, intravenous contrast could be helpful for further characterization. 2. Additional comments as described above.
--- NOTE | 2018-05-28 11:24 | CP.PCM.PN ---
Addendum entered and electronically signed by Dionisio Leon MD 05/28/18 19:05: Will d/c heparin drip d/c Percoset 2 tab Po for severe pain and change 1 tab Po q4 PRN Start Toradol PRN for moderate pain Addendum entered and electronically signed by Dionisio Leon MD 05/28/18 18:06: Patient seen and examined bedside .All chart and clinical data reviewed . Case discussed with resident . Agree with assessment and plan with clarifications below. 48 y/o male with multiple medical problems, PVD, s/p left metatarsal amputation , HTN , DM, ESRD on HD presented with generalized body aches and pains especially lower back and left thigh ,fever 102 and hypotensive. Patient admitted with diagnosis of: 1. Sepsis and Staph aureus bacteremia. His blood cx were reported as positive for Staph aureus so was started on Vanco and Genta IV and ID was consulted CT Lumbar spine came as suspicious for discitis and osteomyelitis . MRI lumbar spine today showed 1. Disc degeneration with endplate marrow changes an Schmorl's nodes at L5-S1 nonspecific but in the absence of paravertebral soft ti ssue or epidural soft tissue most compatible with advanced degenerative endplate marrow changes. Osteomyelitis cannot be entirely excluded, intravenous contrast could be helpful for further characterization. At present on nafcillin and Vanco post HD Echo ordered to rule out endocarditis and showed no vegetations. Cardiology Dr. Stinson consulted for JUANCARLOS 2. Elevated Troponin-- unclear if there is true NV.Patient has no chest pain and BP is in the lower side .Most likely Demand ischemia. Cardiology consulted . On ASA, plavix, statin , Heparin drip ECho showed normal EF 55-60% 3.ESRD on HD --continue HD as tolerated , ultrafiltration 4.AMS/ confusion - most likely secondary to narcoticss. Avoid over sedation . Will order CT head without contrast 5.Anemia of chronic disease - stable 6. Thrombocytopenia- chronic stable, no bleeding 7.DM -- insulin coverage , Accuchecks 8.PVD s/p left metatarsal amputation - podiatry on consult . As per podiatry , wound is not infected 9. Lower back pain - most likely secondary to chronic degenerative changes and possible discitis. Lidjesus oatch , pain management . Original Note: Subjective - Date & Time of Evaluation Date of Evaluation: 05/28/18 Time of Evaluation: 11:25 - Subjective Subjective: 48 y/o male with PMHx of ESRD on hemodialysis, DM, PVD admitted on 05/25/18 for fever, bacteremia. Patient seen today at bedside in [facility] at this time, but he had PILLOW FILLER called on him overnight due to hypotension, and was worked up with an EKG showing discrete acute changes and elevation of troponin from his baseline possibly due to an NSTEMI. Patient c/o lower back pain today 04/06 with no radiation, states that his back pain is same as yesterday, denies headache, chest pain , cough, SOB, abdominal pain, dysuria, N/V or chills. Objective - Vital Signs/Intake and Output Vital Signs (last 24 hours): Temp Pulse Resp BP Pulse Ox 97.9 F 80 20 97/56 L 98 05/28/18 08:27 05/28/18 08:27 05/28/18 08:27 05/28/18 08:27 05/28/18 08:27 Intake and Output: 05/28/18 05/28/18 06:59 18:59 Intake Total 1330 Balance 1330 - Medications Medications: Current Medications Acetaminophen (Tylenol 325mg Tab) 650 mg PO Q6 PRN PRN Reason: Fever >100.4 F Acetaminophen (Tylenol 325mg Tab) 650 mg PO Q6 PRN PRN Reason: Pain, Mild (1-3) Last Admin: 05/26/18 15:51 Dose: 650 mg Aspirin (Ecotrin) 81 mg PO DAILY [facility] Clopidogrel Bisulfate (Plavix) 75 mg PO DAILY [facility] Ergocalciferol (Drisdol 50,000 Intl Units Cap) 1 cap PO Q7D [facility] Last Admin: 05/27/18 17:50 Dose: 1 cap Hydralazine HCl (Apresoline) 25 mg PO Q12 [facility] Last Admin: 05/27/18 20:49 Dose: Not Given Vancomycin HCl 1 gm/ Sodium (Chloride) 250 mls @ 125 mls/hr IVPB TTS [facility]; Protocol Last Admin: 05/28/18 08:41 Dose: 125 mls/hr Nafcillin Sodium 2 gm/ Sodium (Chloride) 100 mls @ 100 mls/hr IVPB Q6 [facility]; Protocol Last Admin: 05/28/18 04:18 Dose: 100 mls/hr Sodium Chloride (Sodium Chloride 0.9%) 1,000 mls @ 999 mls/hr IV .Q1H1M [facility] Stop: 05/28/18 18:57 Sodium Chloride (Sodium Chloride 0.9%) 1,000 mls @ 500 mls/hr IV .Q2H [facility] Stop: 05/28/18 18:57 Last Admin: 05/27/18 19:34 Dose: 500 mls/hr Heparin Sodium/Dextrose (Heparin 25,000 Units/250ml In D5w) 25,000 units in 250 mls @ 10 mls/hr IV .Q24H [facility]; Protocol Insulin Human Lispro (Humalog) 0 units SC ACHS [facility]; Protocol Last Admin: 05/27/18 22:00 Dose: Not Given Lidocaine (Lidoderm) 1 ea TD DAILY [facility] Last Admin: 05/27/18 09:03 Dose: 1 ea Lisinopril (Zestril) 10 mg PO DAILY [facility] Last Admin: 05/27/18 09:05 Dose: Not Given Oxycodone/Acetaminophen (Percocet 5/325 Mg Tab) 1 tab PO Q4 PRN PRN Reason: Pain, moderate (4-7) Stop: 05/30/18 14:07 Oxycodone/Acetaminophen (Percocet 5/325 Mg Tab) 2 tab PO Q4 PRN PRN Reason: Pain, severe (8-10) Stop: 05/30/18 14:07 Last Admin: 05/28/18 04:16 Dose: 2 tab Sevelamer Carbonate (Renvela) 1.6 gm PO TIDWM [facility] Stop: 06/02/18 23:59 Last Admin: 05/28/18 08:40 Dose: 1.6 gm Vitamin B Complex/Vit C/Folic Acid (Nephro-Sanjay) 1 tab PO DAILY [facility] Last Admin: 05/27/18 17:49 Dose: 1 tab - Labs Labs: 05/28/18 05:25 05/28/18 05:25 PT 12.0 Seconds (9.8-13.1) 05/28/18 07:36 INR 1.1 05/28/18 07:36 APTT 40.0 Seconds (25.6-37.1) H 05/28/18 07:36 - Additional Findings Additional findings: - Constitutional Appears: Well, Non-toxic, No Acute Distress - Head Exam Head Exam: ATRAUMATIC, NORMOCEPHALIC - Eye Exam Eye Exam: Normal appearance - ENT Exam ENT Exam: Mucous Membranes Moist - Neck Exam Neck Exam: Full ROM. absent: Lymphadenopathy - Respiratory Exam Respiratory Exam: Clear to Ausculation Bilateral, NORMAL BREATHING PATTERN - Cardiovascular Exam Cardiovascular Exam: REGULAR RHYTHM, RRR, +S1, +S2, no chest tenderness - GI/Abdominal Exam GI & Abdominal Exam: Soft, Normal Bowel Sounds. No mass palpated. absent: Firm, Guarding, Rigid, Tenderness there is tenderness on palpation of right lower back, pain with ROM right SLR - Neurological Exam Neurological Exam: Alert, Awake, Oriented x3 - Psychiatric Exam Psychiatric exam: Normal Affect, Normal Mood - Skin Skin Exam: Normal Color Assessment and Plan - Assessment and Plan (Free Text) Assessment: 48 years old male with PMHx ESRD on hemodialysis, PVD, DM II with neuropathy, admitted to the hospital due to fever and bacteremia. Patient had SBP in the low 80s and complain of fatigue in the evening of 05/27, was treated with bolus IV NS, and worked up after an PILLOW FILLER was called on him, EKG done shows acute t changes in DIII, AVl and new incomplte RBBB and elevated troponins from his baseline now 0.334 first set, 0.565 second set of enzymes. Plan: NSTEMI - ASA 324 was given, continue aspirin 81 mg po QD - Plavix 75 mg PO QD - INR 1.1/aPTT 40 on 05/28/18 - Heparin IV ordered -Consult Dr Stinson, recommendations appreciated -Hold Metoprolol and hydralazine due to hypotension. Bacteremia likely secondary to AV fistula - Afebrile today, absent leukocytosis - Podiatry consult- As per podiatry, patient stable from podiatry standpoint - Blood cultures were sent for HD center and cultures were reported as positive for Staph aureus - Repeat Blood cultures- Staph Aureus - C/w Vancomycin on dialysis days as ordered, patient received STAT dose in ER upon arrival - C/w Nafcillin 2g IV Q6h - ID Consult- Dr. Unger, r/o infected AV fistula as a cause of bacteremia, r/o endocarditis, r/o diskitis, recommendation are appreciated. - ECHO- borderline to mild concentric left ventricular hypertrophy, EF 55-60%, left atrium severely dilated, trace mitral and tricuspid valve regugitation, no vegetations noted - US of Upper Extremity- unremarkable evaluation of right upper extremity arterial venous fistula ESRD on HD - Nephrology Consult- As per Dr. Koo, continue current meds, and continue Hemodialysis while patient is in-house - F/u Phos/Mg/Trupti D post HD DM II with hyperglycemia - Lispro Insulin sliding scale according to accucheck Anemia of chronic kidney disease - H/H Stable at this time - will continue to monitor Chronic Thrombocytopenia -Likely secondary to ESRD Urinary Retention - likely due to ESRD Low Back Pain - Lumbar Spine CT done on 05/26/18 suggest MRI of lumbar spine to r/o diskitis due to osteomylitis. - MRI 05/27/18 reports L5 S1 with endplate narrowing and soft tissue degenerative changes, possible osteomyelitis cannot be r/o and suggest IV contast MRI. - Lidoderm patch 5% applied to back Qd - Percocet PRN for pain. DVT prophylaxis - Patient on Heparin IV
[2018-05-28] MEDS: Multivitamin Vitamin B Complex (Nephro-Vite) Tab PO SCH (12:51)
[2018-05-28] MEDS: Lidocaine 5% Patch TD SCH (12:51)
--- NOTE | 2018-05-28 19:06 | CARD ---
APPROVED REPORT Date of service: 05/27/2018 EKG Measurement Heart [id number] <Conclusion> Normal sinus rhythm with sinus arrhythmia Left axis deviation Abnormal ECG
--- NOTE | 2018-05-28 19:48 | CP.PCM.PN ---
Subjective - Date & Time of Evaluation Date of Evaluation: 05/28/18 Time of Evaluation: 19:46 - Subjective Subjective: c/o generalized fatigue +ve TnI Objective - Vital Signs/Intake and Output Vital Signs (last 24 hours): Temp Pulse Resp BP Pulse Ox 98.4 F 78 16 98/58 L 97 05/28/18 15:49 05/28/18 15:49 05/28/18 15:49 05/28/18 15:49 05/28/18 15:49 - Medications Medications: Current Medications Acetaminophen (Tylenol 325mg Tab) 650 mg PO Q6 PRN PRN Reason: Fever >100.4 F Acetaminophen (Tylenol 325mg Tab) 650 mg PO Q6 PRN PRN Reason: Pain, Mild (1-3) Last Admin: 05/26/18 15:51 Dose: 650 mg Aspirin (Ecotrin) 81 mg PO DAILY [facility] Clopidogrel Bisulfate (Plavix) 75 mg PO DAILY [facility] Ergocalciferol (Drisdol 50,000 Intl Units Cap) 1 cap PO Q7D [facility] Last Admin: 05/27/18 17:50 Dose: 1 cap Hydralazine HCl (Apresoline) 25 mg PO Q12 [facility] Last Admin: 05/27/18 20:49 Dose: Not Given Vancomycin HCl 1 gm/ Sodium (Chloride) 250 mls @ 125 mls/hr IVPB TTS [facility]; Protocol Last Admin: 05/28/18 08:41 Dose: 125 mls/hr Nafcillin Sodium 2 gm/ Sodium (Chloride) 100 mls @ 100 mls/hr IVPB Q6 [facility]; Protocol Last Admin: 05/28/18 16:00 Dose: 100 mls/hr Insulin Human Lispro (Humalog) 0 units SC ACHS [facility]; Protocol Last Admin: 05/28/18 16:00 Dose: Not Given Ketorolac Tromethamine (Toradol) 30 mg IM Q6 PRN PRN Reason: Pain, moderate (4-7) Lidocaine (Lidoderm) 1 ea TD DAILY [facility] Last Admin: 05/28/18 12:51 Dose: 1 ea Lisinopril (Zestril) 10 mg PO DAILY [facility] Last Admin: 05/27/18 09:05 Dose: Not Given Oxycodone/Acetaminophen (Percocet 5/325 Mg Tab) 1 tab PO Q4 PRN PRN Reason: Pain, severe (8-10) Stop: 05/30/18 14:07 Sevelamer Carbonate (Renvela) 1.6 gm PO TIDWM [facility] Stop: 06/02/18 23:59 Last Admin: 05/28/18 15:35 Dose: Not Given Vitamin B Complex/Vit C/Folic Acid (Nephro-Sanjay) 1 tab PO DAILY [facility] Last Admin: 05/28/18 12:51 Dose: 1 tab - Labs Labs: 05/28/18 05:25 05/28/18 05:25 PT 12.0 Seconds (9.8-13.1) 05/28/18 07:36 INR 1.1 05/28/18 07:36 APTT 45.5 Seconds (25.6-37.1) H 05/28/18 17:55 - Constitutional Appears: Well - Head Exam Head Exam: ATRAUMATIC, NORMAL INSPECTION, NORMOCEPHALIC - Eye Exam Eye Exam: EOMI, Normal appearance, PERRL Pupil Exam: NORMAL ACCOMODATION, PERRL - ENT Exam ENT Exam: Mucous Membranes Moist, Normal Exam - Neck Exam Neck Exam: Full ROM, Normal Inspection. absent: Lymphadenopathy - Respiratory Exam Respiratory Exam: Clear to Ausculation Bilateral, NORMAL BREATHING PATTERN - Cardiovascular Exam Cardiovascular Exam: REGULAR RHYTHM, +S1, +S2. absent: Murmur - GI/Abdominal Exam GI & Abdominal Exam: Soft, Normal Bowel Sounds. absent: Tenderness - Extremities Exam Extremities Exam: Full ROM, Normal Capillary Refill, Normal Inspection. absent: Joint Swelling, Pedal Edema - Back Exam Back Exam: NORMAL INSPECTION - Neurological Exam Neurological Exam: Alert, Awake, CN II-XII Intact, Normal Gait, Oriented x3 - Psychiatric Exam Psychiatric exam: Normal Affect, Normal Mood - Skin Skin Exam: Dry, Intact, Normal Color, Warm Assessment and Plan (1) Elevated troponin I level Assessment & Plan: cont DAPT cont IV heparin bb plan for Cath on Friday at [facility] once patient has received ABx for 5 days Status: Acute (2) Endocarditis Assessment & Plan: JUANCARLOS friday at [facility] Status: Acute (3) Bacteremia Assessment & Plan: cont IV abx Status: Acute (4) Sepsis Status: Acute (5) End stage kidney disease Status: Chronic (6) Fever Status: Acute (7) Lower extremity pain Status: Acute
--- NOTE | 2018-05-28 20:45 | CP.PCM.PN ---
Subjective - Date & Time of Evaluation Date of Evaluation: 05/28/18 Time of Evaluation: 13:00 - Subjective Subjective: SEEN IN BED .. APPEARS DEPRESSED HD TO START SHORTLY ALL PREVIOUS EMR REVIEWED Objective - Vital Signs/Intake and Output Vital Signs (last 24 hours): Temp Pulse Resp BP Pulse Ox 99.6 F 69 16 100/60 97 05/28/18 20:19 05/28/18 20:19 05/28/18 20:19 05/28/18 20:19 05/28/18 20:19 - Medications Medications: Current Medications Acetaminophen (Tylenol 325mg Tab) 650 mg PO Q6 PRN PRN Reason: Fever >100.4 F Acetaminophen (Tylenol 325mg Tab) 650 mg PO Q6 PRN PRN Reason: Pain, Mild (1-3) Last Admin: 05/26/18 15:51 Dose: 650 mg Aspirin (Ecotrin) 81 mg PO DAILY [facility] Clopidogrel Bisulfate (Plavix) 75 mg PO DAILY [facility] Ergocalciferol (Drisdol 50,000 Intl Units Cap) 1 cap PO Q7D [facility] Last Admin: 05/27/18 17:50 Dose: 1 cap Hydralazine HCl (Apresoline) 25 mg PO Q12 [facility] M Last Admin: 05/27/18 20:49 Dose: Not Given Vancomycin HCl 1 gm/ Sodium (Chloride) 250 mls @ 125 mls/hr IVPB TTS [facility]; Protocol Last Admin: 05/28/18 08:41 Dose: 125 mls/hr Nafcillin Sodium 2 gm/ Sodium (Chloride) 100 mls @ 100 mls/hr IVPB Q6 [facility]; Protocol Last Admin: 05/28/18 16:00 Dose: 100 mls/hr Insulin Human Lispro (Humalog) 0 units SC ACHS [facility]; Protocol Last Admin: 05/28/18 16:00 Dose: Not Given Ketorolac Tromethamine (Toradol) 30 mg IM Q6 PRN PRN Reason: Pain, moderate (4-7) Lidocaine (Lidoderm) 1 ea TD DAILY [facility] Last Admin: 05/28/18 12:51 Dose: 1 ea Lisinopril (Zestril) 10 mg PO DAILY [facility] Last Admin: 05/27/18 09:05 Dose: Not Given Metoprolol Succinate (Toprol Xl) 25 mg PO DAILY [facility] Oxycodone/Acetaminophen (Percocet 5/325 Mg Tab) 1 tab PO Q4 PRN PRN Reason: Pain, severe (8-10) Stop: 05/30/18 14:07 Sevelamer Carbonate (Renvela) 1.6 gm PO TIDWM [facility] Stop: 06/02/18 23:59 Last Admin: 05/28/18 15:35 Dose: Not Given Vitamin B Complex/Vit C/Folic Acid (Nephro-Sanjay) 1 tab PO DAILY [facility] Last Admin: 05/28/18 12:51 Dose: 1 tab - Labs Labs: 05/28/18 05:25 05/28/18 05:25 PT 12.0 Seconds (9.8-13.1) 05/28/18 07:36 INR 1.1 05/28/18 07:36 APTT 45.5 Seconds (25.6-37.1) H 05/28/18 17:55 Assessment and Plan - Assessment and Plan (Free Text) Assessment: ESRD ON HD M W F AND SAT ANEMIA OF CKD .. H/H STABLE AN EPISODE OF HYPOTENSION .. NSTEMI .. ELEVATED TROPONIN SEPSIS .. POSITIVE BLOOD CULTURE P : HD TO START SHORTLY C/O IVAB FOR C CATH ON FRI HYDRALAZYN WAS D/C
[2018-05-29] MEDS: Nafcillin 2 GM in Sodium Chloride 0.9% 100 ML IVPB SCH ×4 (05:31→22:40)
[2018-05-29 05:57] LABS: CALCIUM 8.2 mg/dL (8.4-10.2)
[2018-05-29 06:01] LABS: HEMOGLOBIN 11.1 g/dL (12.0-18.0); MEAN CELL VOLUME 94.2 fl (80.0-94.0); MEAN CORPUSCULAR HEMOGLOBIN 31.8 pg (27.0-31.0); MEAN CORPUSCULAR HGB CONC 33.8 g/dL (33.0-37.0); RBC 3.49 Mil/uL (4.40-5.90); RED CELL DISTRIBUTION WIDTH 15.1 % (11.5-14.5); WHITE BLOOD COUNT 10.1 K/uL (4.8-10.8)
[2018-05-29] MEDS: Insulin Lispro (humaLOG) 100 Units/ml Inj SC SCH ×4 (07:03→22:39)
--- NOTE | 2018-05-29 09:09 | CP.PCM.PN ---
<Jada OrtezSveta - Last Filed: 05/29/18 11:18> Subjective - Date & Time of Evaluation Date of Evaluation: 05/29/18 Time of Evaluation: 08:55 - Subjective Subjective: 48 y/o male with PMHx of multiple medical problems including ESRD on hemodialysis, DM, PVD, HTN, admitted on 05/25/18 with generalized body aches specially lower back pain, fever and hypotension. Patient seen today at bedside in NAD, mildly lethargic, is cooperative with examination but noted slow and tired and slow answering questions and following commands, also HD nurse in room completing HD at this time. Patient continues with c/o lower back pain and today also c/o left leg pain, denies headache, chest pain or SOB at this time. Objective - Vital Signs/Intake and Output Vital Signs (last 24 hours): Temp Pulse Resp BP Pulse Ox 97.5 F L 83 18 129/67 96 05/29/18 08:02 05/29/18 08:02 05/29/18 08:02 05/29/18 08:02 05/29/18 08:02 - Medications Medications: Current Medications Acetaminophen (Tylenol 325mg Tab) 650 mg PO Q6 PRN PRN Reason: Fever >100.4 F Acetaminophen (Tylenol 325mg Tab) 650 mg PO Q6 PRN PRN Reason: Pain, Mild (1-3) Last Admin: 05/26/18 15:51 Dose: 650 mg Aspirin (Ecotrin) 81 mg PO DAILY [facility] Clopidogrel Bisulfate (Plavix) 75 mg PO DAILY [facility] Ergocalciferol (Drisdol 50,000 Intl Units Cap) 1 cap PO Q7D [facility] Last Admin: 05/27/18 17:50 Dose: 1 cap Hydralazine HCl (Apresoline) 25 mg PO Q12 [facility] Last Admin: 05/27/18 20:49 Dose: Not Given Vancomycin HCl 1 gm/ Sodium (Chloride) 250 mls @ 125 mls/hr IVPB TTS [facility]; Protocol Last Admin: 05/29/18 08:50 Dose: Not Given Nafcillin Sodium 2 gm/ Sodium (Chloride) 100 mls @ 100 mls/hr IVPB Q6 [facility]; Protocol Last Admin: 05/29/18 05:31 Dose: 100 mls/hr Insulin Human Lispro (Humalog) 0 units SC ACHS [facility]; Protocol Last Admin: 05/29/18 07:03 Dose: Not Given Ketorolac Tromethamine (Toradol) 30 mg IM Q6 PRN PRN Reason: Pain, moderate (4-7) Lidocaine (Lidoderm) 1 ea TD DAILY [facility] Last Admin: 05/28/18 12:51 Dose: 1 ea Lisinopril (Zestril) 10 mg PO DAILY [facility] Last Admin: 05/27/18 09:05 Dose: Not Given Metoprolol Succinate (Toprol Xl) 25 mg PO DAILY [facility] Oxycodone/Acetaminophen (Percocet 5/325 Mg Tab) 1 tab PO Q4 PRN PRN Reason: Pain, severe (8-10) Stop: 05/30/18 14:07 Last Admin: 05/28/18 20:46 Dose: 1 tab Sevelamer Carbonate (Renvela) 1.6 gm PO TIDWM [facility] Stop: 06/02/18 23:59 Last Admin: 05/28/18 15:35 Dose: Not Given Vitamin B Complex/Vit C/Folic Acid (Nephro-Sanjay) 1 tab PO DAILY [facility] Last Admin: 05/28/18 12:51 Dose: 1 tab - Labs Labs: 05/29/18 04:25 05/29/18 04:25 PT 12.0 Seconds (9.8-13.1) 05/28/18 07:36 INR 1.1 05/28/18 07:36 APTT 45.5 Seconds (25.6-37.1) H 05/29/18 04:25 - Constitutional Appears: No Acute Distress, Other (Appears tired and lethargic. ) - Head Exam Head Exam: ATRAUMATIC, NORMOCEPHALIC - Eye Exam Eye Exam: EOMI - ENT Exam ENT Exam: Mucous Membranes Moist - Respiratory Exam Respiratory Exam: Clear to Ausculation Bilateral. absent: Rales - Cardiovascular Exam Cardiovascular Exam: RRR, +S1, +S2 - GI/Abdominal Exam GI & Abdominal Exam: Soft, Normal Bowel Sounds. absent: Tenderness - Extremities Exam Additional comments: No Edema of LE. Tenderness to ROM of LLE. - Back Exam Back Exam: tenderness Additional comments: Diffuse tenderness to palpation of Lower back - Psychiatric Exam Psychiatric exam: Depressed, Flat Affect - Skin Skin Exam: Dry, Warm Assessment and Plan - Assessment and Plan (Free Text) Assessment: 48 y/o male with PMHx of multiple medical problems including ESRD on hemodialysis, DM2 with neuropathy, PVD, HTN, admitted on 05/25/18 with c/o generalized body aches specially lower back pain, fever and hypotension. Plan: 1. Sepsis and Staph aureus bacteremia - Afebrile today, absent leukocytosis -BC reported positive for Staph aureus -ID Consult with Dr. Unger, recommendation are appreciated. - C/w Vancomycin IV postdialysis on HD days - C/w Nafcillin 2g IV Q6h -ECHO- borderline to mild concentric left ventricular hypertrophy, EF 55-60%, left atrium severely dilated, trace mitral and tricuspid valve regugitation, no vegetations noted -Cardiology Dr. Stinson consulted for JUANCARLOS: JUANCARLOS pending for Friday 06/01 r/o endocarditis as per obiee consultant. 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 MRI lumbar spine today showed 1. Disc degeneration with endplate marrow changes an Schmorl's nodes at L5-S1 nonspecific but in the absence of paravertebral soft tissue or epidural soft tissue most compatible with advanced degenerative endplate marrow changes. Osteomyelitis cannot be entirely excluded, intravenous contrast could be helpful for further characterization. 2. Elevated Troponin I level -Most likely due to demand ischemia after acute episodes of hypotension vs NSTEMI: Patient denies chest pain. -ASA 324 was given, continue aspirin 81 mg po QD -Plavix 75 mg PO QD -c/w statin -c/w Heparin IV -Consult Dr Stinson, recommendations appreciated: Plan for cath on [place], as per Dr Stinson after 5 days Antbx therapy. -C/w Metoprolol Succ 25 PO QD, as per Cardio recommendation. -Lisinopril and hydralazine due to hypotension on hold. -ECho showed normal EF 55-60% 3. ESRD on HD - Nephrology Consult- As per Dr. Koo, continue current meds, and continue Hemodialysis while patient is in-house - F/u Phos/Mg/Trupti D post HD 4.AMS/ confusion -most likely secondary to narcoticss. -Avoid over sedation -Head CT reports no evidence of acute intracranial hemrrhage mass effect or midline shift. 5.Anemia of chronic kidney disease - H/H Stable at this time - will continue to monitor 6.Chronic Thrombocytopenia -Likely secondary to ESRD, Stable, no bleeding. -Plt count 89 today 05/29, trending up compare to previous days. 7. DM II with hyperglycemia - Lispro Insulin sliding scale according to accucheck 8.PVD s/p left metatarsal amputation -podiatry on consulted, as per podiatry no wound infection or ulcer is present. 9.Low Back Pain - Lumbar Spine CT done on 05/26/18 suggest MRI of lumbar spine to r/o diskitis due to osteomylitis. - MRI 05/27/18 reports L5 S1 with endplate narrowing and soft tissue degenerative changes, possible osteomyelitis cannot be r/o and suggest IV contast MRI. - Lidoderm patch 5% applied to back Qd -Pain management: Acetaminophen, Percocet PRN for pain. DVT prophylaxis - Patient on Heparin IV <Joanne Grant - Last Filed: 05/29/18 17:06> Objective - Vital Signs/Intake and Output Vital Signs (last 24 hours): Temp Pulse Resp BP Pulse Ox 102.5 F H 94 H 16 108/59 L 98 05/29/18 16:14 05/29/18 15:54 05/29/18 15:54 05/29/18 15:54 05/29/18 15:54 - Medications Medications: Current Medications Acetaminophen (Tylenol 325mg Tab) 650 mg PO Q6 PRN PRN Reason: Fever >100.4 F Last Admin: 05/29/18 16:14 Dose: 650 mg Acetaminophen (Tylenol 325mg Tab) 650 mg PO Q6 PRN PRN Reason: Fever >100.4 F Aspirin (Ecotrin) 81 mg PO DAILY [facility] Last Admin: 05/29/18 10:14 Dose: 81 mg Clopidogrel Bisulfate (Plavix) 75 mg PO DAILY [facility] Last Admin: 05/29/18 10:15 Dose: 75 mg Ergocalciferol (Drisdol 50,000 Intl Units Cap) 1 cap PO Q7D [facility] Last Admin: 05/27/18 17:50 Dose: 1 cap Hydralazine HCl (Apresoline) 25 mg PO Q12 [facility] Last Admin: 05/27/18 20:49 Dose: Not Given Vancomycin HCl 1 gm/ Sodium (Chloride) 250 mls @ 125 mls/hr IVPB TTS [facility]; Protocol Last Admin: 05/29/18 08:50 Dose: Not Given Nafcillin Sodium 2 gm/ Sodium (Chloride) 100 mls @ 100 mls/hr IVPB Q6 [facility]; Protocol Last Admin: 05/29/18 16:16 Dose: 100 mls/hr Heparin Sodium/Dextrose (Heparin 25,000 Units/250ml In D5w) 25,000 units in 250 mls @ 10 mls/hr IV .Q24H [facility]; Protocol Last Admin: 05/29/18 14:32 Dose: 10 mls/hr Insulin Human Lispro (Humalog) 0 units SC ACHS [facility]; Protocol Last Admin: 05/29/18 16:15 Dose: 1 units Ketorolac Tromethamine (Toradol) 30 mg IM Q6 PRN PRN Reason: Pain, moderate (4-7) Last Admin: 05/29/18 13:08 Dose: 30 mg Lidocaine (Lidoderm) 1 ea TD DAILY [facility] Last Admin: 05/29/18 10:19 Dose: 1 ea Lisinopril (Zestril) 10 mg PO DAILY [facility] Last Admin: 05/27/18 09:05 Dose: Not Given Metoprolol Succinate (Toprol Xl) 25 mg PO DAILY [facility] Last Admin: 05/29/18 11:43 Dose: Not Given Oxycodone/Acetaminophen (Percocet 5/325 Mg Tab) 1 tab PO Q4 PRN PRN Reason: Pain, severe (8-10) Stop: 05/30/18 14:07 Last Admin: 05/29/18 10:12 Dose: 1 tab Sevelamer Carbonate (Renvela) 1.6 gm PO TIDWM [facility] Stop: 06/02/18 23:59 Last Admin: 05/29/18 16:31 Dose: 1.6 gm Vitamin B Complex/Vit C/Folic Acid (Nephro-Sanjay) 1 tab PO DAILY [facility] Last Admin: 05/29/18 10:15 Dose: 1 tab - Labs Labs: 05/29/18 04:25 05/29/18 04:25 PT 12.0 Seconds (9.8-13.1) 05/28/18 07:36 INR 1.1 05/28/18 07:36 APTT 45.5 Seconds (25.6-37.1) H 05/29/18 04:25 Attending/Attestation - Attestation I have personally seen and examined this patient.: Yes I have fully participated in the care of the patient.: Yes I have reviewed all pertinent clinical information, including history, physical exam and plan: Yes
[2018-05-29] MEDS: Oxycodone/Acetaminophen 5/325 mg Tab PO PRN (10:12)
[2018-05-29] MEDS: Sevelamer Carb 0.8 gm/Packet PO SCH ×4 (10:15→16:31)
[2018-05-29] MEDS: Multivitamin Vitamin B Complex (Nephro-Vite) Tab PO SCH (10:15)
[2018-05-29] MEDS: Lidocaine 5% Patch TD SCH (10:19)
--- NOTE | 2018-05-29 10:45 | CT ---
Date of service: 05/28/2018 PROCEDURE: CT HEAD WITHOUT CONTRAST. HISTORY: AMS COMPARISON: Comparison is made to the previous study dated 01/22/2017 TECHNIQUE: Axial computed tomography images were obtained through the head/brain without intravenous contrast. Radiation dose: Total exam DLP = 887.6 mGy-cm. This CT exam was performed using one or more of the following dose reduction techniques: Automated exposure control, adjustment of the mA and/or kV according to patient size, and/or use of iterative reconstruction technique. FINDINGS: HEMORRHAGE: No intracranial hemorrhage. BRAIN: No mass effect or edema. No atrophy or chronic microvascular ischemic changes. VENTRICLES: Unremarkable. No hydrocephalus. CALVARIUM: Unremarkable. PARANASAL SINUSES: Mild ethmoidal mucosal thickening is again noted MASTOID AIR CELLS: Unremarkable as visualized. No inflammatory changes. OTHER FINDINGS: Again noted is subcutaneous low-attenuation lesion in the left occipital and upper neck region measures 2.3 centimeter in the transverse diameter likely represent sebaceous cyst. Again noted is subcutaneous density in the midline occipital region. IMPRESSION: No evidence of acute intracranial hemorrhage mass effect or midline shift. Additional findings as described above. Preliminary report with concordant findings was submitted to the referring physician.
[2018-05-29] MEDS: Metoprolol Succinate 25 mg XL Tab PO SCH (11:43)
--- NOTE | 2018-05-29 14:01 | CP.PCM.PN ---
Subjective - Date & Time of Evaluation Date of Evaluation: 05/29/18 Time of Evaluation: 09:00 - Subjective Subjective: EVENTS NOTED DR EPSTEIN ON BOARD C/O PAIN NAD Objective - Vital Signs/Intake and Output Vital Signs (last 24 hours): Temp Pulse Resp BP Pulse Ox 98.1 F 90 18 121/61 95 05/29/18 11:54 05/29/18 11:54 05/29/18 11:54 05/29/18 11:54 05/29/18 11:54 - Medications Medications: Current Medications Acetaminophen (Tylenol 325mg Tab) 650 mg PO Q6 PRN PRN Reason: Fever >100.4 F Acetaminophen (Tylenol 325mg Tab) 650 mg PO Q6 PRN PRN Reason: Pain, Mild (1-3) Last Admin: 05/26/18 15:51 Dose: 650 mg Aspirin (Ecotrin) 81 mg PO DAILY [facility] Last Admin: 05/29/18 10:14 Dose: 81 mg Clopidogrel Bisulfate (Plavix) 75 mg PO DAILY [facility] Last Admin: 05/29/18 10:15 Dose: 75 mg Ergocalciferol (Drisdol 50,000 Intl Units Cap) 1 cap PO Q7D [facility] Last Admin: 05/27/18 17:50 Dose: 1 cap Hydralazine HCl (Apresoline) 25 mg PO Q12 [facility] Last Admin: 05/27/18 20:49 Dose: Not Given Vancomycin HCl 1 gm/ Sodium (Chloride) 250 mls @ 125 mls/hr IVPB TTS [facility]; Protocol Last Admin: 05/29/18 08:50 Dose: Not Given Nafcillin Sodium 2 gm/ Sodium (Chloride) 100 mls @ 100 mls/hr IVPB Q6 [facility]; Protocol Last Admin: 05/29/18 10:18 Dose: 100 mls/hr Heparin Sodium/Dextrose (Heparin 25,000 Units/250ml In D5w) 25,000 units in 250 mls @ 10 mls/hr IV .Q24H [facility]; Protocol Insulin Human Lispro (Humalog) 0 units SC ACHS [facility]; Protocol Last Admin: 05/29/18 07:03 Dose: Not Given Ketorolac Tromethamine (Toradol) 30 mg IM Q6 PRN PRN Reason: Pain, moderate (4-7) Last Admin: 05/29/18 13:08 Dose: 30 mg Lidocaine (Lidoderm) 1 ea TD DAILY [facility] Last Admin: 05/29/18 10:19 Dose: 1 ea Lisinopril (Zestril) 10 mg PO DAILY [facility] Last Admin: 05/27/18 09:05 Dose: Not Given Metoprolol Succinate (Toprol Xl) 25 mg PO DAILY [facility] Last Admin: 05/29/18 11:43 Dose: Not Given Oxycodone/Acetaminophen (Percocet 5/325 Mg Tab) 1 tab PO Q4 PRN PRN Reason: Pain, severe (8-10) Stop: 05/30/18 14:07 Last Admin: 05/29/18 10:12 Dose: 1 tab Sevelamer Carbonate (Renvela) 1.6 gm PO TIDWM [facility] Stop: 06/02/18 23:59 Last Admin: 05/29/18 10:15 Dose: 1.6 gm Vitamin B Complex/Vit C/Folic Acid (Nephro-Sanjay) 1 tab PO DAILY [facility] Last Admin: 05/29/18 10:15 Dose: 1 tab - Labs Labs: 05/29/18 04:25 05/29/18 04:25 PT 12.0 Seconds (9.8-13.1) 05/28/18 07:36 INR 1.1 05/28/18 07:36 APTT 45.5 Seconds (25.6-37.1) H 05/29/18 04:25 - Constitutional Appears: Non-toxic, Chronically Ill - Head Exam Head Exam: NORMOCEPHALIC - Eye Exam Eye Exam: PERRL - ENT Exam ENT Exam: Mucous Membranes Dry - Neck Exam Neck Exam: absent: Lymphadenopathy - Respiratory Exam Respiratory Exam: Decreased Breath Sounds - Cardiovascular Exam Cardiovascular Exam: REGULAR RHYTHM - GI/Abdominal Exam GI & Abdominal Exam: Distended, Soft Assessment and Plan - Assessment and Plan (Free Text) Assessment: CONT IV RX ORDERED
[2018-05-29] MEDS: Heparin 25,000units in D5W 25,000 UNITS/250 ML BAG IV SCH (14:32)
[2018-05-29 16:49] LABS: HEPATITIS B SURFACE AG Negative (NEGATIVE)
[2018-05-29 16:54] LABS: HEPATITIS B CORE AB NEGATIVE (NEGATIVE)
[2018-05-29 17:06] LABS: HEPATITIS C ANTIBODY NEGATIVE (NEGATIVE)
--- NOTE | 2018-05-29 21:16 | CP.PCM.PN ---
Subjective - Date & Time of Evaluation Date of Evaluation: 05/29/18 Time of Evaluation: 16:00 - Subjective Subjective: SEEN ON RENAL F/U RECIEVED HIS HD TODAY .. TOLERATED WELL ALL PREVIOUS EMR REVIEWED Objective - Vital Signs/Intake and Output Vital Signs (last 24 hours): Temp Pulse Resp BP Pulse Ox 99.8 F H 106 H 17 97/62 L 97 05/29/18 19:50 05/29/18 19:50 05/29/18 19:50 05/29/18 19:50 05/29/18 19:50 - Medications Medications: Current Medications Acetaminophen (Tylenol 325mg Tab) 650 mg PO Q6 PRN PRN Reason: Fever >100.4 F Last Admin: 05/29/18 16:14 Dose: 650 mg Acetaminophen (Tylenol 325mg Tab) 650 mg PO Q6 PRN PRN Reason: Fever >100.4 F Aspirin (Ecotrin) 81 mg PO DAILY [facility] Last Admin: 05/29/18 10:14 Dose: 81 mg Clopidogrel Bisulfate (Plavix) 75 mg PO DAILY [facility] Last Admin: 05/29/18 10:15 Dose: 75 mg Ergocalciferol (Drisdol 50,000 Intl Units Cap) 1 cap PO Q7D [facility] Last Admin: 05/27/18 17:50 Dose: 1 cap Vancomycin HCl 1 gm/ Sodium (Chloride) 250 mls @ 125 mls/hr IVPB TTS [facility]; Protocol Last Admin: 05/29/18 08:50 Dose: Not Given Nafcillin Sodium 2 gm/ Sodium (Chloride) 100 mls @ 100 mls/hr IVPB Q6 [facility]; Protocol Last Admin: 05/29/18 16:16 Dose: 100 mls/hr Heparin Sodium/Dextrose (Heparin 25,000 Units/250ml In D5w) 25,000 units in 250 mls @ 10 mls/hr IV .Q24H [facility]; Protocol Last Admin: 05/29/18 14:32 Dose: 10 mls/hr Insulin Human Lispro (Humalog) 0 units SC ACHS [facility]; Protocol Last Admin: 05/29/18 16:15 Dose: 1 units Ketorolac Tromethamine (Toradol) 30 mg IM Q6 PRN PRN Reason: Pain, moderate (4-7) Last Admin: 05/29/18 13:08 Dose: 30 mg Lidocaine (Lidoderm) 1 ea TD DAILY [facility] Last Admin: 05/29/18 10:19 Dose: 1 ea Metoprolol Succinate (Toprol Xl) 25 mg PO DAILY [facility] Last Admin: 05/29/18 11:43 Dose: Not Given Oxycodone/Acetaminophen (Percocet 5/325 Mg Tab) 1 tab PO Q4 PRN PRN Reason: Pain, severe (8-10) Stop: 05/30/18 14:07 Last Admin: 05/29/18 10:12 Dose: 1 tab Sevelamer Carbonate (Renvela) 1.6 gm PO TIDWM [facility] Stop: 06/02/18 23:59 Last Admin: 05/29/18 16:31 Dose: 1.6 gm Vitamin B Complex/Vit C/Folic Acid (Nephro-Sanjay) 1 tab PO DAILY [facility] Last Admin: 05/29/18 10:15 Dose: 1 tab - Labs Labs: 05/29/18 04:25 05/29/18 04:25 PT 12.0 Seconds (9.8-13.1) 05/28/18 07:36 INR 1.1 05/28/18 07:36 APTT 50.1 Seconds (25.6-37.1) H 05/29/18 20:30 Assessment and Plan - Assessment and Plan (Free Text) Assessment: 48 y/o male with PMHx of multiple medical problems including ESRD on hemodialysis, DM2 with neuropathy, PVD, HTN, admitted on 05/25/18 with c/o generalized body aches specially lower back pain, fever and hypotension. Plan: 1. Sepsis and Staph aureus bacteremia - Afebrile today, absent leukocytosis -BC reported positive for Staph aureus -ID Consult with Dr. Unger, recommendation are appreciated. - C/w Vancomycin IV postdialysis on HD days - C/w Nafcillin 2g IV Q6h -ECHO- borderline to mild concentric left ventricular hypertrophy, EF 55-60%, left atrium severely dilated, trace mitral and tricuspid valve regugitation, no vegetations noted -Cardiology Dr. Stinson consulted for JUANCARLOS: JUANCARLOS pending for Friday 06/01 r/o endocarditis as per senior business consultant. 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 MRI lumbar spine today showed 1. Disc degeneration with endplate marrow changes an Schmorl's nodes at L5-S1 nonspecific but in the absence of paravertebral soft tissue or epidural soft tissue most compatible with advanced degenerative endplate marrow changes. Osteomyelitis cannot be entirely excluded, intravenous contrast could be helpful for further characterization. 2. Elevated Troponin I level -Most likely due to demand ischemia after acute episodes of hypotension vs NSTEMI: Patient denies chest pain. -ASA 324 was given, continue aspirin 81 mg po QD -Plavix 75 mg PO QD -c/w statin -c/w Heparin IV -Consult Dr Stinson, recommendations appreciated: Plan for cath on , as per Dr Stinson after 5 days Antbx therapy. -C/w Metoprolol Succ 25 PO QD, as per Cardio recommendation. -Lisinopril and hydralazine due to hypotension on hold. -ECho showed normal EF 55-60% 3. ESRD on HD - AD ON AND TOMORROW SAT .. continue current meds - F/u Phos/Mg/Trupti D post HD 4.AMS/ confusion -most likely secondary to narcoticss. -Avoid over sedation -Head CT reports no evidence of acute intracranial hemrrhage mass effect or midline shift. 5.Anemia of chronic kidney disease - H/H Stable at this time - will continue to monitor 6.Chronic Thrombocytopenia -Likely secondary to ESRD, Stable, no bleeding. -Plt count 89 today 05/29, trending up compare to previous days. 7. DM II with hyperglycemia - Lispro Insulin sliding scale according to accucheck 8.PVD s/p left metatarsal amputation -podiatry on consulted, as per podiatry no wound infection or ulcer is present. 9.Low Back Pain - Lumbar Spine CT done on 05/26/18 suggest MRI of lumbar spine to r/o diskitis due to osteomylitis. - MRI 05/27/18 reports L5 S1 with endplate narrowing and soft tissue degenerative changes, possible osteomyelitis cannot be r/o and suggest IV contast MRI. - Lidoderm patch 5% applied to back Qd -Pain management: Acetaminophen, Percocet PRN for pain.
--- NOTE | 2018-05-29 23:42 | CP.PCM.PN ---
Subjective - Date & Time of Evaluation Date of Evaluation: 05/29/18 Time of Evaluation: 09:00 - Subjective Subjective: Receiving HD on Abx for staph bactermia +ve TnI on IV heparin Objective - Vital Signs/Intake and Output Vital Signs (last 24 hours): Temp Pulse Resp BP Pulse Ox 99.8 F H 106 H 17 97/62 L 97 05/29/18 19:50 05/29/18 19:50 05/29/18 19:50 05/29/18 19:50 05/29/18 19:50 - Medications Medications: Current Medications Acetaminophen (Tylenol 325mg Tab) 650 mg PO Q6 PRN PRN Reason: Fever >100.4 F Last Admin: 05/29/18 16:14 Dose: 650 mg Acetaminophen (Tylenol 325mg Tab) 650 mg PO Q6 PRN PRN Reason: Fever >100.4 F Aspirin (Ecotrin) 81 mg PO DAILY [facility] Last Admin: 05/29/18 10:14 Dose: 81 mg Clopidogrel Bisulfate (Plavix) 75 mg PO DAILY [facility] Last Admin: 05/29/18 10:15 Dose: 75 mg Ergocalciferol (Drisdol 50,000 Intl Units Cap) 1 cap PO Q7D [facility] Last Admin: 05/27/18 17:50 Dose: 1 cap Vancomycin HCl 1 gm/ Sodium (Chloride) 250 mls @ 125 mls/hr IVPB TTS [facility]; Protocol Last Admin: 05/29/18 08:50 Dose: Not Given Nafcillin Sodium 2 gm/ Sodium (Chloride) 100 mls @ 100 mls/hr IVPB Q6 [facility]; Prot ocol Last Admin: 05/29/18 22:40 Dose: 100 mls/hr Heparin Sodium/Dextrose (Heparin 25,000 Units/250ml In D5w) 25,000 units in 250 mls @ 10 mls/hr IV .Q24H [facility]; Protocol Last Admin: 05/29/18 14:32 Dose: 10 mls/hr Insulin Human Lispro (Humalog) 0 units SC ACHS [facility]; Protocol Last Admin: 05/29/18 22:39 Dose: Not Given Ketorolac Tromethamine (Toradol) 30 mg IM Q6 PRN PRN Reason: Pain, moderate (4-7) Last Admin: 05/29/18 13:08 Dose: 30 mg Lidocaine (Lidoderm) 1 ea TD DAILY [facility] Last Admin: 05/29/18 10:19 Dose: 1 ea Metoprolol Succinate (Toprol Xl) 25 mg PO DAILY [facility] Last Admin: 05/29/18 11:43 Dose: Not Given Oxycodone/Acetaminophen (Percocet 5/325 Mg Tab) 1 tab PO Q4 PRN PRN Reason: Pain, severe (8-10) Stop: 05/30/18 14:07 Last Admin: 05/29/18 10:12 Dose: 1 tab Sevelamer Carbonate (Renvela) 1.6 gm PO TIDWM [facility] Stop: 06/02/18 23:59 Last Admin: 05/29/18 16:31 Dose: 1.6 gm Vitamin B Complex/Vit C/Folic Acid (Nephro-Sanjay) 1 tab PO DAILY [facility] Last Admin: 05/29/18 10:15 Dose: 1 tab - Labs Labs: 05/29/18 04:25 05/29/18 04:25 PT 12.0 Seconds (9.8-13.1) 05/28/18 07:36 INR 1.1 05/28/18 07:36 APTT 50.1 Seconds (25.6-37.1) H 05/29/18 20:30 - Constitutional Appears: Well - Head Exam Head Exam: ATRAUMATIC, NORMAL INSPECTION, NORMOCEPHALIC - Eye Exam Eye Exam: EOMI, Normal appearance, PERRL Pupil Exam: NORMAL ACCOMODATION, PERRL - ENT Exam ENT Exam: Mucous Membranes Moist, Normal Exam - Neck Exam Neck Exam: Full ROM, Normal Inspection. absent: Lymphadenopathy - Respiratory Exam Respiratory Exam: Clear to Ausculation Bilateral, NORMAL BREATHING PATTERN - Cardiovascular Exam Cardiovascular Exam: REGULAR RHYTHM, +S1, +S2. absent: Murmur - GI/Abdominal Exam GI & Abdominal Exam: Soft, Normal Bowel Sounds. absent: Tenderness - Extremities Exam Extremities Exam: Full ROM, Normal Capillary Refill, Normal Inspection. absent: Joint Swelling, Pedal Edema - Back Exam Back Exam: NORMAL INSPECTION - Neurological Exam Neurological Exam: Alert, Awake, CN II-XII Intact, Normal Gait, Oriented x3 - Psychiatric Exam Psychiatric exam: Normal Affect, Normal Mood - Skin Skin Exam: Dry, Intact, Normal Color, Warm Assessment and Plan (1) Elevated troponin I level Assessment & Plan: cont IV heparin cont dapt cont bb plan for cath on friday at [facility] Status: Acute (2) Endocarditis Assessment & Plan: JUANCARLOS friday cont Abx repeat BCx Status: Acute (3) Bacteremia Status: Acute (4) Sepsis Status: Acute (5) End stage kidney disease Status: Chronic (6) Fever Status: Acute (7) Lower extremity pain Status: Acute
[2018-05-30] MEDS ORDERED: Sodium Chloride 0.9% 500 ML IV ONE (04:15)
[2018-05-30] MEDS: Nafcillin 2 GM in Sodium Chloride 0.9% 100 ML IVPB SCH ×4 (04:42→21:23)
[2018-05-30 07:00] LABS: BASO # 0.1 K/uL (0.0-0.2); BASO % 0.6 % (0.0-2.0); EOS % 0.3 % (0.0-4.0); HEMOGLOBIN 10.7 g/dL (12.0-18.0); LYMPH # 0.7 K/uL (1.0-4.3); LYMPH % 7.9 % (20.0-40.0); MEAN CELL VOLUME 94.4 fl (80.0-94.0); MEAN CORPUSCULAR HEMOGLOBIN 32.2 pg (27.0-31.0); MEAN CORPUSCULAR HGB CONC 34.1 g/dL (33.0-37.0); MEAN PLATELET VOLUME 9.4 fl (7.2-11.7); MONO # 0.9 K/uL (0.0-0.8); MONO % 9.4 % (0.0-10.0); NEUT # 7.8 K/uL (1.8-7.0); NEUT % 81.8 % (50.0-75.0); PLATELET COUNT 92 K/uL (130-400); RBC 3.31 Mil/uL (4.40-5.90); RED CELL DISTRIBUTION WIDTH 15.2 % (11.5-14.5); WHITE BLOOD COUNT 9.5 K/uL (4.8-10.8)
[2018-05-30 07:30] LABS: CALCIUM 7.4 mg/dL (8.4-10.2)
[2018-05-30] MEDS: Sevelamer Carb 0.8 gm/Packet PO SCH ×3 (08:27→17:08)
[2018-05-30] MEDS: Multivitamin Vitamin B Complex (Nephro-Vite) Tab PO SCH (08:27)
[2018-05-30] MEDS: Lidocaine 5% Patch TD SCH (08:28)
[2018-05-30] MEDS: Insulin Lispro (humaLOG) 100 Units/ml Inj SC SCH ×4 (08:29→21:24)
[2018-05-30] MEDS: Metoprolol Succinate 25 mg XL Tab PO SCH (08:30)
[2018-05-30] MEDS ORDERED: Albumin Human 25% (12.5 gm/50 ml) IV ONE (08:42)
--- NOTE | 2018-05-30 09:33 | CP.PCM.PN ---
<Luma Santana - Last Filed: 05/30/18 10:15> Subjective - Date & Time of Evaluation Date of Evaluation: 05/30/18 Time of Evaluation: 09:10 - Subjective Subjective: Pt seen this morning at bedside, was sitting up in bed and eating breakfast, reports normal appetite. He was in no acute distress, but had complaint of lower back pain. Was found to have low BP this morning, so metoprolol dose held. Objective - Vital Signs/Intake and Output Vital Signs (last 24 hours): Temp Pulse Resp BP Pulse Ox 98.7 F 57 L 20 81/56 L 95 05/30/18 08:28 05/30/18 08:28 05/30/18 08:28 05/30/18 08:30 05/30/18 08:28 - Medications Medications: Current Medications Acetaminophen (Tylenol 325mg Tab) 650 mg PO Q6 PRN PRN Reason: Fever >100.4 F Last Admin: 05/30/18 01:25 Dose: 650 mg Acetaminophen (Tylenol 325mg Tab) 650 mg PO Q6 PRN PRN Reason: Fever >100.4 F Aspirin (Ecotrin) 81 mg PO DAILY [facility] Last Admin: 05/30/18 08:27 Dose: 81 mg Clopidogrel Bisulfate (Plavix) 75 mg PO DAILY [facility] Last Admin: 05/30/18 08:27 Dose: 75 mg Ergocalciferol (Drisdol 50,000 Intl Units Cap) 1 cap PO Q7D [facility] Last Admin: 05/27/18 17:50 Dose: 1 cap Vancomycin HCl 1 gm/ Sodium (Chloride) 250 mls @ 125 mls/hr IVPB TTS [facility]; Protocol Last Admin: 05/30/18 08:56 Dose: 125 mls/hr Nafcillin Sodium 2 gm/ Sodium (Chloride) 100 mls @ 100 mls/hr IVPB Q6 [facility]; Protocol Last Admin: 05/30/18 04:42 Dose: 100 mls/hr Heparin Sodium/Dextrose (Heparin 25,000 Units/250ml In D5w) 25,000 units in 250 mls @ 10 mls/hr IV .Q24H [facility]; Protocol Last Admin: 05/29/18 14:32 Dose: 10 mls/hr Sodium Chloride (Sodium Chloride 0.9%) 250 mls @ 999 mls/hr IV .Q16M [facility] Stop: 05/31/18 08:41 Insulin Human Lispro (Humalog) 0 units SC ACHS [facility]; Protocol Last Admin: 05/30/18 08:29 Dose: 1 units Ketorolac Tromethamine (Toradol) 30 mg IM Q6 PRN PRN Reason: Pain, moderate (4-7) Last Admin: 05/29/18 13:08 Dose: 30 mg Lidocaine (Lidoderm) 1 ea TD DAILY [facility] Last Admin: 05/30/18 08:28 Dose: 1 ea Metoprolol Succinate (Toprol Xl) 25 mg PO DAILY [facility] Last Admin: 05/30/18 08:30 Dose: Not Given Oxycodone/Acetaminophen (Percocet 5/325 Mg Tab) 1 tab PO Q4 PRN PRN Reason: Pain, severe (8-10) Stop: 05/30/18 14:07 Last Admin: 05/29/18 10:12 Dose: 1 tab Sevelamer Carbonate (Renvela) 1.6 gm PO TIDWM [facility] Stop: 06/02/18 23:59 Last Admin: 05/30/18 08:27 Dose: 1.6 gm Vitamin B Complex/Vit C/Folic Acid (Nephro-Sanjay) 1 tab PO DAILY [facility] Last Admin: 05/30/18 08:27 Dose: 1 tab - Labs Labs: 05/30/18 05:29 05/30/18 05:29 PT 12.0 Seconds (9.8-13.1) 05/28/18 07:36 INR 1.1 05/28/18 07:36 APTT 50.1 Seconds (25.6-37.1) H 05/29/18 20:30 - Constitutional Appears: No Acute Distress - Head Exam Head Exam: NORMAL INSPECTION - Respiratory Exam Respiratory Exam: Clear to Ausculation Bilateral, NORMAL BREATHING PATTERN. absent: Respiratory Distress - Cardiovascular Exam Cardiovascular Exam: REGULAR RHYTHM, +S1, +S2 - GI/Abdominal Exam GI & Abdominal Exam: Soft. absent: Tenderness - Extremities Exam Extremities Exam: absent: Calf Tenderness Additional comments: feet with dressings bilaterally - Neurological Exam Neurological Exam: Alert, Oriented x3 Assessment and Plan - Assessment and Plan (Free Text) Assessment: 48 y/o male with PMH of multiple medical problems including ESRD on hemodialysis, DM2 with neuropathy, PVD, HTN, admitted on 05/25/18 with c/o generalized body aches specially lower back pain, fever and hypotension. Found to be septic with positive blood cultures for S. aureus. CT lumbar spine suspicious for discitis and osteomyelitis. MRI lumbar spine showed disc degeneration with endplate marrow changes; osteomyelitis could not be excluded; pt cannot receive MRI w/ contrast because of ESRD. Today had low BP, fluid bolus ordered, albumin ordered, and no antihypertensive medications given. Plan: 1. Sepsis and S. aureus bacteremia - Fever spike yesterday afternoon to 102.5; REPEAT cultures taken yesterday - Absent leukocytosis - Prior blood culture reported positive for Staph aureus - ID Consult with Dr. Unger, recommendation are appreciated - C/w Vancomycin IV postdialysis on HD days - C/w Nafcillin 2g IV Q6h - ECHO- borderline to mild concentric left ventricular hypertrophy, EF 55-60%, left atrium severely dilated, trace mitral and tricuspid valve regugitation, no vegetations noted - Cardiology Dr. 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 MRI lumbar spine today showed disc degeneration with endplate marrow changes an Schmorl's nodes at L5-S1 nonspecific but in the absence of paravertebral soft tissue or epidural soft tissue most compatible with advanced degenerative endplate marrow changes. Osteomyelitis cannot be entirely excluded, intravenous contrast could be helpful for further characterization; however patient cannot get MRI with contrast due to ESRD 2. Low Back Pain, likely due to discitis, possible osteomyelitis - Lumbar Spine CT done on 05/26/18 suggest MRI of lumbar spine to r/o diskitis due to osteomylitis. - MRI 05/27/18 reports L5 S1 with endplate narrowing and soft tissue degenerative changes, possible osteomyelitis cannot be r/o and suggest IV contrast MRI, but contrast MRI cannot be done due to ESRD - Lidoderm patch 5% applied to back QQ - Pain management: Acetaminophen, Percocet 3. Elevated Troponin I level -Most likely due to demand ischemia after acute episodes of hypotension vs NSTEMI: patient denies chest pain. -ASA 324 was given, continue aspirin 81 mg po QD -Plavix 75 mg PO QD -C/w Statin -C/w Heparin IV -Consult Dr Stinson, recommendations appreciated: Plan for cath on Friday 06/01, as per Dr Stinson after 5 days of antibiotic therapy. -C/w Metoprolol Succ 25 PO QD, as per Cardio recommendation. -Lisinopril and hydralazine, metoprolol held due to hypotension -Echo showed normal EF 55-60% 4. Hypotension - BP meds on hold - Fluid bolus - Albumin - Continue to monitor 5. ESRD on HD - Nephrology Consult- As per Dr. Koo, continue current meds, and continue hemodialysis while patient is in-house - Phos/Mg/Trupti D post HD 6.AMS/ confusion -most likely secondary to narcotics -Avoid over sedation -Head CT reports no evidence of acute intercranial hemorrhage mass effect or midline shift 7.Anemia of chronic kidney disease - H/H Stable at this time - will continue to monitor 8.Chronic Thrombocytopenia -Likely secondary to ESRD, stable, no bleeding. -Plt count 92 today 05/30, trending up compared to previous days 9. DM II with hyperglycemia - Accuchecks - Insulin coverage scale and hypoglycemia protocol 10.PVD s/p left metatarsal amputation -Podiatry consult, as per podiatry no wound infection or ulcer is present 11. DVT prophylaxis - Heparin IV <Joanne Grant - Last Filed: 05/30/18 15:43> Objective - Vital Signs/Intake and Output Vital Signs (last 24 hours): Temp Pulse Resp BP Pulse Ox 98.4 F 90 20 94/60 L 95 05/30/18 12:49 05/30/18 12:49 05/30/18 12:49 05/30/18 12:49 05/30/18 12:49 - Medications Medications: Current Medications Acetaminophen (Tylenol 325mg Tab) 650 mg PO Q6 PRN PRN Reason: Fever >100.4 F Last Admin: 05/30/18 01:25 Dose: 650 mg Acetaminophen (Tylenol 325mg Tab) 650 mg PO Q6 PRN PRN Reason: Fever >100.4 F Aspirin (Ecotrin) 81 mg PO DAILY [facility] Last Admin: 05/30/18 08:27 Dose: 81 mg Clopidogrel Bisulfate (Plavix) 75 mg PO DAILY [facility] Last Admin: 05/30/18 08:27 Dose: 75 mg Ergocalciferol (Drisdol 50,000 Intl Units Cap) 1 cap PO Q7D [facility] Last Admin: 05/27/18 17:50 Dose: 1 cap Vancomycin HCl 1 gm/ Sodium (Chloride) 250 mls @ 125 mls/hr IVPB TTS [facility]; Protocol Last Admin: 05/30/18 08:56 Dose: 125 mls/hr Nafcillin Sodium 2 gm/ Sodium (Chloride) 100 mls @ 100 mls/hr IVPB Q6 [facility]; Protocol Last Admin: 05/30/18 12:13 Dose: 100 mls/hr Heparin Sodium/Dextrose (Heparin 25,000 Units/250ml In D5w) 25,000 units in 250 mls @ 10 mls/hr IV .Q24H [facility]; Protocol Last Admin: 05/30/18 12:14 Dose: Not Given Sodium Chloride (Sodium Chloride 0.9%) 250 mls @ 999 mls/hr IV .Q16M [facility] Stop: 05/31/18 08:41 Last Admin: 05/30/18 09:50 Dose: 999 mls/hr Insulin Human Lispro (Humalog) 0 units SC ACHS [facility]; Protocol Last Admin: 05/30/18 12:12 Dose: 2 units Ketorolac Tromethamine (Toradol) 30 mg IM Q6 PRN PRN Reason: Pain, moderate (4-7) Last Admin: 05/29/18 13:08 Dose: 30 mg Lidocaine (Lidoderm) 1 ea TD DAILY [facility] Last Admin: 05/30/18 08:28 Dose: 1 ea Metoprolol Succinate (Toprol Xl) 25 mg PO DAILY [facility] Last Admin: 05/30/18 08:30 Dose: Not Given Sevelamer Carbonate (Renvela) 1.6 gm PO TIDWM [facility] Stop: 06/02/18 23:59 Last Admin: 05/30/18 12:11 Dose: 1.6 gm Vitamin B Complex/Vit C/Folic Acid (Nephro-Sanjay) 1 tab PO DAILY [facility] Last Admin: 05/30/18 08:27 Dose: 1 tab - Labs Labs: 05/30/18 05:29 05/30/18 05:29 PT 12.0 Seconds (9.8-13.1) 05/28/18 07:36 INR 1.1 05/28/18 07:36 APTT 50.1 Seconds (25.6-37.1) H 05/29/18 20:30 Attending/Attestation - Attestation I have personally seen and examined this patient.: Yes I have fully participated in the care of the patient.: Yes I have reviewed all pertinent clinical information, including history, physical exam and plan: Yes
[2018-05-30 09:37] LABS: ANISOCYTOSIS SLIGHT; LYMPHOCYTE 10 % (20-50); MICROCYTOSIS SLIGHT; MONOCYTE 8 % (0-10); NEUTROPHIL 82 % (42-75); OVALOCYTES MODERATE; PLATELET ESTIMATE DECREASED (NORMAL); TOTAL CELLS COUNTED 100
[2018-05-30 09:38] LABS: LARGE PLATELETS PRESENT
[2018-05-30] MEDS: Sodium Chloride 0.9% 250 ML IV SCH (09:50)
[2018-05-30] MEDS: Oxycodone/Acetaminophen 5/325 mg Tab PO PRN (12:11)
[2018-05-30] MEDS: Heparin 25,000units in D5W 25,000 UNITS/250 ML BAG IV SCH (12:14)
--- NOTE | 2018-05-30 14:00 | CP.PCM.PN ---
Subjective - Date & Time of Evaluation Date of Evaluation: 05/30/18 Time of Evaluation: 13:58 - Subjective Subjective: Podiatry Progress Note for Dr. Cerrato: 48M seen and evaluated at bedside for right foot hyperkeratotic lesions and healed TMA site. Patient is AAO x 3 and NAD at time of visit. States that he has pain in his back due to spinal infection. Denies any other acute overnight events. Denies any new pedal complaints at this time. Denies any recent N/V/F/C/CP/SOB/D Objective - Vital Signs/Intake and Output Vital Signs (last 24 hours): Temp Pulse Resp BP Pulse Ox 98.4 F 90 20 94/60 L 95 05/30/18 12:49 05/30/18 12:49 05/30/18 12:49 05/30/18 12:49 05/30/18 12:49 - Medications Medications: Current Medications Acetaminophen (Tylenol 325mg Tab) 650 mg PO Q6 PRN PRN Reason: Fever >100.4 F Last Admin: 05/30/18 01:25 Dose: 650 mg Acetaminophen (Tylenol 325mg Tab) 650 mg PO Q6 PRN PRN Reason: Fever >100.4 F Aspirin (Ecotrin) 81 mg PO DAILY [facility] Last Admin: 05/30/18 08:27 Dose: 81 mg Clopidogrel Bisulfate (Plavix) 75 mg PO DAILY [facility] Last Admin: 05/30/18 08:27 Dose: 75 mg Ergocalciferol (Drisdol 50,000 Intl Units Cap) 1 cap PO Q7D [facility] Last Admin: 05/27/18 17:50 Dose: 1 cap Vancomycin HCl 1 gm/ Sodium (Chloride) 250 mls @ 125 mls/hr IVPB TTS [facility]; Protocol Last Admin: 05/30/18 08:56 Dose: 125 mls/hr Nafcillin Sodium 2 gm/ Sodium (Chloride) 100 mls @ 100 mls/hr IVPB Q6 [facility]; Protocol Last Admin: 05/30/18 12:13 Dose: 100 mls/hr Heparin Sodium/Dextrose (Heparin 25,000 Units/250ml In D5w) 25,000 units in 250 mls @ 10 mls/hr IV .Q24H [facility]; Protocol Last Admin: 05/30/18 12:14 Dose: Not Given Sodium Chloride (Sodium Chloride 0.9%) 250 mls @ 999 mls/hr IV .Q16M [facility] Stop: 05/31/18 08:41 Last Admin: 05/30/18 09:50 Dose: 999 mls/hr Insulin Human Lispro (Humalog) 0 units SC ACHS [facility]; Protocol Last Admin: 05/30/18 12:12 Dose: 2 units Ketorolac Tromethamine (Toradol) 30 mg IM Q6 PRN PRN Reason: Pain, moderate (4-7) Last Admin: 05/29/18 13:08 Dose: 30 mg Lidocaine (Lidoderm) 1 ea TD DAILY [facility] Last Admin: 05/30/18 08:28 Dose: 1 ea Metoprolol Succinate (Toprol Xl) 25 mg PO DAILY [facility] Last Admin: 05/30/18 08:30 Dose: Not Given Oxycodone/Acetaminophen (Percocet 5/325 Mg Tab) 1 tab PO Q4 PRN PRN Reason: Pain, severe (8-10) Stop: 05/30/18 14:07 Last Admin: 05/30/18 12:11 Dose: 1 tab Sevelamer Carbonate (Renvela) 1.6 gm PO TIDWM [facility] Stop: 06/02/18 23:59 Last Admin: 05/30/18 12:11 Dose: 1.6 gm Vitamin B Complex/Vit C/Folic Acid (Nephro-Sanjay) 1 tab PO DAILY [facility] Last Admin: 05/30/18 08:27 Dose: 1 tab - Labs Labs: 05/30/18 05:29 05/30/18 05:29 PT 12.0 Seconds (9.8-13.1) 05/28/18 07:36 INR 1.1 05/28/18 07:36 APTT 50.1 Seconds (25.6-37.1) H 05/29/18 20:30 - Constitutional Appears: Well, Non-toxic, No Acute Distress - Extremities Exam Additional comments: B/L Lower Extremity Exam Vasc: R/L DP 1/4 and PT 2/4, CFT < 3 seconds x 4 to the Left, TG increased temperature noted bilaterally, no pedal edema Ortho: No pain upon palpation, TMA to the right foot, and 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, no pain with ankle range of motion Neuro: Epicritic and protective sensation grossly diminished b/l Derm: RLE- plantar hyperkeratotic lesion noted with no surrounding erythema noted, no open wounds, no malodor, mild sanginous weeping, no clinical signs of infection, significant plantar and dorsal xerosis noted; LLE- Plantar hyperkeratotic lesion submet 1, no open wounds, no drainage, no clinical signs of infection - Neurological Exam Neurological Exam: Alert, Awake, Oriented x3 - Psychiatric Exam Psychiatric exam: Normal Affect, Normal Mood Assessment and Plan - Assessment and Plan (Free Text) Assessment: 48 yo male patient seen and evaluated for b/l hyperkeratotic lesions Plan: Patient seen and evaluated Plan discussed with Dr. Cerrato Absent leukocytosis Right TMA site dressed with DSD No plan for surgical intervention at this time Podiatry will continue to follow while patient in house
--- NOTE | 2018-05-30 16:30 | CP.PCM.PN ---
Subjective - Date & Time of Evaluation Date of Evaluation: 05/30/18 Time of Evaluation: 15:00 - Subjective Subjective: SEEN ON RNEAL F/U IN BED .. SLOW MENTATION PAIN IN THE LOWER BACK PROBABLY 2/2 L B OSTEOMYELITIS Objective - Vital Signs/Intake and Output Vital Signs (last 24 hours): Temp Pulse Resp BP Pulse Ox 100.7 F H 88 16 93/65 L 95 05/30/18 16:07 05/30/18 16:07 05/30/18 16:07 05/30/18 16:07 05/30/18 16:07 - Medications Medications: Current Medications Acetaminophen (Tylenol 325mg Tab) 650 mg PO Q6 PRN PRN Reason: Fever >100.4 F Last Admin: 05/30/18 01:25 Dose: 650 mg Acetaminophen (Tylenol 325mg Tab) 650 mg PO Q6 PRN PRN Reason: Fever >100.4 F Aspirin (Ecotrin) 81 mg PO DAILY [facility] Last Admin: 05/30/18 08:27 Dose: 81 mg Clopidogrel Bisulfate (Plavix) 75 mg PO DAILY [facility] Last Admin: 05/30/18 08:27 Dose: 75 mg Ergocalciferol (Drisdol 50,000 Intl Units Cap) 1 cap PO Q7D [facility] Last Admin: 05/27/18 17:50 Dose: 1 cap Vancomycin HCl 1 gm/ Sodium (Chloride) 250 mls @ 125 mls/hr IVPB TTS [facility]; Protocol Last Admin: 05/30/18 08:56 Dose: 125 mls/hr Nafcillin Sodium 2 gm/ Sodium (Chloride) 100 mls @ 100 mls/hr IVPB Q6 [facility]; Protocol Last Admin: 05/30/18 12:13 Dose: 100 mls/hr Heparin Sodium/Dextrose (Heparin 25,000 Units/250ml In D5w) 25,000 units in 250 mls @ 10 mls/hr IV .Q24H [facility]; Protocol Last Admin: 05/30/18 12:14 Dose: Not Given Sodium Chloride (Sodium Chloride 0.9%) 250 mls @ 999 mls/hr IV .Q16M [facility] Stop: 05/31/18 08:41 Last Admin: 05/30/18 09:50 Dose: 999 mls/hr Insulin Human Lispro (Humalog) 0 units SC ACHS [facility]; Protocol Last Admin: 05/30/18 12:12 Dose: 2 units Ketorolac Tromethamine (Toradol) 30 mg IM Q6 PRN PRN Reason: Pain, moderate (4-7) Last Admin: 05/29/18 13:08 Dose: 30 mg Lidocaine (Lidoderm) 1 ea TD DAILY [facility] Last Admin: 05/30/18 08:28 Dose: 1 ea Metoprolol Succinate (Toprol Xl) 25 mg PO DAILY [facility] Last Admin: 05/30/18 08:30 Dose: Not Given Sevelamer Carbonate (Renvela) 1.6 gm PO TIDWM [facility] Stop: 06/02/18 23:59 Last Admin: 05/30/18 12:11 Dose: 1.6 gm Vitamin B Complex/Vit C/Folic Acid (Nephro-Sanjay) 1 tab PO DAILY [facility] Last Admin: 05/30/18 08:27 Dose: 1 tab - Labs Labs: 05/30/18 05:29 05/30/18 05:29 PT 12.0 Seconds (9.8-13.1) 05/28/18 07:36 INR 1.1 05/28/18 07:36 APTT 50.1 Seconds (25.6-37.1) H 05/29/18 20:30 Assessment and Plan - Assessment and Plan (Free Text) Assessment: ESRD ON HD TIW SEPSIS ON IVAB LOW BP .. MEDS WERE HELD C/O CURRENT CARE
--- NOTE | 2018-05-30 22:01 | RAD ---
Date of service: 05/30/2018 HISTORY: LT hip pain, fevers, discitis/osteo spine COMPARISON: None available. FINDINGS: BONES: Left inferior pubic ramus fracture. JOINTS: Normal. No osteoarthritis. SOFT TISSUE: Normal. OTHER FINDINGS: None . IMPRESSION: Left inferior pubic ramus fracture.
[2018-05-30] MEDS ORDERED: Sodium Chloride 0.9% 250 ML IV SCH (23:45)
[2018-05-31] MEDS: Sodium Chloride 0.9% 250 ML IV SCH (00:36)
[2018-05-31] MEDS: Nafcillin 2 GM in Sodium Chloride 0.9% 100 ML IVPB SCH ×4 (03:00→22:25)
[2018-05-31 06:43] LABS: HEMOGLOBIN 10.4 g/dL (12.0-18.0); MEAN CELL VOLUME 96.3 fl (80.0-94.0); MEAN CORPUSCULAR HEMOGLOBIN 31.4 pg (27.0-31.0); MEAN CORPUSCULAR HGB CONC 32.7 g/dL (33.0-37.0); RBC 3.31 Mil/uL (4.40-5.90); RED CELL DISTRIBUTION WIDTH 15.4 % (11.5-14.5); WHITE BLOOD COUNT 8.6 K/uL (4.8-10.8)
[2018-05-31 07:13] LABS: CALCIUM 7.8 mg/dL (8.4-10.2)
[2018-05-31] MEDS: Insulin Lispro (humaLOG) 100 Units/ml Inj SC SCH ×4 (08:45→23:24)
--- NOTE | 2018-05-31 09:47 | CP.PCM.PN ---
<Sveta Lees - Last Filed: 05/31/18 13:26> Subjective - Date & Time of Evaluation Date of Evaluation: 05/31/18 Time of Evaluation: 09:15 - Subjective Subjective: 48 y/o male with PMHx of multiple medical problems including ESRD on hemodialysis, DM, PVD, HTN, admitted on 05/25/18 with generalized body aches specially lower back pain, fever and hypotension. Patient seen today at bedside in NAD, c/o mild lower back pain and left inguinal arae pain today, I see patient more responsive today and talking and responding to my questions, BP runnig in the 90's. Patient denies SOB, abdominal pain, N/V at this time. Objective - Vital Signs/Intake and Output Vital Signs (last 24 hours): Temp Pulse Resp BP Pulse Ox 98.9 F 93 H 20 92/59 L 94 L 05/31/18 08:39 05/31/18 08:39 05/31/18 08:39 05/31/18 08:39 05/31/18 08:39 - Medications Medications: Current Medications Acetaminophen (Tylenol 325mg Tab) 650 mg PO Q6 PRN PRN Reason: Fever >100.4 F Last Admin: 05/30/18 01:25 Dose: 650 mg Acetaminophen (Tylenol 325mg Tab) 650 mg PO Q6 PRN PRN Reason: Fever >100.4 F Aspirin (Ecotrin) 81 mg PO DAILY [facility] Last Admin: 05/30/18 08:27 Dose: 81 mg Clopidogrel Bisulfate (Plavix) 75 mg PO DAILY [facility] Last Admin: 05/30/18 08:27 Dose: 75 mg Ergocalciferol (Drisdol 50,000 Intl Units Cap) 1 cap PO Q7D [facility] Last Admin: 05/27/18 17:50 Dose: 1 cap Vancomycin HCl 1 gm/ Sodium (Chloride) 250 mls @ 125 mls/hr IVPB TTS [facility]; Protocol Last Admin: 05/30/18 08:56 Dose: 125 mls/hr Nafcillin Sodium 2 gm/ Sodium (Chloride) 100 mls @ 100 mls/hr IVPB Q6 [facility]; Protocol Last Admin: 05/31/18 03:00 Dose: 100 mls/hr Heparin Sodium/Dextrose (Heparin 25,000 Units/250ml In D5w) 25,000 units in 250 mls @ 10 mls/hr IV .Q24H [facility]; Protocol Last Admin: 05/30/18 12:14 Dose: Not Given Sodium Chloride (Sodium Chloride 0.9%) 250 mls @ 999 mls/hr IV .Q16M [facility] Stop: 05/31/18 23:48 Insulin Human Lispro (Humalog) 0 units SC ACHS [facility]; Protocol Last Admin: 05/30/18 21:24 Dose: Not Given Ketorolac Tromethamine (Toradol) 30 mg IM Q6 PRN PRN Reason: Pain, moderate (4-7) Last Admin: 05/29/18 13:08 Dose: 30 mg Lidocaine (Lidoderm) 1 ea TD DAILY [facility] Last Admin: 05/30/18 08:28 Dose: 1 ea Metoprolol Succinate (Toprol Xl) 25 mg PO DAILY [facility] Last Admin: 05/30/18 08:30 Dose: Not Given Sevelamer Carbonate (Renvela) 1.6 gm PO TIDWM [facility] Stop: 06/02/18 23:59 Last Admin: 05/30/18 17:08 Dose: 1.6 gm Vitamin B Complex/Vit C/Folic Acid (Nephro-Sanjay) 1 tab PO DAILY [facility] Last Admin: 05/30/18 08:27 Dose: 1 tab - Labs Labs: 05/31/18 06:00 05/31/18 05:30 PT 12.0 Seconds (9.8-13.1) 05/28/18 07:36 INR 1.1 05/28/18 07:36 APTT 61.0 Seconds (25.6-37.1) H 05/31/18 05:30 - Additional Findings Additional findings: - Constitutional Appears: No Acute Distress - Head Exam Head Exam: ATRAUMATIC, NORMOCEPHALIC - Eye Exam Eye Exam: EOMI - ENT Exam ENT Exam: Mucous Membranes Moist - Respiratory Exam Respiratory Exam: Clear to Ausculation Bilateral. absent: Rales - Cardiovascular Exam Cardiovascular Exam: RRR, +S1, +S2 - GI/Abdominal Exam GI & Abdominal Exam: Soft, Normal Bowel Sounds. absent: Tenderness - Extremities Exam Additional comments: Right Foot dressing clean and intact. No Edema of LE. Tenderness to ROM of LLE, tenderness to palpation of external aspect of left hip and L inguinal area. - Back Exam Back Exam: tenderness Additional comments: Diffuse tenderness to palpation of Lower back - Psychiatric Exam Psychiatric exam: Depressed, Flat Affect - Skin Skin Exam: Dry, Warm Assessment and Plan - Assessment and Plan (Free Text) Assessment: 48 y/o male with PMH of multiple medical problems including ESRD on hemodialysis, DM2 with neuropathy, PVD, HTN, admitted on 05/25/18 with c/o generalized body aches specially lower back pain, fever and hypotension. Found to be septic with positive blood cultures for S. aureus. CT lumbar spine suspicious for discitis and osteomyelitis. MRI lumbar spine showed disc degeneration with endplate marrow changes; osteomyelitis could not be excluded; pt cannot receive MRI w/ contrast because of ESRD. Plan: 1. Sepsis and S. aureus bacteremia - Absent leukocytosis - Prior blood culture reported positive for Staph aureus - ID Consult with Dr. Unger, recommendation are appreciated - C/w Vancomycin IV postdialysis on HD days - C/w Nafcillin 2g IV Q6h - ECHO- borderline to mild concentric left ventricular hypertrophy, EF 55-60%, left atrium severely dilated, trace mitral and tricuspid valve regugitation, no vegetations noted - Cardiology Dr. 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 MRI lumbar spine today showed disc degeneration with endplate marrow changes an Schmorl's nodes at L5-S1 nonspecific but in the absence of paravertebral soft tissue or epidural soft tissue most compatible with advanced degenerative endplate marrow changes. Osteomyelitis cannot be entirely excluded, intravenous contrast could be helpful for further characterization; however patient cannot get MRI with contrast due to ESRD 2.Pelvis Fracture -Pateint c/o tenderness to Left hip area and Left inguinal area, -no hx of fall or trauma reported, likely pathologic fracture since Hip pelvis XR doen 05/30 shows a Left inferior pubic ramus fracture -CT of Pelvis and his ordered to r/o hip fracture or other injury not seen in XR -Consult Ortho: Dr Matamoros, recommendation are appreciated. 3. Low Back Pain, likely due to discitis, possible osteomyelitis - Lumbar Spine CT done on 05/26/18 suggest MRI of lumbar spine to r/o diskitis due to osteomylitis. - MRI 05/27/18 reports L5 S1 with endplate narrowing and soft tissue degenerative changes, possible osteomyelitis cannot be r/o and suggest IV contrast MRI, but contrast MRI cannot be done due to ESRD - Lidoderm patch 5% applied to back QQ - Pain management: Acetaminophen, Percocet 4. Elevated Troponin I level -Most likely due to demand ischemia after acute episodes of hypotension vs NSTEMI: patient denies chest pain. -continue aspirin 81 mg po QD -Plavix 75 mg PO QD -C/w Heparin IV -Consult Dr Stinson, recommendations appreciated: Plan for cath on Friday 06/01, as per Dr Stinson after 5 days of antibiotic therapy. -C/w Metoprolol Succ 25 PO QD, as per Cardio recommendation. -Lisinopril and hydralazine, metoprolol held due to hypotension -Echo showed normal EF 55-60% 5. Hypotension - BP meds on hold - Fluid bolus - Albumin - Continue to monitor 6. ESRD on HD - Nephrology Consult- As per Dr. Koo, continue current meds, and continue hem odialysis while patient is in-house - Phos/Mg/Trupti D post HD 7.AMS/ confusion -most likely secondary to narcotics -Avoid over sedation -Head CT reports no evidence of acute intercranial hemorrhage mass effect or midline shift 8.Anemia of chronic kidney disease - H/H Stable at this time - will continue to monitor 9.Chronic Thrombocytopenia -Likely secondary to ESRD, stable, no bleeding. -Plt count 92 today 05/30, trending up compared to previous days 10. DM II with hyperglycemia - Accuchecks - Insulin coverage scale and hypoglycemia protocol 11.PVD s/p left metatarsal amputation -Podiatry consult, as per podiatry no wound infection or ulcer is present 12. DVT prophylaxis - Heparin IV <Joanne Grant - Last Filed: 05/31/18 17:01> Objective - Vital Signs/Intake and Output Vital Signs (last 24 hours): Temp Pulse Resp BP Pulse Ox 97.6 F 86 16 83/52 L 95 05/31/18 16:30 05/31/18 16:30 05/31/18 16:30 05/31/18 16:30 05/31/18 16:30 - Medications Medications: Current Medications Acetaminophen (Tylenol 325mg Tab) 650 mg PO Q6 PRN PRN Reason: Fever >100.4 F Last Admin: 05/30/18 01:25 Dose: 650 mg Acetaminophen (Tylenol 325mg Tab) 650 mg PO Q6 PRN PRN Reason: Fever >100.4 F Aspirin (Ecotrin) 81 mg PO DAILY [facility] Last Admin: 05/31/18 10:26 Dose: 81 mg Clopidogrel Bisulfate (Plavix) 75 mg PO DAILY [facility] Last Admin: 05/31/18 10:28 Dose: 75 mg Ergocalciferol (Drisdol 50,000 Intl Units Cap) 1 cap PO Q7D [facility] Last Admin: 05/27/18 17:50 Dose: 1 cap Vancomycin HCl 1 gm/ Sodium (Chloride) 250 mls @ 125 mls/hr IVPB TTS [facility]; Protocol Last Admin: 05/30/18 08:56 Dose: 125 mls/hr Nafcillin Sodium 2 gm/ Sodium (Chloride) 100 mls @ 100 mls/hr IVPB Q6 [facility]; Protocol Last Admin: 05/31/18 16:55 Dose: 100 mls/hr Sodium Chloride (Sodium Chloride 0.9%) 250 mls @ 999 mls/hr IV .Q16M [facility] Stop: 05/31/18 23:48 Heparin Sodium/Dextrose (Heparin 25,000 Units/250ml In D5w) 25,000 units in 250 mls @ 12 mls/hr IV .Q62H66L [facility]; Protocol Last Admin: 05/31/18 15:12 Dose: 12 mls/hr Insulin Human Lispro (Humalog) 0 units SC ACHS [facility]; Protocol Last Admin: 05/31/18 16:55 Dose: Not Given Ketorolac Tromethamine (Toradol) 30 mg IM Q6 PRN PRN Reason: Pain, moderate (4-7) Last Admin: 05/31/18 13:18 Dose: 30 mg Lidocaine (Lidoderm) 1 ea TD DAILY [facility] Last Admin: 05/31/18 10:27 Dose: 1 ea Metoprolol Succinate (Toprol Xl) 25 mg PO DAILY [facility] Last Admin: 05/31/18 10:29 Dose: Not Given Sevelamer Carbonate (Renvela) 1.6 gm PO TIDWM [facility] Stop: 06/02/18 23:59 Last Admin: 05/31/18 16:56 Dose: 1.6 gm Vitamin B Complex/Vit C/Folic Acid (Nephro-Sanjay) 1 tab PO DAILY [facility] Last Admin: 05/31/18 10:28 Dose: 1 tab - Labs Labs: 05/31/18 06:00 05/31/18 05:30 PT 12.0 Seconds (9.8-13.1) 05/28/18 07:36 INR 1.1 05/28/18 07:36 APTT 34.9 Seconds (25.6-37.1) 05/31/18 13:30 Attending/Attestation - Attestation I have personally seen and examined this patient.: Yes I have fully participated in the care of the patient.: Yes I have reviewed all pertinent clinical information, including history, physical exam and plan: Yes
[2018-05-31] MEDS: Lidocaine 5% Patch TD SCH (10:27)
[2018-05-31] MEDS: Multivitamin Vitamin B Complex (Nephro-Vite) Tab PO SCH (10:28)
[2018-05-31] MEDS: Sevelamer Carb 0.8 gm/Packet PO SCH ×3 (10:28→16:56)
[2018-05-31] MEDS: Metoprolol Succinate 25 mg XL Tab PO SCH (10:29)
--- NOTE | 2018-05-31 13:19 | CP.PCM.PN ---
Subjective - Date & Time of Evaluation Date of Evaluation: 05/31/18 Time of Evaluation: 09:00 - Subjective Subjective: afeb on rounds repeat blood c/s neg awake alert await JUANCARLOS Objective - Vital Signs/Intake and Output Vital Signs (last 24 hours): Temp Pulse Resp BP Pulse Ox 99.0 F 83 20 97/64 L 94 L 05/31/18 12:44 05/31/18 12:44 05/31/18 12:44 05/31/18 12:44 05/31/18 12:44 - Medications Medications: Current Medications Acetaminophen (Tylenol 325mg Tab) 650 mg PO Q6 PRN PRN Reason: Fever >100.4 F Last Admin: 05/30/18 01:25 Dose: 650 mg Acetaminophen (Tylenol 325mg Tab) 650 mg PO Q6 PRN PRN Reason: Fever >100.4 F Aspirin (Ecotrin) 81 mg PO DAILY [facility] Last Admin: 05/31/18 10:26 Dose: 81 mg Clopidogrel Bisulfate (Plavix) 75 mg PO DAILY [facility] Last Admin: 05/31/18 10:28 Dose: 75 mg Ergocalciferol (Drisdol 50,000 Intl Units Cap) 1 cap PO Q7D [facility] Last Admin: 05/27/18 17:50 Dose: 1 cap Vancomycin HCl 1 gm/ Sodium (Chloride) 250 mls @ 125 mls/hr IVPB TTS [facility]; Protocol Last Admin: 05/30/18 08:56 Dose: 125 mls/hr Nafcillin Sodium 2 gm/ Sodium (Chloride) 100 mls @ 100 mls/hr IVPB Q6 [facility]; Protocol Last Admin: 05/31/18 10:27 Dose: 100 mls/hr Heparin Sodium/Dextrose (Heparin 25,000 Units/250ml In D5w) 25,000 units in 250 mls @ 10 mls/hr IV .Q24H [facility]; Protocol Last Admin: 05/30/18 12:14 Dose: Not Given Sodium Chloride (Sodium Chloride 0.9%) 250 mls @ 999 mls/hr IV .Q16M [facility] Stop: 05/31/18 23:48 Insulin Human Lispro (Humalog) 0 units SC ACHS [facility]; Protocol Last Admin: 05/31/18 12:45 Dose: Not Given Ketorolac Tromethamine (Toradol) 30 mg IM Q6 PRN PRN Reason: Pain, moderate (4-7) Last Admin: 05/29/18 13:08 Dose: 30 mg Lidocaine (Lidoderm) 1 ea TD DAILY [facility] Last Admin: 05/31/18 10:27 Dose: 1 ea Metoprolol Succinate (Toprol Xl) 25 mg PO DAILY [facility] Last Admin: 05/31/18 10:29 Dose: Not Given Sevelamer Carbonate (Renvela) 1.6 gm PO TIDWM [facility] Stop: 06/02/18 23:59 Last Admin: 05/31/18 13:15 Dose: 1.6 gm Vitamin B Complex/Vit C/Folic Acid (Nephro-Sanjay) 1 tab PO DAILY [facility] Last Admin: 05/31/18 10:28 Dose: 1 tab - Labs Labs: 05/31/18 06:00 05/31/18 05:30 PT 12.0 Seconds (9.8-13.1) 05/28/18 07:36 INR 1.1 05/28/18 07:36 APTT 61.0 Seconds (25.6-37.1) H 05/31/18 05:30 - Constitutional Appears: Non-toxic, Chronically Ill - Head Exam Head Exam: NORMOCEPHALIC - Eye Exam Eye Exam: PERRL - ENT Exam ENT Exam: Mucous Membranes Dry - Neck Exam Neck Exam: absent: Lymphadenopathy - Respiratory Exam Respiratory Exam: Decreased Breath Sounds - Cardiovascular Exam Cardiovascular Exam: REGULAR RHYTHM - GI/Abdominal Exam GI & Abdominal Exam: Distended - Rectal Exam Rectal Exam: Deferred - Extremities Exam Extremities Exam: Pedal Edema - Back Exam Back Exam: absent: CVA tenderness (L), CVA tenderness (R) Assessment and Plan - Assessment and Plan (Free Text) Assessment: bacteremia/ sepsis r/o endocarditis hx of right foot infection await JUANCARLOS cont iv antibiotics
--- NOTE | 2018-05-31 14:33 | CT ---
Date of service: 05/31/2018 PROCEDURE: HISTORY: pelvic fracture COMPARISON: TECHNIQUE: FINDINGS: There is no evidence of pelvic bone fracture. Both hips appear intact without evidence of effusion. Limited assessment of the internal pelvic cavity is unremarkable. Diffuse vascular calcifications are identified. IMPRESSION: No acute fracture.
--- NOTE | 2018-05-31 14:36 | CT ---
Date of service: 05/31/2018 PROCEDURE: HISTORY: left hip pain and pelvic pain COMPARISON: TECHNIQUE: FINDINGS: No evidence of hip fracture or pelvic bone fracture. Limited assessment of the internal pelvic cavity is unremarkable. There are diffuse vascular calcifications. No soft tissue hematoma is observed. IMPRESSION: No acute fracture.
[2018-05-31] MEDS ORDERED: Heparin 25,000units in D5W 25,000 UNITS/250 ML BAG IV SCH ×2 (15:12→15:15)
[2018-06-01] MEDS: Nafcillin 2 GM in Sodium Chloride 0.9% 100 ML IVPB SCH (03:00)
[2018-06-01 03:58] VITALS: TEMP 97.8; O2SAT 98
[2018-06-01 05:58] LABS: BASO % 0.4 % (0.0-2.0); EOS % 0.3 % (0.0-4.0); HEMOGLOBIN 11.2 g/dL (12.0-18.0); LYMPH # 0.7 K/uL (1.0-4.3); LYMPH % 6.7 % (20.0-40.0); MEAN CELL VOLUME 95.8 fl (80.0-94.0); MEAN CORPUSCULAR HEMOGLOBIN 31.5 pg (27.0-31.0); MEAN CORPUSCULAR HGB CONC 32.9 g/dL (33.0-37.0); MEAN PLATELET VOLUME 9.7 fl (7.2-11.7); MONO # 0.5 K/uL (0.0-0.8); MONO % 4.5 % (0.0-10.0); NEUT # 9.5 K/uL (1.8-7.0); NEUT % 88.1 % (50.0-75.0); NRBC % 0.1 % (0.0-0.0); RBC 3.56 Mil/uL (4.40-5.90); RED CELL DISTRIBUTION WIDTH 15.8 % (11.5-14.5); WHITE BLOOD COUNT 10.8 K/uL (4.8-10.8)
[2018-06-01 06:14] LABS: INR 1.2; PROTHROMBIN TIME 13.3 Seconds (9.8-13.1)
[2018-06-01 06:16] LABS: PARTIAL THROMBOPLASTIN TIME 35.2 Seconds (25.6-37.1)
[2018-06-01 06:48] LABS: CALCIUM 7.5 mg/dL (8.4-10.2)
[2018-06-01 06:49] VITALS: BP 93/56; PULSE 88; RESP 16
[2018-06-01] MEDS ORDERED: Famotidine 40 MG/5 ML PO SCH (09:00)
--- NOTE | 2018-06-01 09:23 | CP.PCM.PN ---
Subjective - Date & Time of Evaluation Date of Evaluation: 06/01/18 Time of Evaluation: 09:22 - Subjective Subjective: Podiatry Progress Note for Dr. Cerrato: 48M seen and evaluated at bedside for right foot hyperkeratotic lesions and healed TMA site. Patient is AAO x 3 and NAD at time of visit. States that he has pain in his back due to spinal infection. Denies any other acute overnight events. Denies any new pedal complaints at this time. Denies any recent N/V/F/C/CP/SOB/D Objective - Vital Signs/Intake and Output Vital Signs (last 24 hours): Temp Pulse Resp BP Pulse Ox 97.8 F 88 16 93/56 L 98 06/01/18 06:48 06/01/18 06:48 06/01/18 06:48 06/01/18 06:48 06/01/18 06:48 - Medications Medications: Current Medications Acetaminophen (Tylenol 325mg Tab) 650 mg PO Q6 PRN PRN Reason: Fever >100.4 F Last Admin: 05/30/18 01:25 Dose: 650 mg Acetaminophen (Tylenol 325mg Tab) 650 mg PO Q6 PRN PRN Reason: Fever >100.4 F Aspirin (Ecotrin) 81 mg PO DAILY [facility] Last Admin: 05/31/18 10:26 Dose: 81 mg Clopidogrel Bisulfate (Plavix) 75 mg PO DAILY [facility] Last Admin: 05/31/18 10:28 Dose: 75 mg Ergocalciferol (Drisdol 50,000 Intl Units Cap) 1 cap PO Q7D [facility] Last Admin: 05/27/18 17:50 Dose: 1 cap Famotidine (Pepcid) 40 mg PO DAILY [facility] Vancomycin HCl 1 gm/ Sodium (Chloride) 250 mls @ 125 mls/hr IVPB TTS [facility]; Protocol Last Admin: 05/30/18 08:56 Dose: 125 mls/hr Nafcillin Sodium 2 gm/ Sodium (Chloride) 100 mls @ 100 mls/hr IVPB Q6 [facility]; Protocol Last Admin: 06/01/18 03:00 Dose: 100 mls/hr Heparin Sodium/Dextrose (Heparin 25,000 Units/250ml In D5w) 25,000 units in 250 mls @ 10 mls/hr IV .Q24H [facility]; Protocol Last Admin: 05/31/18 15:12 Dose: 10 mls/hr Insulin Human Lispro (Humalog) 0 units SC ACHS [facility]; Protocol Last Admin: 05/31/18 23:24 Dose: Not Given Ketorolac Tromethamine (Toradol) 30 mg IM Q6 PRN PRN Reason: Pain, moderate (4-7) Last Admin: 05/31/18 13:18 Dose: 30 mg Lidocaine (Lidoderm) 1 ea TD DAILY [facility] Last Admin: 05/31/18 10:27 Dose: 1 ea Metoprolol Succinate (Toprol Xl) 25 mg PO DAILY [facility] Last Admin: 05/31/18 10:29 Dose: Not Given Sevelamer Carbonate (Renvela) 1.6 gm PO TIDWM [facility] Stop: 06/02/18 23:59 Last Admin: 05/31/18 16:56 Dose: 1.6 gm Vitamin B Complex/Vit C/Folic Acid (Nephro-Sanjay) 1 tab PO DAILY [facility] Last Admin: 05/31/18 10:28 Dose: 1 tab - Labs Labs: 06/01/18 04:20 06/01/18 04:20 PT 13.3 Seconds (9.8-13.1) H 06/01/18 04:20 INR 1.2 06/01/18 04:20 APTT 35.2 Seconds (25.6-37.1) 06/01/18 04:20 - Constitutional Appears: Well, Non-toxic, No Acute Distress - Head Exam Head Exam: ATRAUMATIC, NORMOCEPHALIC - Extremities Exam Additional comments: B/L Lower Extremity Exam Vasc: R/L DP 1/4 and PT 2/4, CFT < 3 seconds x 4 to the Left, TG increased temperature noted bilaterally, no pedal edema Ortho: No pain upon palpation, TMA to the right foot, and 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, no pain with ankle range of motion Neuro: Epicritic and protective sensation grossly diminished b/l Derm: RLE- plantar hyperkeratotic lesion noted with no surrounding erythema noted, no open wounds, no malodor, mild sanginous weeping, no clinical signs of infection, significant plantar and dorsal xerosis noted; LLE- Plantar hyperkeratotic lesion submet 1, no open wounds, no drainage, no clinical signs of infection - Neurological Exam Neurological Exam: Alert, Awake Assessment and Plan - Assessment and Plan (Free Text) Assessment: 48 yo male patient seen and evaluated for b/l hyperkeratotic lesions Plan: Patient seen and evaluated Plan discussed with Dr. Cerrato Absent leukocytosis Right TMA site dressed with DSD No plan for surgical intervention at this time Podiatry will continue to follow while patient in house
[2018-06-01] MEDS: Multivitamin Vitamin B Complex (Nephro-Vite) Tab PO SCH (09:39)
[2018-06-01] MEDS: Insulin Lispro (humaLOG) 100 Units/ml Inj SC SCH (09:39)
[2018-06-01] MEDS: Lidocaine 5% Patch TD SCH (09:39)
[2018-06-01] MEDS: Metoprolol Succinate 25 mg XL Tab PO SCH (09:40)
[2018-06-01] MEDS: Sevelamer Carb 0.8 gm/Packet PO SCH (09:40)
--- NOTE | 2018-06-01 16:47 | PCM.RRT ---
DRUM SPRAYER Nurse Assessment - Situation DRUM SPRAYER Reason for Call: Respiratory Distress, Not Responding to Urgent Treatment, Change in Mental Status - IV IV Inserted during DRUM SPRAYER?: No IV Fluids Initiated During DRUM SPRAYER?: 400cc NSS bolus - Respiratory Oxygen Delivery Method: Room Air Received Nebulizer Treatments: No Was the Patient Ventilated with Bag/Mask 100% O2?: No Secretions Suctioned?: No Was the Patient Intubated?: No Was the Patient Placed on a Ventilator?: No - Diagnostic Test Ordered EKG: No Chest X-Ray: No CT Scan: No CPR started during DRUM SPRAYER?: No - Vital Signs Vital Signs: Rapid Response Vital Sign Blood Pressure 87/41 Pulse Rate 79 Respiratory Rate 18 Temperature 97.9 F Oxygen Saturation 100 - Sepsis Screen Part 1 Sepsis Screen Part 1: Hypotensive - Time DRUM SPRAYER Ended Time DRUM SPRAYER Ended: 19:10 - Vital Signs at end of DRUM SPRAYER Vital Signs at end of DRUM SPRAYER: Rapid Response End Vital Sign Blood Pressure 77/40 Pulse Rate 90 Respiratory Rate 18 O2 Sat by Pulse Oximetry 95 - Recommendations DRUM SPRAYER Level of Care Recommendations: Remain in current setting - Respiratory Oxygen Delivery Method: Room Air - Constitutional Appears: In Acute Distress - Head Head Exam: ATRAUMATIC, NORMAL INSPECTION - Eyes Eye Exam: EOMI, Normal appearance, PERRL - Respiratory Exam Respiratory Exam: Clear to Ausculation Bilateral, NORMAL BREATHING PATTERN. absent: Rhonchi, Wheezes - Cardiovascular Exam Cardiovascular Exam: REGULAR RHYTHM, +S1, +S2. absent: Murmur - GI/Abdominal Exam GI & Abdominal Exam: Soft, Normal Bowel Sounds. absent: Tenderness - Neurological Exam Neurological Exam: Alert, Awake, CN II-XII Intact - Extremities Exam Extremities Exam: Normal Inspection, Pedal Edema Plan - Assessment of Findings&Treatment Plan DRUM SPRAYER called 16: 32 Vitals on arrival: 213/113 HR 113 100% on NRB Afebrile DRUM SPRAYER was called which subsequently was called as a code blue at 16:32. 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 Cath nurse placed commode on patient's bed and once the patient began to strain he subsequently was found to be in V tach on the pvc monitor. As soon as the monitor showed V tach, the patient began shaking Patient was unresponsive, not breathing, and pulseless. Compressions were begun immediately and AICD pads applied. Once defibrillator registered a shockable rhythm, compressions were halted and shock was applied. Following shock, patient immediately achieved ROSC. By the time DRUM SPRAYER team arrived to the scene, the patient was responsive and following commands. Labs were ordered including VBG shock panel, CBC, CMP, mag, and phos. Patient was moved to the ICU for further care and monitoring.
--- NOTE | 2018-06-01 18:04 | CP.PCM.DIS ---
<Jadanicola OrtezSveta - Last Filed: 06/02/18 15:18> Provider - Provider Date of Admission: 05/25/18 06:14 Attending physician: Paul Way Time Spent in preparation of Discharge (in minutes): 33 Diagnosis - Discharge Diagnosis (1) Bacteremia Status: Chronic (2) Chronic wound of extremity Status: Chronic (3) PVD (peripheral vascular disease) Status: Chronic (4) Sepsis Status: Acute (5) Elevated troponin I level Status: Acute (6) Anemia Status: Acute (7) Diabetes mellitus Status: Acute Hospital Course - Lab Results Lab Results: Micro Results 05/29/18 20:20 Blood-Venous Blood Culture - Preliminary NO GROWTH AFTER 48 HOURS 05/29/18 20:30 Blood-Venous Blood Culture - Preliminary NO GROWTH AFTER 48 HOURS 05/27/18 10:53 Blood-During Dialysis Blood Culture - Final Staphylococcus Aureus 05/27/18 10:53 Blood-During Dialysis Gram Stain - Final 05/27/18 10:53 Blood-During Dialysis S.aureus & Coag-Neg Staph PNA FISH - Final 05/27/18 10:53 Blood-During Dialysis Blood Culture - Final Staphylococcus Aureus 05/27/18 10:53 Blood-During Dialysis Gram Stain - Final 05/26/18 17:36 Naris MRSA Culture (Admit) - Final MRSA NOT DETECTED 05/25/18 06:10 Blood-Venous Blood Culture - Final Staphylococcus Aureus 05/25/18 06:10 Blood-Venous Gram Stain - Final 05/25/18 06:20 Blood-Venous S.aureus & Coag-Neg Staph PNA FISH - Final 05/25/18 06:20 Blood-Venous Blood Culture - Final Staphylococcus Aureus 05/25/18 06:20 Blood-Venous Gram Stain - Final 05/25/18 15:41 Naris MRSA Culture (Admit) - Final MRSA NOT DETECTED Most Recent Lab Values WBC 10.8 K/uL (4.8-10.8) 06/01/18 04:20 RBC 3.56 Mil/uL (4.40-5.90) L 06/01/18 04:20 Hgb 11.2 g/dL (12.0-18.0) L 06/01/18 04:20 Hct 34.1 % (35.0-51.0) L 06/01/18 04:20 MCV 95.8 fl (80.0-94.0) H 06/01/18 04:20 MCH 31.5 pg (27.0-31.0) H 06/01/18 04:20 MCHC 32.9 g/dL (33.0-37.0) L 06/01/18 04:20 RDW 15.8 % (11.5-14.5) H 06/01/18 04:20 Plt Count 118 K/uL (130-400) L 06/01/18 04:20 MPV 9.7 fl (7.2-11.7) 06/01/18 04:20 Neut % (Auto) 88.1 % (50.0-75.0) H 06/01/18 04:20 Lymph % (Auto) 6.7 % (20.0-40.0) L 06/01/18 04:20 [place] % (Auto) 4.5 % (0.0-10.0) 06/01/18 04:20 Eos % (Auto) 0.3 % (0.0-4.0) 06/01/18 04:20 Baso % (Auto) 0.4 % (0.0-2.0) 06/01/18 04:20 Neut # (Auto) 9.5 K/uL (1.8-7.0) H 06/01/18 04:20 Lymph # (Auto) 0.7 K/uL (1.0-4.3) L 06/01/18 04:20 [place] # (Auto) 0.5 K/uL (0.0-0.8) 06/01/18 04:20 Eos # (Auto) 0.0 K/uL (0.0-0.7) 06/01/18 04:20 Baso # (Auto) 0.0 K/uL (0.0-0.2) 06/01/18 04:20 Neutrophils % (Manual) 82 % (42-75) H 05/30/18 05:29 Band Neutrophils % 5 % (0-2) H 05/25/18 06:10 Lymphocytes % (Manual) 10 % (20-50) L 05/30/18 05:29 Monocytes % (Manual) 8 % (0-10) 05/30/18 05:29 Platelet Estimate Decreased (NORMAL) L 05/30/18 05:29 Large Platelets Present 05/30/18 05:29 Hypochromasia (manual) Slight 05/25/18 06:10 Anisocytosis (manual) Slight 05/30/18 05:29 Microcytosis (manual) Slight 05/30/18 05:29 Macrocytosis (manual) Slight 05/30/18 05:29 Ovalocytes Moderate 05/30/18 05:29 ESR 114 mm/hr (0-15) H 05/29/18 12:29 PT 13.3 Seconds (9.8-13.1) H 06/01/18 04:20 INR 1.2 06/01/18 04:20 APTT 35.2 Seconds (25.6-37.1) 06/01/18 04:20 Sodium 136 mmol/l (132-148) 06/01/18 04:20 Potassium 4.9 MMOL/L (3.6-5.0) 06/01/18 04:20 Chloride 96 mmol/L (98-107) L 06/01/18 04:20 Carbon Dioxide 19 mmol/L (22-30) L 06/01/18 04:20 Anion Gap 26 (10-20) H 06/01/18 04:20 BUN 63 mg/dl (9-20) H 06/01/18 04:20 Creatinine 9.5 mg/dl (0.8-1.5) H* 06/01/18 04:20 Est GFR ( Amer) 7 06/01/18 04:20 Est GFR (Non-Af Amer) 6 06/01/18 04:20 POC Glucose (mg/dL) 136 mg/dL (65-110) H 06/01/18 06:14 Random Glucose 119 mg/dL (75-110) H 06/01/18 04:20 Lactic Acid 1.7 MMOL/L (0.7-2.1) 05/25/18 06:10 Calcium 7.5 mg/dL (8.4-10.2) L 06/01/18 04:20 Phosphorus 4.1 mg/dl (2.5-4.5) 05/27/18 04:25 Magnesium 2.3 MG/DL (1.6-2.3) 05/27/18 04:25 Total Bilirubin 6.4 mg/dl (0.2-1.3) H 05/28/18 05:25 AST 23 U/L (17-59) 05/28/18 05:25 ALT 10 U/L (21-72) L D 05/28/18 05:25 Alkaline Phosphatase 241 U/L (38-126) H D 05/28/18 05:25 Troponin I 0.8730 ng/mL (0.00-0.120) H* 05/28/18 09:30 C-Reactive Protein 159.20 mg/L (0.0-9.9) H 05/25/18 06:10 Total Protein 7.0 G/DL (6.3-8.2) 05/28/18 05:25 Albumin 3.0 g/dL (3.5-5.0) L 05/28/18 05:25 Globulin 4.0 gm/dL (2.2-3.9) H 05/28/18 05:25 Albumin/Globulin Ratio 0.8 (1.0-2.1) L 05/28/18 05:25 25-OH Vitamin D Total 23.0 NG/ML (30.0-100.0) L 05/29/18 06:14 Procalcitonin 12.49 NG/ML (0.19-0.49) H 05/29/18 12:29 Hep Bs Antigen Negative (NEGATIVE) 05/29/18 09:50 Hep Bs Antibody, Quant 265 mIU/mL (>or=10) 05/29/18 09:50 Hep B Core IgM Ab Negative (NEGATIVE) 05/29/18 09:50 Hepatitis C Antibody Negative (NEGATIVE) 05/29/18 09:50 Influenza Typ A,B (EIA) Negative for flu a/b (NEGATIVE) 05/25/18 06:20 - Hospital Course Hospital Course: 48 y/o male with PMH of multiple medical problems including ESRD on hemodialysis on TTS, T2DM with neuropathy, PVD, HTN, admitted on 05/25/18 with c/o generalized body aches specially lower back pain, fever and hypotension. Found to be septic with positive blood cultures for S. aureus, patient was initiated on IV antibiotics Vanco and Nafcillin and ECho was obatained with recomendations to perform JUANCARLOS. CT lumbar spine was performed due to c/o back pain and showed suspicious for discitis and osteomyelitis. MRI lumbar spine showed disc degeneration with endplate marrow changes; osteomyelitis could not be excluded, pt could not receive MRI w/ contrast because of ESRD. Patient was found with elevated Troponin I level most likely due to demand ischemia after acute episodes of hypotension vs NSTEMI, patient was treated with IVF, IV Heparin, Plavix and aspirin accordingly and he was evaluated by cardiology Dr Stinson and recommendations were followed. On 06/01/18 patient was trasnferred temporarily to [facility] for a cardiac cath procedure and JUANCARLOS to r/o endocarditis. We were informed by [facility] that following his Cardiac cath and JUANCARLOS, patient had a code blue called on him due to pulseless V tach, we were notified that patient had a ROSCand became responsive after chest compression and defibrillator shock x1. Patient was decided to remain at [facility] for further hemodinamic stabilzation Discharge Plan - Follow Up Plan Condition: GUARDED Disposition: Trans to Other Acute Care Hosp <Flor Izaguirre - Last Filed: 06/02/18 16:02> Provider - Provider Date of Admission: 05/25/18 06:14 Attending physician: Paul Way Hospital Course - Lab Results Lab Results: Micro Results 05/29/18 20:20 Blood-Venous Blood Culture - Preliminary NO GROWTH AFTER 3 DAYS 05/29/18 20:30 Blood-Venous Blood Culture - Preliminary NO GROWTH AFTER 3 DAYS 05/27/18 10:53 Blood-During Dialysis Blood Culture - Final Staphylococcus Aureus 05/27/18 10:53 Blood-During Dialysis Gram Stain - Final 05/27/18 10:53 Blood-During Dialysis S.aureus & Coag-Neg Staph PNA FISH - Final 05/27/18 10:53 Blood-During Dialysis Blood Culture - Final Staphylococcus Aureus 05/27/18 10:53 Blood-During Dialysis Gram Stain - Final 05/26/18 17:36 Naris MRSA Culture (Admit) - Final MRSA NOT DETECTED 05/25/18 06:10 Blood-Venous Blood Culture - Final Staphylococcus Aureus 05/25/18 06:10 Blood-Venous Gram Stain - Final 05/25/18 06:20 Blood-Venous S.aureus & Coag-Neg Staph PNA FISH - Final 05/25/18 06:20 Blood-Venous Blood Culture - Final Staphylococcus Aureus 05/25/18 06:20 Blood-Venous Gram Stain - Final 05/25/18 15:41 Naris MRSA Culture (Admit) - Final MRSA NOT DETECTED Most Recent Lab Values WBC 10.8 K/uL (4.8-10.8) 06/01/18 04:20 RBC 3.56 Mil/uL (4.40-5.90) L 06/01/18 04:20 Hgb 11.2 g/dL (12.0-18.0) L 06/01/18 04:20 Hct 34.1 % (35.0-51.0) L 06/01/18 04:20 MCV 95.8 fl (80.0-94.0) H 06/01/18 04:20 MCH 31.5 pg (27.0-31.0) H 06/01/18 04:20 MCHC 32.9 g/dL (33.0-37.0) L 06/01/18 04:20 RDW 15.8 % (11.5-14.5) H 06/01/18 04:20 Plt Count 118 K/uL (130-400) L 06/01/18 04:20 MPV 9.7 fl (7.2-11.7) 06/01/18 04:20 Neut % (Auto) 88.1 % (50.0-75.0) H 06/01/18 04:20 Lymph % (Auto) 6.7 % (20.0-40.0) L 06/01/18 04:20 [place] % (Auto) 4.5 % (0.0-10.0) 06/01/18 04:20 Eos % (Auto) 0.3 % (0.0-4.0) 06/01/18 04:20 Baso % (Auto) 0.4 % (0.0-2.0) 06/01/18 04:20 Neut # (Auto) 9.5 K/uL (1.8-7.0) H 06/01/18 04:20 Lymph # (Auto) 0.7 K/uL (1.0-4.3) L 06/01/18 04:20 [place] # (Auto) 0.5 K/uL (0.0-0.8) 06/01/18 04:20 Eos # (Auto) 0.0 K/uL (0.0-0.7) 06/01/18 04:20 Baso # (Auto) 0.0 K/uL (0.0-0.2) 06/01/18 04:20 Neutrophils % (Manual) 82 % (42-75) H 05/30/18 05:29 Band Neutrophils % 5 % (0-2) H 05/25/18 06:10 Lymphocytes % (Manual) 10 % (20-50) L 05/30/18 05:29 Monocytes % (Manual) 8 % (0-10) 05/30/18 05:29 Platelet Estimate Decreased (NORMAL) L 05/30/18 05:29 Large Platelets Present 05/30/18 05:29 Hypochromasia (manual) Slight 05/25/18 06:10 Anisocytosis (manual) Slight 05/30/18 05:29 Microcytosis (manual) Slight 05/30/18 05:29 Macrocytosis (manual) Slight 05/30/18 05:29 Ovalocytes Moderate 05/30/18 05:29 ESR 114 mm/hr (0-15) H 05/29/18 12:29 PT 13.3 Seconds (9.8-13.1) H 06/01/18 04:20 INR 1.2 06/01/18 04:20 APTT 35.2 Seconds (25.6-37.1) 06/01/18 04:20 Sodium 136 mmol/l (132-148) 06/01/18 04:20 Potassium 4.9 MMOL/L (3.6-5.0) 06/01/18 04:20 Chloride 96 mmol/L (98-107) L 06/01/18 04:20 Carbon Dioxide 19 mmol/L (22-30) L 06/01/18 04:20 Anion Gap 26 (10-20) H 06/01/18 04:20 BUN 63 mg/dl (9-20) H 06/01/18 04:20 Creatinine 9.5 mg/dl (0.8-1.5) H* 06/01/18 04:20 Est GFR ( Amer) 7 06/01/18 04:20 Est GFR (Non-Af Amer) 6 06/01/18 04:20 POC Glucose (mg/dL) 136 mg/dL (65-110) H 06/01/18 06:14 Random Glucose 119 mg/dL (75-110) H 06/01/18 04:20 Lactic Acid 1.7 MMOL/L (0.7-2.1) 05/25/18 06:10 Calcium 7.5 mg/dL (8.4-10.2) L 06/01/18 04:20 Phosphorus 4.1 mg/dl (2.5-4.5) 05/27/18 04:25 Magnesium 2.3 MG/DL (1.6-2.3) 05/27/18 04:25 Total Bilirubin 6.4 mg/dl (0.2-1.3) H 05/28/18 05:25 AST 23 U/L (17-59) 05/28/18 05:25 ALT 10 U/L (21-72) L D 05/28/18 05:25 Alkaline Phosphatase 241 U/L (38-126) H D 05/28/18 05:25 Troponin I 0.8730 ng/mL (0.00-0.120) H* 05/28/18 09:30 C-Reactive Protein 159.20 mg/L (0.0-9.9) H 05/25/18 06:10 Total Protein 7.0 G/DL (6.3-8.2) 05/28/18 05:25 Albumin 3.0 g/dL (3.5-5.0) L 05/28/18 05:25 Globulin 4.0 gm/dL (2.2-3.9) H 05/28/18 05:25 Albumin/Globulin Ratio 0.8 (1.0-2.1) L 05/28/18 05:25 25-OH Vitamin D Total 23.0 NG/ML (30.0-100.0) L 05/29/18 06:14 Procalcitonin 12.49 NG/ML (0.19-0.49) H 05/29/18 12:29 Hep Bs Antigen Negative (NEGATIVE) 05/29/18 09:50 Hep Bs Antibody, Quant 265 mIU/mL (>or=10) 05/29/18 09:50 Hep B Core IgM Ab Negative (NEGATIVE) 05/29/18 09:50 Hepatitis C Antibody Negative (NEGATIVE) 05/29/18 09:50 Influenza Typ A,B (EIA) Negative for flu a/b (NEGATIVE) 05/25/18 06:20 Attending/Attestation - Attestation I have personally seen and examined this patient.: Yes I have fully participated in the care of the patient.: Yes I have reviewed all pertinent clinical information, including history, physical exam and plan: Yes Notes (Text): 06/02/18 16:02 Seen examined and discussed with resident. Agree with findings and plan as above.
--- NOTE | 2018-06-01 18:08 | CP.PCM.PN ---
Subjective - Date & Time of Evaluation Date of Evaluation: 06/01/18 Time of Evaluation: 17:00 - Subjective Subjective: SEEN ON RENAL F/U S/P C CATH .. S/P COMBATANT DIVER QUALIFIED SEEN IN ICU STAT HD ORDERED Objective - Vital Signs/Intake and Output Vital Signs (last 24 hours): Temp Pulse Resp BP Pulse Ox 97.8 F 88 16 93/56 L 98 06/01/18 06:48 06/01/18 06:48 06/01/18 06:48 06/01/18 06:48 06/01/18 06:48 - Medications Medications: Current Medications Acetaminophen (Tylenol 325mg Tab) 650 mg PO Q6 PRN PRN Reason: Fever >100.4 F Last Admin: 05/30/18 01:25 Dose: 650 mg Acetaminophen (Tylenol 325mg Tab) 650 mg PO Q6 PRN PRN Reason: Fever >100.4 F Aspirin (Ecotrin) 81 mg PO DAILY [facility] Last Admin: 06/01/18 09:35 Dose: Not Given Clopidogrel Bisulfate (Plavix) 75 mg PO DAILY [facility] Last Admin: 06/01/18 09:40 Dose: Not Given Ergocalciferol (Drisdol 50,000 Intl Units Cap) 1 cap PO Q7D [facility] Last Admin: 05/27/18 17:50 Dose: 1 cap Famotidine (Pepcid) 40 mg PO DAILY [facility] Last Admin: 06/01/18 09:40 Dose: Not Given Vancomycin HCl 1 gm/ Sodium (Chloride) 250 mls @ 125 mls/hr IVPB TTS [facility]; Protocol Last Admin: 05/30/18 08:56 Dose: 125 mls/hr Nafcillin Sodium 2 gm/ Sodium (Chloride) 100 mls @ 100 mls/hr IVPB Q6 [facility]; Protocol Last Admin: 06/01/18 03:00 Dose: 100 mls/hr Heparin Sodium/Dextrose (Heparin 25,000 Units/250ml In D5w) 25,000 units in 250 mls @ 10 mls/hr IV .Q24H [facility]; Protocol Last Admin: 05/31/18 15:12 Dose: 10 mls/hr Insulin Human Lispro (Humalog) 0 units SC ACHS [facility]; Protocol Last Admin: 06/01/18 09:39 Dose: Not Given Ketorolac Tromethamine (Toradol) 30 mg IM Q6 PRN PRN Reason: Pain, moderate (4-7) Last Admin: 05/31/18 13:18 Dose: 30 mg Lidocaine (Lidoderm) 1 ea TD DAILY [facility] Last Admin: 06/01/18 09:39 Dose: Not Given Metoprolol Succinate (Toprol Xl) 25 mg PO DAILY [facility] Last Admin: 06/01/18 09:40 Dose: Not Given Sevelamer Carbonate (Renvela) 1.6 gm PO TIDWM [facility] Stop: 06/02/18 23:59 Last Admin: 06/01/18 09:40 Dose: Not Given Vitamin B Complex/Vit C/Folic Acid (Nephro-Sanjay) 1 tab PO DAILY [facility] Last Admin: 06/01/18 09:39 Dose: Not Given - Labs Labs: 06/01/18 04:20 06/01/18 04:20 PT 13.3 Seconds (9.8-13.1) H 06/01/18 04:20 INR 1.2 06/01/18 04:20 APTT 35.2 Seconds (25.6-37.1) 06/01/18 04:20 Assessment and Plan - Assessment and Plan (Free Text) Assessment: ESRD ON HD TTS .. WILL GIVE HD NOW HYPERKALEMIA .. FOR HD NOW S/P CARDIAC CATH .. FOR HD NOW MMP P : HD NOW C/O CURRENT CARE C/O [RESENT MEDS
== END 2018-06-01 07:00 | disposition short-term general hospital (02) | DRG 871 ==
LOC: H.ER 05:07 → H.ERHOLD 06:14 → H.ICU/CCU 08:40 → H.TEL 05-26 19:24
PROVIDERS: ADMIT Internal Medicine; ATTEND Internal Medicine
PROC: 5A1D70Z Performance of Urinary Filtration, Intermittent, Less than 6 Hours Per Day (ICD-10-PCS; principal; 2018-05-25)
DX: A41.01 Sepsis due to Methicillin susceptible Staphylococcus aureus (principal); N18.6 End stage renal disease; L97.429 Non-pressure chronic ulcer of left heel and midfoot with unspecified severity; L97.419 Non-pressure chronic ulcer of right heel and midfoot with unspecified severity; I12.0 Hypertensive chronic kidney disease with stage 5 chronic kidney disease or end stage renal disease; I24.8 Other forms of acute ischemic heart disease; R65.20 Severe sepsis without septic shock; E11.621 Type 2 diabetes mellitus with foot ulcer; E11.40 Type 2 diabetes mellitus with diabetic neuropathy, unspecified; E11.51 Type 2 diabetes mellitus with diabetic peripheral angiopathy without gangrene; Z99.2 Dependence on renal dialysis; E11.22 Type 2 diabetes mellitus with diabetic chronic kidney disease; D63.1 Anemia in chronic kidney disease; E11.65 Type 2 diabetes mellitus with hyperglycemia; Z89.422 Acquired absence of other left toe(s); I51.7 Cardiomegaly; Z89.421 Acquired absence of other right toe(s); D69.59 Other secondary thrombocytopenia; R33.9 Retention of urine, unspecified; L85.9 Epidermal thickening, unspecified; Z89.431 Acquired absence of right foot; Z87.891 Personal history of nicotine dependence; R41.82 Altered mental status, unspecified; T40.605A Adverse effect of unspecified narcotics, initial encounter; M51.37 Other intervertebral disc degeneration, lumbosacral region

== ENCOUNTER 2018-08-10 10:59 | Emergency (ER) | payer MEDICARE ==
[2018-08-10 11:16] VITALS: BMI 30.1
[2018-08-10 11:18] VITALS: RESP 18
--- NOTE | 2018-08-10 12:07 | ED PDOC ---
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 Patient reports wound has become larger with increased drainage in the past few months. He denies any fever, chills, nausea, vomiting, or pain to affect foot. Patient is currently undergoing hemodialysis on Friday//Friday (last session on 08/07/18) and has received 2 doses of IV Vancomycin, thus far. Additionally, patient is requesting a dressing change for nonhealing left hand wound sustained sometime in April; status-post "scab removal" procedure performed by Dr. El last week. PCP: Dr. Miguel Ángel Reilly Podiatry[facility]: Dr. Ravi Ramos Past Medical History Reviewed: Historical Data, Nursing Documentation, Vital Signs Vital Signs: Last Vital Signs Temp 98.5 F 08/10/18 11:17 Pulse 78 08/10/18 11:17 Resp 18 08/10/18 11:17 BP 180/88 H 08/10/18 11:17 Pulse Ox 100 08/10/18 11:17 - Medical History PMH: Depression, Diabetes, HTN, Pneumonia, End Stage Renal Disease, Chronic Kidney Disease Denies: Arthritis, CHF, COPD, HIV, Hypercholesterolemia, Hypothyroidism, Rheumatoid Arthritis - Surgical History Surgical History: Denies: No Surg Hx Other surgeries: right transmetatarsal amputation; left foot 4th digit ampuation - Family History Family History: States: Unknown Family Hx - Home Medications Home Medications: Ambulatory Orders Medication Instructions Recorded Ezetimibe [Zetia] 10 mg PO DAILY 08/10/18 Lisinopril [Zestril] 2.5 mg PO DAILY 08/10/18 - Allergies Allergies/Adverse Reactions: Allergies Allergy/AdvReac Type Severity Reaction Status Date / Time shellfish Allergy ITCHING Uncoded 05/25/18 05:22 Review of Systems ROS Statement: Except As Marked, All Systems Reviewed And Found Negative Constitutional: Negative for: Fever, Chills Gastrointestinal: Negative for: Nausea, Vomiting Musculoskeletal: Positive for: Other (left foot wound with drainage). Negative for: Foot Pain (left-sided) Physical Exam - Reviewed Nursing Documentation Reviewed: Yes Vital Signs Reviewed: Yes - Physical Exam Appears: Positive for: Well, Non-toxic, No Acute Distress Extremity: Positive for: Normal ROM (distal sensation intact to left ankle/toes and left hand/digits), Deformity (right transmetatarsal amputation, and left foot 4th digit ampuation), Other (left heel with 4x2cm open wound with + purulent drainage and foul odor; 5x4cm scabbed wound to dorsal left hand without drainage or erythema) Neurologic/Psych: Positive for: Alert, Oriented. Negative for: Motor/Sensory Deficits - Laboratory Results Result Diagrams: 08/10/18 12:30 08/10/18 12:30 - ECG ECG: Positive for: Viewed By Me (reviewed by ed attending) ECG Rhythm: Positive for: Sinus Rhythm O2 Sat by Pulse Oximetry: 100 (RA) Pulse Ox Interpretation: Normal Medical Decision Making Medical Decision Making: Time: 1210 Initial Plan: * Labs * Blood culture Time: 1212 --Call out for podiatry consult. Time: 1218 --Case discussed with podiatry resident. Agreeable with plan. Will come to evaluate patient at bedside. --Additional EKG/CXR/left foot XR ordered. Time: 1300 --Patient evaluated by podiatry whom recommends admission for OR tomorrow. Time: 1345 --EKG: NSR with nonspecific changes. CXR: (+) cardiomegaly, however, no changes from prior imaging. XR left foot: stable post-op changes. Dr. Leon, [facility], made aware of case and results. Patient is medically stable for hospital admission. ----- Scribe Attestation: Documented by Milagro Kaye, acting as a scribe for Linda Villasenor PA-C. Provider Scribe Attestation: All medical record entries made by the Scribe were at my direction and personally dictated by me. I have reviewed the chart and agree that the record accurately reflects my personal performance of the history, physical exam, medical decision making, and the department course for this patient. I have also personally directed, reviewed, and agree with the discharge instructions and disposition. Disposition - Clinical Impression Clinical Impression: Diabetic foot ulcer - Patient ED Disposition Is Patient to be Admitted: Yes Discussed With : Dionisio Leon Counseled Patient/Family Regarding: Studies Performed, Diagnosis - Disposition Disposition Time: 13:45 Condition: FAIR
[2018-08-10 13:10] LABS: BASO % 1.2 % (0.0-2.0); EOS # 0.1 K/uL (0.0-0.7); EOS % 2.9 % (0.0-4.0); HEMOGLOBIN 9.6 g/dL (12.0-18.0); LYMPH # 0.7 K/uL (1.0-4.3); LYMPH % 19.7 % (20.0-40.0); MEAN CELL VOLUME 98.7 fl (80.0-94.0); MEAN CORPUSCULAR HEMOGLOBIN 32.2 pg (27.0-31.0); MEAN CORPUSCULAR HGB CONC 32.6 g/dL (33.0-37.0); MEAN PLATELET VOLUME 8.1 fl (7.2-11.7); MONO # 0.3 K/uL (0.0-0.8); MONO % 9.7 % (0.0-10.0); NEUT # 2.2 K/uL (1.8-7.0); NEUT % 66.5 % (50.0-75.0); NRBC % 0.1 % (0.0-0.0); RBC 2.98 Mil/uL (4.40-5.90); WHITE BLOOD COUNT 3.4 K/uL (4.8-10.8)
[2018-08-10 13:13] LABS: ALB/GLOB RATIO 0.9 (1.0-2.1); ALBUMIN 3.6 g/dL (3.5-5.0); CALCIUM 7.7 mg/dL (8.4-10.2); INR 1.1
[2018-08-10 13:16] LABS: PARTIAL THROMBOPLASTIN TIME 39.4 Seconds (25.6-37.1)
--- NOTE | 2018-08-10 13:58 | RAD ---
Date of service: 08/10/2018 HISTORY: admit COMPARISON: 05/25/2018. FINDINGS: LUNGS: The lungs are well inflated and clear. PLEURA: No pleural effusions or pneumothorax. CARDIOVASCULAR: There is moderate cardiomegaly and mild pulmonary venous congestion. No aortic atherosclerotic calcifications present. OSSEOUS STRUCTURES: Within normal limits for the patient's age. VISUALIZED UPPER ABDOMEN: Normal. OTHER FINDINGS: None. IMPRESSION: No active pulmonary disease. Moderate cardiomegaly and mild pulmonary venous congestion.
--- NOTE | 2018-08-10 14:03 | RAD ---
Date of service: 08/10/2018 PROCEDURE: Left Foot Radiographs. HISTORY: heel ulcer COMPARISON: 05/25/2018 FINDINGS: BONES: There is redemonstration of postsurgical changes of partial amputation of the 5th metatarsal and near complete amputation of the 4th toe. Residual fragments of the proximal phalanx of the 4th toe are again seen. There is no acute displaced fracture or bone destruction. Bone alignment and mineralization are normal. There is a dorsal calcaneal enthesophyte. There is a small plantar calcaneal spur. JOINTS: Normal. SOFT TISSUES: There is soft tissue swelling in the foot and a defect in the plantar soft tissues of the heel. OTHER FINDINGS: There are atherosclerotic vascular calcifications. IMPRESSION: Stable postsurgical changes in the foot without interval erosive changes or periosteal reaction to suggest acute osteomyelitis. Soft tissue defect in the plantar soft tissues of the heel is corresponding to the heel ulcer.
[2018-08-10 14:22] VITALS: BP 146/78; PULSE 74; TEMP 98
[2018-08-10 15:02] VITALS: O2SAT 100
--- NOTE | 2018-08-10 15:38 | CP.PCM.CON ---
History of Present Illness - History of Present Illness History of Present Illness: Podiatry Consult Note: Dr. Cerrato 48 year old male patient, with PMHx of HTN, DM, ESRD, seen and evaluated for L foot ulceration. Patient is well known to Dr. Cerrato who sent him to the ED for further evaluation. Patient states that he has had a fever on and off for the past week. He has received two doses of Vancomycin through two separate sessions of HD. He notes that he has seen increased drainage and malodor from the area over the past couple of days. He denies any N/V/CP/Chills. Review of Systems - Review of Systems Review of Systems: As per HPI Past Patient History - Infectious Disease Hx of Infectious Diseases: None - Past Medical History & Family History Past Medical History?: Yes - Past Social History Smoking Status: Former Smoker - CARDIAC Hx Congestive Heart Failure: No Hx Hypercholesterolemia: No Hx Hypertension: Yes - PULMONARY Hx Chronic Obstructive Pulmonary Disease (COPD): No Hx Pneumonia: Yes - NEUROLOGICAL Hx Neurological Disorder: Yes Other/Comment: Hx Neuropathy - HEENT Hx HEENT Problems: Yes Hx Cataracts: Yes - RENAL Hx Chronic Kidney Disease: Yes - ENDOCRINE/METABOLIC Hx Hypothyroidism: No - HEMATOLOGICAL/ONCOLOGICAL Hx Human Immunodeficiency Virus (HIV): No - INTEGUMENTARY Hx Dermatological Problems: Yes Other/Comment: Hx Bilateral foot ulcers - MUSCULOSKELETAL/RHEUMATOLOGICAL Hx Arthritis: No Hx Rheumatoid Arthritis: No - GASTROINTESTINAL Hx Gastrointestinal Disorders: No - GENITOURINARY/GYNECOLOGICAL Hx Genitourinary Disorders: No - PSYCHIATRIC Hx Depression: Yes - SURGICAL HISTORY Hx Surgeries: Yes Hx Amputation: Yes (Right TMA, Left 4th toe) Hx Cataract Extraction: Yes (Right eye - 2008) Hx Vascular Access Device: Yes (Right arm A-V fistula) Other/Comment: Hx of Insertion and removal of permacth for HD - ANESTHESIA Hx Anesthesia: Yes Hx Anesthesia Reactions: No Hx Malignant Hyperthermia: No Meds Allergies/Adverse Reactions: Allergies Allergy/AdvReac Type Severity Reaction Status Date / Time shellfish Allergy ITCHING Uncoded 05/25/18 05:22 Physical Exam - Constitutional Appears: Non-toxic, No Acute Distress - Head Exam Head Exam: ATRAUMATIC, NORMOCEPHALIC - Extremities Exam Additional comments: B/L Lower Extremity Exam Vasc: R/L DP 1/4 and PT 2/4, CFT < 3 seconds x 4 to the Left, TG increased temperature noted bilaterally, no pedal edema Ortho: No pain upon palpation, TMA to the right foot, and 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, no pain with ankle range of motion Neuro: Gross and protective sensation diminished b/l Derm: RLE- plantar hyperkeratotic lesion noted with no erythema appreciated no open wounds, no malodor, mild sanginous weeping, no clinical signs of infection, significant plantar and dorsal xerosis noted; LLE- Plantar ulceration measuring approximately 2.0cm x 2.5 cm x .5cm with fibrous base appreciated to to L foot with increased serous drainage, no purulence noted, tunneling appreciated, undermining, no fluctuance appreciated at this time, significant malodor, erythema noted periwound - Neurological Exam Neurological exam: Alert, Oriented x3 - Psychiatric Exam Psychiatric exam: Normal Affect, Normal Mood Results - Vital Signs Recent Vital Signs: Last Vital Signs Temp 98 F 08/10/18 14:22 Pulse 74 08/10/18 14:22 Resp 18 08/10/18 14:22 BP 146/78 08/10/18 14:22 Pulse Ox 100 08/10/18 15:02 - Labs Result Diagrams: 08/10/18 12:30 08/10/18 12:30 Labs: Laboratory Results - last 24 hr 08/10/18 08/10/18 08/10/18 12:30 12:30 12:30 WBC 3.4 L D RBC 2.98 L Hgb 9.6 L Hct 29.4 L MCV 98.7 H D MCH 32.2 H MCHC 32.6 L RDW 15.0 H Plt Count 110 L MPV 8.1 Neut % (Auto) 66.5 Lymph % (Auto) 19.7 L [place] % (Auto) 9.7 Eos % (Auto) 2.9 Baso % (Auto) 1.2 Neut # (Auto) 2.2 Lymph # (Auto) 0.7 L [place] # (Auto) 0.3 Eos # (Auto) 0.1 Baso # (Auto) 0.0 PT 12.0 INR 1.1 APTT 39.4 H Sodium 139 Potassium 4.1 Chloride 97 L Carbon Dioxide 29 Anion Gap 17 BUN 46 H Creatinine 8.4 H* Est GFR ( Amer) 8 Est GFR (Non-Af Amer) 7 Random Glucose 119 H Lactic Acid Calcium 7.7 L Total Bilirubin 1.0 AST 28 ALT 9 L Alkaline Phosphatase 196 H D Total Protein 7.7 Albumin 3.6 Globulin 4.1 H Albumin/Globulin Ratio 0.9 L Blood Type Antibody Screen BBK History Checked 08/10/18 08/10/18 12:30 12:39 WBC RBC Hgb Hct MCV MCH MCHC RDW Plt Count MPV Neut % (Auto) Lymph % (Auto) [place] % (Auto) Eos % (Auto) Baso % (Auto) Neut # (Auto) Lymph # (Auto) [place] # (Auto) Eos # (Auto) Baso # (Auto) PT INR APTT Sodium Potassium Chloride Carbon Dioxide Anion Gap BUN Creatinine Est GFR ( Amer) Est GFR (Non-Af Amer) Random Glucose Lactic Acid 1.5 Calcium Total Bilirubin AST ALT Alkaline Phosphatase Total Protein Albumin Globulin Albumin/Globulin Ratio Blood Type B POSITIVE Antibody Screen Negative BBK History Checked Patient has bt Assessment & Plan - Assessment and Plan (Free Text) Assessment: 48 year old male patient, with PMHx of HTN, DM, ESRD, seen and evaluated for L foot ulceration. Plan: Patient seen and evaluated Discussed patient in detail with Dr. Cerrato Afebnitish, WBC 3.4 Continue with Vanc in HD treatments Cardiology clearance needed for surgical intervention; Dr. Stinson consulted Patient plan for surgery Friday at 1:30 pm for wound debridement Patient being discharged at this time and will arrive through [facility] on Friday morning at 10am Thank you for the consult - Date & Time Date: 08/10/18 Time: 15:37
--- NOTE | 2018-08-10 19:15 | CARD ---
APPROVED REPORT Date of service: 08/10/2018 EKG Measurement Heart [id number] <Conclusion> Sinus rhythm with sinus arrhythmia with 1st degree AV block Left axis deviation Pulmonary disease pattern Nonspecific ST and T wave abnormality Slow R wave progression V1-4 Prolonged QT Abnormal ECG
--- NOTE | 2018-08-10 19:26 | CP.PCM.CON ---
History of Present Illness - History of Present Illness History of Present Illness: Kris Lara DO PGY1 - Internal Medicine Photograph Printer - Cardiology Consult Note for Dr. Stinson 48 year old male with pmHx of HTN, DM, and ESRD on TTR, is referred to ED by refrigerated cargo clerk for an evaluation of chronic left foot ulcer since 04/2018. Chronic LE ulcer has been worsening w/ increase in size as well as new onset drainage. Patient is tentatively to undergo I&D w/ podiatry. Cardiology consulted for risk stratification. Patient denies any complaints of chest pain, sob, palpitations. Patient reports diminished activity due to bilateral heel issues; however he does report he is able to ambulate to bathroom. Remainder of 12 system ROS is otherwise negative. Review of Systems - Review of Systems All systems: reviewed and no additional remarkable complaints except Review of Systems: as per HPI Past Patient History - Infectious Disease Hx of Infectious Diseases: None - Past Medical History & Family History Past Medical History?: Yes - Past Social History Smoking Status: Former Smoker - CARDIAC Hx Congestive Heart Failure: No Hx Hypercholesterolemia: No Hx Hypertension: Yes - PULMONARY Hx Chronic Obstructive Pulmonary Disease (COPD): No Hx Pneumonia: Yes - NEUROLOGICAL Hx Neurological Disorder: Yes Other/Comment: Hx Neuropathy - HEENT Hx HEENT Problems: Yes Hx Cataracts: Yes - RENAL Hx Chronic Kidney Disease: Yes - ENDOCRINE/METABOLIC Hx Hypothyroidism: No - HEMATOLOGICAL/ONCOLOGICAL Hx Human Immunodeficiency Virus (HIV): No - INTEGUMENTARY Hx Dermatological Problems: Yes Other/Comment: Hx Bilateral foot ulcers - MUSCULOSKELETAL/RHEUMATOLOGICAL Hx Arthritis: No Hx Rheumatoid Arthritis: No - GASTROINTESTINAL Hx Gastrointestinal Disorders: No - GENITOURINARY/GYNECOLOGICAL Hx Genitourinary Disorders: No - PSYCHIATRIC Hx Depression: Yes - SURGICAL HISTORY Hx Surgeries: Yes Hx Amputation: Yes (Right TMA, Left 4th toe) Hx Cataract Extraction: Yes (Right eye - 2008) Hx Vascular Access Device: Yes (Right arm A-V fistula) Other/Comment: Hx of Insertion and removal of permacth for HD - ANESTHESIA Hx Anesthesia: Yes Hx Anesthesia Reactions: No Hx Malignant Hyperthermia: No Meds Allergies/Adverse Reactions: Allergies Allergy/AdvReac Type Severity Reaction Status Date / Time shellfish Allergy ITCHING Uncoded 05/25/18 05:22 Physical Exam - Constitutional Appears: Well, Non-toxic, No Acute Distress - Head Exam Head Exam: ATRAUMATIC, NORMOCEPHALIC - Eye Exam Eye Exam: EOMI, PERRL - ENT Exam ENT Exam: Normal Exam - Respiratory Exam Respiratory Exam: Clear to Auscultation Bilateral, NORMAL BREATHING PATTERN - Cardiovascular Exam Cardiovascular Exam: REGULAR RHYTHM, RRR, +S1, +S2 - GI/Abdominal Exam GI & Abdominal Exam: Soft. absent: Tenderness - Extremities Exam Additional comments: LLE bandaged unable to assess RLE w/ trans-metatarsal amputation - Neurological Exam Neurological exam: Alert, Oriented x3 - Psychiatric Exam Psychiatric exam: Normal Affect, Normal Mood - Skin Skin Exam: Dry, Intact, Normal Color, Warm Results - Vital Signs Recent Vital Signs: Last Vital Signs Temp 98 F 08/10/18 14:22 Pulse 74 08/10/18 14:22 Resp 18 08/10/18 14:22 BP 146/78 08/10/18 14:22 Pulse Ox 100 08/10/18 15:02 - Labs Result Diagrams: 08/10/18 12:30 08/10/18 12:30 Labs: Laboratory Results - last 24 hr 08/10/18 08/10/18 08/10/18 12:30 12:30 12:30 WBC 3.4 L D RBC 2.98 L Hgb 9.6 L Hct 29.4 L MCV 98.7 H D MCH 32.2 H MCHC 32.6 L RDW 15.0 H Plt Count 110 L MPV 8.1 Neut % (Auto) 66.5 Lymph % (Auto) 19.7 L [place] % (Auto) 9.7 Eos % (Auto) 2.9 Baso % (Auto) 1.2 Neut # (Auto) 2.2 Lymph # (Auto) 0.7 L [place] # (Auto) 0.3 Eos # (Auto) 0.1 Baso # (Auto) 0.0 PT 12.0 INR 1.1 APTT 39.4 H Sodium 139 Potassium 4.1 Chloride 97 L Carbon Dioxide 29 Anion Gap 17 BUN 46 H Creatinine 8.4 H* Est GFR ( Amer) 8 Est GFR (Non-Af Amer) 7 Random Glucose 119 H Lactic Acid Calcium 7.7 L Total Bilirubin 1.0 AST 28 ALT 9 L Alkaline Phosphatase 196 H D Total Protein 7.7 Albumin 3.6 Globulin 4.1 H Albumin/Globulin Ratio 0.9 L Blood Type Antibody Screen BBK History Checked 08/10/18 08/10/18 12:30 12:39 WBC RBC Hgb Hct MCV MCH MCHC RDW Plt Count MPV Neut % (Auto) Lymph % (Auto) [place] % (Auto) Eos % (Auto) Baso % (Auto) Neut # (Auto) Lymph # (Auto) [place] # (Auto) Eos # (Auto) Baso # (Auto) PT INR APTT Sodium Potassium Chloride Carbon Dioxide Anion Gap BUN Creatinine Est GFR ( Amer) Est GFR (Non-Af Amer) Random Glucose Lactic Acid 1.5 Calcium Total Bilirubin AST ALT Alkaline Phosphatase Total Protein Albumin Globulin Albumin/Globulin Ratio Blood Type B POSITIVE Antibody Screen Negative BBK History Checked Patient has bt Assessment & Plan (1) CAD (coronary artery disease) Status: Acute (2) Diabetic foot ulcer Status: Acute (3) DM type 2, uncontrolled, with lower extremity ulcer Status: Chronic (4) ESRD (end stage renal disease) on dialysis Status: Chronic (5) PVD (peripheral vascular disease) Status: Chronic - Assessment and Plan (Free Text) Plan: Cardiology consulted for cardiac risk stratification for wound debridement of LLE scheduled for Saturday 08/12 Patient is at intermediate risk for perioperative event.
== END 2018-08-10 14:53 | disposition short-term general hospital (02) ==
LOC: H.ER 10:59 → H.ERHOLD 13:36 → UNDOADMIN 13:36 → H.ERHOLD 15:00 → H.MEDSURG1 15:00 → UNDODISIN 15:40
DX: E11.621 Type 2 diabetes mellitus with foot ulcer (principal); L97.529 Non-pressure chronic ulcer of other part of left foot with unspecified severity; I12.0 Hypertensive chronic kidney disease with stage 5 chronic kidney disease or end stage renal disease; N18.6 End stage renal disease; E11.22 Type 2 diabetes mellitus with diabetic chronic kidney disease; E11.65 Type 2 diabetes mellitus with hyperglycemia; E11.51 Type 2 diabetes mellitus with diabetic peripheral angiopathy without gangrene; Z89.431 Acquired absence of right foot; Z89.422 Acquired absence of other left toe(s); Z99.2 Dependence on renal dialysis; Z87.01 Personal history of pneumonia (recurrent); Z87.891 Personal history of nicotine dependence

== ENCOUNTER 2018-08-12 10:43 | Day surgery (SDC) | payer MEDICARE ==
[2018-08-12] MEDS ORDERED: Sodium Chloride 0.9% 1,000 ML IV ONE ×2 (11:52→14:14)
--- NOTE | 2018-08-12 12:39 | CP.PCM.PN ---
Subjective - Date & Time of Evaluation Date of Evaluation: 08/12/18 Time of Evaluation: 12:38 - Subjective Subjective: Podiatry Progress Note: Dr. Cerrato 48 year old male patient, with PMHx of HTN, DM, ESRD, seen in [facility] for evaluation prior to left foot I&D with Dr. Cerrato. Patient states that he has remained NPO since yesterday. He is aware that he is going to surgery with Dr. Cerrato for an I&D and aware of the post-operative plan including staying overnight for observation. Patient states that he has had anesthesia before and denies any adverse reactions. He notes that his foot has been draining more and increased in malodor since he presented earlier in the week. He denies N/V/F/CP. Objective - Vital Signs/Intake and Output Vital Signs (last 24 hours): Temp Pulse Resp BP Pulse Ox 97.9 F 78 20 157/79 H 99 08/12/18 11:59 08/12/18 11:59 08/12/18 11:59 08/12/18 11:59 08/12/18 11:59 - Constitutional Appears: Non-toxic, No Acute Distress - Extremities Exam Additional comments: Vasc: R/L DP 1/4 and PT 2/4, CFT < 3 seconds x 4 to the Left, TG increased temperature noted bilaterally, no pedal edema Ortho: No pain upon palpation, TMA to the right foot, and 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, no pain with ankle range of motion Neuro: Gross and protective sensation diminished b/l Derm: RLE- plantar hyperkeratotic lesion noted with no erythema appreciated no open wounds, no malodor, mild sanginous weeping, no clinical signs of infection, significant plantar and dorsal xerosis noted; LLE- Plantar ulceration measuring approximately 2.0cm x 2.5 cm x .5cm with fibrous base appreciated to to L foot with increased serous drainage, no purulence noted, tunneling appreciated, undermining, no fluctuance appreciated at this time, significant malodor, erythema noted periwound - Neurological Exam Neurological Exam: Alert, Awake, Oriented x3 - Psychiatric Exam Psychiatric exam: Normal Affect, Normal Mood Assessment and Plan - Assessment and Plan (Free Text) Assessment: 48 year old male patient seen in [facility] for evaluation prior to left foot I&D today with Dr. Cerrato. Plan: Pt was seen and examined in SDS Pt NPO status was confirmed All pre-op testing and clearance in chart Pt has exhausted all conservative treatment at this time and is opting for cates rgical intervention Pt was explained procedure and post-operative course All pt's questions were answered to satisfaction No guarantees were made Pt understands all risks, benefits and complications of procedure Pt will follow-up with Dr. Cerrato within 1 week of surgery at the [facility]
--- NOTE | 2018-08-12 12:49 | CP.PCM.HP ---
Past Patient History - Infectious Disease Hx of Infectious Diseases: None - Past Medical History & Family History Past Medical History?: Yes - Past Social History Smoking Status: Former Smoker - CARDIAC Hx Cardiac Disorders: Yes Hx Congestive Heart Failure: No Hx Hypercholesterolemia: No Hx Hypertension: Yes Hx Hypotension: Yes Hx Peripheral Vascular Disease: Yes - PULMONARY Hx Respiratory Disorders: No Hx Chronic Obstructive Pulmonary Disease (COPD): No Hx Pneumonia: Yes (denies) - NEUROLOGICAL Hx Neurological Disorder: Yes HX Cerebrovascular Accident: No Other/Comment: Hx Neuropathy - HEENT Hx HEENT Problems: Yes Hx Cataracts: Yes - RENAL Date of Last Dialysis Treatment: 08/11/18 - ENDOCRINE/METABOLIC Hx Endocrine Disorders: Yes Hx Diabetes Mellitus Type 1: Yes Hx Diabetes Mellitus Type 2: Yes Hx Hypothyroidism: No - HEMATOLOGICAL/ONCOLOGICAL Hx Blood Disorders: No Hx AIDS: No Hx Blood Transfusions: No Hx Human Immunodeficiency Virus (HIV): No Other/Comment: Hx Sepsis - INTEGUMENTARY Hx Dermatological Problems: Yes Other/Comment: Hx Bilateral foot ulcers - MUSCULOSKELETAL/RHEUMATOLOGICAL Hx Musculoskeletal Disorders: Yes Hx Arthritis: No Hx Falls: No Hx Osteomyelitis: Yes Hx Rheumatoid Arthritis: No Other/Comment: johnson syndrome - GASTROINTESTINAL Hx Gastrointestinal Disorders: No - GENITOURINARY/GYNECOLOGICAL Hx Genitourinary Disorders: No - PSYCHIATRIC Hx Emotional Abuse: No Hx Physical Abuse: No - SURGICAL HISTORY Hx Surgeries: Yes Hx Amputation: Yes (Right TMA, Left 4th toe) Hx Cataract Extraction: Yes (Right eye - 2008) Hx Vascular Access Device: Yes (Right arm A-V fistula) Other/Comment: Hx of Insertion and removal of permacth for HD - ANESTHESIA Hx Anesthesia: Yes Hx Anesthesia Reactions: No Hx Malignant Hyperthermia: No Has any member of the family had a problem w/ anesthesia?: No Meds Allergies/Adverse Reactions: Allergies Allergy/AdvReac Type Severity Reaction Status Date / Time shellfish Allergy ITCHING Uncoded 08/12/18 11:34 Results - Vital Signs Recent Vital Signs: Last Vital Signs Temp 97.9 F 08/12/18 11:59 Pulse 78 08/12/18 11:59 Resp 20 08/12/18 11:59 BP 157/79 H 08/12/18 11:59 Pulse Ox 99 08/12/18 11:59 - Labs Labs: Laboratory Results - last 24 hr 08/12/18 11:38 POC Glucose (mg/dL) 93
--- NOTE | 2018-08-12 13:18 | CP.PCM.HP ---
History of Present Illness - History of Present Illness History of Present Illness: 48 y/o male patient with PMH of DM, Diabetic neuropathy, HTN and ESRD on HD (TTS) seen and evaluated at the bedside at the [facility] for infected left heel ulcer. Patient states that few weeks ago he stubbed his left heel to the examination table. He states that his heel got abrasion He states that it got worse and developed ulceration at the left heel. He states that the ulcer is not painful as he has neuropathy and can't feel his foot. He states that the ulcer is draining malodorous pus. He states that he was sent by Dr. Rodriguez to do debridement of the ulcer in the OR today. He states that he is aware of his surgery today. He confirmed his fasting status. He states that he had his dialysis yesterday. Patient reports history of foot infection b/l with multiple amputations. Patient denies any fever, nausea, vomiting, chest pain, SOB, dizziness, palpitation, abdominal pain, blurred vision, urinary symptoms. Patient states that he has episodes of diarrhea. Patient used to follow up with Dr. Rodriguez for his wounds. PMH: DM, Diabetic neuropathy, HTN and ESRD on HD (TTS) PSH: right foot TMA in 2014 due to sepsis , Right AV fistula, Left 4th toe amputation Allg: Shellfish Meds: hydralazine 25mg TID, Lisinopril 10mg BID SH: Ex-smoker, stopped 3 months ago, used to smoke 1 pack/day for long time, denies any alcohol use or illicit drug use FH: Father , DM. Mother, alive, DM Present on Admission - Present on Admission Any Indicators Present on Admission: No History of DVT/PE: No History of Uncontrolled Diabetes: No Urinary Catheter: No Decubitus Ulcer Present: No Review of Systems - Review of Systems Review of Systems: As per HPI Past Patient History - Infectious Disease Hx of Infectious Diseases: None - Past Medical History & Family History Past Medical History?: Yes - Past Social History Smoking Status: Former Smoker - CARDIAC Hx Cardiac Disorders: Yes Hx Congestive Heart Failure: No Hx Hypercholesterolemia: No Hx Hypertension: Yes Hx Hypotension: Yes Hx Peripheral Vascular Disease: Yes - PULMONARY Hx Respiratory Disorders: No Hx Chronic Obstructive Pulmonary Disease (COPD): No Hx Pneumonia: Yes (denies) - NEUROLOGICAL Hx Neurological Disorder: Yes HX Cerebrovascular Accident: No Other/Comment: Hx Neuropathy - HEENT Hx HEENT Problems: Yes Hx Cataracts: Yes - RENAL Date of Last Dialysis Treatment: 08/11/18 - ENDOCRINE/METABOLIC Hx Endocrine Disorders: Yes Hx Diabetes Mellitus Type 1: Yes Hx Diabetes Mellitus Type 2: Yes Hx Hypothyroidism: No - HEMATOLOGICAL/ONCOLOGICAL Hx Blood Disorders: No Hx AIDS: No Hx Blood Transfusions: No Hx Human Immunodeficiency Virus (HIV): No Other/Comment: Hx Sepsis - INTEGUMENTARY Hx Dermatological Problems: Yes Other/Comment: Hx Bilateral foot ulcers - MUSCULOSKELETAL/RHEUMATOLOGICAL Hx Musculoskeletal Disorders: Yes Hx Arthritis: No Hx Falls: No Hx Osteomyelitis: Yes Hx Rheumatoid Arthritis: No Other/Comment: johnson syndrome - GASTROINTESTINAL Hx Gastrointestinal Disorders: No - GENITOURINARY/GYNECOLOGICAL Hx Genitourinary Disorders: No - PSYCHIATRIC Hx Emotional Abuse: No Hx Physical Abuse: No - SURGICAL HISTORY Hx Surgeries: Yes Hx Amputation: Yes (Right TMA, Left 4th toe) Hx Cataract Extraction: Yes (Right eye - 2008) Hx Vascular Access Device: Yes (Right arm A-V fistula) Other/Comment: Hx of Insertion and removal of permacth for HD - ANESTHESIA Hx Anesthesia: Yes Hx Anesthesia Reactions: No Hx Malignant Hyperthermia: No Has any member of the family had a problem w/ anesthesia?: No Meds Allergies/Adverse Reactions: Allergies Allergy/AdvReac Type Severity Reaction Status Date / Time shellfish Allergy ITCHING Uncoded 08/12/18 11:34 Physical Exam - Constitutional Appears: No Acute Distress - Head Exam Head Exam: ATRAUMATIC, NORMOCEPHALIC - Eye Exam Eye Exam: EOMI, Normal appearance, PERRL Pupil Exam: NORMAL ACCOMODATION, PERRL - ENT Exam ENT Exam: Mucous Membranes Moist, Normal Exam - Neck Exam Neck exam: Positive for: Normal Inspection - Respiratory Exam Respiratory Exam: Clear to Auscultation Bilateral, Wheezes - Cardiovascular Exam Cardiovascular Exam: +S1, +S2 - GI/Abdominal Exam GI & Abdominal Exam: Normal Bowel Sounds, Soft - Extremities Exam Additional comments: R Av fistula b/l LEs venous stasis changes Right TMA L 4th toe amputation Left heel ulcer, Pain on palpation, positive malodor - Back Exam Back exam: NORMAL INSPECTION - Neurological Exam Neurological exam: Alert, Oriented x3 - Psychiatric Exam Psychiatric exam: Normal Affect, Normal Mood - Skin Skin Exam: Dry, Warm Results - Vital Signs Recent Vital Signs: Last Vital Signs Temp 97.9 F 08/12/18 11:59 Pulse 78 08/12/18 11:59 Resp 20 08/12/18 11:59 BP 157/79 H 08/12/18 11:59 Pulse Ox 99 08/12/18 11:59 - Labs Labs: Laboratory Results - last 24 hr 08/12/18 11:38 POC Glucose (mg/dL) 93 Assessment & Plan - Assessment and Plan (Free Text) Assessment: 48 y/o male patient with PMH of DM, Diabetic neuropathy, HTN and ESRD on HD (TTS) admitted for infected left heel ulcer. Plan: Left heel infected ulcer - C/w Vancomycin 1 gm TTS after dialysis - Start ciprofloxacin 400 mg Q12 - Follow up podiatry recommendations, Dr. Rodriguez consult appreciated - Patient is going to OR today for I&D with Dr. Rodriguez - Wound Cx: Klebsiella oxytoca, Enterococcus fecalis - WBCs: 3.4 - F/U Morning labs. ESRD - Nephro Consult, Dr. Koo, f/u recs - HD tomorrow. - F/U Morning labs. HTN - C/w home medication; hydralazine 25mg TID, Lisinopril 10mg BID DM - F/u HBA1C. DVT PPX - SCD for now. - Heparin 5000 SC Q8H start 5 pm tomorrow. - Date & Time Date: 08/12/18 Time: 13:33
[2018-08-12] MEDS ORDERED: Bupivacaine 0.5% Inj(30mL) ONE (13:19)
[2018-08-12] MEDS ORDERED: Lidocaine 1% Inj (20ml) ONE (13:19)
[2018-08-12] MEDS ORDERED: Povidone Iodine Topical 10% Sol ONE (13:20)
[2018-08-12] MEDS ORDERED: Midazolam 2 MG/2 ML VIAL ONE (13:20)
[2018-08-12] MEDS ORDERED: Lidocaine 1% 5ml Abboject ONE (13:20)
[2018-08-12] MEDS ORDERED: Lidocaine 2% Jelly (5 ml) TOP ONE (13:20)
[2018-08-12] MEDS ORDERED: Propofol 10 mg/ml Inj (20 ML) ONE (13:20)
[2018-08-12] MEDS ORDERED: Dextrose 50% SYRINGE Inj (50 ml) IV PRN (13:59)
[2018-08-12] MEDS ORDERED: Glucagon Recombinant 1 mg Inj IM PRN (13:59)
[2018-08-12] MEDS ORDERED: Oxycodone/Acetaminophen 5/325 mg Tab PO PRN (14:13)
[2018-08-12] MEDS ORDERED: HYDROmorphone 0.5 mg/0.5 ml ISec IVP PRN (14:18)
--- NOTE | 2018-08-12 14:23 | PCM.SURG1 ---
Surgeon's Initial Post Op Note - Surgeon's Notes Surgeon: Dr. Cerrato, DPM Hospital Housekeeper: Linda Martinez PGY1 Type of Anesthesia: General LMA Pre-Operative Diagnosis: L heel nonhealing ulceration Operative Findings: See Dictation. Post-Operative Diagnosis: Same Operation Performed: Left heel incision and drainage with Misonix Specimen/Specimens Removed: None Estimated Blood Loss: EBL {In ML}: 5 Blood Products Given: N/A Drains Used: No Drains Date of Surgery/Procedure: 08/12/18 Time of Surgery/Procedure: 14:23
[2018-08-12] MEDS ORDERED: Dextrose 50% SYRINGE Inj (50 ml) IVP ONE (14:24)
[2018-08-12] MEDS ORDERED: Dextrose 50% SYRINGE Inj (50 ml) ONE (14:24)
[2018-08-12] MEDS: Insulin Regular 100 units/ml SC SCH ×2 (16:30→22:00)
[2018-08-12] MEDS ORDERED: Ciprofloxacin 400mg/200ml D5W 400 MG/200 ML BAG IVPB SCH (21:00)
[2018-08-13 00:26] VITALS: RESP 20
[2018-08-13 07:17] LABS: EOS # 0.1 K/uL (0.0-0.7); EOS % 2.6 % (0.0-4.0); HEMOGLOBIN 9.5 g/dL (12.0-18.0); LYMPH # 0.8 K/uL (1.0-4.3); LYMPH % 22.2 % (20.0-40.0); MEAN CELL VOLUME 97.5 fl (80.0-94.0); MEAN CORPUSCULAR HEMOGLOBIN 32.2 pg (27.0-31.0); MEAN PLATELET VOLUME 8.3 fl (7.2-11.7); MONO # 0.4 K/uL (0.0-0.8); MONO % 11.4 % (0.0-10.0); NEUT # 2.1 K/uL (1.8-7.0); NEUT % 62.8 % (50.0-75.0); RBC 2.95 Mil/uL (4.40-5.90); RED CELL DISTRIBUTION WIDTH 15.3 % (11.5-14.5); WHITE BLOOD COUNT 3.4 K/uL (4.8-10.8)
[2018-08-13 07:30] LABS: CALCIUM 7.4 mg/dL (8.4-10.2)
[2018-08-13 07:42] VITALS: BP 130/74; PULSE 79; TEMP 98.3; O2SAT 95
--- NOTE | 2018-08-13 08:24 | CP.PCM.PN ---
Subjective - Date & Time of Evaluation Date of Evaluation: 08/13/18 Time of Evaluation: 08:24 - Subjective Subjective: Podiatry Consult Note: Dr. Cerrato 48 year old male patient, seen and evaluated POD#1 L heel wound debridement. Patient resting comfortably, eating breakfast, and in NAD. He states that he feels well today and noticed a decrease in drainage from his L foot. He denies any acute pedal complaints at this time. Denies N/V/F/SOB/CP. Objective - Vital Signs/Intake and Output Vital Signs (last 24 hours): Temp Pulse Resp BP Pulse Ox 98.3 F 79 20 130/74 95 08/13/18 07:42 08/13/18 07:42 08/13/18 07:42 08/13/18 07:42 08/13/18 07:42 - Medications Medications: Current Medications Acetaminophen (Tylenol 325mg Tab) 650 mg PO Q4 PRN PRN Reason: Pain, moderate (4-7) Acetaminophen (Tylenol 325mg Tab) 325 mg PO Q4 PRN PRN Reason: Pain, Mild (1-3) Dextrose (Dextrose 50% Inj) 0 ml IV STAT PRN; Protocol PRN Reason: Hypoglycemia Protocol Dextrose (Glutose 15) 0 gm PO ONCE PRN; Protocol PRN Reason: Hypoglycemia Protocol Ezetimibe (Zetia) 10 mg PO DAILY LUIS M Glucagon (Glucagen Diagnostic Kit) 0 mg IM STAT PRN; Protocol PRN Reason: Hypoglycemia Protocol Heparin Sodium (Porcine) (Heparin) 5,000 units SC Q8 LUIS M; Protocol Vancomycin HCl 1 gm/ Sodium (Chloride) 250 mls @ 125 mls/hr IVPB TTS LUIS M; P rotocol Gentamicin Sulfate/Sodium Chloride (Gentamicin 80mg/50ml Ns) 80 mg in 50 mls @ 50 mls/hr IVPB TTS LUIS M; Protocol Insulin Human Regular (Humulin R) 0 units SC ACHS LUIS M; Protocol Last Admin: 08/12/18 22:00 Dose: Not Given Lisinopril (Zestril) 2.5 mg PO DAILY LUIS M Oxycodone/Acetaminophen (Percocet 5/325 Mg Tab) 1 tab PO Q4 PRN PRN Reason: Pain, severe (8-10) Stop: 08/15/18 14:14 - Labs Labs: 08/13/18 07:07 08/13/18 07:07 - Constitutional Appears: Non-toxic, No Acute Distress - Head Exam Head Exam: ATRAUMATIC, NORMOCEPHALIC - Extremities Exam Additional comments: LLE focused exam, R TMA: Vasc: DP 1/4 and PT 2/4, CFT < 3 seconds x 4 to the Left, TG warm to warm Ortho: No pain upon palpation, TMA to the right foot, and 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, no pain with ankle range of motion Neuro: Gross and protective sensation diminished b/l Derm: RLE- no erythema appreciated no open wounds, no malodor, mild sanginous weeping, no clinical signs of infection, significant plantar and dorsal xerosis noted; LLE- Plantar ulceration measuring approximately 2.0cm x 2.0 cm x 1 cm with granular base appreciated to to L foot with no drainage, no purulence noted, mild tunneling appreciated in inferior aspect, no fluctuance appreciated at this time, no malodor appreciated - Neurological Exam Neurological Exam: Alert, Awake, Oriented x3 - Psychiatric Exam Psychiatric exam: Normal Affect, Normal Mood Assessment and Plan - Assessment and Plan (Free Text) Assessment: 48 year old male patient POD #1 L heel wound debridement Plan: Patient seen and evaluated Discussed patient in detail with Dr. Cerrato VSJono, absent leuckoystosis Local wound care: Xeroform, DSD, Kerlix Continue with IV abx, Vanco and Genta, during HD treatments Patient to ambulate in surgical shoe with the aid of a walker Patient to continue with at home dressing changes with visiting nurse: Mondays and Wednesdays Upon d/c patient to follow up with Dr. Cerrato in [place] [facility] on
[2018-08-13] MEDS ORDERED: Gentamicin 80mg/50ml NS 80 MG/50 ML BAG IVPB SCH (09:00)
[2018-08-13] MEDS: Insulin Regular 100 units/ml SC SCH (09:24)
--- NOTE | 2018-08-13 10:41 | CP.PCM.DIS ---
<Romeo Campos - Last Filed: 08/13/18 10:19> Provider - Provider Attending physician: Ravi Rodriguez DPM Consults: 08/12/18 13:50 Nephrology Consult Routine Comment: Consulting Provider: Judah Koo Consulting Physician: Judah Koo Reason for Consult: ESRD patient on Dialysis admitted for L foot infection. 08/12/18 16:53 Social Work Referral Routine Comment: pt on HD [id number] Physician Instructions: Reason For Exam: pt on HD [id number] Time Spent in preparation of Discharge (in minutes): 30 Hospital Course - Lab Results Lab Results: Most Recent Lab Values WBC 3.4 K/uL (4.8-10.8) L 08/13/18 07:07 RBC 2.95 Mil/uL (4.40-5.90) L 08/13/18 07:07 Hgb 9.5 g/dL (12.0-18.0) L 08/13/18 07:07 Hct 28.8 % (35.0-51.0) L 08/13/18 07:07 MCV 97.5 fl (80.0-94.0) H 08/13/18 07:07 MCH 32.2 pg (27.0-31.0) H 08/13/18 07:07 MCHC 33.0 g/dL (33.0-37.0) 08/13/18 07:07 RDW 15.3 % (11.5-14.5) H 08/13/18 07:07 Plt Count 97 K/uL (130-400) L 08/13/18 07:07 MPV 8.3 fl (7.2-11.7) 08/13/18 07:07 Neut % (Auto) 62.8 % (50.0-75.0) 08/13/18 07:07 Lymph % (Auto) 22.2 % (20.0-40.0) 08/13/18 07:07 Ramsey % (Auto) 11.4 % (0.0-10.0) H 08/13/18 07:07 Eos % (Auto) 2.6 % (0.0-4.0) 08/13/18 07:07 Baso % (Auto) 1.0 % (0.0-2.0) 08/13/18 07:07 Neut # (Auto) 2.1 K/uL (1.8-7.0) 08/13/18 07:07 Lymph # (Auto) 0.8 K/uL (1.0-4.3) L 08/13/18 07:07 Ramsey # (Auto) 0.4 K/uL (0.0-0.8) 08/13/18 07:07 Eos # (Auto) 0.1 K/uL (0.0-0.7) 08/13/18 07:07 Baso # (Auto) 0.0 K/uL (0.0-0.2) 08/13/18 07:07 Sodium 139 mmol/l (132-148) 08/13/18 07:07 Potassium 4.5 MMOL/L (3.6-5.0) 08/13/18 07:07 Chloride 96 mmol/L (98-107) L 08/13/18 07:07 Carbon Dioxide 31 mmol/L (22-30) H 08/13/18 07:07 Anion Gap 17 (10-20) 08/13/18 07:07 BUN 40 mg/dl (9-20) H 08/13/18 07:07 Creatinine 7.4 mg/dl (0.8-1.5) H* 08/13/18 07:07 Est GFR ( Amer) 10 08/13/18 07:07 Est GFR (Non-Af Amer) 8 08/13/18 07:07 POC Glucose (mg/dL) 80 mg/dL (65-110) 08/13/18 05:34 Random Glucose 91 mg/dL (75-110) 08/13/18 07:07 Calcium 7.4 mg/dL (8.4-10.2) L 08/13/18 07:07 Phosphorus 5.7 mg/dl (2.5-4.5) H 08/13/18 05:35 Magnesium 2.2 MG/DL (1.6-2.3) 08/13/18 05:35 - Hospital Course Hospital Course: 48 y/o male patient with PMH of DM, Diabetic neuropathy, HTN and ESRD on HD (TTS) admitted for infected left heel ulcer. Patient went to the OR yesterday with Dr. Rodriguez (podiatry) for I&D and debridement of the left foot ulcer. Patient is on Vancomycin 1 gm TTS post-dialysis and Ciprofloxacin 400 mg IV QD. Ciprofloxacin changed to gentamycin 80mg IV post-dialysis. Patient will do his dialysis session tomorrow and receive his antibiotics. During his hospital stay patient didn't have any acute events. Patient to follow up with Dr. Rodriguez upon discharge. Assessment: 48 y/o male patient with PMH of DM, Diabetic neuropathy, HTN and ESRD on HD (TTS) admitted for infected left heel ulcer. Plan: Left heel infected ulcer - C/W Vancomycin 500 gm IV TTS post-dialysis for 2 weeks. - C/W Gentamycin 80 mg IV TTS post-dialysis for 2 weeks. - Discontinue ciprofloxacin 400 mg Q12. - Follow up podiatry recommendations, Dr. Rodriguez consult appreciated. - Patient had I&D and ulcer debridement in the OR yesterday with Dr. Rodriguez. - Wound Cx: Klebsiella oxytoca, Enterococcus fecalis - WBCs: 3.4. - Patient instructed to keep the foot dressing C/D/I. - C/W Local wound care. - Patient to follow up with Dr. Rodriguez upon discharge. Right Hand ulcer - Follow up with Dr. El at [place] [facility]. - Local wound - Keep the dressing at the hand C/D/I. Discharge Exam - Head Exam Head Exam: ATRAUMATIC, NORMOCEPHALIC - Eye Exam Eye Exam: EOMI, Normal appearance, PERRL Pupil Exam: NORMAL ACCOMODATION, PERRL - ENT Exam ENT Exam: Mucous Membranes Moist - Neck Exam Neck exam: Full Rom - Respiratory Exam Respiratory Exam: Clear to PA & Lateral, NORMAL BREATHING PATTERN, UNREMARKABLE - Cardiovascular Exam Cardiovascular Exam: +S1, +S2 - GI/Abdominal Exam GI & Abdominal Exam: Normal Bowel Sounds, Unremarkable - Extremities Exam Extremities exam: normal capillary refill Additional comments: R arm A-v fistula Ulcer noted in the dorsum of the R hand with granular and necrotic base, mild serous drainage, No malodor. b/l LEs venous stasis changes Right TMA L 4th toe amputation Left heel ulcer. - Back Exam Back exam: NORMAL INSPECTION - Neurological Exam Neurological exam: Alert, Oriented x3 - Psychiatric Exam Psychiatric exam: Normal Affect, Normal Mood - Skin Skin Exam: Dry, Warm Discharge Plan - Discharge Medications Prescriptions: Gentamicin 80 mg in 0.9% NS [Gentamicin 80mg/100ml NS] 80 mg IV TTS 6 Days #6 bag Vancomycin 500mg in NS 500 mg IV TTS 6 Days #6 bag - Follow Up Plan Condition: GOOD Disposition: HOME/ ROUTINE Instructions: Debridement of a Wound or Burn (DC), Renal Failure Diet (DC), H ypertension (DC), Hypertension (GEN) Additional Instructions: follow up with primary MD and cook helper preserves 1 week [place] [facility] for wound care. Referrals: Ravi Rodriguez DPM [Staff Provider] - Otilio Beckham MD [Family Provider] - <Joanne Grant - Last Filed: 08/13/18 16:26> Provider - Provider Attending physician: Ravi Rodriguez DPM Consults: 08/12/18 13:50 Nephrology Consult Routine Comment: Consulting Provider: Juadh Koo Consulting Physician: Judah Koo Reason for Consult: ESRD patient on Dialysis admitted for L foot infection. 08/12/18 16:53 Social Work Referral Routine Comment: pt on HD [facility] Physician Instructions: Reason For Exam: pt on HD [facility] Hospital Course - Lab Results Lab Results: Most Recent Lab Values WBC 3.4 K/uL (4.8-10.8) L 08/13/18 07:07 RBC 2.95 Mil/uL (4.40-5.90) L 08/13/18 07:07 Hgb 9.5 g/dL (12.0-18.0) L 08/13/18 07:07 Hct 28.8 % (35.0-51.0) L 08/13/18 07:07 MCV 97.5 fl (80.0-94.0) H 08/13/18 07:07 MCH 32.2 pg (27.0-31.0) H 08/13/18 07:07 MCHC 33.0 g/dL (33.0-37.0) 08/13/18 07:07 RDW 15.3 % (11.5-14.5) H 08/13/18 07:07 Plt Count 97 K/uL (130-400) L 08/13/18 07:07 MPV 8.3 fl (7.2-11.7) 08/13/18 07:07 Neut % (Auto) 62.8 % (50.0-75.0) 08/13/18 07:07 Lymph % (Auto) 22.2 % (20.0-40.0) 08/13/18 07:07 Ramsey % (Auto) 11.4 % (0.0-10.0) H 08/13/18 07:07 Eos % (Auto) 2.6 % (0.0-4.0) 08/13/18 07:07 Baso % (Auto) 1.0 % (0.0-2.0) 08/13/18 07:07 Neut # (Auto) 2.1 K/uL (1.8-7.0) 08/13/18 07:07 Lymph # (Auto) 0.8 K/uL (1.0-4.3) L 08/13/18 07:07 Ramsey # (Auto) 0.4 K/uL (0.0-0.8) 08/13/18 07:07 Eos # (Auto) 0.1 K/uL (0.0-0.7) 08/13/18 07:07 Baso # (Auto) 0.0 K/uL (0.0-0.2) 08/13/18 07:07 Sodium 139 mmol/l (132-148) 08/13/18 07:07 Potassium 4.5 MMOL/L (3.6-5.0) 08/13/18 07:07 Chloride 96 mmol/L (98-107) L 08/13/18 07:07 Carbon Dioxide 31 mmol/L (22-30) H 08/13/18 07:07 Anion Gap 17 (10-20) 08/13/18 07:07 BUN 40 mg/dl (9-20) H 08/13/18 07:07 Creatinine 7.4 mg/dl (0.8-1.5) H* 08/13/18 07:07 Est GFR ( Amer) 10 08/13/18 07:07 Est GFR (Non-Af Amer) 8 08/13/18 07:07 POC Glucose (mg/dL) 80 mg/dL (65-110) 08/13/18 05:34 Random Glucose 91 mg/dL (75-110) 08/13/18 07:07 Hemoglobin A1c 4.9 % (4.2-6.5) 08/13/18 05:35 Calcium 7.4 mg/dL (8.4-10.2) L 08/13/18 07:07 Phosphorus 5.7 mg/dl (2.5-4.5) H 08/13/18 05:35 Magnesium 2.2 MG/DL (1.6-2.3) 08/13/18 05:35 Attending/Attestation - Attestation I have personally seen and examined this patient.: Yes I have fully participated in the care of the patient.: Yes I have reviewed all pertinent clinical information, including history, physical exam and plan: Yes Notes (Text): Left Heel Infected Ulcer , s/p I &D/Debridement - ulcer looks clean, pt is afebrile, no leukocytosis - received IV Vanco and Cipro - will d/c home on IV Vanco and Genta after each HD x 5 doses - pt will ff up with Dr Rodriguez - Wilbur RN for Wound Care Left Hand Dorsum superficial Ulceration ( POA) -the ulcer is in the left and not right hand Pt follows up with Dr El at [place] for wound care - he will be on IV abx after HD - Wound Care ESRD on HD
--- NOTE | 2018-08-14 07:20 | OP ---
PROCEDURE DATE: 08/13/2018 PREOPERATIVE DIAGNOSIS: Left heel nonhealing ulceration. POSTOPERATIVE DIAGNOSIS: Left heel nonhealing ulceration. NAME OF PROCEDURE: Left heel wound debridement with removal of all nonviable tissue with the use of Misonix. SURGEON: Ravi Ramos DPM RCIS: Hilton Martinez, PGY-1. ANESTHESIA: General LMA. ANESTHESIOLOGIST: Dr. Erik MD INDICATIONS: The patient is a 48-year-old male with the above diagnosis. The patient has exhausted all conservative treatment at this time and now requires surgical intervention. The patient signed the consent after careful explanation of risks, benefits, complications, and alternatives for surgical procedure. No guarantees were given nor implied. N.p.o. status was confirmed prior to taking the patient to the operating room. PREPARATION: The patient was brought to the operating room and placed on the operating room table in the supine position. Time-out was performed for identification of the correct patient and procedure. After induction of general anesthesia, the left lower extremity was then prepped and draped in the normal sterile manner and the procedure began. No tourniquet was used during the procedure. DESCRIPTION OF PROCEDURE: Attention was directed to the left plantar heel wound where an ulceration was appreciated, measuring approximately 2 cm x 2.5 cm x 1 cm. The ulceration was noted to be composed of granular and fibrotic tissue with no visible bone exposure. Mild serous drainage was noted to the wound bed. Mechanical debridement was performed with an Adson pickup and a #15 blade to remove all fibrotic and nonviable tissue from the wound margins. Next, using the Misonix, debridement probe handle, the ulcer was excisionally debrided of all superficial fibrotic and nonviable tissues. The Misonix probe was then utilized to excise any deeper remaining fibrotic and nonviable tissue to a fresh healthy bleeding granular tissue. The site was then copiously irrigated with normal sterile saline and dressed with Xeroform, 4x4, gauze, and Kerlix. POSTOPERATIVE CONDITION: The patient tolerated anesthesia and procedure well and was escorted to the recovery room with all vital signs stable and neurovascular status intact to the left lower extremity. The patient is to toe-touch weightbear to the left forefoot in a surgical shoe with the use of his walker. Podiatry will continue to follow the patient while in-house and will be seen by Dr. Ramos at [facility]. HILTON MCHUGHLLI Ravi Ramos DPM KEVIN
== END 2018-08-13 11:45 | disposition home or self-care (01) ==
LOC: H.OPSURG 10:43 → H.MEDSURG1 16:41 → H.OPSURG 08-13 11:45
PROVIDERS: ATTEND Podiatrist Foot & Ankle Surgery
DX: L97.429 Non-pressure chronic ulcer of left heel and midfoot with unspecified severity (principal); E78.5 Hyperlipidemia, unspecified; I10 Essential (primary) hypertension; E11.22 Type 2 diabetes mellitus with diabetic chronic kidney disease; I12.0 Hypertensive chronic kidney disease with stage 5 chronic kidney disease or end stage renal disease; N18.6 End stage renal disease; Z99.2 Dependence on renal dialysis; E11.40 Type 2 diabetes mellitus with diabetic neuropathy, unspecified; Z87.891 Personal history of nicotine dependence; L98.491 Non-pressure chronic ulcer of skin of other sites limited to breakdown of skin; Z89.422 Acquired absence of other left toe(s); Z98.890 Other specified postprocedural states; E11.51 Type 2 diabetes mellitus with diabetic peripheral angiopathy without gangrene
CPT/HCPCS: 11042; 36415; 80048; 82948; 83036; 83735; 84100; 85025; 97162; G8978; G8979; J0744; J1580; J2250; J2405; J2704; J2765; J3010; J7030

== ENCOUNTER 2018-12-01 12:40 | Emergency (ER) | payer MEDICARE ==
[2018-12-01 12:40] VITALS: BMI 30.1
[2018-12-01 13:07] VITALS: PULSE 74; RESP 16; TEMP 97; O2SAT 96
[2018-12-01 13:08] VITALS: BP 180/83
[2018-12-01] MEDS ORDERED: Absorbable Gelatin Sponge Size 12-7 ONE (13:14)
--- NOTE | 2018-12-01 13:44 | ED PDOC ---
HPI: Wound Care - HPI Time Seen by Provider: 12/01/18 13:31 Chief Complaint (Nursing): Wound Check Chief Complaint (Provider): bleeding neck wound History Per: Patient Exam Limitations: no limitations Additional Complaint(s): 48 y/o Male with hx of ESRD on HD (//Fri), HTN and DM who presents with bleeding neck wound since yesterday. Pt states that he shaved with electric razor 3 days ago and began having oozing from neck stating that it was a tiny amount but persisted. Denies fever and chills, bleeding profusely. He states that he missed his last dialysis session. Past Medical History Reviewed: Historical Data, Nursing Documentation, Vital Signs Vital Signs: Last Vital Signs Temp 97.0 F L 12/01/18 13:03 Pulse 74 12/01/18 13:03 Resp 16 12/01/18 13:03 BP 180/83 H 12/01/18 13:03 Pulse Ox 96 12/01/18 13:03 Primary Care Provider: Miguel Ángel Reilly - Medical History PMH: Depression, Diabetes, HTN, Pneumonia (denies), End Stage Renal Disease, Chronic Kidney Disease Denies: Arthritis, CHF, COPD, HIV, Hypercholesterolemia, Hypothyroidism, Rheumatoid Arthritis - Family History Family History: States: Unknown Family Hx - Home Medications Home Medications: Ambulatory Orders Medication Instructions Recorded Ezetimibe [Zetia] 10 mg PO DAILY 08/10/18 Lisinopril [Zestril] 2.5 mg PO DAILY 08/10/18 Gentamicin 80 mg in 0.9% NS 80 mg IV TTS 6 Days #6 bag 08/13/18 [Gentamicin 80mg/100ml NS] Vancomycin 500mg in NS 500 mg IV TTS 6 Days #6 bag 08/13/18 - Allergies Allergies/Adverse Reactions: Allergies Allergy/AdvReac Type Severity Reaction Status Date / Time shellfish Allergy ITCHING Uncoded 12/01/18 13:03 Review of Systems Musculoskeletal: Positive for: Neck Pain (neck bleeding) Physical Exam - Reviewed Nursing Documentation Reviewed: Yes Vital Signs Reviewed: Yes - Physical Exam Appears: Positive for: Well Neck: Positive for: Painless ROM, Supple. Negative for: Normal (center of neck with mild ecchymosis and tiny ooze of blood. No erythema/edema/purulent drainage. ) Cardiovascular/Chest: Positive for: Regular Rate, Rhythm Respiratory: Positive for: Normal Breath Sounds - ECG O2 Sat by Pulse Oximetry: 96 Medical Decision Making Medical Decision Making: Gel foam applied to punctate lesion with ooze and gauze dressing applied. Pt advised to have dialysis immediately as is likely uremic, which is worsening bleeding tendency. Disposition - Clinical Impression Clinical Impression: Excoriation - Patient ED Disposition Is Patient to be Admitted: No - Disposition Referrals: [facility] [Outside] Disposition: Routine/Home Disposition Time: 13:57 Condition: STABLE Additional Instructions: Please go to your dialysis session as scheduled today as will help with oozing. Keep bandage clean and dry until tomorrow and then remove and wash gently with soap and water. If begins to ooze again, place direct pressure for 20 min without stopping. Return to ER if bleeding persists despite these measures. Forms: [employer] (Luxembourgish) Print Language: [email or web address]
== END 2018-12-01 13:57 | disposition home or self-care (01) ==
LOC: H.ER 12:40
DX: F42.4 Excoriation (skin-picking) disorder (principal); I12.0 Hypertensive chronic kidney disease with stage 5 chronic kidney disease or end stage renal disease; Z99.2 Dependence on renal dialysis